=== PATIENT | female | born 1940 | race Caucasian/White ===

== ENCOUNTER → 2018-07-29 11:14 | Outpatient (CLI) | payer MEDICARE, OTHER, SELFPAY ==
[2018-07-29 14:38] LABS: Absolute Lymphocyte Count 2.22 X10^3/ul (0.83-4.51); Absolute Neutrophil Count 3.9 X10^3/uL (2.0-7.7); Basophil# 0.02 X10^3/uL; Basophil% 0.3 % (0-1); Eosinophil# 0.14 X10^3/uL; Hematocrit 41.6 % (37-47); Hemoglobin 13.6 g/dl (12.0-15.0); Lymphocyte # 2.22 X10^3/ul (4.0); Lymphocyte % 32.2 % (19-41); Mean Corp Hgb Conc 32.7 g/gl (32-36); Mean Corpuscular Hgb 31.9 pg (27.0-32.0); Mean Corpuscular Volume 97.4 fL (81-99); Mean Platelet Vol. 10.2 fl (6.2-12.0); Monocyte# 0.61 X10^3/uL; Monocyte% 8.8 % (0-10); Neutrophil % 56.6 % (47-70); Platelet Count 202 K/mm3 (150-450); RBC Distribution Width CV 13.3 % (11.6-14.6); RBC Distribution Width SD 46.9 fl (35.1-43.9); Red Blood Count 4.27 M/mm3 (4.2-5.4); White Blood Count 6.9 K/mm3 (4.4-11.0)
[2018-07-29 14:39] LABS: POSITIVE COUNT NO; POSITIVE DIFFERENTIAL NO; POSITIVE MORPHOLOGY NO
[2018-07-29 14:54] LABS: Albumin, Serum 3.6 g/dL (3.2-5.0)
== END ==
PROVIDERS: Family Provider Family Medicine; PCP Family Medicine; Referring Provider Specialist; Visit Provider Specialist
DX: M16.11 Unilateral primary osteoarthritis, right hip (principal)
CPT/HCPCS: 36415; 82040; 85025

== ENCOUNTER → 2018-08-05 12:42 | Outpatient (CLI) | payer MEDICARE, OTHER, SELFPAY ==
--- NOTE | 2018-08-05 12:00 | BRBX_PTH ---
PATIENT: DESTINI SAM LOC: [facility] U#:[id number] AGE/SX: 85/F ROOM: RE08/05/[address]: Dr. Daysi Fernandez MD : 1940 BED: DIS: SPEC #: [id number] RECD: 08/05/18 14:02 STATUS: MIO REYesica #: [id number] ИРИНА: 08/05/18 12:[address]: Daysi Fernandez DEPT: SURGICAL PATHOLOGY RECD BY: Krystal Hall ENTERED: 08/05/18 14:23 SP TYPE: BREAST BX OTHR DR: Dr. Valerio Nickerson MD Tissues: Right breast, NOS Procedures: Surgery Specimen Level IV HEADER OPERATION: Right breast stereotactic biopsy PRE-OP DIAGNOSIS: Right breast calcifications inferior medial/posterior depth TISSUE SUBMITTED: Right breast core tissue ISCHEMIC TIME: 1 minute FIXATION TIME: 8.5 hours MICROSCOPIC DIAGNOSIS Right breast, calcifications inferior medial/posterior depth, stereotactic core biopsy: Hyalinized fibroadenoma with focal calcification. Negative for atypia or malignancy. See comment. DARIO:jere 08/06/18 COMMENT The specimen predominantly consists of fatty breast tissue. Correlation with clinical, radiologic findings and appropriate follow up are necessary. MICROSCOPIC DESCRIPTION Slides are reviewed. GROSS DESCRIPTION Received is one container labeled with the patient's name and not further designated. The specimen consists of multiple elongated fragments of bergeron-yellow fibroadipose tissue that in aggregate measure 5 x 3 x 0.3 cm. The entire specimen is submitted in two cassettes. / DARIO:jere 08/05/18 TC:1 CPT: 15395
--- NOTE | 2018-08-22 12:46 | PCM.OPRPT ---
Report of Operation Date of Procedure: 08/05/18 Pre-Operative Diagnosis: abnormal calcifications on right breast mammograms Post-Operative Diagnosis: same Surgery/Procedure Performed:: right stereotactic breast biopsy Description of Surgical Findings:: abnormal calcifications obtained - lower central, slightly medial of breast Type of Anesthesia:: Local - 1% xylocaine Specimen's removed: right breast tissue Estimated Blood Loss (mL): < 1 ml Description of Procedure: After informed consent was given, the patient was brought into the breast biopsy suite. Appropriate time out protocol was followed. She was then placed in the prone position on the stereotactic biopsy table. The patient?s right breast was then placed within the opening at the head of the table. A agriculture worker compression mammogram was then obtained in the CC view. The suspicious radiological lesion was then identified. Stereo pictures of the lesion were then taken for XYZ coordinates. The Mammotome biopsy stylus was then positioned where it would be entering into the patient?s breast. The skin at this site was then cleansed with a surgical skin preparation. The skin and subcutaneous tissues at this site were then infiltrated with 1% xylocaine. A small skin incision was made with an 11 blade scalpel. The biopsy stylus was then positioned into the patient?s breast at the proper coordinates of depth. Using the Mammotome vacuum-assist device, several core samples of breast tissue were obtained. A specimen mammogram was the obtained and revealed that the calcifications were within the specimen. A hemostatic marker clip was then placed into the biopsy cavity and a agriculture worker film revealed that it was properly deployed. The patient was then placed in the supine position and pressure was applied to the breast until no active bleeding was noted. Steristrips were applied to reapproximate the skin. A unilateral mammogram in the CC and MLO view were then taken which revealed that the marker clip was in the same area as the previous suspicious lesion. The patient tolerated the procedure well and was discharged from the breast biopsy suite in good condition. - Complications none noted
--- NOTE | 2018-08-22 12:50 | OP.PCM_ITS ---
Report of Operation Date of Procedure: 08/05/18 Pre-Operative Diagnosis: abnormal calcifications on right breast mammograms Post-Operative Diagnosis: same Surgery/Procedure Performed:: right stereotactic breast biopsy Description of Surgical Findings:: abnormal calcifications obtained - lower central, slightly medial of breast Type of Anesthesia:: Local - 1% xylocaine Specimen's removed: right breast tissue Estimated Blood Loss (mL): < 1 ml Description of Procedure: After informed consent was given, the patient was brought into the breast biopsy suite. Appropriate time out protocol was followed. She was then placed in the prone position on the stereotactic biopsy table. The patient?s right breast was then placed within the opening at the head of the table. A drafter structural compression mammogram was then obtained in the CC view. The suspicious radiological lesion was then identified. Stereo pictures of the lesion were then taken for XYZ coordinates. The Mammotome biopsy stylus was then positioned where it would be entering into the patient?s breast. The skin at this site was then cleansed with a surgical skin preparation. The skin and subcutaneous tissues at this site were then infiltrated with 1% xylocaine. A small skin incision was made with an 11 blade scalpel. The biopsy stylus was then positioned into the patient?s breast at the proper coordinates of depth. Using the Mammotome vacuum-assist device, several core samples of breast tissue were obtained. A specimen mammogram was the obtained and revealed that the calcifications were within the specimen. A hemostatic marker clip was then placed into the biopsy cavity and a drafter structural film revealed that it was properly deployed. The patient was then placed in the supine position and pressure was applied to the breast until no active bleeding was noted. Steristrips were applied to reapproximate the skin. A unilateral mammogram in the CC and MLO view were then taken which revealed that the marker clip was in the same area as the previous suspicious lesion. The patient tolerated the procedure well and was discharged from the breast biopsy suite in good condition. - Complications none noted
== END ==
PROVIDERS: Family Provider Family Medicine; PCP Family Medicine; Visit Provider Surgery
DX: D24.1 Benign neoplasm of right breast (principal); N60.21 Fibroadenosis of right breast; E66.01 Morbid (severe) obesity due to excess calories; K21.9 Gastro-esophageal reflux disease without esophagitis; I10 Essential (primary) hypertension; Z79.899 Other long term (current) drug therapy
CPT/HCPCS: 19081; 88305; J7050; A4648

== ENCOUNTER 2018-08-20 14:54 | Outpatient (RCR) | payer SELFPAY | END 2018-09-09 23:59 | LOC: NS 14:54 | PROVIDERS: Family Provider Family Medicine; PCP Family Medicine; Visit Provider Specialist | DX: E66.8 Other obesity (principal); Z71.3 Dietary counseling and surveillance | CPT/HCPCS: 97802; 99201; G0463 ==

== ENCOUNTER 2018-10-08 13:00 | Outpatient (RCR) | payer SELFPAY ==
[2014-05-05 16:18] VITALS: BMI 43.2
== END 2018-10-10 23:59 ==
LOC: NS 13:00
PROVIDERS: Family Provider Family Medicine; PCP Family Medicine; Visit Provider Specialist
DX: E66.8 Other obesity (principal); Z71.3 Dietary counseling and surveillance
CPT/HCPCS: 97803

== ENCOUNTER 2018-10-28 16:03 | Outpatient (RCR) | payer SELFPAY ==
[2014-05-05 16:18] VITALS: BMI 43.2
== END 2018-11-07 23:59 ==
LOC: NS 16:03
PROVIDERS: Family Provider Family Medicine; PCP Family Medicine; Visit Provider Specialist
DX: E66.8 Other obesity (principal); Z71.3 Dietary counseling and surveillance
CPT/HCPCS: 97803

== ENCOUNTER 2018-11-25 08:30 | Outpatient (RCR) | payer SELFPAY ==
[2014-05-05 16:18] VITALS: BMI 43.2
== END 2018-12-08 23:59 ==
LOC: NS 08:30
PROVIDERS: Family Provider Family Medicine; PCP Family Medicine; Visit Provider Specialist
DX: E66.8 Other obesity (principal); Z71.3 Dietary counseling and surveillance

== ENCOUNTER 2018-12-31 08:30 | Outpatient (RCR) | payer SELFPAY ==
[2014-05-05 16:18] VITALS: BMI 43.2
== END 2019-01-07 23:59 ==
LOC: NS 08:30
PROVIDERS: Family Provider Family Medicine; PCP Family Medicine; Visit Provider Specialist
DX: E66.8 Other obesity (principal); Z71.3 Dietary counseling and surveillance
CPT/HCPCS: 97803

== ENCOUNTER 2019-01-01 20:08 | Emergency (ER) | payer MEDICARE, OTHER, SELFPAY ==
[2019-01-01 20:09] VITALS: BP 148/102; PULSE 136; PULSE 137; RESP 18; RESP 20; TEMP 36.6; O2SAT 97; BMI 40.3
--- NOTE | 2019-01-01 20:35 | EKG12_ITS ---
Test Reason : PALPATATIONS Blood Pressure : / mmHG Vent. Rate : 108 BPM Atrial Rate : 267 BPM P-R Int : 000 ms QRS Dur : 098 ms QT Int : 322 ms P-R-T Axes : 079 -62 055 degrees QTc Int : 431 ms Atrial flutter with variable A-V block Left anterior fascicular block Left ventricular hypertrophy with repolarization abnormality Possible Lateral infarct , age undetermined , cannot be excluded Poor R-Wave Progression Abnormal ECG Confirmed by DECLAN MAXWELL, JOSÉ MIGUEL ([id number]), production editor RAY FARRIS ([id number]) on 01/06/2019 10:49:27 AM Referred By: MR Confirmed By:JOSÉ MIGUEL MANRIQUEZ MD
--- NOTE | 2019-01-01 20:35 | RAD_ITS ---
STUDY: X-RAY CHEST REASON FOR EXAM: Female, 78 years old. Palpitations. Chest pain. TECHNIQUE: Single AP portable view of the chest. COMPARISON: None. FINDINGS: The lungs are clear and expanded. There is no demonstrated pleural abnormality. There is mild cardiac enlargement. Normal mediastinum and debora. Normal visualized pulmonary arteries. Normal visualized aortic arch and descending thoracic aorta. There is demineralization of the osseous structures. There is degenerative osteoarthritis of the bilateral shoulders. There is no demonstrated abnormality of the visualized soft tissue structures of the upper abdomen. RAD/Chest 1 View (Portable) IMPRESSION: Degenerative changes, as described above. No demonstrated acute cardiopulmonary process. Electronically Signed: Avinash Snyder MD at 21:03 EDT , Service support ,
[2019-01-01] MEDS: Aspirin 81 MG TAB.CHEW 324 MG PO (20:51)
[2019-01-01] MEDS: Metoprolol Tartrate 5 MG/5 ML Vial IV (20:52)
[2019-01-01 21:06] LABS: Absolute Lymphocyte Count 2.82 X10^3/ul (0.83-4.51); Absolute Neutrophil Count 3.8 X10^3/uL (2.0-7.7); Basophil# 0.04 X10^3/uL; Basophil% 0.5 % (0-1); Eosinophil# 0.11 X10^3/uL; Eosinophils% 1.5 % (0-5); Hematocrit 41.7 % (37-47); Hemoglobin 14.2 g/dl (12.0-15.0); Lymphocyte # 2.82 X10^3/ul (4.0); Lymphocyte % 38.5 % (19-41); Mean Corp Hgb Conc 34.1 g/gl (32-36); Mean Corpuscular Volume 93.9 fL (81-99); Mean Platelet Vol. 9.3 fl (6.2-12.0); Monocyte# 0.53 X10^3/uL; Monocyte% 7.2 % (0-10); Platelet Count 202 K/mm3 (150-450); RBC Distribution Width CV 13.6 % (11.6-14.6); Red Blood Count 4.44 M/mm3 (4.2-5.4); White Blood Count 7.3 K/mm3 (4.4-11.0)
[2019-01-01 21:07] LABS: POSITIVE COUNT NO; POSITIVE DIFFERENTIAL NO; POSITIVE MORPHOLOGY NO
[2019-01-01 21:16] VITALS: BP 147/79; PULSE 65; RESP 15; O2SAT 98
[2019-01-01 21:18] LABS: Anion Gap 5 (5-15); BUN 22 mg/dL (7-18); BUN/Creat Ratio 21.6 RATIO (10-20); Calcium,Total 9.9 mg/dL (8.5-10.1); Chloride 105 mmol/L (98-107); Creatinine, Serum 1.02 mg/dL (0.55-1.02); EST Glomerular Filtration Rate 56 mL/min (>60); Est Glom Filt Rate - Afr Amer 67 mL/min (>60); Estimated Creatinine Clearance 36.53 ml/min; Glucose 130 mg/dL (74-106); Potassium 4.1 mmol/L (3.5-5.1); Sodium Level 140 mmol/L (136-145)
[2019-01-01 21:20] VITALS: BP 161/77; PULSE 70; RESP 16; O2SAT 98
--- NOTE | 2019-01-01 21:22 | EKG12_ITS ---
Test Reason : REPEAT Blood Pressure : / mmHG Vent. Rate : 061 BPM Atrial Rate : 061 BPM P-R Int : 170 ms QRS Dur : 104 ms QT Int : 394 ms P-R-T Axes : 017 -55 011 degrees QTc Int : 396 ms Normal sinus rhythm with sinus arrhythmia Left axis deviation Moderate voltage criteria for LVH, may be normal variant Poor R-Wave Progression Abnormal ECG Confirmed by DECLAN MAXWELL, JOSÉ MIGUEL ([id number]), web editor RAY FARRIS ([id number]) on 01/06/2019 10:49:58 AM Referred By: MR Confirmed By:JOSÉ MIGUEL MANRIQUEZ MD
--- NOTE | 2019-01-01 22:03 | ED.DCSUM_ITS ---
History of Present Illness Chief Complaint: Palpitations Informant: Patient Onset: Today Activity at onset: Sleep Timing: Continuous Quality: Pressure Location: Substernal Current Severity: Mild Maximum Severity: Mild Worsened By: Nothing Relieved By: Nothing Narrative: Patient presenting for evaluation secondary to palpitations and chest pain. Patient reports that since 2:00 this morning she has had an onset of palpitations and chest pain. She reports that this is a continuous type sensation and has not been associated with any shortness of breath or any exacerbating relieving factors. Pain is continuous in the center of her chest and associated with elevated heart rates into the 130s and elevated blood pressure. Patient has no history of cardiac arrhythmias, has a history of hypertension she is on metoprolol and hydrochlorothiazide. She denies any rec ent infectious signs or symptoms. She denies any DVT or PE risk factors. Review of systems otherwise negative. Past Medical History - Allergies and Home Meds Allergies/Adverse Reactions: Allergies Penicillins Allergy (Severe, Verified 01/01/19 20:09) Hives PER PT REPORT-HAD ORAL PCN IN HER PAST FOR UTERINE INFECTION IN THE , DEVELOPED HIVES & IT WAS STOPPED chlordiazepoxide [From Librax (with clidinium)] Allergy (Verified 01/01/19 20:09) Other clidinium bromide [From Librax (with clidinium)] Allergy (Verified 01/01/19 20:09) Other amlodipine besylate [From Norvasc] Adverse Reaction (Verified 01/01/19 20:09) Other Primary Care Physician: Subhash Durbin MD [STAFF PHYSICIAN] - As soon as possible Surgical History: cholecystectomy Smoking Status: Never smoker - Family History Maternal Family History: Reports: No pertinent history Review of Systems All systems negative except as indicated General: Denies: Fever Cardiovascular: Reports: Chest pain, Palpitations, Heart racing Respiratory: Denies: Dyspnea Gastrointestinal: Denies: Abdominal pain, Nausea, Vomiting Genitourinary: Denies: Dysuria Physical Exam Vital Signs/Narrative: Vital Signs Temp Pulse Resp BP Pulse Ox 01/01/19 21:16 65 15 147/79 H 98 01/01/19 20:09 97.9 F 137 H 18 148/102 H 97 General: Well nourished, Well developed, No Acute Distress Head: Normocephalic, Atraumatic Eyes: Perrl, EOMI ENT: Moist mucous membranes, No rhinorrhea Neck: Supple, Nontender, No JVD Cardiovascular: No murmurs, Irregular, Tachycardia, - - 2+ radial pulses bilaterally symmetric Respiratory: No distress, CTA bilaterally, Chest nontender Abdomen: Soft, Nontender, Nondistended, Normal bowel sounds Back: Nontender, Normal Inspection Extremities: Nontender Skin: Normal color, No rash Neurological: Alert, Oriented x3, Cranial nerves II-XII grossly intact, Normal Strength, Normal Sensation Psychological: Normal affect, Normal Mood Diagnostic/Tx/Re-eval - EKG Initial EKG Interpretation: - - Atrial flutter with a variable AV block and a ventricular rate of 108. Left anterior fascicular block, LVH, no evidence of acute ST segment changes or T wave changes. Prior: Changed Follow-up EKG Interpretation: - - Sinus rhythm [address] segments normal T waves. Left axis deviation and LVH. - Medical Decision Making Patient presented secondary to palpitations. Patient was found to be in atrial flutter with a rapid ventricular rate. She was given a single dose of Lopressor and actually cardioverted back into sinus rhythm. Patient's work-up shows a normal CBC, chemistry, and troponin. Chest x-ray was negative. Urinalysis showed no signs of infection. Patient's blood pressure improved progressively while she was in the emergency department. I had a discussion with Dr. Durbin cardiology, and given the fact that the patient had almost 24 hours of chest pain with a negative cardiac enzyme and the fact that she cardioverted we are comfortable with her working this up as an outpatient. Patient will be given Xarelto, and will be instructed to double her dose of metoprolol at home. She will follow-up with cardiology within the next 24 to 48 hours. All questions were answered and patient was discharged. Disposition: Home ED Disposition - Plan for ED Patient: Disposition: Home or Assisted Living Diagnosis: Atrial flutter Instructions: ED Paroxysmal Atrial Flutter Prescriptions: Rivaroxaban [Xarelto] 20 mg PO DAILY #30 tab Referrals: Subhash Durbin MD [STAFF PHYSICIAN] - As soon as possible
[2019-01-01 22:32] VITALS: BP 163/84; PULSE 77; RESP 18; O2SAT 96
[2019-01-01 22:33] LABS: Bacteria 0 SEEN /hpf (None Seen); Mucous, Urine 0 SEEN /hpf (<or=2+); Red Blood Cells-Urine 0 SEEN /hpf (0-5); Squamous Epithelial Cells - UA 0 SEEN /hpf (5-10); White Blood Cells 0 SEEN /hpf (0-5)
[2019-01-01 22:35] LABS: Color, Urine Yellow (Yellow); Glucose, Dipstick Normal (Normal); Ketone-Dipstick Negative (Negative); Leukocyte Esterase-Dipstick Negative /ul (Negative); Nitrite-Dipstick Negative (Negative); Occult Blood-Urine Negative /ul (Negative); Protein-Dipstick Negative (Negative); Urine Bilirubin Dipstick Negative (Negative); Urine Clarity Clear (Clear); Urine Urobilinogen Normal (Normal)
[2019-01-01] MEDS: Rivaroxaban 20 MG Tablet PO (22:51)
== END 2019-01-01 23:01 | disposition home or self-care (01) ==
PROVIDERS: Emergency Provider Emergency Medicine; Family Provider Family Medicine; PCP Family Medicine
DX: I48.92 Unspecified atrial flutter (principal); I10 Essential (primary) hypertension
CPT/HCPCS: 71045; 80048; 81001; 84484; 85025; 93005; 99284; A4216

== ENCOUNTER → 2019-01-13 07:37 | Outpatient (CLI) | payer MEDICARE, OTHER, SELFPAY ==
[2019-01-07 13:56] VITALS: BMI 39.6
[2019-01-13 09:35] LABS: AST(SGOT) 15 U/L (15-37); Alanine Aminotransfer ALT/SGPT 19 U/L (13-56); Albumin, Serum 3.5 g/dL (3.2-5.0); Alkaline Phosphatase 94 U/L (45-117); Bilirubin, Direct 0.17 mg/dL (0.00-0.30); Cholesterol 148 mg/dL (200); Globulin 3.1 g/dL (2.2-4.2); High Density Lipoprotein 53 mg/dL; Protein, Total 6.6 g/dL (6.4-8.2); T4 Total, Thyroxin 7.2 ug/dL (4.8-13.9); Triglycerides 121 mg/dL; Very Low Density Lipoprotein 24 mg/dL (5-40)
== END ==
PROVIDERS: Family Provider Family Medicine; PCP Family Medicine; Referring Provider Internal Medicine Cardiovascular Disease; Visit Provider Internal Medicine Cardiovascular Disease
DX: I48.92 Unspecified atrial flutter (principal); I44.4 Left anterior fascicular block; R07.9 Chest pain, unspecified; R00.2 Palpitations
CPT/HCPCS: 36415; 80061; 80076; 84436; 84443

== ENCOUNTER 2019-01-20 09:14 | Outpatient (RCR) | payer SELFPAY ==
[2019-01-07 13:56] VITALS: BMI 39.6
== END 2019-02-07 23:59 ==
LOC: NS 09:14
PROVIDERS: Family Provider Family Medicine; PCP Family Medicine; Visit Provider Specialist
DX: E66.8 Other obesity (principal); Z71.3 Dietary counseling and surveillance
CPT/HCPCS: 97803

== ENCOUNTER → 2019-01-23 14:52 | Outpatient (CLI) | payer MEDICARE, OTHER, SELFPAY ==
[2019-01-07 13:56] VITALS: BMI 39.6
--- NOTE | 2019-01-23 14:55 | ECHOD_ITS ---
Reason For Study: Afib/Flutter Procedure This was a 2D Doppler, Color Flow transthoracic echocardiogram. Exam performed in department. Left Ventricle Normal size and thickness. The estimated ejection fraction is 65 %. Stage 1 diastolic dysfunction. No regional wall motion abnormalities noted. Right Ventricle Mildly dilated right ventricle. Normal systolic function. Atria The left atrium is moderately enlarged. The right atrium is moderately enlarged. Normal atrial septum. Mitral Valve The mitral valve is structurally normal. No prolapse or stenosis seen. Trivial mitral valve insufficiency. Tricuspid Valve Normal tricuspid valve. Mild (1+) tricuspid valve insufficiency. Right ventricular systolic pressure estimated to be 37 mmHg. Mild pulmonary hypertension. Aortic Valve Trisinus/trileaflet aortic valve. Mild focal aortic valve thickening. Mild (1+) aortic valve insufficiency. Pulmonic Valve Normal pulmonic valve. Trivial pulmonic valve insufficiency. Great Vessels Normal aortic root. Normal arch. Normal inferior vena cava. Inferior vena cava collapse with sniff. Pericardium/Pleural No pericardial effusion. MMode/2D Measurements & Calculations LVIDd: 4.2 cm IVSd: 1.2 cm LA dimension: 3.8 cm LVIDs: 2.9 cm LVPWd: 0.97 cm RVDd: 4.4 cm FS: 30.9 % LAV(MOD-bp): 74.4 ml LA A4 area: 22.6 cm2 RA A4 area: 23.6 cm2 LAV(MOD-bp) Indexed: 37.2 ml/m2 LAV(MOD-sp2): 66.9 ml LAV(MOD-sp4): 65.7 ml Time Measurements MV dec time: 0.18 sec Doppler Measurements & Calculations MV E max marquez: 79.3 cm/sec Lat Peak E' Marquez: 10.5 cm/sec Med Peak E' Marquez: 6.5 cm/sec MV A max marquez: 99.8 cm/sec E/E' lat: 7.5 E/E' med: 12.2 MV E/A: 0.79 MV V2 max: 77.7 cm/sec MV P1/2t max marquez: 73.2 cm/sec Ao V2 max: 176.7 cm/sec MV max P.4 mmHg MV P1/2t: 66.7 msec Ao max P.5 mmHg MV V2 mean: 38.8 cm/sec MV dec slope: 321.4 cm/sec2 Ao V2 mean: 115.6 cm/sec MV mean P.72 mmHg MVA(P1/2t): 3.3 cm2 Ao mean P.2 mmHg MV V2 VTI: 29.8 cm Ao V2 VTI: 50.6 cm AI max marquez: 420.4 cm/sec LV V1 max: 98.1 cm/sec PA V2 max: 85.7 cm/sec AI max P.7 mmHg LV V1 max P.8 mmHg LV V1 mean P.0 mmHg AI dec slope: 205.7 cm/sec2 LV V1 mean: 67.7 cm/sec AI P1/2t: 598.6 msec LV V1 VTI: 27.5 cm TR max marquez: 283.8 cm/sec TR max P.2 mmHg Interpretation Summary The estimated ejection fraction is 65 %. Stage 1 diastolic dysfunction. Mildly dilated right ventricle. The left atrium is moderately enlarged. The right atrium is moderately enlarged. Trivial mitral valve insufficiency. Mild (1+) tricuspid valve insufficiency. Right ventricular systolic pressure estimated to be 37 mmHg. Mild pulmonary hypertension. Mild (1+) aortic valve insufficiency. There is no comparison study available. Ordering Physician: Subhash Durbin Referring Physician: Subhash Durbin Performed By: Regino Alfaro RCS
== END ==
PROVIDERS: Family Provider Family Medicine; PCP Family Medicine; Referring Provider Internal Medicine Cardiovascular Disease; Visit Provider Internal Medicine Cardiovascular Disease
DX: Z98.890 Other specified postprocedural states (principal)
CPT/HCPCS: 93306

== ENCOUNTER → 2019-01-31 09:17 | Outpatient (CLI) | payer MEDICARE, OTHER, SELFPAY ==
[2019-01-07 13:56] VITALS: BMI 39.6
--- NOTE | 2019-01-31 09:19 | STE_ITS ---
Reason For Study: Atrial Fibrillation/Flutter Stress Results Protocol: Dobutatmine Stress Echo Maximum Predicted HR: 142 bpm Target HR: 121 bpm % Maximum Predicted HR: 92 % Heart Stage Duration Rate BP Comment (mm:ss) (bpm) Baseline 78 150/80No Chest Pain DSE 10 MCG 3:23 71 148/78No Chest Pain DSE 20 MCG 3:00 77 152/76No Chest Pain DSE 30 MCG 3:01 75 160/72No Chest Pain No Chest Pain; Atropine 0.25 MG IVP; IV Intfiltrated After Atropine, DSE 40 5:43 131 148/72Test Stopped; IV Restarted; Test Resumed; Infiltrated Site Slightly MCG Red, Compress Applied Prior to Discharge Recovery 90 136/70No Chest Pain; Left AC Infiltrated IV Site Less Red Stress Duration: 15:07 mm:ss Maximum Stress HR: 131 bpm METS: 1 Baseline Echocardiogram Findings The estimated ejection fraction is 65 %. Stress Echo Wall motion Data Resting WM Intermediate WM Stress WM Resting Wall Motion Wall Motion Stress No regional wall motion No regional wall motion abnormalities noted. abnormalities noted. EKG Data The baseline ECG displays normal sinus rhythm. The patient was titrated from 10 mcg to a maximum of 40 mcg of dobutamine during the stress. The maximum heart rate attained was 141 beats per minute. This was 99% of maximum predicted heart rate. During dobutamine infusion, there were no ST or T wave changes noted to suggest ischemia. No clinical angina was noted. Interpretation Summary The estimated ejection fraction is 65 %. Normal, adequate, dobutamine echocardiogram. Negative for ischemia by EKG and echocardiographic criteria. No anginal symptoms noted. Rare PVCs and PACs noted. Appropriate blood pressure response to dobutamine. Final LVEF is 75%. Test terminated due to the attainment of target heart rate. No complications. Ordering Physician: Subhash Durbin Referring Physician: Valerio Nickerson Performed By: Brodwolf, Regino, RCS
== END ==
PROVIDERS: Family Provider Family Medicine; PCP Family Medicine; Referring Provider Internal Medicine Cardiovascular Disease; Visit Provider Internal Medicine Cardiovascular Disease
DX: I48.91 Unspecified atrial fibrillation (principal); I48.92 Unspecified atrial flutter; I44.4 Left anterior fascicular block; I10 Essential (primary) hypertension; R00.2 Palpitations
CPT/HCPCS: 93017; 93350; J7040; A4216

== ENCOUNTER 2019-02-25 09:11 | Outpatient (RCR) | payer SELFPAY ==
[2019-01-07 13:56] VITALS: BMI 39.6
== END 2019-03-09 23:59 ==
LOC: NS 09:11
PROVIDERS: Visit Provider Specialist
DX: E66.8 Other obesity (principal); Z71.3 Dietary counseling and surveillance
CPT/HCPCS: 97803

== ENCOUNTER 2019-04-01 10:31 | Outpatient (RCR) | payer SELFPAY ==
[2019-01-07 13:56] VITALS: BMI 39.6
== END 2019-04-01 23:59 | disposition home or self-care (01) ==
LOC: NS 10:31
PROVIDERS: Visit Provider Specialist
DX: E66.8 Other obesity (principal); Z71.3 Dietary counseling and surveillance

== ENCOUNTER 2019-06-27 08:45 | Emergency (ER) | payer MEDICARE, OTHER, SELFPAY ==
[2019-06-24 11:30] VITALS: BMI 40.9
[2019-06-27 08:46] VITALS: BP 169/74; PULSE 58; RESP 16; TEMP 36.6; O2SAT 99; BMI 40.9
--- NOTE | 2019-06-27 09:00 | ED.VISSUMM ---
- ER Visit Summary Date of Service: 06/27/19 Chief Complaint: Bleeding History of Present Illness: The patient is a 79 F with bleeding from her perineal area. She noticed this last night. It seems to have stopped. She was concerned that she may be bleeding from a varicose vein. She denies any other associated symptoms. She is on Xarelto for history of atrial flutter/fib, but took her last dose last night as she is preparing for orthopedic surgery. Physical Examination: Exam was chaperoned by Fang Correa RN. Patient has an area on her right labia majora inferiorly that is consistent with folliculitis. There appears to be a small pustule that drained. There is some dried blood and a scant amount of pus. The area is slightly tender but otherwise unremarkable. Test Results: None indicated Emergency Department Course and Treatment: Patient has findings consistent with folliculitis. Patient was advised to clean the area gently with soap and water. Soaks as needed. Apply direct pressure to bleeding. I believe she will have difficulty with topical medication, so I put her on a short course of oral clindamycin. Follow-up with her doctor. Treatment Plan: As above Disposition: Discharge Impression: 1. Folliculitis This note was generated with [employer] dictation software. It may contain incorrect words, spelling, and punctuation that were not noted in review of the chart prior to signing ED Disposition - Plan for ED Patient: Referrals: Valerio Nickerson MD [Primary Care Provider] -
[2019-06-27] MEDS: Clindamycin HCl 150 MG Capsule 300 MG PO (09:04)
--- NOTE | 2019-06-27 09:04 | ED.DEP ---
ED Disposition - Plan for ED Patient: Instructions: Folliculitis Prescriptions: Clindamycin [Cleocin] 300 mg PO 4X/DAY #40 cap Prescription Printed Referrals: Valerio Nickerson MD [Primary Care Provider] -
== END 2019-06-27 09:16 | disposition home or self-care (01) ==
LOC: ED 09:09
PROVIDERS: Emergency Provider Emergency Medicine; Family Provider Family Medicine; PCP Family Medicine
DX: L73.9 Follicular disorder, unspecified (principal); I48.92 Unspecified atrial flutter; I10 Essential (primary) hypertension; M10.9 Gout, unspecified; Z79.01 Long term (current) use of anticoagulants; Z79.899 Other long term (current) drug therapy
CPT/HCPCS: 99283

== ENCOUNTER 2019-07-30 07:40 | Inpatient (IN) | payer MEDICARE, OTHER, SELFPAY ==
[2019-01-07 13:56] VITALS: BMI 39.6
[2019-06-18 11:18] VITALS: BP 155/73; PULSE 57; RESP 16; TEMP 36.3; O2SAT 98; BMI 40.9
--- NOTE | 2019-06-19 09:46 | PCM.HP.BLA ---
History and Physical Patient Name: Azul Victoria : 1940 From: CHRISTOPHER HERNANDEZ PA-C DATE OF SURGERY: 07/02/2019 SCHEDULED PROCEDURE: right total hip arthroplasty HISTORY OF PRESENT ILLNESS: Preoperative history and physical exam was performed on June 28, 2019. This is a 79-year-old female who is had ongoing pain in the right hip for over 2 years. Patient states her pain can reach as high as a 10/10 with activities. Her pain has been intermittent, aching, sharp. She has increased pain going up and down stairs. Her pain is in the anterior thigh. She also has increased pain with sitting for extended periods of time. She has difficult time with getting dressed and doing housework. Patient also has difficult time picking things off the floor due to the right hip pain. Patient has lost 18 pounds since her last appointment in July 2018. Patient has tried conservative measures consisting of rest and elevation with minimal relief. She has tried home exercises, acute care clinical nurse specialist and oral medications with minimal relief. She has tried exercise strength Tylenol. She denies previous surgery on the right hip. She does use a cane off and on for the past 1 year. Patient has a medical history pertinent for hypertension, acid reflux, superficial phlebitis in the left leg which did not require any anticoagulation. She was also recently diagnosed with atrial flutter in December 2018. She has had workup with stress test and echo as well as recent EKGs. She is currently Xarelto since the atrial flutter. Patient will be getting clearance from the cam milling machine operator Dr. Durbin. She denies chest pain or shortness of breath but does have occasional heaviness in the chest. Patient denies any recent fevers, chills, recent infections. After failing conservative measures and discussing treatment options with Dr. Ricky Schulte, the patient would like to proceed with a right total hip arthroplasty. REVIEW OF SYSTEMS: ROS: Const: Reports anxiety, but denies anorexia, change in appetite, fever, hard of hearing, vision problems and weight change. CV: Reports chest pain (HEAVINESS ),but denies heart murmur, irregular heartbeat and peripheral vascular disease Resp: Reports pneumonia and SOB, but denies asthma, cough, sleep apnea, tuberculosis and wheezing. GI: Reports heartburn and nausea, but denies constipation, diarrhea, difficulty swallowing, bloody stools and vomiting. : Urinary: reports incontinence. Musculo: Reports ambulatory dysfunction, leg swelling and limp, but denies trouble walking and weakness. Skin: Denies Raynaud's, history of shingles and tattoo. Neuro: Reports numbness/tingling but denies ambulatory dysfunction, dizziness and tremor. Psych: Denies anxiety, depression, insomnia, mental illness and stress. Anshul/Lymph: Reports bleeding/bruising tendency, but denies anemia and past transfusion. Reviewed and updated. 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 RT TKR - (2011) [email or web address] Anesthesia Complications: None Assistive Devices: Glasses - READING, Cane Reviewed and updated. SOCIAL HISTORY: SH: Marital: .Occupation: Retired.Work Status: Retired.Hand Dominance: Right-handed. Personal Habits: Smoking: Patient has never smoked.Cigarette Use: Never.Alcohol: Denies use.Drug Use: Denies Use.Enjoy Exercising: Never Exercises. Reviewed, no changes. VITALS: Ht: 62 Wt: 224lb Wt k.606 BMI: 41.0 BP: 139/82 Pulse: 57 Resp: 20 T: 96.1 T: 35.6C ALLERGIES: Norvasc Clindex - Change Of Mental Status Librax Penicillin MEDICATIONS: Hydrochlorothiazide 25 mg 1 po qdAY, Metoprolol Succinate 25 mg 1 tab by mouth twice daily, Klor-Con M10 10 Meq 1po qday, Allopurinol 300 mg 1 po qdAY, Centrum Silver 1 po qdAY, Vitamin D3 1po qday, Magnesium 250 mg 1 tab by mouth daily, Xarelto 20 mg 1 by mouth every day PRE-OP EXAM: General appearance:NORMAL Other: Eyes: Conjunctivae and lids: NORMAL Pupils: ERR Ears, Nose, Mouth, and Throat: NORMAL Other: Inspection of lips, teeth and gums: NORMAL Other: Neck: Examination of neck: no masses noted. Respiratory: Assessment of respiratory effort: NORMAL Other: Auscultation of lungs: clear to auscultation no wheezes, rhonchi or rales. Cardiovascular: Auscultation of heart: regular rate and rhythm, no murmurs, gallops or rubs. Gastrointestinal: Exam of abdomen: soft, nontender, nondistended bowel sounds present. PHYSICAL EXAMINATION: Patient does walk with an antalgic gait. Right hip is cool to touch without erythema. Right hip range of motion: Flexion 80, internal rotation neutral, external rotation 20. There is 2 mm shorter leg length on the right. Sensation intact to light touch. Neurovascularly intact. IMAGING STUDIES: X-rays of the right hip reveal joint space narrowing with subchondral sclerosis and osteophyte formation consistent with severe osteoarthritis. Due to the arthritis there is associated shortening of the right hip based on the lesser trochanters. IMPRESSION: 1. Severe right hip osteoarthritis 2. Hypertension 3. History of atrial flutter: Currently on Xarelto 4. Acid reflux 5. History of diverticulitis PLAN: Dr. Ricky Schulte did discuss and review with the patient all treatment options including surgical versus nonsurgical options. Patient does wish to proceed with the above-stated procedure. Potential risks, benefits, and complications of the procedure were discussed in detail including but not limited to , infection, nerve and blood vessel damage, persistent pain, numbness, tingling, paresthesias, blood clot, pulmonary embolism, and requirement for possible further surgery. The patient expressed full understanding and has no further questions for the doctor. Patient does agree to proceed with the above-stated procedure and has signed the surgery consent form. This dictation was created using voice recognition software. Phonetic and/or grammatical errors may exist. ___ I have re-examined the patient. There are no clinical changes since date of exam. ___ See progress notes for changes. ___ Dictated on admission Date: Time: Signature:
--- NOTE | 2019-07-21 17:06 | PCM.HP.BLA ---
History and Physical History and Physical [facility] Patient Name: Azul Victoria : 1940 From: CHRISTOPHER HERNANDEZ PA-C DATE OF SURGERY: 07/30/2019 SCHEDULED PROCEDURE: right total hip arthroplasty HISTORY OF PRESENT ILLNESS: Preoperative history and physical exam was performed on July 21, 2019 this is a 79-year-old female who is scheduled to undergo a right total hip arthroplasty but had to be canceled due to folliculitis in the vaginal area. Patient was treated with antibiotics and has been cleared by Dr. Rukhsana Resi. This is a 79-year-old female who has had ongoing hip pain for over 2 years. Her pain rates as high as a 10/10 with activities. Pain is intermittent, aching, sharp. She has increased pain going up and down stairs. Her pain is in the anterior thigh. She has increased pain with extending for periods of time. She has difficult time with getting dressed and doing housework. 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 Patient eyes previous surgery on the right hip. She has been using a cane off and on for the past 1 year. Patient has a medical history pertinent for hypertension, acid reflux, superficial phlebitis in the left leg which did not require any anticoagulation. She has been diagnosed with atrial flutter in December 2018. She is currently using Xarelto. Patient has had surgical clearance from the insole cementer Dr. Durbin. She is also resolved her folliculitis in the vaginal area. After clearance from Dr. Reis. She denies chest pain, shortness of breath, fevers chills. Her failing conservative measures and discussing treatment options of Dr. Ricky Schulte, the patient will proceed with a right total hip arthroplasty. REVIEW OF SYSTEMS: ROS: Const: Reports anxiety, but denies anorexia, change in appetite, fever, hard of hearing, vision problems and weight change. CV: Reports chest pain (HEAVINESS ),but denies heart murmur, irregular heartbeat and peripheral vascular disease Resp: Reports pneumonia and SOB, but denies asthma, cough, sleep apnea, tuberculosis and wheezing. GI: Reports heartburn and nausea, but denies constipation, diarrhea, difficulty swallowing, bloody stools and vomiting. : Urinary: reports incontinence. Musculo: Reports ambulatory dysfunction, leg swelling and limp, but denies trouble walking and weakness. Skin: Denies Raynaud's, history of shingles and tattoo. Neuro: Reports numbness/tingling but denies ambulatory dysfunction, dizziness and tremor. Psych: Denies anxiety, depression, insomnia, mental illness and stress. Anshul/Lymph: Reports bleeding/bruising tendency, but denies anemia and past transfusion. Reviewed, no changes. PAST MEDICAL HISTORY: Advance Care Plan: Other Directive, LIVING WILL Effective Date: 01/03/2017 Other Directive, POA Effective Date: 01/03/2017 PMH: Medical Problems: Arthritis, High Blood Pressure Superficial Phlebitis - IN LEFT LEG Pneumonia - 1949'S & 1982 Gout - ELEVATED URIC ACID LEVELS A-Flutter, Acid Reflux, Diverticulitis, Osteo Arthritis Vulvar Varicose Veins - (06/18/2019) Accidents: None Surgical Hx: Gallbladder - (1982) CARY Tonsillectomy - (1939) Section - X 2 1968 AND 1972 D&C - X2 1962 AND 1965 Cataract SX - BOTH EYES WERE DONE @SEPERATE TIMES @[facility] 01-13 & 03-17 LT Knee Unicompartmental Replacement - (10/19/2009) [email or web address] RT TKR - (2011) [email or web address] Anesthesia Complications: None Assistive Devices: Glasses - READING, Cane Reviewed, no changes. SOCIAL HISTORY: SH: Marital: .Occupation: Retired.Work Status: Retired.Hand Dominance: Right-handed. Personal Habits: Smoking: Patient has never smoked.Cigarette Use: Never.Alcohol: Denies use.Drug Use: Denies Use.Enjoy Exercising: Never Exercises. Reviewed, no changes. VITALS: Ht: 62 Wt: 226lb 6oz Wt k.684 BMI: 41.4 BP: 124/74 Pulse: 64 Resp: 16 T: 97.2 T: 36.2C ALLERGIES: Norvasc Clindex - Change Of Mental Status Librax Penicillin MEDICATIONS: Mupirocin 2 % use qtip and apply inside each nostril twice a day until the day of surgery, Hydrochlorothiazide 25 mg 1 po qdAY, Metoprolol Succinate 25 mg 1 tab by mouth twice daily, Klor-Con M10 10 Meq 1po qday, Allopurinol 300 mg 1 po qdAY, Centrum Silver 1 po qdAY, Vitamin D3 1po qday, Magnesium 250 mg 1 tab by mouth daily, Xarelto 20 mg 1 by mouth every day PRE-OP EXAM: General appearance:NORMAL Other: Eyes: Conjunctivae and lids: NORMAL Pupils: ERR Ears, Nose, Mouth, and Throat: NORMAL Other: Inspection of lips, teeth and gums: NORMAL Other: Neck: Examination of neck: no masses noted. Respiratory: Assessment of respiratory effort: NORMAL Other: Auscultation of lungs: clear to auscultation no wheezes, rhonchi or rales. Cardiovascular: Auscultation of heart: regular rate and rhythm, no murmurs, gallops or rubs. Gastrointestinal: Exam of abdomen: soft, nontender, nondistended bowel sounds present. PHYSICAL EXAMINATION: Patient walks with an antalgic gait. Right hip is cool to touch without erythema. Right hip range of motion: Flexion 80, internal rotation neutral, external rotation 20. There is 2 mm shorter leg length on the right. Sensation intact to light touch. Neurovascularly intact. IMPRESSION: 1. Severe right hip osteoarthritis 2. Hypertension 3. History of atrial flutter: Currently on Xarelto 4. Acid reflux 5. History of diverticulitis 6. Resolved folliculitis vaginal area PLAN: Dr. Ricky Schulte did discuss and review with the patient all treatment options including surgical versus nonsurgical options. Patient does wish to proceed with the above-stated procedure. Potential risks, benefits, and complications of the procedure were discussed in detail including but not limited to , infection, nerve and blood vessel damage, persistent pain, numbness, tingling, paresthesias, blood clot, pulmonary embolism, and requirement for possible further surgery. The patient expressed full understanding and has no further questions for the doctor. Patient does agree to proceed with the above-stated procedure and has signed the surgery consent form. This dictation was created using voice recognition software. Phonetic and/or grammatical errors may exist. ___ I have re-examined the patient. There are no clinical changes since date of exam. ___ See progress notes for changes. ___ Dictated on admission Date: Time: Signature:
[2019-07-30] VITALS (12 sets, daily range): BP systolic 118–164; BP diastolic 55–70; PULSE 52–60; RESP 16–18; TEMP 36.1–36.6; O2SAT 98–100; BMI 40.6
[2019-07-30] MEDS: Magnesium Sulfate 4gm/100mL 4 GM/100 ML IV.SOLN. IV (08:19)
[2019-07-30] MEDS: Gabapentin 600 MG Tablet PO (08:20)
[2019-07-30] MEDS: Acetaminophen 500 MG Tablet 1000 MG PO ×3 (08:20→21:55)
[2019-07-30] MEDS: Lactated Ringers 1,000 ML 999 ML IV (08:20)
[2019-07-30] MEDS: Lactated Ringers 1,000 ML 125 ML IV ×3 (08:20→21:56)
[2019-07-30 08:50] LABS: Bedside Glucose 90 mg/dL (70-110)
--- NOTE | 2019-07-30 09:45 | RAD_ITS ---
STUDY: X-RAY - RIGHT HIP REASON FOR EXAM: Right hip arthroplasty. TECHNIQUE: 4 intraoperative images of the right hip. COMPARISON: Right hip arthroplasty. FINDINGS: There is a right hip arthroplasty without evidence of complication. 11.2 seconds of fluoroscopy time was used. Electronically Signed: Wilfrid Hutchinson MD at 13:50 EST Tel , Service support , RAD/Hip 1 view with Pelvis
[2019-07-30] MEDS: Cefazolin 2 GM in 0.9% Normal Saline 100 ML IV (10:19)
--- NOTE | 2019-07-30 11:54 | OP.PCM_ITS ---
Report of Operation Date of Procedure: 07/30/19 Pre-Operative Diagnosis: Right hip primary Osteoarthritis Post-Operative Diagnosis: Right hip primary osteoarthritis Surgery/Procedure Performed:: Right minimally invasive direct anterior total hip replacement Description of Surgical Findings:: Stable hip with equal leg lengths oriental medicine practitioner: Leyda Watson Type of Anesthesia:: Spinal Anesthesiologist: Jamal Quintero Special Medications: Cleocin, 1 g TXA at incision, 1 g TXA closure, 10 mg Decadron, joint cocktail (5 mg Duramorph, 30 mL of 0.5% Ropivicaine, 1000 units of epinephrine, 30 mg of Toradol) Specimen's removed: Bony cuts Estimated Blood Loss (mL): 200 Fluids Replaced: 1000 L crystalloid Description of Procedure: Components used: 1. Accolade 2 [place] femoral stem size 3 132? 2. [place] trident 2 acetabular shell size 50 mm 3. Radha X3 polyethylene MDM 4. Radha Biolox delta 22.2mm, +3mm femoral head 5. Radha MDM metal liner alpha code D Brief history operative indications: 79 yo F who failed conservative measures for their hip osteoarthritis. X-rays were consistent with osteoarthritis including joint space narrowing, osteophyte formation and subchondral cysts. Total hip replacement was discussed with the patient with risks and benefits including but not limited to blood loss, DVTs, PEs, neurovascular damage, dislocation, general risks of anesthesia including loss of life. Patient demonstrated an understanding medical clearance is obtained the patient was consented for surgery. Procedure: On the date of procedure the patient's R hip was marked in the preoperative area. Patient was then taken back to the operating room where anesthesia assumed control of the C-spine and airway and administered anesthetic. Patient was transferred to the operating table and placed in the supine position. The hips were placed at the break of the bed and a sacral bump was placed. The R lower extremity was then prepped out in a sterile fashion using chlorhexidine while the surgeon scrubbed. The PA was vital in the positioning of the patient. Upon reentering the room the R lower extremity was draped in the standard orthopedic fashion and the incision was marked. A timeout was called and everyone agreed upon the side, the site, the procedure be performed, antibody given, and patient's identity. At this time incision was made through skin, subcutaneous tissue, and fat down to fascia. The fascia was then incised and the TFL was retracted laterally. A retractor was placed on the lateral border of the femoral neck. Attention was directed to the inferior portion of the approach and all crossing vessels were identified and appropriately coagulated. A retractor was then placed on the medial portion of the femoral neck. The anterior capsule was then cleared of all soft tissue and then H shaped capsulotomy was made. The retractors were then placed inside the capsule. The femoral neck was identified and a cleanup cut was made. At this time a power corkscrew was used to remove the femoral head. Attention was then turned toward the acetabulum where the soft tissues were appropriately retracted and the acetabulum was sequentially reamed to 50 mm. A 50 mm cup was then selected and impacted into place. MDM acetabular liner was impacted into place and locking mechanism was verified. The position of the acetabular cup was then verified under live fluoroscopy. Attention was then turned to the femur. Soft tissue releases on the medial and lateral femoral neck were appropriately done, the leg was externally rotated and lateralized. A Ramon retractor was placed medially and proximally to the greater trochanter this allowed appropriate visualization and exposure of the femoral canal. Rongeour was then used to remove excess lateral bone. A canal finder and entry broach were used to open the proximal canal. Once we verified we were down the femoral canal we subsequently broached up to a size 3 femur. The appropriate neck was placed in the previously selected head was trialed with a +3 mm neck. Traction was pulled and the hip was reduced with internal rotation. Once it was appropriately reduced and stability was checked. There was minimal shuck, equal leg lengths and appropriate stability with hyperextension and external rotation as well as with 90? flexion and internal rotation. Fluoroscopy was then also used to verify the position of the components and leg lengths using the contralateral side for comparison. The trial components were then dislocated the proximal femur was again exposed and the components were removed from the wound. The final components were verified and opened. The wound was copiously irrigated out with normal saline. The acetabulum was checked for any residual debris. The final components were placed and impacted. Traction and internal rotation were again used to reduce the hip. After adequate reduction the hip remained stable with appropriate leg lengths. The final components were once again checked with live fluoroscopy and were found to be satisfactory. The wound was then copiously irrigated with normal saline once more, and hemostasis was obtained. Closure was then done using #1 Vicryl runner to close the fascia. A 2-0 vicryl interuppted sutures were used to close the subcutaneous skin. A 3-0 Monocryl and Steri-Strips were used for final skin closure. A Silverlon dressing was placed. Patient was awakened by anesthesia and transferred to the [place]. Patient was then transferred to the PACU for recovery. Postoperative plan: Patient will get 24 hours postop antibiotics. Patient will get in-house physical therapy and will be weight-bear as tolerated. Patient will follow up in office in 2 weeks for a wound check and x-rays. Grafts/Implants Used: Radha - Complications No intraoperative complications - Admit VTE Documentation VTE Present on Admission: No VTE Mechan Device Prophylaxis: SCD's, Thigh High COLEEN Hose VTE Pharm Prophylaxis ordered?: Yes
--- NOTE | 2019-07-30 12:55 | RAD_ITS ---
STUDY: X-RAY - PELVIS AND RIGHT HIP REASON FOR EXAM: Right hip arthroplasty. TECHNIQUE: 2 views of the pelvis and hip. COMPARISON: None. FINDINGS: There are calcified uterine fibroids. There is postoperative gas in the soft tissues. Normal bilateral superior and inferior pubic rami. There are degenerative changes of the pubic symphysis. Normal bilateral ischial tuberosities. There is a right hip arthroplasty without evidence of complication. RAD/Hip Min 2 Views (Portable) IMPRESSION: Uncomplicated right hip arthroplasty. Electronically Signed: Wilfrid Hutchinson MD at 13:47 EST Tel , Service support ,
[2019-07-30] MEDS: Famotidine 20 MG Tablet PO (15:33)
[2019-07-30] MEDS: Ketorolac 15 MG/ML Vial IV (17:55)
[2019-07-30] MEDS: 0.9% Saline Lock 10 ML Syringe IV (17:55)
[2019-07-30] MEDS: Ensure Surgery 237 ML LIQUID PO (17:56)
[2019-07-30] MEDS: Cefazolin 1 GM/50 ML BAG IV (17:58)
--- NOTE | 2019-07-30 20:10 | PN_ITS ---
Subjective: 9 yo F who failed conservative measures for her R hip osteoarthritis. X-rays were consistent with osteoarthritis including joint space narrowing, osteophyte formation and subchondral cysts. TOBI of the R hip with an anterior approach was done this am and we have been consulted for medical mgt in the post-operative period. She is currently sitting up in bed with family at the bedside. She states that her pain is well controlled. She has not yet been OOB. - Physical Exam Vitals/I&O's: Vital Signs Temp Pulse Resp BP Pulse Ox 97.6 F L 52 L 16 153/63 H 100 07/30/19 18:23 07/30/19 18:23 07/30/19 18:23 07/30/19 18:23 07/30/19 18:23 Oxygen Flow Rate (L/min) 6 Oxygen Delivery Method Room Air Weight: 100.607 kg Body Mass Index (BMI) 40.6 Intake and Output for Last 24 Hours 07/28/19 07/29/19 07/30/19 23:59 23:59 23:59 Intake Total 2301.25 / 2301.25 Output Total 0 / 0 Balance 2301.25 / 2301.25 Laboratory Results 07/30/19 08:25: POC Glucose 90 Current Medications Acetaminophen (Tylenol) 1,000 mg PO Q8 [facility] Last Admin: 07/30/19 15:33 Dose: 1,000 mg Documented by: Allopurinol (Zyloprim) 300 mg PO DAILYCM [facility] Last Admin: 07/30/19 15:17 Dose: Not Given Documented by: Cholecalciferol (Vitamin D) 1,000 unit PO DAILYCM [facility] Last Admin: 07/30/19 15:17 Dose: Not Given Documented by: Enteral Nutritional Formula (Ensure Surgery) 237 ml PO TIDCM [facility] Last Admin: 07/30/19 17:56 Dose: 237 ml Documented by: Famotidine (Pepcid) 20 mg PO DAILY [facility] Last Admin: 07/30/19 15:33 Dose: 20 mg Documented by: Hydrochlorothiazide (Hctz) 25 mg PO DAILY [facility] Last Admin: 07/30/19 15:17 Dose: Not Given Documented by: Lactated Ringer's () 1,000 mls @ 125 mls/hr IV .Q8H [facility] Last Infusion: 07/30/19 18:18 Dose: 125 mls/hr Documented by: Cefazolin Sodium () 1 gm in 50 mls @ 150 mls/hr IV Q8H [facility] Stop: 07/31/19 02:19 Last Infusion: 07/30/19 18:18 Dose: Infused Documented by: Insulin Human Lispro (Humalog Davidpen (Bkc)) 1 - 6 unit SC Q4H PRN PRN; Protocol PRN Reason: BG>/= 180, SEE PROTOCOL Ketorolac Tromethamine (Toradol) 15 mg IV Q6H PRN PRN PRN Reason: Pain Score 1-5/10 Stop: 08/01/19 06:59 Last Admin: 07/30/19 17:55 Dose: 15 mg Documented by: Meloxicam (Mobic) 7.5 mg PO BID [facility] Metoprolol Tartrate (Lopressor (Beta Amy)) 25 mg PO BID [facility] Morphine Sulfate () 2 - 4 mg IV Q2H PRN PRN PRN Reason: Pain Score 4-10/10 Morphine Sulfate () 2 - 4 mg IV Q2H PRN PRN PRN Reason: Pain Score 4-10/10 Ondansetron HCl (Zofran) 4 mg IV Q8H PRN PRN PRN Reason: NAUSEA Pot[facility] Ch[facility] ([facility]Dur) [facility] Last Admin: 07/30/19 15:16 Dose: Not Given Documented by: Promethazine HCl (Phenergan) 12.5 mg IM Q6H PRN PRN; Protocol PRN Reason: NAUSEA/VOMITING Rivaroxaban (Xarelto) 20 mg PO DAILY@1700 [facility] Senna/Docusate Sodium (Senokot-S, Amy-Colace) 2 tablet PO BID [facility] Last Admin: 07/30/19 15:17 Dose: Not Given Documented by: Sodium Chloride () 10 - 40 ml IV UD PRN PRN Reason: SALINE FLUSH Last Admin: 07/30/19 17:55 Dose: 10 ml Documented by: Tramadol HCl (Ultram) 50 - 100 mg PO Q6H PRN PRN PRN Reason: Pain Score 4-10/10 Capacity - Capacity Assessment Tool Can the patient make a choice & communicate that choice?: Yes Can the patient understand benefits, risks and alternatives?: Yes Can the patient make a logical, rational choice?: Yes Is the choice the patient makes consistent w/ their values?: Yes Is there an impending, emergent risk to the patient?: No Does the patient have an Advance Directive?: Unable to Determine Is there a Surrogate Available?: Yes Medical Necessity - Tobacco Use Smoking Status: Never smoker Tobacco Use: Non-smoker Assessment/Plan All Active Problems (Last Updated 06/24/19 @ 11:51 by JAZMYN Leal) Left anterior fascicular block (Resolved) Palpitations (Acute) Chest pain (Acute) TOBI R with anterior approach -mgt per ortho -continue pain meds -add miralax with pain regimen -anticoagulation as pt is on Xarelto -abx per ortho -PT/OT -am lab ordered PAF -continue home Xarelto and Metoprolol HTN continue BB -continue HCTZ GERD -continue home meds Gout -continue home allopurinol MO -recommend wgt loss H/O diverticulitis -no current issues DVT prophylaxis -pt fully anticoagulated with NOAC Code Visit Inpatient E&M: 34720 Subs Hosp L2
[2019-07-30] MEDS: Senna/Docusate Sodium 1 Tablet 2 TABLET PO (21:55)
[2019-07-31] VITALS (7 sets, daily range): BP systolic 154–188; BP diastolic 64–75; PULSE 54–65; RESP 16–18; TEMP 36.3–36.7; O2SAT 97–100
[2019-07-31] MEDS: Cefazolin 1 GM/50 ML BAG IV (02:11)
[2019-07-31] MEDS: Acetaminophen 500 MG Tablet 1000 MG PO ×3 (05:28→21:09)
[2019-07-31 06:09] LABS: Hematocrit 38.4 % (37-47); Hemoglobin 12.8 g/dL (12.0-15.0); Mean Corp Hgb Conc 33.3 g/dL (32-36); Platelet Count 147 K/mm3 (150-450); RBC Distribution Width CV 12.9 % (11.6-14.6); RBC Distribution Width SD 45.6 fl (35.1-43.9); White Blood Count 8.5 K/mm3 (4.4-11.0)
[2019-07-31 06:22] LABS: BUN 20 mg/dL (7-18); BUN/Creat Ratio 25.3 RATIO (10-20); Calcium,Total 9.2 mg/dL (8.5-10.1); Chloride 103 mmol/L (98-107); Creatinine, Serum 0.79 mg/dL (0.55-1.02); EST Glomerular Filtration Rate 75 mL/min (>60); Est Glom Filt Rate - Afr Amer 91 mL/min (>60); Estimated Creatinine Clearance 36.67 ml/min; Glucose 99 mg/dL (74-106); Potassium 3.9 mmol/L (3.5-5.1); Sodium Level 137 mmol/L (136-145)
[2019-07-31 06:23] LABS: Anion Gap 5 (5-15)
[2019-07-31] MEDS: Ensure Surgery 237 ML LIQUID PO ×3 (07:33→17:52)
[2019-07-31] MEDS: traMADol 50 MG Tablet PO ×2 (07:33→18:48)
[2019-07-31] MEDS: Allopurinol 300 MG Tablet PO (07:34)
[2019-07-31] MEDS: hydroCHLOROthiazide 25 MG Tablet PO (07:34)
[2019-07-31] MEDS: Metoprolol Tartrate 25 MG Tablet PO ×2 (07:35→21:09)
[2019-07-31] MEDS: Senna/Docusate Sodium 1 Tablet 2 TABLET PO (07:35)
[2019-07-31] MEDS: Famotidine 20 MG Tablet PO (07:35)
--- NOTE | 2019-07-31 09:42 | PN.ORTHO_ITS ---
Subjective: The patient was sitting in bed upon examination. Patient denies any chest pain, shortness of breath, dizziness, lightheadedness, nausea or vomiting, or calf pain. Pain is controlled on medications. No adverse overnight events. Overall patient is doing well today. She does have some soreness in the right thigh. Her pain is been well controlled. Objective: Vital signs stable and afebrile. Patient is able to plantarflex and dorsiflex actively. Sensation is intact to light touch to saphenous, sural, superficial and deep peroneal, and tibial distribution. Dressing is clean dry and intact. Negative Homans bilaterally, negative signs and symptoms of DVT. - Physical Exam Vitals/I&O's: Vital Signs Temp Pulse Resp BP Pulse Ox 97.9 F 62 16 188/72 H 98 07/31/19 07:37 07/31/19 07:37 07/31/19 07:37 07/31/19 07:37 07/31/19 07:37 Oxygen Flow Rate (L/min) 6 Oxygen Delivery Method Room Air Weight: 100.607 kg Body Mass Index (BMI) 40.6 Intake and Output for Last 24 Hours 07/29/19 07/30/19 07/31/19 23:59 23:59 23:59 Intake Total 2755.42 / 3255.42 1795.00 / 1795.00 Output Total 0 / 200 950 / 950 Balance 2755.42 / 3055.42 845.00 / 845.00 General: Alert, Oriented x3, Cooperative, No apparent distress Laboratory Results 07/31/19 05:13: WBC 8.5, RBC 4.00 L, Hgb 12.8, Hct 38.4, MCV 96.0, MCH 32.0, MCHC 33.3, RDW Std Deviation 45.6 H, RDW Coeff of Brandie 12.9, Plt Count 147 L, MPV 10.0 07/31/19 05:13: Sodium 137, Potassium 3.9, Chloride 103, Carbon Dioxide 29.0, Anion Gap 5, BUN 20 H, Creatinine 0.79, Estim Creat Clear Calc 36.67, Est GFR (MDRD) Af Amer 91, Est GFR (MDRD) Non-Af 75, BUN/Creatinine Ratio 25.3 H, Glu cose 99, Calcium 9.2 Current Medications Acetaminophen (Tylenol) 1,000 mg PO Q8 [facility] Last Admin: 07/31/19 05:28 Dose: 1,000 mg Documented by: Allopurinol (Zyloprim) [facility] Last Admin: 07/31/19 07:34 Dose: 300 mg Documented by: Cholecalciferol (Vitamin D) 1,000 unit PO [facility]ILYUN[facility] Last Admin: 07/31/19 07:34 Dose: 1,000 unit Documented by: Enteral Nutritional Formula (Ensure Surgery) 237 ml PO TIDCM [facility] Last Admin: 07/31/19 07:33 Dose: 237 ml Documented by: Famotidine (Pepcid) 20 mg PO DAILY [facility] Last Admin: 07/31/19 07:35 Dose: 20 mg Documented by: Hydrochlorothiazide (Hctz) 25 mg PO DAILY [facility] Last Admin: 07/31/19 07:34 Dose: 25 mg Documented by: Insulin Human Lispro (Humalog Kwikpen (Bkc)) 1 - 6 unit SC Q4H PRN PRN; Pr otocol PRN Reason: BG>/= 180, SEE PROTOCOL Ketorolac Tromethamine (Toradol) 15 mg IV Q6H PRN PRN PRN Reason: Pain Score 1-5/10 Stop: 08/01/19 06:59 Last Admin: 07/30/19 17:55 Dose: 15 mg Documented by: Meloxicam (Mobic) 7.5 mg PO BID [facility] Metoprolol Tartrate (Lopressor (Beta Amy)) 25 mg PO BID [facility] Last Admin: 07/31/19 07:35 Dose: 25 mg Documented by: Morphine Sulfate () 2 - 4 mg IV Q2H PRN PRN PRN Reason: Pain Score 4-10/10 Morphine Sulfate () 2 - 4 mg IV Q2H PRN PRN PRN Reason: Pain Score 4-10/10 Ondansetron HCl (Zofran) 4 mg IV Q8H PRN PRN PRN Reason: NAUSEA Potassium Chloride (K-Dur) 10 meq [facility] Last Admin: 07/31/19 07:33 Dose: 10 meq Documented by: Promethazine HCl (Phenergan) 12.5 mg IM Q6H PRN PRN; Protocol PRN Reason: NAUSEA/VOMITING Rivaroxaban (Xarelto) 20 mg PO DAILY@1700 [facility] Senna/Docusate Sodium (Senokot-S, Amy-Colace) 2 tablet PO BID [facility] Last Admin: 07/31/19 07:35 Dose: 2 tablet Documented by: Sodium Chloride () 10 - 40 ml IV UD PRN PRN Reason: SALINE FLUSH Last Admin: 07/30/19 17:55 Dose: 10 ml Documented by: Tramadol HCl (Ultram) 50 - 100 mg PO Q6H PRN PRN PRN Reason: Pain Score 4-10/10 Last Admin: 07/31/19 07:33 Dose: 50 mg Documented by: Medical Necessity - Tobacco Use Smoking Status: Never smoker Tobacco Use: Non-smoker Assessment/Plan All Active Problems (Last Updated 06/24/19 @ 11:51 by JAZMYN Leal) Left anterior fascicular block (Resolved) Palpitations (Acute) Chest pain (Acute) 1. S/P right direct anterior total hip arthroplasty POD #1 2. Continue Pain Medications: Tylenol and tramadol 3. DVT Prophylaxis: Patient will continue with her Xarelto and this will cover her DVT prophylaxis 4. PT/OT: Weightbearing as tolerated 5. H & H: 12.8/38.4, asymptomatic 6. Encouraged Incentive Spirometry 7. Continue postoperative medical management per medicine 8. Disposition: Plan will be for possible discharge home this afternoon if patient tolerates physical therapy and is medically stable. Patient currently has outpatient physical therapy established but we will see how patient does with therapy in the hospital. If she is doing well plan will be for discharge this afternoon. Prescriptions have been E scribed to [facility]. She will follow-up per postop instructions. I have reviewed the [place] Automated Rx Reporting System (OARRS) report for this patient for refill pattern and other prescriber involvement as part of the appropriate surveillance for the provision of acute and chronic controlled medications. The report was requested and reviewed on the date of this entry and was considered in the prescribing process.
--- NOTE | 2019-07-31 09:45 | PCM.DC.THR ---
Discharge Diet: No Restrictions Discharge Activity: May Not Drive - while taking narcotic pain medications. May shower in (days): 1 - Dressing must be intact to skin. Turn dressing away from water Ice area for (Minutes): 20 - Every 1-2 hours while awake Weight Bearing Status: Weight bearing as tolerated Elevate: Operative Extremity Additional Activity Instructions:: Wear elastic stockings for 2 weeks. DO NOT use alcohol with narcotic pain medication. DO NOT make important decisions while taking narcotic medication. If you have problems with taking your medication (rash, itching, nausea, etc.) call the office at once. Call your doctor if your incision/area has: Increased Pain/ Swelling, Increased Redness, Foul Smelling Discharge Call your doctor if you observe: Fever of 101 or Higher Remove Dressing in (days):: 3 - August 04, 2019 Additional Instructions: Follow orthopedic postop instructions Allergies/Adverse Reactions: Allergies Penicillins Allergy (Severe, Verified 07/30/19 08:09) Hives PER PT REPORT-HAD ORAL PCN IN HER PAST FOR UTERINE INFECTION IN THE , DEVELOPED HIVES & IT WAS STOPPED chlordiazepoxide [From Librax (with clidinium)] Allergy (Verified 07/30/19 08:09) Other clidinium bromide [From Librax (with clidinium)] Allergy (Verified 07/30/19 08:09) Other amlodipine besylate [From Norvasc] Adverse Reaction (Verified 07/30/19 08:09) Other Medications to take at Discharge Allopurinol [Zyloprim] 300 mg PO DAILY 05/05/14 Hydrochlorothiazide [Hctz] 25 mg PO DAILY 05/05/14 Multivitamins,Therapeutic [Multivitamin] 1 tab PO DAILY 05/05/14 Potassium Chloride [K-Dur] 10 meq PO DAILY 05/05/14 cholecalciferol (vitamin D3) 1,000 unit capsule 1,000 unit PO DAILY 01/06/19 metoprolol tartrate 25 mg tablet 25 mg PO BID tab 01/07/19 Magnesium Oxide [Magnesium] 250 mg PO DAILY 06/18/19 Rivaroxaban [Xarelto] 20 mg PO DAILY 06/18/19 Acetaminophen [Tylenol] 1,000 mg PO Q8 #100 tab 07/31/19 Senna/Docusate Sodium [Senokot-S] 2 tab PO BID #10 tab 07/31/19 traMADol [Ultram] 50 - 100 mg PO Q6H PRN PRN 4 Days #32 tab 07/31/19 The following prescriptions were given: Senna/Docusate Sodium [Senokot-S] 2 tab PO BID #10 tab Transmission Status: Received by [facility] Acetaminophen [Tylenol] 1,000 mg PO Q8 #100 tab Transmission Status: Received by [facility] traMADol [Ultram] 50 - 100 mg PO Q6H PRN PRN 4 Days #32 tab PRN Reason: Pain Score 4-10/10 Transmission Status: Received by [facility] Primary Care Physician: Valerio Nickerson MD [Primary Care Provider] - Test Results: Test results from this visit will be discussed in further detail at your follow-up appointment, if applicable. Please Follow Up With: [facility] When: 08/04/19 @ 9:30 am Please Follow Up With: Silvino Perez PA-C When: 08/13/19 @ 10:15 am
--- NOTE | 2019-07-31 10:50 | CASEMGMT ---
RN DONA Face to Face with patient for initial transition planning/care coordination assessment. RN CM introduced self and role at [facility]. Patient sitting in chair, alert and oriented, family at bedside. Patient willing to participate in assessment and is able to answer all questions appropriately. Care providers, pharmacy, and demographics verified. Patient wishes to discharge home and is setup with outpatient therapy with [facility] on Sunday. Patient states she has no further needs or concerns at this time. CM to follow for discharge planning needs that may arise. PCP: Liya Specialists: Jeffrey Schulte; Ramakrishna, Cardiology Preferred Pharmacy: [facility] Insurance: [facility] Prescription Benefit: yes Living Will/HPOA: yes, Angel Victoria LNOK: and daughter Living Arrangements: Patient lives with in 1 story home with 2 steps to enter the home. Transportation: DME/HHC: Patient has walker, cane, raised toilet, and shower chair at home. Patient is setup with [facility] for outpatient therapy for Sunday. Disposition Plan: Patient to discharge home with outpatient therapy, family support, and follow-up plans in place. Daphne OWENS, RN, CM
--- NOTE | 2019-07-31 12:11 | PN_ITS ---
Subjective: Patient seen and examined. She is postop day 1 for replacement of the right anterior hip. Hospitalist service is on board for medical management. She has no complaints. Pain is well controlled. She was out of the bed and sitting in her chair. Review of systems otherwise negative. Vitals/I&O's: Vital Signs Temp Pulse Resp BP Pulse Ox 97.5 F L 54 L 16 154/64 H 99 07/31/19 11:15 07/31/19 11:15 07/31/19 11:15 07/31/19 11:15 07/31/19 11:15 Oxygen Flow Rate (L/min) 6 Oxygen Delivery Method Room Air Weight: 221 lb 12.8 oz Body Mass Index (BMI) 40.6 Intake and Output for Last 24 Hours 07/29/19 07/30/19 07/31/19 23:59 23:59 23:59 Intake Total 2755.42 / 3255.42 2245.00 / 2245.00 Output Total 0 / 200 1550 / 1550 Balance 2755.42 / 3055.42 695.00 / 695.00 General: Alert, Oriented x3, Cooperative, No apparent distress HEENT: Atraumatic, PERRLA, EOMI, Normocephalic Oral: Moist Mucosa Neck: Supple, No JVD, Negative Carotid Bruits Lungs: Clear to auscultation, Normal air movement, No rhonchi, No wheeze, No rales Cardiovascular: Regular rate, Regular Rhythm, Normal S1, Normal S2, No murmurs Abdomen: Bowel Sounds Present, Soft, Non Tender, Non-Distended, No Hepato- splenomegaly Extremities: No clubbing, No cyanosis, No edema, Capillary Refill Less than 3 Se conds Skin: No rashes, No breakdown Musculoskeletal: No Tenderness to Palpation of Joints or Extremities Lymphatic: No Cervical, Supraclavicular, or Inguinal Adenopathy Neurological: Cranial nerves II-XII grossly intact, Neuro grossly intact, Motor Exam 5/5 strength throughout Psych/Mental Status: Normal Affect, Appropriate, Alert and oriented to time, place, person, mood and affect Laboratory Results 07/31/19 05:13: WBC 8.5, RBC 4.00 L, Hgb 12.8, Hct 38.4, MCV 96.0, MCH 32.0, MCHC 33.3, RDW Std Deviation 45.6 H, RDW Coeff of Brandie 12.9, Plt Count 147 L, MPV 10.0 07/31/19 05:13: Sodium 137, Potassium 3.9, Chloride 103, Carbon Dioxide 29.0, Anion Gap 5, BUN 20 H, Creatinine 0.79, Estim Creat Clear Calc 36.67, Est GFR (MDRD) Af Amer 91, Est GFR (MDRD) Non-Af 75, BUN/Creatinine Ratio 25.3 H, Glucose 99, Calcium 9.2 Current Medications Acetaminophen (Tylenol) 1,000 mg PO Q8 [facility] Last Admin: 07/31/19 05:28 Dose: 1,000 mg Documented by: Allopurinol (Zyloprim) [facility] Last Admin: 07/31/19 07:34 Dose: 300 mg Documented by: Cholecalciferol (Vitamin D) 1,000 [facility] Last Admin: 07/31/19 07:34 Dose: 1,000 unit Documented by: Enteral Nutritional Formula (Ensure Surgery) 237 ml PO TIDCM [facility] Last Admin: 07/31/19 12:00 Dose: 237 ml Documented by: Famotidine (Pepcid) 20 mg PO DAILY [facility] Last Admin: 07/31/19 07:35 Dose: 20 mg Documented by: Hydrochlorothiazide (Hctz) 25 mg PO DAILY [facility] Last Admin: 07/31/19 07:34 Dose: 25 mg Documented by: Insulin Human Lispro (Humalog Kwikpen (Bkc)) 1 - 6 unit SC Q4H PRN PRN; Protocol PRN Reason: BG>/= 180, SEE PROTOCOL Ketorolac Tromethamine (Toradol) 15 mg IV Q6H PRN PRN PRN Reason: Pain Score 1-5/10 Stop: 08/01/19 06:59 Last Admin: 07/30/19 17:55 Dose: 15 mg Documented by: Meloxicam (Mobic) 7.5 mg PO BID [facility] Metoprolol Tartrate (Lopressor (Beta Amy)) 25 mg PO BID [facility] Last Admin: 07/31/19 07:35 Dose: 25 mg Documented by: Morphine Sulfate () 2 - 4 mg IV Q2H PRN PRN PRN Reason: Pain Score 4-10/10 Morphine Sulfate () 2 - 4 mg IV Q2H PRN PRN PRN Reason: Pain Score 4-10/10 Ondansetron HCl (Zofran) 4 mg IV Q8H PRN PRN PRN Reason: NAUSEA Potassium Chloride (K-Dur) [facility] Last Admin: 07/31/19 07:33 Dose: 10 meq Documented by: Promethazine HCl (Phenergan) 12.5 mg IM Q6H PRN PRN; Protocol PRN Reason: NAUSEA/VOMITING Rivaroxaban (Xarelto) 20 mg PO DAILY@1700 [facility] Senna/Docusate Sodium (Senokot-S, Amy-Colace) 2 tablet PO BID [facility] Last Admin: 07/31/19 07:35 Dose: 2 tablet Documented by: Sodium Chloride () 10 - 40 ml IV UD PRN PRN Reason: SALINE FLUSH Last Admin: 07/30/19 17:55 Dose: 10 ml Documented by: Tramadol HCl (Ultram) 50 - 100 mg PO Q6H PRN PRN PRN Reason: Pain Score 4-10/10 Last Admin: 07/31/19 07:33 Dose: 50 mg Documented by: STROKE Vital Signs/Narrative: Vital Signs Temp Pulse Resp BP Pulse Ox 07/31/19 11:15 97.5 F L 54 L 16 154/64 H 99 Medical Necessity - Tobacco Use Smoking Status: Never smoker Tobacco Use: Non-smoker Assessment/Plan All Active Problems (Last Updated 06/24/19 @ 11:51 by JAZMYN Leal) Left anterior fascicular block (Resolved) Palpitations (Acute) Chest pain (Acute) 1. Right hip osteoarthritis s/p right total anterior hip replacement * today is POD 1 * patient feels very well and pain is well controlled * pain management as per orthopedics * PT/OT on board * 2.Paroxysmal Afib: rate controlled. ON metoprolol and xarelto 3. Hypertension: on HCTZ and metoprolol 4. GERD: on famotidine 5. Gout: on allopurinol DVT prophylaxis: on xarelto for DVT prophylaxis per orthopedics Code Visit Inpatient E&M: 04663 Subs Hosp L2
--- NOTE | 2019-07-31 13:36 | NURSING ---
pt stated she wound like to stay night.
[2019-07-31] MEDS: Rivaroxaban 20 MG Tablet PO (17:52)
[2019-08-01 02:10] VITALS: BP 164/68; PULSE 58; RESP 16; TEMP 36.5; O2SAT 96
[2019-08-01] MEDS: Acetaminophen 500 MG Tablet 1000 MG PO (06:02)
[2019-08-01 06:18] LABS: Hematocrit 36.2 % (37-47); Hemoglobin 12.2 g/dL (12.0-15.0); Mean Corp Hgb Conc 33.7 g/dL (32-36); Mean Corpuscular Hgb 31.8 pg (27.0-32.0); Mean Corpuscular Volume 94.3 fL (81-99); Mean Platelet Vol. 10.3 fl (6.2-12.0); Platelet Count 142 K/mm3 (150-450); RBC Distribution Width CV 13.2 % (11.6-14.6); RBC Distribution Width SD 45.4 fl (35.1-43.9); Red Blood Count 3.84 M/mm3 (4.2-5.4); White Blood Count 9.1 K/mm3 (4.4-11.0)
--- NOTE | 2019-08-01 06:41 | PN.ORTHO_ITS ---
Subjective: The patient was sitting in bed upon examination. Patient denies any chest pain, shortness of breath, dizziness, lightheadedness, nausea or vomiting, or calf pain. Pain is controlled on medications. No adverse overnight events. Overall patient is doing well and ready for discharge home today. Patient does complain of soreness in the right thigh but pain is been controlled on medications. Objective: Vital signs stable and afebrile. Patient is able to plantarflex and dorsiflex actively. Sensation is intact to light touch to saphenous, sural, superficial and deep peroneal, and tibial distribution. Dressing is clean dry and intact. Negative Homans bilaterally, negative signs and symptoms of DVT. - Physical Exam Vitals/I&O's: Vital Signs Temp Pulse Resp BP Pulse Ox 97.7 F L 58 L 16 164/68 H 96 08/01/19 02:10 08/01/19 02:10 08/01/19 02:10 08/01/19 02:10 08/01/19 02:10 Oxygen Flow Rate (L/min) 6 Oxygen Delivery Method Room Air Weight: 100.607 kg Body Mass Index (BMI) 40.6 Intake and Output for Last 24 Hours 07/30/19 07/31/19 08/01/19 23:59 23:59 23:59 Intake Total 2755.42 / 3255.42 2845.00 / 3195.00 500 / 500 Output Total 0 / 200 2300 / 2400 500 / 500 Balance 2755.42 / 3055.42 545.00 / 795.00 0 / 0 General: Alert, Oriented x3, Cooperative, No apparent distress Laboratory Results 08/01/19 05:23: WBC 9.1, RBC 3.84 L, Hgb 12.2, Hct 36.2 L, MCV 94.3, MCH 31.8, MCHC 33.7, RDW Std Deviation 45.4 H, RDW Coeff of Brandie 13.2, Plt Count 142 L, MPV 10.3 Current Medications Acetaminophen (Tylenol) 1,000 mg PO Q8 [facility] Last Admin: 08/01/19 06:02 Dose: 1,000 mg Documented by: Allopurinol (Zyloprim) 300 mg PO DAILYCM [facility] Last Admin: 07/31/19 07:34 Dose: 300 mg Documented by: Cholecalciferol (Vitamin D) [facility] Last Admin: 07/31/19 07:34 Dose: 1,000 unit Documented by: Enteral Nutritional Formula (Ensure Surgery) 237 ml PO TIDCM [facility] Last Admin: 07/31/19 17:52 Dose: 237 ml Documented by: Famotidine (Pepcid) 20 mg PO DAILY [facility] Last Admin: 07/31/19 07:35 Dose: 20 mg Documented by: Hydrochlorothiazide (Hctz) 25 mg PO DAILY [facility] Last Admin: 07/31/19 07:34 Dose: 25 mg Documented by: Insulin Human Lispro (Humalog Kwikpen (Bkc)) 1 - 6 unit SC Q4H PRN PRN; Protocol PRN Reason: BG>/= 180, SEE PROTOCOL Ketorolac Tromethamine (Toradol) 15 mg IV Q6H PRN PRN PRN Reason: Pain Score 1-5/10 Stop: 08/01/19 06:59 Last Admin: 07/30/19 17:55 Dose: 15 mg Documented by: Meloxicam (Mobic) 7.5 mg PO BID [facility] Metoprolol Tartrate (Lopressor (Beta Amy)) 25 mg PO BID [facility] Last Admin: 07/31/19 21:09 Dose: 25 mg Documented by: Morphine Sulfate () 2 - 4 mg IV Q2H PRN PRN PRN Reason: Pain Score 4-10/10 Morphine Sulfate () 2 - 4 mg IV Q2H PRN PRN PRN Reason: Pain Score 4-10/10 Ondansetron HCl (Zofran) 4 mg IV Q8H PRN PRN PRN Reason: NAUSEA Potassium Chloride (K-Dur) [facility] Last Admin: 07/31/19 07:33 Dose: 10 meq Documented by: Promethazine HCl (Phenergan) 12.5 mg IM Q6H PRN PRN; Protocol PRN Reason: NAUSEA/VOMITING Rivaroxaban (Xarelto) 20 mg PO DAILY@1700 [facility] Last Admin: 07/31/19 17:52 Dose: 20 mg Documented by: Senna/Docusate Sodium (Senokot-S, Amy-Colace) 2 tablet PO BID [facility] Last Admin: 07/31/19 21:09 Dose: Not Given Documented by: Sodium Chloride () 10 - 40 ml IV UD PRN PRN Reason: SALINE FLUSH Last Admin: 07/30/19 17:55 Dose: 10 ml Documented by: Tramadol HCl (Ultram) 50 - 100 mg PO Q6H PRN PRN PRN Reason: Pain Score 4-06/19 Last Admin: 07/31/19 18:48 Dose: 50 mg Documented by: Medical Necessity - Tobacco Use Smoking Status: Never smoker Tobacco Use: Non-smoker Assessment/Plan All Active Problems (Last Updated 06/24/19 @ 11:51 by JAZMYN Leal) Left anterior fascicular block (Resolved) Palpitations (Acute) Chest pain (Acute) 1. S/P right direct anterior total hip arthroplasty POD #2 2. Continue Pain Medications: Tylenol and tramadol 3. DVT Prophylaxis: Patient will continue with her Xarelto and this will cover her DVT prophylaxis 4. PT/OT: Weightbearing as tolerated 5. H & H: 12.2/36.2, asymptomatic 6. Encouraged Incentive Spirometry 7. Continue postoperative medical management per medicine 8. Disposition: Patient is doing well today and is orthopedically stable. Patient will go home this afternoon after physical therapy has been performed. Patient does have outpatient physical therapy established. Prescriptions have been E scribed to [facility]. Patient will follow-up per postop instructions. I have reviewed the [place] Automated Rx Reporting System (OARRS) report for this patient for refill pattern and other prescriber involvement as part of the appropriate surveillance for the provision of acute and chronic controlled m edications. The report was requested and reviewed on the date of this entry and was considered in the prescribing process.
[2019-08-01] MEDS: Ensure Surgery 237 ML LIQUID PO (07:44)
[2019-08-01] MEDS: traMADol 50 MG Tablet PO (07:44)
[2019-08-01] MEDS: Famotidine 20 MG Tablet PO (07:45)
[2019-08-01] MEDS: hydroCHLOROthiazide 25 MG Tablet PO (07:46)
[2019-08-01] MEDS: Meloxicam 7.5 MG Tablet PO (07:46)
[2019-08-01 07:47] VITALS: BP 139/60; PULSE 65
[2019-08-01] MEDS: Allopurinol 300 MG Tablet PO (07:47)
[2019-08-01] MEDS: Metoprolol Tartrate 25 MG Tablet PO (07:47)
[2019-08-01 07:52] VITALS: BP 139/60; PULSE 64; RESP 16; TEMP 36.7; O2SAT 98
[2019-08-01 10:11] VITALS: BP 140/69; PULSE 62; RESP 16; TEMP 36.4; O2SAT 98
--- NOTE | 2019-08-01 10:21 | PN_ITS ---
Subjective: Patient seen and examined. She had no complaints. Review of systems otherwise negative. Labs and vitals reviewed. Vitals/I&O's: Vital Signs Temp Pulse Resp BP Pulse Ox 97.5 F L 62 16 140/69 H 98 08/01/19 10:11 08/01/19 10:11 08/01/19 10:11 08/01/19 10:11 08/01/19 10:11 Oxygen Flow Rate (L/min) 6 Oxygen Delivery Method Room Air Weight: 221 lb 12.8 oz Body Mass Index (BMI) 40.6 Intake and Output for Last 24 Hours 07/30/19 07/31/19 08/01/19 23:59 23:59 23:59 Intake Total 2755.42 / 3255.42 2845.00 / 3195.00 500 / 500 Output Total 0 / 200 2300 / 2400 500 / 500 Balance 2755.42 / 3055.42 545.00 / 795.00 0 / 0 General: Alert, Oriented x3, Cooperative, No apparent distress HEENT: Atraumatic, PERRLA, EOMI, Normocephalic Oral: Moist Mucosa Neck: Supple, No JVD, Negative Carotid Bruits Lungs: Clear to auscultation, Normal air movement, No rhonchi, No wheeze, No rales Cardiovascular: Regular rate, Regular Rhythm, Normal S1, Normal S2, No murmurs Abdomen: Bowel Sounds Present, Soft, Non Tender, Non-Distended, No Hepato- splenomegaly Extremities: No clubbing, No cyanosis, No edema, Capillary Refill Less than 3 Seconds Skin: No rashes, No breakdown Musculoskeletal: No Tenderness to Palpation of Joints or Extremities Lymphatic: No Cervical, Supraclavicular, or Inguinal Adenopathy Neurological: Cranial nerves II-XII grossly intact, Neuro grossly intact, Motor Exam 5/5 strength throughout Psych/Mental Status: Normal Affect, Appropriate, Alert and oriented to time, place, person, mood and affect Laboratory Results 08/01/19 05:23: WBC 9.1, RBC 3.84 L, Hgb 12.2, Hct 36.2 L, MCV 94.3, MCH 31.8, MCHC 33.7, RDW Std Deviation 45.4 H, RDW Coeff of Brandie 13.2, Plt Count 142 L, MPV 10.3 Current Medications Acetaminophen (Tylenol) 1,000 mg PO Q8 [facility] Last Admin: 08/01/19 06:02 Dose: 1,000 mg Documented by: [facility] Admin: 08/01/19 07:47 Dose: 300 mg Documented by: Cholecalciferol (Vitamin D) 1,000 [facility] Last Admin: 08/01/19 07:47 Dose: 1,000 unit Documented by: Enteral Nutritional Formula (Ensure Surgery) 237 ml PO TIDCM [facility] Last Admin: 08/01/19 07:44 Dose: 237 ml Documented by: Famotidine (Pepcid) 20 mg PO DAILY [facility] Last Admin: 08/01/19 07:45 Dose: 20 mg Documented by: Hydrochlorothiazide (Hctz) 25 mg PO DAILY [facility] Last Admin: 08/01/19 07:46 Dose: 25 mg Documented by: Insulin Human Lispro (Humalog Kwikpen (Bkc)) 1 - 6 unit SC Q4H PRN PRN; Protocol PRN Reason: BG>/= 180, SEE PROTOCOL Meloxicam (Mobic) 7.5 mg PO BID [facility] Last Admin: 08/01/19 07:46 Dose: 7.5 mg Documented by: Metoprolol Tartrate (Lopressor (Beta Amy)) 25 mg PO BID [facility] Last Admin: 08/01/19 07:47 Dose: 25 mg Documented by: Morphine Sulfate () 2 - 4 mg IV Q2H PRN PRN PRN Reason: Pain Score 4-10/10 Morphine Sulfate () 2 - 4 mg IV Q2H PRN PRN PRN Reason: Pain Score 4-10/10 Ondansetron HCl (Zofran) 4 mg IV Q8H PRN PRN PRN Reason: NAUSEA Potassium Chloride (K-Dur) [facility]q [facility] Last Admin: 08/01/19 07:47 Dose: 10 meq Documented by: Promethazine HCl (Phenergan) 12.5 mg IM Q6H PRN PRN; Protocol PRN Reason: NAUSEA/VOMITING Rivaroxaban (Xarelto) 20 mg PO DAILY@1700 [facility] Last Admin: 07/31/19 17:52 Dose: 20 mg Documented by: Senna/Docusate Sodium (Senokot-S, Amy-Colace) 2 tablet PO BID [facility] Last Admin: 08/01/19 07:51 Dose: Not Given Documented by: Sodium Chloride () 10 - 40 ml IV UD PRN PRN Reason: SALINE FLUSH Last Admin: 07/30/19 17:55 Dose: 10 ml Documented by: Tramadol HCl (Ultram) 50 - 100 mg PO Q6H PRN PRN PRN Reason: Pain Score 4-10/10 Last Admin: 08/01/19 07:44 Dose: 50 mg Documented by: STROKE Vital Signs/Narrative: Vital Signs Temp Pulse Resp BP Pulse Ox 08/01/19 10:11 97.5 F L 62 16 140/69 H 98 08/01/19 07:52 98.0 F 64 16 139/60 H 98 08/01/19 07:47 65 139/60 H Medical Necessity - Tobacco Use Smoking Status: Never smoker Tobacco Use: Non-smoker Assessment/Plan All Active Problems (Last Updated 06/24/19 @ 11:51 by JAZMYN Leal) Left anterior fascicular block (Resolved) Palpitations (Acute) Chest pain (Acute) 1. Right hip osteoarthritis s/p right total anterior hip replacement * today is POD 2 * pain well controlled. Patient ambulating well with PT/OT * pain management as per orthopedics- tylenol and tramadol * PT/OT on board * incentive spirometry * 2.Paroxysmal Afib: rate controlled. ON metoprolol and xarelto 3. Hypertension: on HCTZ and metoprolol 4. GERD: on famotidine 5. Gout: on allopurinol DVT prophylaxis: on xarelto for DVT prophylaxis per orthopedics Disposition: for discharge home today Code Visit Inpatient E&M: 46395 Subs Hosp L2
== END 2019-08-01 10:21 | disposition home or self-care (01) | DRG 470 ==
LOC: ACINP 07:41 → MS3 07-31 02:03
PROVIDERS: Admitting Provider Specialist; Family Provider Family Medicine; PCP Family Medicine; Referring Provider Specialist; Visit Provider Specialist
PROC: 0SR90JA Replacement of Right Hip Joint with Synthetic Substitute, Uncemented, Open Approach (ICD-10-PCS; CPT 27284; principal; 2019-07-30 09:20)
DX: M16.11 Unilateral primary osteoarthritis, right hip (principal); I10 Essential (primary) hypertension; M10.9 Gout, unspecified; K21.9 Gastro-esophageal reflux disease without esophagitis; I48.0 Paroxysmal atrial fibrillation; Z79.01 Long term (current) use of anticoagulants
CPT/HCPCS: 36415; 73501; 73502; 76000; 80048; 82962; 85027; 87077; 87081; 97110; 97116; 97161; 97166; 97530; 99251; C1776; J7120; A4216; G0463

== ENCOUNTER → 2020-01-19 07:24 | Outpatient (CLI) | payer MEDICARE, OTHER, SELFPAY ==
[2019-12-25 12:51] VITALS: BMI 42.0
--- NOTE | 2020-01-19 07:26 | ECHOD_ITS ---
Reason For Study: PHTN Procedure This was a 2D Doppler, Color Flow transthoracic echocardiogram. Exam performed in department. Left Ventricle Normal size and thickness. The estimated ejection fraction is 65 %. Stage 2 diastolic dysfunction. No regional wall motion abnormalities noted. Right Ventricle Mildly dilated right ventricle. Normal systolic function. Atria The left atrium is moderately enlarged. Normal right atrium. Normal atrial septum. Mitral Valve The mitral valve is structurally normal. No prolapse or stenosis seen. Mild (1+) posteriorly directed mitral valve insufficiency. Tricuspid Valve Normal tricuspid valve. Mild (1+) tricuspid valve insufficiency. Right ventricular systolic pressure estimated to be 31 mmHg. Aortic Valve Trisinus/trileaflet aortic valve. Mild diffuse aortic valve thickening. Mild (1+) aortic valve insufficiency. Pulmonic Valve Normal pulmonic valve. Trivial pulmonic valve insufficiency. Great Vessels Normal aortic root. Normal arch. Normal inferior vena cava. Inferior vena cava collapse with sniff. Pericardium/Pleural No pericardial effusion. MMode/2D Measurements & Calculations LVIDd: 5.1 cm IVSd: 0.90 cm LVOT diam: 2.1 cm LVIDs: 3.0 cm LVPWd: 0.93 cm LVOT area: 3.5 cm2 RVDd: 3.7 cm FS: 40.5 % LAV(MOD-bp): 85.7 ml LA A4 area: 26.1 cm2 LA dimension(2D): 4.4 cm LAV(MOD-bp) Indexed: 42.3 ml/m2 LAV(MOD-sp2): 80.8 ml LAV(MOD-sp4): 86.3 ml RA A4 area: 17.9 cm2 Time Measurements MV aug time: 0.15 sec Doppler Measurements & Calculations MV E max marquez: 107.8 cm/sec Lat Peak E' Marquez: 10.5 cm/sec Med Peak E' Marquez: 7.1 cm/sec MV A max marquez: 81.7 cm/sec E/E' lat: 10.3 E/E' med: 15.3 MV E/A: 1.3 Ao V2 max: 186.2 cm/sec AI max marquez: 430.9 cm/sec LV V1 max: 99.3 cm/sec Ao max P.9 mmHg AI max P.4 mmHg LV V1 max P.9 mmHg Ao V2 mean: 132.3 cm/sec AI dec slope: 233.9 cm/sec2 LV V1 mean P.2 mmHg Ao mean P.7 mmHg AI P1/2t: 539.7 msec LV V1 mean: 72.0 cm/sec Ao V2 VTI: 50.2 cm LV V1 VTI: 26.0 cm GIANLUCA(I,D): 1.8 cm2 GIANLUCA(V,D): 1.9 cm2 SV(LVOT): 90.4 ml PA V2 max: 88.4 cm/sec TR max marquez: 252.5 cm/sec TR max P.5 mmHg Interpretation Summary The estimated ejection fraction is 65 %. Stage 2 diastolic dysfunction. Mildly dilated right ventricle. The left atrium is moderately enlarged. Mild (1+) posteriorly directed mitral valve insufficiency. Mild (1+) tricuspid valve insufficiency. Right ventricular systolic pressure estimated to be 31 mmHg. Mild (1+) aortic valve insufficiency. Compared to echo results dated 01/23/2019, LV function has remained the same, RVSP has improved from 37 to 31 mmHg. Ordering Physician: Subhash Durbin Referring Physician: Valerio Nickerson Performed By: Kiersten Redman RDCS, RVT
[2020-01-19 08:53] LABS: AST(SGOT) 17 U/L (15-37); Alanine Aminotransfer ALT/SGPT 21 U/L (13-56); Albumin, Serum 3.6 g/dL (3.2-5.0); Alkaline Phosphatase 76 U/L (45-117); Bilirubin, Direct 0.18 mg/dL (0.00-0.30); Cholesterol 181 mg/dL (200); Globulin 3.3 g/dL (2.2-4.2); High Density Lipoprotein 61 mg/dL; Protein, Total 6.9 g/dL (6.4-8.2); Triglycerides 128 mg/dL; Very Low Density Lipoprotein 26 mg/dL (5-40)
== END ==
PROVIDERS: PCP Family Medicine; Referring Provider Internal Medicine Cardiovascular Disease; Visit Provider Internal Medicine Cardiovascular Disease
DX: I10 Essential (primary) hypertension (principal); E66.01 Morbid (severe) obesity due to excess calories; I27.20 Pulmonary hypertension, unspecified; Z98.890 Other specified postprocedural states
CPT/HCPCS: 36415; 80061; 80076; 93306

== ENCOUNTER 2020-08-25 11:57 | Emergency (ER) | payer MEDICARE, OTHER, SELFPAY ==
[2020-07-08 08:48] VITALS: BMI 42.0
[2020-08-25 11:59] VITALS: BP 160/76; PULSE 82; RESP 24; TEMP 37.5; O2SAT 94; BMI 43.1
[2020-08-25 12:04] VITALS: BP 160/76; PULSE 83; RESP 26; TEMP 37.5; O2SAT 94
--- NOTE | 2020-08-25 12:04 | RAD_ITS ---
STUDY: X-RAY CHEST REASON FOR EXAM: Female, 80 years old. bilateral rales,positive Covid TECHNIQUE: Single AP portable view of the chest. COMPARISON: 01/01/2019 FINDINGS: Focal opacity in the mid left lung may represent a focal pneumonia or pulmonary nodule. Correlation with CT the chest with contrast is recommended. There is no demonstrated pleural abnormality. Normal size heart. Normal mediastinum and debora. Normal visualized pulmonary arteries. Normal visualized aortic arch and descending thoracic aorta. Normal visualized thoracic spine. Normal visualized ribs, clavicles, and shoulders. There is no demonstrated abnormality of the visualized soft tissue structures of the upper abdomen. RAD/Chest 1 View (Portable) IMPRESSION: Focal left lung nodule or pneumonia. Correlation with CT the chest with contrast is recommended. Electronically Signed: Brandon Mosqueda MD at 12:49 EST Tel , Service support ,
--- NOTE | 2020-08-25 12:05 | EKG12_ITS ---
Test Reason : SOB Blood Pressure : / mmHG Vent. Rate : 079 BPM Atrial Rate : 079 BPM P-R Int : 164 ms QRS Dur : 108 ms QT Int : 378 ms P-R-T Axes : 000 -57 039 degrees QTc Int : 433 ms Sinus rhythm with Premature atrial complexes Left anterior fascicular block Voltage criteria for left ventricular hypertrophy Nonspecific ST abnormality Abnormal ECG Confirmed by IVORY MAXWELL, ZHENG ([id number]), dental insurance biller RAY FARRIS ([id number]) on 09/01/2020 10:27:00 AM Referred By: JAYLEN Confirmed By:ARNOLDO DODSON MD
[2020-08-25 12:14] VITALS: O2SAT 94
[2020-08-25 12:26] LABS: Absolute Lymphocyte Count 0.64 X10^3/uL (0.83-4.51); Absolute Neutrophil Count 2.6 X10^3/uL (2.0-7.7); Basophil# 0.02 X10^3/uL; Basophil% 0.6 % (0-1); Hematocrit 38.4 % (37-47); Hemoglobin 13.3 g/dL (12.0-15.0); Lymphocyte # 0.64 X10^3/ul (4.0); Lymphocyte % 17.7 % (19-41); Mean Corp Hgb Conc 34.6 g/dL (32-36); Mean Corpuscular Volume 92.3 fL (81-99); Mean Platelet Vol. 9.5 fl (6.2-12.0); Monocyte# 0.28 X10^3/uL; Monocyte% 7.8 % (0-10); NRBC Flagged by Analyzer 0 % (0-5); Neutrophil # 2.61 X10^3/uL (2.7-7.7); Neutrophil % 72.2 % (47-70); Platelet Count 154 K/mm3 (150-450); RBC Distribution Width CV 12.8 % (11.6-14.6); RBC Distribution Width SD 43.5 fl (35.1-43.9); Red Blood Count 4.16 M/mm3 (4.2-5.4); White Blood Count 3.6 K/mm3 (4.4-11.0)
[2020-08-25] MEDS: dexAMETHasone 10 MG/ML Vial IV (12:28)
[2020-08-25 12:35] LABS: Anion Gap 9 (5-15); BUN 21 mg/dL (7-18); Calcium,Total 8.8 mg/dL (8.5-10.1); Chloride 98 mmol/L (98-107); Creatinine, Serum 0.84 mg/dL (0.55-1.02); EST Glomerular Filtration Rate 69 mL/min (>60); Est Glom Filt Rate - Afr Amer 84 mL/min (>60); Estimated Creatinine Clearance 40.98 ml/min; Glucose 155 mg/dL (74-106); Potassium 3.1 mmol/L (3.5-5.1); Sodium Level 132 mmol/L (136-145)
[2020-08-25 12:59] LABS: Lactic Acid 1.9 mmol/L (0.4-1.9)
--- NOTE | 2020-08-25 13:11 | ED.DCSUM_ITS ---
History of Present Illness Chief Complaint: Shortness of Breath Informant: Patient Onset: Days Context: Gradual Onset Timing: Continuous Quality: Dyspnea, dyspnea exertion Location: Respiratory Current Severity: Mild Maximum Severity: Moderate Worsened by: Walking Relieved by: Nothing Associated Symptoms: Positive Covid test at urgent care Narrative: Patient is an elderly woman who presents because of increased shortness of breath. She had a positive Covid test last week. Her symptoms started earlier that week. She no longer complains of rhinorrhea, congestion or sore throat. She reports malaise, fatigue, generalized weakness. She has a nonproductive cough. She complains of dyspnea dyspnea exertion. Denies chest pain. Denies leg pain, swelling discoloration. She did report nausea and diarrhea which has resolved. She denies urologic symptoms. Denies rash. Denies discoloration of her fingers or toes. Prior similar symptoms: Yes Recent Illness/Hospitalization: Yes - Past Medical History (1) GERD (gastroesophageal reflux disease) Status: Chronic (2) HTN (hypertension) Status: Chronic (3) Obesity, morbid (more than 100 lbs over ideal weight or BMI > 40) Status: Chronic (4) Paroxysmal atrial flutter Status: Chronic Comment: Converted to sinus in ER on 01/01/2019 with single dose of Lopressor. Past Medical History - Allergies and Home Meds Allergies/Adverse Reactions: Allergies Penicillins Allergy (Severe, Verified 08/25/20 11:58) Hives PER PT REPORT-HAD ORAL PCN IN HER PAST FOR UTERINE INFECTION IN THE , DEVELOPED HIVES & IT WAS STOPPED chlordiazepoxide [From Librax (with clidinium)] Allergy (Verified 08/25/20 11:58) Other clidinium bromide [From Librax (with clidinium)] Allergy (Verified 08/25/20 11:58) Other amlodipine besylate [From Norvasc] Adverse Reaction (Verified 08/25/20 11:58) Other Primary Care Physician: Valerio Nickerson MD [Primary Care Provider] - Prior records reviewed: Yes Surgical History: cholecystectomy Lives: Spouse/ Significant Other Smoking Status: Never smoker Alcohol: None Drugs: None - Family History Maternal Family History: Family History (This Medical Record has been edited. Action required.) Mother Aortic aneurysm Congestive heart failure Renal failure Father Emphysema/COPD Brother CAD (coronary artery disease) COPD (chronic obstructive pulmonary disease) Diabetes Family History: Reports: No pertinent history Review of Systems General: Reports: Malaise, - - Read HPI. Denies: Chills, Fever, Subjective Eyes: Denies: Visual changes - bilaterally, Blurred Vision - bilaterally ENT: Reports: - - Read HPI. Denies: Rhinorrhea, Sore throat Cardiovascular: Reports: Palpitations. Denies: Chest pain Respiratory: Reports: Dyspnea, Cough, Dyspnea on exertion. Denies: Sputum, Orthopnea, Paroxysmal nocturnal dyspnea Gastrointestinal: Reports: - - Read HPI. Denies: Abdominal pain, Nausea, Vomiting, Diarrhea, Melena, Hematochezia Genitourinary: Denies: Dysuria, Hematuria, Frequency Musculoskeletal: Denies: Myalgias, Neck pain, Back pain, Swelling, Extremity Pain Skin: Denies: Rash, Wounds Neurological: Reports: Weakness. Denies: Headache, Numbness Endocrine: Denies: Polyuria, Polydipsia Hematologic: Denies: Easy bruising Allergy: Denies: Uticaria Physical Exam Vital Signs/Narrative: Vital Signs Temp Pulse Resp BP Pulse Ox 08/25/20 12:04 99.5 F H 83 26 H 160/76 H 94 08/25/20 11:59 99.5 F H 82 24 H 160/76 H 94 Inital Vital Signs reviewed: Yes General: Well nourished, Well developed, Obese, Acute Distress Head: Normocephalic, Atraumatic Eyes: Perrl, EOMI. Negative for: Pale conjunctiva ENT: No rhinorrhea, TM's clear Neck: Supple, Nontender, No lymphadenopathy, No JVD Cardiovascular: Regular rhythm, No murmurs, Normal S1, Tachycardia Respiratory: Rales - Bilateral, Diminished - Bilaterally. Negative for: No distress, CTA bilaterally Abdomen: Soft, Nontender, Nondistended, Normal bowel sounds Rectal: Deferred Back: Nontender, Normal Inspection Extremities: Nontender, No edema Skin: Normal color, No rash, No Trauma. Negative for: Cyanosis, Diaphoresis, Jaundice Neurological: Alert, Oriented x3, Cranial nerves II-XII grossly intact, Normal Strength, Normal Sensation Psychological: Normal affect Diagnostic/Tx/Re-eval Chest X-Ray - ED: 1 View, Read by ED Physician, Read by Radiologist, - - Patient has findings consistent with bilateral interstitial pneumonia/Covid. Radiology report was read. Call Dr. Sanders. I was informed that he did not read the x-ray. He did look at x-ray and agrees x-ray is consistent with Covid. Impressions Chest X-Ray 08/25/20 12:04 IMPRESSION: Focal left lung nodule or pneumonia. Correlation with CT the chest with contrast is recommended. Electronically Signed: Brandon Mosqueda MD at 12:49 EST Tel , Service support , 08/25/20 12:04 Chest 1 View (Portable) [RAD] Stat Laboratory Results 08/25/20 08/25/20 08/25/20 12:12 12:12 12:12 WBC 3.6 L RBC 4.16 L Hgb 13.3 Hct 38.4 MCV 92.3 MCH 32.0 MCHC 34.6 RDW Std Deviation 43.5 RDW Coeff of Brandie 12.8 Plt Count 154 MPV 9.5 Immature Gran % (Auto) 1.700 H Neut % (Auto) 72.2 H Lymph % (Auto) 17.7 L [place] % (Auto) 7.8 Eos % (Auto) 0.0 Baso % (Auto) 0.6 Absolute Neuts (auto) 2.6 Absolute Lymphs (auto) 0.64 L Nucleated RBC % 0 Sodium 132 L Potassium 3.1 L Chloride 98 Carbon Dioxide 25.0 Anion Gap 9 BUN 21 H Creatinine 0.84 Estim Creat Clear Calc 40.98 Est GFR (MDRD) Af Amer 84 Est GFR (MDRD) Non-Af 69 BUN/Creatinine Ratio 25.0 H Glucose 155 H Lactic Acid 1.9 Calcium 8.8 Patient is neutropenic due to COVID-19. Glucose is elevated 155. She does have evidence of prerenal azotemia. Patient is a candidate for outpatient oxygen therapy. Social work was contacted to arrange oxygen. She did receive dose of Decadron. She was prescribed Decadron. - Medical Decision Making She presents with increased shortness of breath. Patient has a positive Covid test. Clinically patient has bilateral pneumonia suspect due to COVID-19. Work-up was undertaken. Patient is a candidate for outpatient therapy. Diagnosis includes pneumothorax, pneumonia, pulmonary embolus, congestive heart failure etc. ED Disposition - Plan for ED Patient: Disposition: Home or Assisted Living Diagnosis: Pneumonia due to COVID-19 virus, Hyperglycemia, Acute prerenal azotemia Instructions: Coronavirus Disease 2019 (COVID-19): Caring for Yourself or Others, ED Pneumonia (Adult) Prescriptions: Dexamethasone [Decadron] 6 mg PO DAILY 5 Days #5 tab Transmission Status: Pending to [id number] Referrals: Valerio Nickerson MD [Primary Care Provider] - As Needed
--- NOTE | 2020-08-25 13:40 | CM.ED ---
SOCIAL WORK Informant: Dr. Grigsby Reason for Consult: Discharge Planning- Home O2 Updated by Dr. Grigsby, patient requires home O2. Patient positive for COVID-19. Call to patient to discuss home O2 needs. Patient alert and oriented x3. Patient reports already has pulse ox at home, does not smoke and lives with . Discussed DME providers. Patient in agreement to have O2 needs set up with [facility]. Dr. Grigsby completed [employer] quickscript. Facesheet, Quickscript, and COVID-19 test results faxed and called to [employer]. Nursing updated. Portable O2 tank and instruction sheet given to nurse. RT to be notified to review use of home O2 with patient. Plan: Home with Home O2 through [employer] Esvin Burgess MSW, ENERGY ADVISOR
[2020-08-25 14:23] VITALS: BP 149/67; PULSE 72; RESP 20; TEMP 37.3; O2SAT 96
[2020-08-25 14:25] VITALS: BP 149/67; PULSE 72; RESP 20; TEMP 37.3; O2SAT 96
--- NOTE | 2020-08-26 15:19 | CASEMGMT ---
RN CM ED DISCHARGE NOTE ED VISIT DATE: 08/25/20 Diagnosis: COVID 19 DC Disposition: Home with Oxygen through [facility] Intro role of CM to patient via home phone. Patient states she is doing well. She is wearing oxygen @ 2L NC and states her oxygen is staying above 90% unless ambulating. Her oxygen with ambulation is 82%. Recommended she adjust oxygen to 4l prior to ambulation and then monitor at rest and resume 2L when above 90%. If this does not help, recommend she contact Dr. Rosado office for further advise. -Pt requested information on PCP's not affiliated with [facility]. Offered to mail a list to her and she is agreeable. - No difficulties with hydration, food intake. Family is available to assist if needed. -Pt is agreeable to have RN CM call tomorrow for update. Pt was also updated on her 's condition and she states she has spoken with him today. ( is patient on MS2). Carmelina CALDERONN RN ACM
--- NOTE | 2020-08-27 15:41 | CASEMGMT ---
RN CM ER DC Note Called to patient who is requesting no more phone calls. Let pt know [facility] CM would not make any further calls. Carmelina CALDERONN RN ACM
== END 2020-08-25 14:49 | disposition home or self-care (01) ==
PROVIDERS: Emergency Provider Emergency Medicine; PCP Family Medicine
DX: U07.1 COVID-19 (principal); J12.89 Other viral pneumonia; R73.9 Hyperglycemia, unspecified; E66.01 Morbid (severe) obesity due to excess calories; I10 Essential (primary) hypertension
CPT/HCPCS: 71045; 80048; 83605; 85025; 93005; 96374; 99285; A4216

== ENCOUNTER 2020-09-19 09:38 | Observation (INO) | payer MEDICARE, OTHER, SELFPAY ==
[2020-09-19] VITALS (11 sets, daily range): BP systolic 112–166; BP diastolic 48–92; PULSE 73–93; RESP 16–20; TEMP 36.8–37.4; O2SAT 93–98; BMI 40.7
[2020-09-19 09:51] LABS: Absolute Lymphocyte Count 1.75 X10^3/uL (0.83-4.51); Absolute Neutrophil Count 10.8 X10^3/uL (2.0-7.7); Basophil# 0.05 X10^3/uL; Basophil% 0.4 % (0-1); Eosinophil# 0.03 X10^3/uL; Eosinophils% 0.2 % (0-5); Hemoglobin 13.5 g/dL (12.0-15.0); Lymphocyte # 1.75 X10^3/ul (4.0); Lymphocyte % 12.7 % (19-41); Mean Corp Hgb Conc 34.6 g/dL (32-36); Mean Corpuscular Hgb 32.5 pg (27.0-32.0); Mean Corpuscular Volume 93.8 fL (81-99); Mean Platelet Vol. 9.3 fl (6.2-12.0); Monocyte# 1.08 X10^3/uL; Monocyte% 7.8 % (0-10); NRBC Flagged by Analyzer 0 % (0-5); Neutrophil # 10.78 X10^3/uL (2.7-7.7); Neutrophil % 78.1 % (47-70); Platelet Count 169 K/mm3 (150-450); RBC Distribution Width CV 14.5 % (11.6-14.6); RBC Distribution Width SD 49.8 fl (35.1-43.9); Red Blood Count 4.16 M/mm3 (4.2-5.4); White Blood Count 13.8 K/mm3 (4.4-11.0)
[2020-09-19 10:03] LABS: Anion Gap 8 (5-15); BUN 13 mg/dL (7-18); BUN/Creat Ratio 14.9 RATIO (10-20); Calcium,Total 9.3 mg/dL (8.5-10.1); Chloride 97 mmol/L (98-107); Creatinine, Serum 0.87 mg/dL (0.55-1.02); EST Glomerular Filtration Rate 67 mL/min (>60); Est Glom Filt Rate - Afr Amer 81 mL/min (>60); Estimated Creatinine Clearance 41.47 ml/min; Glucose 155 mg/dL (74-106); Potassium 3.6 mmol/L (3.5-5.1); Sodium Level 131 mmol/L (136-145)
--- NOTE | 2020-09-19 10:18 | RAD_ITS ---
STUDY: X-RAY CHEST REASON FOR EXAM: Female, 80 years old. RLQ PAIN. COVID 08/25/20. NO CHEST COMPLAINTS TECHNIQUE: Single AP portable view of the chest. COMPARISON: 08/25/2020. FINDINGS: Markedly improved and almost cleared bilateral patchy infiltrates. Hypoventilatory changes in right lung base. There is no demonstrated pleural abnormality. There is borderline cardiomegaly. Normal mediastinum and debora. Normal visualized pulmonary arteries. There is atherosclerotic tortuosity of the aortic arch and descending thoracic aorta. Stable osseous structures. There is no demonstrated abnormality of the visualized soft tissue structures of the upper abdomen. RAD/Chest 1 View (Portable) IMPRESSION: Hypoventilatory changes. No focal filtrate is seen. Electronically Signed: Víctor Webber MD at 12:07 EST Tel , Service support ,
--- NOTE | 2020-09-19 10:19 | CT_ITS ---
We are attempting to reach an attending provider to discuss findings. An addendum with communication details will be sent when the communication is complete. STUDY: CT ABDOMEN AND PELVIS WITHOUT CONTRAST REASON FOR EXAM: Female, 80 years old. Right lower abdomen pain x 2 days, elevated WBC, fever. Prior x 2, cholecystectomy, total right hip replacement, hypertension. RADIATION DOSAGE (If Supplied By Facility): CTDIvol = ( 17.40 ) mGy, DLP = ( 934.88 ) mGycm TECHNIQUE: Transaxial images were obtained from the dome of the diaphragm to the symphysis pubis without oral contrast, and without intravenous contrast. Sagittal and coronal images were reconstructed. Individualized dose optimization techniques were used for this CT. COMPARISON: 05/05/2014 FINDINGS: The visualized lung bases are unremarkable. The visualized portions of the heart are within normal limits. Normal liver. There are surgical clips in the gallbladder fossa consistent with a prior cholecystectomy. Normal spleen. Normal pancreas. Normal bilateral adrenal glands. Normal right kidney. Normal left kidney. Normal visualized stomach. Normal small intestine. There are multiple colonic diverticula consistent with diverticulosis. Appendicolith within the base of the appendix with a dilated fluid-filled appendix with stranding of surrounding fat consistent with acute appendicitis. No loculated fluid collection to suggest abscess. No pneumoperitoneum to suggest bowel perforation. Normal abdominal aorta. Normal inferior vena cava. Normal retroperitoneum. Normal urinary bladder. 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 Normal abdominal wall. Status post right hip arthroplasty which produces streak artifact obscures the pelvis. CT/Abdomen/Pelvis without Cont IMPRESSION: Acute appendicitis with an appendicolith in the base of the appendix. No abscess or perforation. Electronically Signed: Brandon Mosqueda MD at 12:31 EST Tel , Service support ,
--- NOTE | 2020-09-19 10:19 | EKG12_ITS ---
Test Reason : Blood Pressure : / mmHG Vent. Rate : 082 BPM Atrial Rate : 082 BPM P-R Int : 174 ms QRS Dur : 106 ms QT Int : 366 ms P-R-T Axes : 009 -53 023 degrees QTc Int : 427 ms Normal sinus rhythm Left anterior fascicular block Voltage criteria for left ventricular hypertrophy Abnormal ECG Confirmed by ANNA MAXWELL, JOSE ([id number]), news editor RAY FARRIS ([id number]) on 09/20/2020 10:34:06 AM Referred By: NORMAN Confirmed By:JOSE CASTILLO MD
--- NOTE | 2020-09-19 10:21 | ED.VIS.GEN ---
History of Present Illness Chief Complaint: Abd Pain Informant: Patient Onset: Days Maximum Severity: Mild Narrative: Right lower quadrant pain and fever or dysuria. The patient reports that basically on she began having a sense of dysuria right lower abdominal pain fever to 101 she was seen in urgent care yesterday she was told white count was 12,000 no clear signs of UTI she was warned about appendicitis her symptoms intensified today and she came in for evaluation. She has history of hysterectomy cholecystectomy, she is had Covid early August she completely resolved from that condition. She was not ill before the onset of the symptoms on , she has no history of kidney stone or UTI or Jose Elias the pain is now localized more to the right lower abdomen temperatures to 101 no vomiting bowel habits normal Past Medical History - Allergies and Home Meds Allergies/Adverse Reactions: Allergies Penicillins Allergy (Severe, Verified 09/19/20 09:42) Hives PER PT REPORT-HAD ORAL PCN IN HER PAST FOR UTERINE INFECTION IN THE , DEVELOPED HIVES & IT WAS STOPPED chlordiazepoxide [From Librax (with clidinium)] Allergy (Verified 09/19/20 09:42) Other clidinium bromide [From Librax (with clidinium)] Allergy (Verified 09/19/20 09:42) Other amlodipine besylate [From Norvasc] Adverse Reaction (Verified 09/19/20 09:42) Other Primary Care Physician: Valerio Nickerson MD [Primary Care Provider] - Past Medical History: - - Includes as above Surgical History: cholecystectomy Smoking Status: Never smoker - Family History Maternal Family History: Family History (This Medical Record has been edited. Action required.) Mother Aortic aneurysm Congestive heart failure Renal failure Father Emphysema/COPD Brother CAD (coronary artery disease) COPD (chronic obstructive pulmonary disease) Diabetes Family History: Reports: No pertinent history Review of Systems General: Reports: Fever. Denies: Chills, Sweats Eyes: Denies: Visual changes - bilaterally, Diplopia ENT: Denies: Rhinorrhea, Sore throat Cardiovascular: Denies: Chest pain, Palpitations Respiratory: Denies: Dyspnea, Cough, Dyspnea on exertion Gastrointestinal: Reports: Abdominal pain. Denies: Nausea, Vomiting, Diarrhea, Melena, Hematochezia Genitourinary: Reports: Dysuria. Denies: Hematuria, Frequency Musculoskeletal: Denies: Back pain, Extremity Pain Skin: Denies: Rash, Wounds Neurological: Denies: Headache, Weakness, Numbness Physical Exam Vital Signs/Narrative: Vital Signs Temp Pulse Resp BP Pulse Ox 09/19/20 09:39 98.2 F 85 18 152/78 H 96 General: Well nourished, Well developed, No Acute Distress Head: Normocephalic, Atraumatic Eyes: Perrl, EOMI ENT: Moist mucous membranes, No rhinorrhea Neck: Supple, Nontender Cardiovascular: Regular rate, Regular rhythm, No murmurs Respiratory: No distress, CTA bilaterally, Chest nontender Abdomen: Soft, Nondistended, Normal bowel sounds, Tender, Guarding Back: Nontender, Normal Inspection Extremities: Nontender, No edema Skin: Normal color, No rash Neurological: Alert, Oriented x3, Cranial nerves II-XII grossly intact, Normal Strength, Normal Sensation Psychological: Normal affect, Normal Mood Diagnostic/Tx/Re-eval - Medical Decision Making The patient's vital signs are unremarkable at this time she does have pain to the right lower quadrant with some guarding, the backs unremarkable skin is unremarkable the rest of exams unremarkable given her age and her complaints ED screening evaluation IV fluids UA CT scan Patient's ED screening evaluation shows a white count 13,000, 1 view chest x-ray to my review shows no acute apparently normal cardiopulmonary structures CT per radiology shows signs of appendicitis, she has been started on IV antibiotics we have contacted surgery to see her made the patient aware she agrees and understands to stay at [facility] for management of this condition Disposition admit stable pending surgery evaluation Final impression acute appendicitis surgery evaluation underway ED Disposition - Plan for ED Patient: Diagnosis: Acute appendicitis Referrals: Valerio Nickerson MD [Primary Care Provider] -
[2020-09-19 10:27] LABS: Color, Urine Yellow (Yellow); Glucose, Dipstick Normal (Normal); Ketone-Dipstick 5 mg/dl (Negative); Leukocyte Esterase-Dipstick 25 /ul (Negative); Nitrite-Dipstick Negative (Negative); Occult Blood-Urine 25 /ul (Negative); Protein-Dipstick 30 mg/dl (Negative); Urine Bilirubin Dipstick 1 mg/dL (Negative); Urine Clarity Sl. Cloudy (Clear); Urine Urobilinogen 4 mg/dl (Normal)
[2020-09-19 10:32] LABS: International Normalized Ratio 2.2; Prothrombin Time (Protime)PT. 24.1 SECONDS (11.7-14.9)
[2020-09-19 10:34] LABS: Bacteria 1+ /hpf (None Seen); Mucous, Urine RARE /hpf (<or=2+); Red Blood Cells-Urine 0-5 SEEN /hpf (0-5); Squamous Epithelial Cells - UA 0-5 SEEN /hpf (5-10); White Blood Cells 0-5 SEEN /hpf (0-5)
[2020-09-19] MEDS: morphine 8 MG/ML Syringe IV (11:22)
[2020-09-19] MEDS: Ondansetron 4 MG/2 ML Vial IV (11:22)
[2020-09-19] MEDS: Ceftriaxone 1 GM/50 ML BAG IV (11:24)
[2020-09-19] MEDS: METRONIDAZOLE 100 MG IV (13:25)
--- NOTE | 2020-09-19 13:33 | HP.PCM_ITS ---
History of Present Illness Date of Admission: 09/19/20 The patient is a 80 year old F presents to ER due to abdominal pain/right lower quadrant abdominal pain. Patient states that mid abdominal pain started Sunday night continued into Sunday. By Sunday to go to the right lower quadrant in the morning patient did go to urgent care however they are unsure what the cause of the abdominal pain was or her white blood cell count that time of 12 per patient. Patient was told if this does not improve to go to the ER. Patient presented to the ER today. CT abdomen pelvis did show acute appendicitis. Patient's white blood count is 13. Patient was given Rocephin and Flagyl IV for acute appendicitis. Patient states her last colonoscopy was 3 years ago. Patient is on Xarelto due to a flutter her last dose was last night. Patient does state that she had Covid at the beginning of August. Past Medical History Past Medical History (Chronic Problems): Chronic Problems (This Medical Record has been edited. Action required.) History of left heart catheterization (Chronic 10/11/04) (done for abnormal stress)Per Dr. Oscar Nava @ [facility]: Minimal, nonobstructive plaque in CX. Nonobstructive disease elsewhere. Medical therapy recommended. Paroxysmal atrial flutter (Chronic) Converted to sinus in ER on 01/01/2019 with single dose of Lopressor. GERD (gastroesophageal reflux disease) (Chronic) Obesity, morbid (more than 100 lbs over ideal weight or BMI > 40) (Chronic) Gout (Chronic) HTN (hypertension) (Chronic) Medical History: Medical History (This Medical Record has been edited. Action required.) Paroxysmal atrial flutter (Chronic) I48.92 Converted to sinus in ER on 01/01/2019 with single dose of Lopressor. Left anterior fascicular block (Resolved) I44.4 GERD (gastroesophageal reflux disease) (Chronic) K21.9 Obesity, morbid (more than 100 lbs over ideal weight or BMI > 40) (Chronic) E66.01 Gout (Chronic) M10.9 HTN (hypertension) (Chronic) I10 Diverticulitis K57.92 Uterine fibroid D25.9 Allergies Penicillins Allergy (Severe, Verified 09/19/20 09:42) Hives PER PT REPORT-HAD ORAL PCN IN HER PAST FOR UTERINE INFECTION IN THE , DEVELOPED HIVES & IT WAS STOPPED chlordiazepoxide [From Librax (with clidinium)] Allergy (Verified 09/19/20 09:42) Other clidinium bromide [From Librax (with clidinium)] Allergy (Verified 09/19/20 09:42) Other amlodipine besylate [From Norvasc] Adverse Reaction (Verified 09/19/20 09:42) Other Home Medications: Ambulatory Orders Medication Instructions Recorded Allopurinol [Zyloprim] 300 mg PO DAILY 05/05/14 Hydrochlorothiazide [Hctz] 25 mg PO DAILY 05/05/14 Multivitamins,Therapeutic 1 tab PO DAILY 05/05/14 [Multivitamin] Potassium Chloride [K-Dur] 10 meq PO DAILY 05/05/14 cholecalciferol (vitamin D3) 25 1,000 unit PO DAILY 01/06/19 mcg (1,000 unit) capsule metoprolol tartrate 25 mg tablet 25 mg PO BID tab 01/07/19 Magnesium Oxide [Magnesium] 250 mg PO DAILY 06/18/19 Acetaminophen [Tylenol] 1,000 mg PO Q8 #100 tab 07/31/19 rivaroxaban 20 mg tablet 20 mg PO DAILY #30 tab 09/09/19 Surgical History: Surgical History (This Medical Record has been edited. Action required.) History of left heart catheterization (Chronic) Onset Date: 10/11/04 Z98.890 (done for abnormal stress)Per Dr. Oscar Nava @ [facility]: Minimal, nonobstructive p laque in CX. Nonobstructive disease elsewhere. Medical therapy recommended. History of D&C Z98.890 History of bilateral cataract extraction Z98.41, Z98.42 History of section Z98.891 History of cholecystectomy Onset Date: 1982 Z90.49 History of colonoscopy Z98.890 History of left knee replacement Onset Date: 10/2009 Z96.652 Unicom[address] knee per Dr. 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 Action required.) Mother Aortic aneurysm Congestive heart failure Renal failure Father Emphysema/COPD Brother CAD (coronary artery disease) COPD (chronic obstructive pulmonary disease) Diabetes History Items: No pertinent history Review of Systems Constitutional: Reports: Anorexia Eyes: Denies: Blurred vision HEENT: Denies: Difficulty Swallowing Cardiovascular: Denies: Chest Pain Respiratory: Denies: Cough VTE Information - Inpt Only VTE Present on Admission: Yes VTE Mechan Device Prophylaxis: SCD's - Physical Exam Vitals/I&O's: Vital Signs Temp Pulse Resp BP Pulse Ox 99.0 F 82 20 H 153/62 H 97 09/19/20 13:09 09/19/20 13:09 09/19/20 13:09 09/19/20 13:09/19/20 13:09 Oxygen Delivery Method Room Air Weight: 226 lb 3.108 oz Body Mass Index (BMI) 40.7 General: Alert, Oriented x3, Cooperative, No apparent distress HEENT: Atraumatic Lungs: Normal air movement Cardiovascular: Regular rate Abdomen: Soft, Non-Distended, Tender - Right lower quadrant, positive Rovsing sign, voluntary guarding, equivocal rebound Extremities: Edema Neurological: Cranial nerves II-XII grossly intact Psych/Mental Status: Normal Affect Microbiology Past 72 Hours 09/19/20 13:00 Mucosa - Nose SARS-CoV-2 Antigen (Rapid) - Final Laboratory Results 09/19/20 09:43: WBC 13.8 H, RBC 4.16 L, Hgb 13.5, Hct 39.0, MCV 93.8, MCH 32.5 H , MCHC 34.6, RDW Std Deviation 49.8 H, RDW Coeff of Brandie 14.5, Plt Count 169, MPV 9.3, Immature Gran % (Auto) 0.800, Neut % (Auto) 78.1 H, Lymph % (Auto) 12.7 L, [place] % (Auto) 7.8, Eos % (Auto) 0.2, Baso % (Auto) 0.4, Absolute Neuts (auto) 10.8 H, Absolute Lymphs (auto) 1.75, Nucleated RBC % 0 09/19/20 09:43: Sodium 131 L, Potassium 3.6, Chloride 97 L, Carbon Dioxide 26.0, Anion Gap 8, BUN 13, Creatinine 0.87, Estim Creat Clear Calc 41.47, Est GFR (MDRD) Af Amer 81, Est GFR (MDRD) Non-Af 67, BUN/Creatinine Ratio 14.9, Glucose 155 H, Calcium 9.3 09/19/20 09:45: PT 24.1 H, INR 2.2 09/19/20 10:17: Urine Color Yellow, Urine Clarity Sl. Cloudy, Urine pH 7.0, Ur Specific [place] 1.010, Urine Protein 30 H, Urine Glucose (UA) Normal, Urine Ketones 5 H, Urine Occult Blood 25 H, Urine Nitrite Negative, Urine Bilirubin 1 H, Urine Urobilinogen 4 H, Ur Leukocyte Esterase 25 H, Urine RBC 0-5 SEEN, Urine WBC 0-5 SEEN, Ur Squamous Epith Cells 0-5 SEEN, Urine Bacteria 1+, Urine Mucus RARE Current Medications Metronidazole (Flagyl) 750 mg in 150 mls @ 100 mls/hr IV X1 ONE Stop: 09/19/20 14:29 Last Admin: 09/19/20 13:25 Dose: 100 mls/hr Documented by: Assessment/Plan All Active Problems (This Medical Record has been edited. Action required.) Left anterior fascicular block (Resolved) Palpitations (Acute) Chest pain (Acute) 80-year-old female with acute appendicitis 1. Discussed procedure laparoscopic appendectomy, possible open, possible bowel resection along with the risk but not limited to bleeding?which is higher as patient did take her Xarelto last night, infection/abscess, injury to another organ (small bowel, colon, etc.), adhesion, hernia at incision sites, and anesthesia. Patient did have Covid at the beginning of August. Current antigen test is negative. Patient no further questions this time. Nora Celeste M.D. Pager: [phone] [facility] [address] [place] [address], [address] [place] [address] Office: [phone]
[2020-09-19] MEDS: Bupiv/Epi 0.5% Mpf 30 ML Vial (14:34)
--- NOTE | 2020-09-19 15:37 | PCM.OPRPT ---
Report of Operation Date of Procedure: 09/19/20 Pre-Operative Diagnosis: Acute appendicitis Post-Operative Diagnosis: Acute perforated/Gangrenous appendicitis Surgery/Procedure Performed:: Laparoscopic appendectomy Type of Anesthesia:: General/Supplemental Anesthesiologist: Shanique Collazo Special Medications: Rocephin 2 g IV x1, Flagyl 500 mg IV x1 for acute appendicitis Specimen's removed: Appendix Estimated Blood Loss (mL): 10 cc Fluids Replaced: 800 cc Description of Procedure: Indications: 80-year-old female presented to the ER with new right lower quadrant pain starting yesterday with mid abdominal pain starting Sunday. On workup she was found to have acute appendicitis on CT and a leukocytosis of 13. Patient was started on antibiotics in the ER for acute appendicitis-Rocephin and Flagyl IV Description of the procedure: The patient was placed on operating table in supine position. General anesthesia was induced. A timeout was completed verifying correct patient, procedure, position and special equipment prior to beginning procedure. Abdomen was prepped and draped in usual sterile fashion. Incision was made in the natural skin line above the umbilicus with a 15 blade scalpel. The fascia was elevated and incised. Entry into the peritoneum was confirmed visually and no bowel was noted in the vicinity of the incision. The Suárez trocar was placed under direct vision. Abdomen insufflated with a pressure of 12-15 mmHg. Patient tolerated insertion well. The scope was inserted and the abdomen inspected. No injuries from initial trocar placement were noted. With bowel ascites to the right lower quadrant abdominal wall and adhesions of the omentum to the abdominal wall from previous surgeries were noted. An direct visualization 2 -5 mm trocars were placed one above the symphysis pubis and below the hairline and one in the left lower quadrant. Lateral to the rectus muscle. Care is taken to avoid injury to the bladder and inferior epigastric vessels. The table was placed in Trendelenburg position with the right side elevated. Enseal was used to take down omental adhesions to the abdominal wall. The atraumatic grasper was used to gently wipe down bowel/fat from abdominal wall in the right upper quadrant. The appendix was grasped with atraumatic grasper and elevated. It was noted to be inflamed and gangrenous. A window was developed in the mesoappendix at the point between the base of the appendix and the cecum. An endoscopic 45 mm linear cutting stapler blue load was then used to divide and staple the base of the appendix. Enseal was used to divide the mesoappendix. The appendix was withdrawn into the Suárez trocar after being placed endoscopically retrieval bag. Appendix was sent to pathology. The appendiceal stump was then irrigated and hemostasis was assured. Fluid was suctioned no other pathology was identified. Secondary trochars were removed under direct visualization. No bleeding was noted trocar sites. The laparoscope withdrawn and the umbilical trocar removed. The abdomen was allowed to collapse. Local anesthesia of 20 mL of 0.5% Marcaine was used at the incision sites. The umbilical trocar site was closed with the [id number] 0 Vicryl suture. The skin was closed up to clear sutures of 4-0 Monocryl and Steri-Strips. The patient was extubated. The patient tolerated the procedure well and was taken to the postanesthesia care unit in satisfactory condition. - Complications none
[2020-09-19] MEDS: Lactated Ringers 1,000 ML 100 ML IV (15:58)
[2020-09-19] MEDS: Metoprolol Tartrate 25 MG Tablet PO (20:10)
[2020-09-19] MEDS: metroNIDAZOLE 500 MG/100 ML BAG 100 MG IV (21:42)
--- NOTE | 2020-09-20 | APP_PTH ---
PATIENT: DESTINI SAM LOC: MS3 U#:[id number] AGE/SX: 80/F ROOM: [facility] RE09/19/[address]: Dr. Nora Celeste MD : 1940 BED: 1 DIS: 09/20/2020 SPEC #: [id number] RECD: 09/20/20 08:35 STATUS: MIO REYesica #: [id number] ИРИНА: 09/20/20 00:[address]: Nora Celeste DEPT: SURGICAL PATHOLOGY RECD BY: Isaac Lynn ENTERED: 09/20/20 08:44 SP TYPE: APPENDIX OTHR DR: Dr. Valerio Nickerson MD Tissues: Appendix, NOS Procedures: Surgery Specimen Level III HEADER OPERATION: Laparoscopic appendectomy PRE-OP DIAGNOSIS: Acute appendicitis TISSUE SUBMITTED: Appendix MICROSCOPIC DIAGNOSIS Appendix, appendectomy: Acute appendicitis and periappendicitis. DARIO:jere 09/21/2020 MICROSCOPIC DESCRIPTION Slides are reviewed. GROSS DESCRIPTION Received in fixative is one container labeled with the patient's name and designated appendix. The specimen consists of an appendix measuring 9 cm in length and up to 0.7 cm in diameter. The attached periappendiceal adipose tissue measures up to 2 cm in width. The serosal surface is congested and covered with motta, purulent exudate. No obvious perforation is identified. The lumen contains fecal material and also contains a fecalith measuring 0.7 cm in greatest dimension. Preparation Operator sections are submitted in one cassette. / DARIO:jere 09/20/20 TC:2 CPT: 15002
[2020-09-20 00:30] VITALS: BP 147/69; PULSE 82; RESP 18; TEMP 37.1; O2SAT 95
[2020-09-20] MEDS: Lactated Ringers 1,000 ML 100 ML IV (03:23)
[2020-09-20 04:06] VITALS: BP 128/55; PULSE 77; RESP 18; TEMP 37.2; O2SAT 95
[2020-09-20] MEDS: metroNIDAZOLE 500 MG/100 ML BAG 100 MG IV (05:11)
[2020-09-20] MEDS: Acetaminophen 325 MG Tablet 650 MG PO (05:14)
[2020-09-20 06:12] LABS: Absolute Neutrophil Count 8.6 X10^3/uL (2.0-7.7); Basophil# 0.03 X10^3/uL; Basophil% 0.3 % (0-1); Eosinophil# 0.12 X10^3/uL; Hematocrit 35.9 % (37-47); Hemoglobin 12.1 g/dL (12.0-15.0); Lymphocyte % 14.7 % (19-41); Mean Corp Hgb Conc 33.7 g/dL (32-36); Mean Corpuscular Hgb 32.3 pg (27.0-32.0); Mean Corpuscular Volume 95.7 fL (81-99); Mean Platelet Vol. 9.1 fl (6.2-12.0); Monocyte# 1.05 X10^3/uL; Monocyte% 9.1 % (0-10); NRBC Flagged by Analyzer 0 % (0-5); Neutrophil # 8.55 X10^3/uL (2.7-7.7); Neutrophil % 74.2 % (47-70); Platelet Count 150 K/mm3 (150-450); RBC Distribution Width CV 14.5 % (11.6-14.6); RBC Distribution Width SD 50.9 fl (35.1-43.9); Red Blood Count 3.75 M/mm3 (4.2-5.4); White Blood Count 11.5 K/mm3 (4.4-11.0)
[2020-09-20 08:05] VITALS: PULSE 74
[2020-09-20] MEDS: Metoprolol Tartrate 25 MG Tablet PO (08:05)
[2020-09-20] MEDS: hydroCHLOROthiazide 25 MG Tablet PO (08:05)
[2020-09-20] MEDS: Magnesium Chloride 64 MG Delay Rel.Tablet 128 MG PO (08:05)
[2020-09-20] MEDS: Allopurinol 300 MG Tablet PO (08:06)
[2020-09-20 08:12] VITALS: BP 132/52; PULSE 74; RESP 18; TEMP 36.7; O2SAT 96
--- NOTE | 2020-09-20 08:47 | PN.SURG_ITS ---
Subjective: Patient tolerating breakfast, pain controlled with Tylenol. Patient still has very mild right lower quadrant pain but is much improved, mainly incisional pain - Physical Exam Vitals/I&O's: Vital Signs Temp Pulse Resp BP Pulse Ox 98.1 F 74 18 132/52 H 96 09/20/20 08:12 09/20/20 08:12 09/20/20 08:12 09/20/20 08:12 09/20/20 08:12 Oxygen Delivery Method Room Air Weight: 226 lb 3.108 oz Body Mass Index (BMI) 40.7 Intake and Output for Last 24 Hours 09/18/20 09/19/20 09/20/20 23:59 23:59 23:59 Intake Total 1373.33 / 1373.33 706.67 / 706.67 Balance 1373.33 / 1373.33 706.67 / 706.67 General: Alert, Oriented x3, Cooperative, No apparent distress HEENT: Atraumatic Lungs: Normal air movement Cardiovascular: Regular rate Abdomen: Soft, Non-Distended, Tender - Near incisions clean dry and intact with Steri's and OpSite's And mild in the right lower quadrant, no peritoneal signs Microbiology Past 72 Hours 09/19/20 13:00 Mucosa - Nose SARS-CoV-2 Antigen (Rapid) - Final Laboratory Results 09/19/20 09:43: WBC 13.8 H, RBC 4.16 L, Hgb 13.5, Hct 39.0, MCV 93.8, MCH 32.5 H , MCHC 34.6, RDW Std Deviation 49.8 H, RDW Coeff of Brandie 14.5, Plt Count 169, MPV 9.3, Immature Gran % (Auto) 0.800, Neut % (Auto) 78.1 H, Lymph % (Auto) 12.7 L, [place] % (Auto) 7.8, Eos % (Auto) 0.2, Baso % (Auto) 0.4, Absolute Neuts (auto) 10.8 H, Absolute Lymphs (auto) 1.75, Nucleated RBC % 0 09/19/20 09:43: Sodium 131 L, Potassium 3.6, Chloride 97 L, Carbon Dioxide 26.0, Anion Gap 8, BUN 13, Creatinine 0.87, Estim Creat Clear Calc 41.47, Est GFR (MDRD) Af Amer 81, Est GFR (MDRD) Non-Af 67, BUN/Creatinine Ratio 14.9, Glucose 155 H, Calcium 9.3 09/19/20 09:45: PT 24.1 H, INR 2.2 09/19/20 10:17: Urine Color Yellow, Urine Clarity Sl. Cloudy, Urine pH 7.0, Ur Specific [place] 1.010, Urine Protein 30 H, Urine Glucose (UA) Normal, Urine Ketones 5 H, Urine Occult Blood 25 H, Urine Nitrite Negative, Urine Bilirubin 1 H, Urine Urobilinogen 4 H, Ur Leukocyte Esterase 25 H, Urine RBC 0-5 SEEN, Urine WBC 0-5 SEEN, Ur Squamous Epith Cells 0-5 SEEN, Urine Bacteria 1+, Urine Mucus RARE 09/20/20 06:00: WBC 11.5 H, RBC 3.75 L, Hgb 12.1, Hct 35.9 L, MCV 95.7, MCH 32.3 H, MCHC 33.7, RDW Std Deviation 50.9 H, RDW Coeff of Brandie 14.5, Plt Count 150, MPV 9.1, Immature Gran % (Auto) 0.700, Neut % (Auto) 74.2 H, Lymph % (Auto) 14.7 L, [place] % (Auto) 9.1, Eos % (Auto) 1.0, Baso % (Auto) 0.3, Absolute Neuts (auto) 8.6 H, Absolute Lymphs (auto) 1.70, Nucleated RBC % 0 Current Medications Acetaminophen (Acetaminophen 325 Mg Tablet) 650 mg PO Q6H PRN PRN PRN Reason: Pain Score 1-10 Last Admin: 09/20/20 05:14 Dose: 650 mg Documented by: Allopurinol (Allopurinol 300 Mg Tablet) 300 mg PO DAILY [facility] Last Admin: 09/20/20 08:06 Dose: 300 mg Documented by: Hydrochlorothiazide (Hydrochlorothiazide 25 Mg Tablet) 25 mg PO DAILY [facility] Last Admin: 09/20/20 08:05 Dose: 25 mg Documented by: Lactated Ringer's () 1,000 mls @ 100 mls/hr IV .Q10H [facility] Last Infusion: 09/20/20 06:11 Dose: 100 mls/hr Documented by: Ceftriaxone Sodium (Rocephin) 1 gm in 50 mls @ 100 mls/hr IV Q24 [facility] Stop: 09/20/20 16:13 Metronidazole (Flagyl) 500 mg in 100 mls @ 100 mls/hr IV Q8 [facility] Stop: 09/20/20 22:01 Last Infusion: 09/20/20 06:11 Dose: Infused Documented by: Sodium Chloride () 250 mls @ 15 mls/hr IV .[id number] PRN PRN Reason: Saline Flush Sodium Chloride () 250 mls @ 15 mls/hr IV .[id number] PRN PRN Reason: Additional IVPB Infusion Magnesium Chloride (Magnesium Chloride 64 Mg Delay Rel.Tablet) 128 mg PO DAILY [facility] Last Admin: 09/20/20 08:05 Dose: 128 mg Documented by: Metoprolol Tartrate (Metoprolol Tartrate 25 Mg Tablet) 25 mg PO BID [facility] Last Admin: 09/20/20 08:05 Dose: 25 mg Documented by: Morphine Sulfate (Morphine 2 Mg/Ml Syringe) 2 - 4 mg IV Q2H PRN PRN PRN Reason: Pain Score 1-10 Ondansetron HCl (Ondansetron 4 Mg/2 Ml Vial) 4 mg IV Q8H PRN PRN PRN Reason: NAUSEA Oxycodone HCl (Oxycodone 5 Mg Tablet) 5 - 10 mg PO Q4H PRN PRN PRN Reason: Pain Score 6-10 Potassium Chloride (Potassium Chloride 10 Meq Tablet) 10 meq PO DAILYCM [facility] Last Admin: 09/20/20 08:05 Dose: 10 meq Documented by: Sodium Chloride (0.9% Saline Lock 10 Ml Syringe) 10 - 40 ml IV UD PRN PRN Reason: SALINE FLUSH Medical Necessity - Tobacco Use Smoking Status: Never smoker Assessment/Plan All Active Problems (This Medical Record has been edited. Action required.) Left anterior fascicular block (Resolved) Palpitations (Acute) Chest pain (Acute) 80-year-old female with acute Perforated/gangrenous appendicitis, Postop day 1 laparoscopic appendectomy 1. Patient is doing well tolerating diet. We will continue Cipro and Flagyl on DC due to perforated/gangrenous appendicitis. Okay to DC home if tolerating p.o. ambulating and vitals stable. Okay to restart Xarelto avinash Celeste M.D. Pager: [phone] [facility] [address] [place] [address], [address] [place] [address] Office: [phone]
--- NOTE | 2020-09-20 08:48 | DCINST_ITS ---
Discharge Diet: Light diet - advance as tolerated Discharge Activity: May not drive while taking narcotic pain medications. May shower in (days): 1 - 1 day from surgery okay to keep op sites on for shower and then remove op sites but Steri-Strips will stay on for 7 to 10 days has not follow-up in 10 days okay to remove Lifting Restrictions: No lifting greater than 20 pounds x 2 weeks Call your doctor if your incision/area has: Continuous Slow Oozing, Sudden Increased Bleeding, Increased Pain/ Swelling, Increased Redness, Foul Smelling Discharge, Swelling at the incision site Call your doctor if you observe: Fever of 101 or Higher Remove Dressing in (days):: 1 - Okay to remove op sites today keep Steri-Strips on for 7 to 10 days of in and out follow-up in 10 days okay to remove Additional Instructions: Okay to take ibuprofen 400-600 mg PO q6hr PRN along with the hydrocodone/acetaminophen. Avoid Tylenol since there is already Tylenol in the hydrocodone/acetaminophen. Or closely monitor Tylenol intake recommended no more than 4000 mg in 24 hours Take all pain meds with food. Hydrocodone/acetaminophen can cause constipation recommend taking daily stool softener (i.e. Colace/docusate) while taking the pain meds. Recommend starting some MiraLAX In 1 to 2 days if no bowel movement. If still no bowel movement The following day recommend taking magnesium citrate half the bottle and waiting 4-6 hours if still no results take the other half the bottle. Okay to Restart Xarelto tonight 09/20/2020 Medications to take at Discharge Allopurinol [Zyloprim] 300 mg PO DAILY 05/05/14 Hydrochlorothiazide [Hctz] 25 mg PO DAILY 05/05/14 Multivitamins,Therapeutic [Multivitamin] 1 tab PO DAILY 05/05/14 Potassium Chloride [K-Dur] 10 meq PO DAILY 05/05/14 cholecalciferol (vitamin D3) 25 mcg (1,000 unit) capsule 1,000 unit PO DAILY 01/06/19 metoprolol tartrate 25 mg tablet 25 mg PO BID tab 01/07/19 Magnesium Oxide [Magnesium] 250 mg PO DAILY 06/18/19 Acetaminophen [Tylenol] 1,000 mg PO Q8 #100 tab 07/31/19 rivaroxaban 20 mg tablet 20 mg PO DAILY #30 tab 09/09/19 Ciprofloxacin [Cipro] 500 mg PO BID #4 tab 09/20/20 Hydrocodone Bitart/Apap 5-325 [[place] 5MG-325MG] 1 tablet PO Q6H PRN PRN 4 Days #10 tablet 09/20/20 metroNIDAZOLE [Flagyl] 500 mg PO Q8H #15 tab 09/20/20 Allergies/Adverse Reactions: Allergies Penicillins Allergy (Severe, Verified 09/19/20 09:42) Hives PER PT REPORT-HAD ORAL PCN IN HER PAST FOR UTERINE INFECTION IN THE , DEVELOPED HIVES & IT WAS STOPPED chlordiazepoxide [From Librax (with clidinium)] Allergy (Verified 09/19/20 09:42) Other clidinium bromide [From Librax (with clidinium)] Allergy (Verified 09/19/20 09:42) Other amlodipine besylate [From Norvasc] Adverse Reaction (Verified 09/19/20 09:42) Other The following prescriptions were given: Ciprofloxacin [Cipro] 500 mg PO BID #4 tab Transmission Status: Pending to [id number] metroNIDAZOLE [Flagyl] 500 mg PO Q8H #15 tab Transmission Status: Pending to [facility] Hydrocodone Bitart/Apap 5-325 [[place]iss 5MG-325MG] 1 tablet PO Q6H PRN PRN 4 Days #10 tablet PRN Reason: Pain Transmission Status: Sent to [facility] Primary Care Physician: Valerio Nickerson MD [Primary Care Provider] - Test Results: Test results from this visit will be discussed in further detail at your follow- up appointment, if applicable. Please Follow Up With: Nora Celeste MD - After 5 PM and on the weekends call [phone] with any concerns When: Call the office [phone] for an appointment 2 weeks Proposed Discharge Date: 09/20/20
[2020-09-20] MEDS: Ceftriaxone 1 GM/50 ML BAG IV (09:34)
--- NOTE | 2020-09-20 11:13 | PHA.DC.MC ---
Pharmacy Service has performed discharge medication reconciliation and counseling for this patient. 1. CIPROFLOXACIN 500MG PO BID X 2 DAYS 2. METRONIDAZOLE 500MG PO Q8H X 5 DAYS 3. NORCO 5/325MG 1T PO Q6H PRN PAIN The patient's discharge medication list was reviewed for discrepancies and discrepancies were resolved. Home Medications Allopurinol [Zyloprim] 300 mg PO DAILY 05/05/14 Hydrochlorothiazide [Hctz] 25 mg PO DAILY 05/05/14 Multivitamins,Therapeutic [Multivitamin] 1 tab PO DAILY 05/05/14 Potassium Chloride [K-Dur] 10 meq PO DAILY 05/05/14 cholecalciferol (vitamin D3) 25 mcg (1,000 unit) capsule 1,000 unit PO DAILY 01/06/19 metoprolol tartrate 25 mg tablet 25 mg PO BID tab 01/07/19 Magnesium Oxide [Magnesium] 250 mg PO DAILY 06/18/19 Acetaminophen [Tylenol] 1,000 mg PO Q8 #100 tab 07/31/19 rivaroxaban 20 mg tablet 20 mg PO DAILY #30 tab 09/09/19 Ciprofloxacin [Cipro] 500 mg PO BID #4 tab 09/20/20 Hydrocodone Bitart/Apap 5-325 [[place] 5MG-325MG] 1 tab PO Q6H PRN PRN 4 Days #10 tab 09/20/20 metroNIDAZOLE [Flagyl] 500 mg PO Q8H #15 tab 09/20/20 The patient was counseled on the following discharge medications and changes in medications for homegoing were reviewed. The Reason for Use, instructions for use, and potential side effects were reviewed for all new medications. The patient's questions regarding all of their medications were answered. The patient was able to verbally demonstrate an understanding of their discharge medications. Patient counseled by pharmacy informatics manager
== END 2020-09-20 13:30 | disposition home or self-care (01) ==
LOC: ED 10:39 → MS3 14:15 → ED 15:23 → MS3 16:26
PROVIDERS: Admitting Provider Surgery; Emergency Provider Emergency Medicine; PCP Family Medicine; Visit Provider Surgery
PROC: 0DTJ4ZZ Resection of Appendix, Percutaneous Endoscopic Approach (ICD-10-PCS; CPT 44970; principal; 2020-09-19 14:00)
DX: K35.891 Other acute appendicitis without perforation, with gangrene (principal); I44.4 Left anterior fascicular block; I48.92 Unspecified atrial flutter; K21.9 Gastro-esophageal reflux disease without esophagitis; Z68.41 Body mass index [BMI] 40.0-44.9, adult; I10 Essential (primary) hypertension; E66.01 Morbid (severe) obesity due to excess calories; Z79.899 Other long term (current) drug therapy; Z79.01 Long term (current) use of anticoagulants; M10.9 Gout, unspecified
CPT/HCPCS: 00840; 44970; 71045; 74176; 80048; 81001; 85025; 85610; 87086; 87426; 88304; 93005; 96361; 96365; 96366; 96367; 96375; 99218; 99285; J7030; J7120; A4216; C1760; G0378; J2405

== ENCOUNTER 2021-11-10 22:43 | Emergency (ER) | payer MEDICARE, OTHER, SELFPAY ==
[2021-11-10 22:45] VITALS: BP 210/180; PULSE 86; RESP 15; TEMP 36; O2SAT 94; BMI 61.3
--- NOTE | 2021-11-10 23:08 | CT_ITS ---
EXAM: CT ABDOMEN AND PELVIS WITHOUT INTRAVENOUS CONTRAST CLINICAL INDICATION: Kidney Stone TECHNIQUE: Helically acquired images were obtained of the abdomen and pelvis without intravenous contrast. CTDIvol = ( 19.12 ) mGy, DLP = ( 922.12 ) mGycm This CT exam was performed using one or more of the following dose reduction techniques: automated exposure control, adjustment of the mA and/or kV according to patient size, and/or use of iterative reconstruction technique. This report was created using [employer] report generation technology. COMPARISON: None. FINDINGS: LOWER THORAX: Unremarkable. Lung bases are clear. No cardiomegaly. No significant pericardial effusion. ABDOMEN: LIVER: Unremarkable. Homogeneous. GALLBLADDER AND BILE DUCTS: Prior cholecystectomy. No intra- or extrahepatic biliary ductal dilation. PANCREAS: Unremarkable. No focal cystic mass. SPLEEN: Punctate calcified granuloma of the spleen. ADRENALS: Unremarkable. No nodules. KIDNEYS AND URETERS: No urolithiasis or obstructive uropathy. Normal renal size and position. STOMACH AND BOWEL: Stool throughout the colon without colitis or diverticulitis can be seen with constipation. Distal colonic diverticulosis but no evidence for acute diverticulitis. No stomach or bowel distention. PELVIS: APPENDIX: No evidence of acute appendicitis. BLADDER: Unremarkable. REPRODUCTIVE: Calcified fibroids of the uterus. No adnexal masses. ABDOMEN and PELVIS: INTRAPERITONEAL SPACE: Unremarkable. No ascites or other fluid collection. No free air. BONES/JOINTS: No suspicious lytic or sclerotic lesions of bone. Physicians/right hip arthroplasty. SOFT TISSUES: Unremarkable. No discrete abdominal or pelvic wall hernia. VASCULATURE: Unremarkable. Abdominal aorta is non-dilated. LYMPH NODES: Unremarkable. No enlarged lymph nodes. CT/Abdomen/Pelvis without Cont IMPRESSION: 1. No urolithiasis or obstructive uropathy. 2. No other acute or inflammatory abdominopelvic disease. Electronically Signed: Pierre Santoro MD at 0:10 EST ,
--- NOTE | 2021-11-10 23:09 | ED.VIS.FEGU ---
HPI HPI - Female History of Present Illness Chief Complaint: Complaint Narrative Narrative: 81-year-old female past medical history of atrial fibrillation/flutter on Xarelto presents with gross hematuria that began tonight. She states that she had an episode of this 6 weeks ago that resolved on its own. She has bladder pressure. She denies any dysuria or pain with urination. She states she may have felt slightly lightheaded but denies any chest pain or shortness of breath. No flank pain. PFSH PFSH Medical History COVID-19 Diverticulitis GERD (gastroesophageal reflux disease) Gout HLD (hyperlipidemia) HTN (hypertension) Left anterior fascicular block Obesity, morbid (more than 100 lbs over ideal weight or BMI > 40) Paroxysmal atrial flutter Uterine fibroid Home Medications allopurinol 300 mg PO DAILY 05/05/14 [History Last Taken 01/01/19] hydrochlorothiazide 25 mg PO DAILY 05/05/14 [History Last Taken 01/01/19] multivitamin with folic acid 1 tab PO DAILY 05/05/14 [History Last Taken 01/01/19] potassium chloride 10 meq PO DAILY 05/05/14 [History Last Taken 01/01/19] cholecalciferol (vitamin D3) 25 mcg (1,000 unit) capsule 1,000 unit PO DAILY 01/06/19 [History Last Taken Unknown] metoprolol tartrate 25 mg tablet 25 mg PO BID tab 01/07/19 [History Last Taken 07/30/19] magnesium oxide 250 mg PO DAILY 06/18/19 [History Last Taken Unknown] biotin 1,000 mcg chewable tablet 1,000 mcg PO DAILY 01/26/21 [History Last Taken Unknown] acetaminophen 500 mg tablet 500 mg PO BID tab 08/01/21 [History Last Taken Unknown] rivaroxaban 20 mg tablet 20 mg PO DAILY #30 tab 11/02/21 [Rx Last Taken Unknown] sulfamethoxazole-trimethoprim [Bactrim DS] 1 tab PO BID #6 tab 11/11/21 [Rx Last Taken Unknown] Allergy/AdvReac Type Severity Reaction Status Date / Time Penicillins Allergy Severe Hives Verified 08/01/21 11:06 chlordiazepoxide Allergy Other Verified 08/01/21 11:06 [From Librax (with clidinium)] clidinium bromide Allergy Other Verified 08/01/21 11:06 [From Librax (with clidinium)] amlodipine besylate AdvReac Other Verified 08/01/21 11:06 [From Norvasc] Family History Mother Aortic aneurysm Congestive heart failure Renal failure Father Emphysema/COPD Brother CAD (coronary artery disease) COPD (chronic obstructive pulmonary disease) Diabetes Surgical History History of bilateral cataract extraction History of section History of cholecystectomy (1982) History of colonoscopy History of D&C History of left heart catheterization (10/11/04) History of left knee replacement (10/2009) History of tonsillectomy History of total right hip replacement History of total right knee replacement (2011) History of tubal ligation Hx of appendectomy Social History Smoking Status: Never smoker alcohol intake: never substance use type: does not use caffeine: No ROS ROS ED ROS Narrative Constitutional: No fever, no chills. HEENT: No sore throat. No neck pain. No loss of vision. No rhinorrhea. Cardiovascular: No chest pain. No palpitations. No pedal edema. Respiratory: No cough, no shortness of breath. Abdominal: No abdominal pain. Slight suprapubic pressure. No nausea. No vomiting. Genitourinary: No dysuria. Positive gross hematuria. Musculoskeletal: No myalgias. No arthralgias. Neurologic: No headaches. No dizziness. Slight lightheadedness. Skin: No rash. No change in color. Psychiatric: No depression. No anxiety. EXAM Physical Exam Narrative Exam Narrative: Afebrile. Vital signs noted. No noted bleeding diathesis on examination. HEENT: Normocephalic. Atraumatic. PERRL, EOMI. Neck soft and supple. No point tenderness or step off. Cardiovascular: Regular rate and rhythm. No murmurs, rubs, or gallops appreciated. Respiratory: No tachypnea. Lungs clear to auscultation bilaterally. Gastrointestinal: Abdomen soft, nontender, with normoactive bowel sounds. No rebound or guarding. Neurological: Awake. Alert. Nonfocal, nonlateralizing. Skin: No rash. Normal color. No pallor. Musculoskeletal: No pedal edema. Full range of motion extremities. Const Vital Signs: 11/10/21 22:45 Temperature 96.8 F L Temperature Source Temporal Pulse Rate 86 Respiratory Rate 15 Blood Pressure 210/180 H Blood Pressure Mean 190 Pulse Ox 94 Oxygen Delivery Method Room Air MDM MDM MDM Narrative Medical decision making narrative: Comprehensive work-up was pursued. She may have a urinary tract infection or broken blood vessel. I will obtain basic laboratory work to look for anemia, and check her kidney function. Her urine will be sent for analysis and culture. Given her painless hematuria that is gross, I will obtain a CT of the abdomen and pelvis without contrast. CBC shows normal white count of 8.2, hemoglobin normal at 13.7. She has slightly elevated creatinine of 1.1 with a BUN of 28. She was bolused IV fluids. Her urinalysis shows 5 ketones. Occult blood 250. Microanalysis shows RBCs greater than 100. While there are WBCs 10-25, she is negative for nitrites. Given her hematuria, I will start her on Bactrim for 3 days. She was given her first dose here in the emergency department prescription electronically transferred for the remainder. CT of the abdomen and pelvis shows no acute process for her painless hematuria. At this point in time, she is not in urinary retention. I feel she be discharged safely home with follow-up. She was told that she could hold her Xarelto for a day or 2 as she takes it for atrial flutter and not for mechanical heart valve. She was referred to Dr. Hammonds for follow-up. Return instructions were reviewed. Disposition is discharged home in stable condition. Lab Data Attestation: I reviewed the patient's lab results. Labs: Laboratory Results - last 24 hr 11/10/21 11/10/21 11/10/21 23:00 23:17 23:17 WBC 8.2 RBC 4.18 L Hgb 13.7 Hct 40.8 MCV 97.6 MCH 32.8 H MCHC 33.6 RDW Std Deviation 48.1 H RDW Coeff of Brandie 13.3 Plt Count 170 MPV 9.8 Immature Gran % (Auto) 1.300 H Neut % (Auto) 58.3 Lymph % (Auto) 29.2 [place] % (Auto) 7.5 Eos % (Auto) 2.9 Baso % (Auto) 0.8 Absolute Neuts (auto) 4.8 Absolute Lymphs (auto) 2.41 Nucleated RBC % 0 Sodium 138 Potassium 3.8 Chloride 104 Carbon Dioxide 30.0 Anion Gap 4 L BUN 28 H Creatinine 1.11 H Estim Creat Clear Calc 68.31 Est GFR (MDRD) Af Amer 61 Est GFR (MDRD) Non-Af 50 L BUN/Creatinine Ratio 25.2 H Glucose 186 H Calcium 10.0 Urine Color Red Urine Clarity Turbid Urine pH 6.5 Ur Specific [place] 1.020 Urine Protein 500 H Urine Glucose (UA) Normal Urine Ketones 5 H Urine Occult Blood 250 H Urine Nitrite Negative Urine Bilirubin Negative Urine Urobilinogen Normal Ur Leukocyte Esterase Negative Urine RBC > 100 SEEN Urine WBC 10-25 SEEN Ur Squamous Epith Cells 0-5 SEEN Urine Bacteria 0 SEEN Urine Mucus 0 SEEN Radiography Diagnostic Testing: Clinical Impression(s) from Imaging Studies Abdomen/Pelvis CT 11/10/21 23:08 IMPRESSION: 1. No urolithiasis or obstructive uropathy. 2. No other acute or inflammatory abdominopelvic disease. Electronically Signed: Pierre Santoro MD at 0:10 EST , Discharge Plan Triage Chief Complaint: Complaint ED Provider: Heber Pierre Dx/Rx/DC Orders Clinical Impression: Gross hematuria, UTI (urinary tract infection) Instructions: Hematuria: Possible Causes, ED Hematuria, ED CYSTITIS Female Adult Prescriptions: New sulfamethoxazole-trimethoprim [Bactrim DS] 800-160 mg tablet 1 tab PO BID Qty: 6 RF: 0 No Action cholecalciferol (vitamin D3) 1,000 unit capsule 1,000 unit capsule 1,000 unit PO DAILY RF: 0 biotin 1,000 mcg tablet,chewable 1,000 mcg PO DAILY RF: 0 acetaminophen 500 mg tablet 500 mg PO BID RF: 0 allopurinol 300 MG tablet 300 mg PO DAILY RF: 0 hydrochlorothiazide 25 MG tablet 25 mg PO DAILY RF: 0 potassium chloride 10 MEQ tablet 10 meq PO DAILY RF: 0 multivitamin with folic acid 1 TABLET tablet 1 tab PO DAILY RF: 0 metoprolol tartrate 25 mg tablet 25 mg PO BID RF: 0 magnesium oxide 250 MG tablet 250 mg PO DAILY RF: 0 rivaroxaban 20 mg tablet 20 mg PO DAILY Qty: 30 RF: 12 Primary Care Provider: Valerio Nickerson Referrals: Ely Hammonds MD [STAFF PHYSICIAN] - 3-5 Days Valerio Nickerson MD [Primary Care Provider] - Disposition Disposition: Home, Self Care
[2021-11-10 23:17] LABS: Bacteria 0 SEEN /hpf (None Seen); Mucous, Urine 0 SEEN /hpf (<or=2+)
[2021-11-10 23:18] LABS: Color, Urine Red (Yellow); Glucose, Dipstick Normal (Normal); Ketone-Dipstick 5 mg/dl (Negative); Leukocyte Esterase-Dipstick Negative /ul (Negative); Nitrite-Dipstick Negative (Negative); Occult Blood-Urine 250 /ul (Negative); Protein-Dipstick 500 mg/dl (Negative); Urine Bilirubin Dipstick Negative (Negative); Urine Clarity Turbid (Clear); Urine Urobilinogen Normal (Normal); Urine pH 6.5 (5.0 - 8.0)
[2021-11-10] MEDS: 0.9% Normal Saline 1,000 ML 999 ML IV (23:22)
[2021-11-10 23:27] LABS: Red Blood Cells-Urine > 100 SEEN /hpf (0-5); White Blood Cells 10-25 SEEN /hpf (0-5)
[2021-11-10 23:28] LABS: Squamous Epithelial Cells - UA 0-5 SEEN /hpf (5-10)
[2021-11-10 23:31] LABS: Absolute Lymphocyte Count 2.41 X10^3/uL (0.83-4.51); Absolute Neutrophil Count 4.8 X10^3/uL (2.0-7.7); Basophil# 0.07 X10^3/uL; Basophil% 0.8 % (0-1); Eosinophil# 0.24 X10^3/uL; Eosinophils% 2.9 % (0-5); Hematocrit 40.8 % (37-47); Hemoglobin 13.7 g/dL (12.0-15.0); Lymphocyte # 2.41 X10^3/ul (0.83-4.51); Lymphocyte % 29.2 % (19-41); Mean Corp Hgb Conc 33.6 g/dL (32-36); Mean Corpuscular Hgb 32.8 pg (27.0-32.0); Mean Corpuscular Volume 97.6 fL (81-99); Mean Platelet Vol. 9.8 fl (6.2-12.0); Monocyte# 0.62 X10^3/uL; Monocyte% 7.5 % (0-10); NRBC Flagged by Analyzer 0 % (0-5); Neutrophil # 4.79 X10^3/uL (2.7-7.7); Neutrophil % 58.3 % (47-70); Platelet Count 170 K/mm3 (150-450); RBC Distribution Width CV 13.3 % (11.6-14.6); RBC Distribution Width SD 48.1 fl (35.1-43.9); Red Blood Count 4.18 M/mm3 (4.2-5.4); White Blood Count 8.2 K/mm3 (4.4-11.0)
[2021-11-10 23:36] LABS: Anion Gap 4 (5-15); BUN 28 mg/dL (7-18); BUN/Creat Ratio 25.2 RATIO (10-20); Chloride 104 mmol/L (98-107); Creatinine, Serum 1.11 mg/dL (0.55-1.02); EST Glomerular Filtration Rate 50 mL/min (>60); Est Glom Filt Rate - Afr Amer 61 mL/min (>60); Estimated Creatinine Clearance 68.31 ml/min; Glucose 186 mg/dL (74-106); Potassium 3.8 mmol/L (3.5-5.1); Sodium Level 138 mmol/L (136-145)
[2021-11-11] MEDS: Smz/Tmp Ds Tablet 1 TABLET PO (00:39)
[2021-11-11 00:40] VITALS: BP 149/72; PULSE 74; RESP 16; O2SAT 98
== END 2021-11-11 00:44 | disposition home or self-care (01) ==
PROVIDERS: Emergency Provider Emergency Medicine; PCP Family Medicine; Visit Provider Emergency Medicine
DX: R31.0 Gross hematuria (principal); I48.92 Unspecified atrial flutter; N39.0 Urinary tract infection, site not specified; I10 Essential (primary) hypertension; E78.5 Hyperlipidemia, unspecified; Z86.16 Personal history of COVID-19; Z79.899 Other long term (current) drug therapy
CPT/HCPCS: 74176; 80048; 81001; 85025; 87086; 87088; 99283; J7030; A4216

== ENCOUNTER 2021-11-15 17:52 | Outpatient (CLI) | payer MEDICARE, OTHER, SELFPAY ==
--- NOTE | 2021-11-15 | CYSPIN_PTH ---
PATIENT: DESTINI SAM [facility]#:[id number] AGE/SX: 81/F ROOM: RE11/15/[address]: Dr. Ely Hammonds MD : 1940 BED: DIS: 11/15/2021 SPEC #: [id number] RECD: 11/16/21 09:23 STATUS: MIO REQ #: [id number] ИРИНА: 11/15/21 00:[address]: Ely Hammonds DEPT: CYTOLOGY RECD BY: Isaac Lynn ENTERED: 11/16/21 09:23 SP TYPE: CYSPIN FL OTHR DR: Dr. Valerio Nickerson MD Tissues: Urine Procedures: Pap Stain (control) Special Stain Group II Cytospin Fluid HEADER OPERATION: Not noted PRE-OP DIAGNOSIS: Gross hematuria TISSUE SUBMITTED: Urine for cytology DIAGNOSIS CYTOLOGY Urine for cytology (cytospin): Negative for malignant cells. See comment. DARIO:jere 11/16/2021 COMMENT Numerous red blood cells are noted. Clinical correlation and appropriate follow up are necessary. CYTOLOGY STUDY Slides are reviewed. CYTOLOGY GROSS Received is 30 ml of yellow cloudy fluid labeled with the patient's name and and designated per the requisition as urine. Submitted for cytology preparation. / jere 11/15/2021 TC:5 CPT: 51844
[2021-11-15 17:55] LABS: Cytology, Body Fluid / CSF SEE PATHOLOGY REPORT
== END 2021-11-15 23:59 | disposition home or self-care (01) ==
PROVIDERS: PCP Family Medicine; Visit Provider Urology
DX: R31.0 Gross hematuria (principal)
CPT/HCPCS: 88108; 88313

== ENCOUNTER 2021-11-24 13:52 | Outpatient (CLI) | payer MEDICARE, OTHER, SELFPAY ==
--- NOTE | 2021-11-24 13:53 | CT_ITS ---
INDICATION: GROSS HEMATURIA. History of cholecystectomy and appendectomy a few weeks prior. EXAMINATION: CT ABDOMEN AND PELVIS WITH AND WITHOUT CONTRAST - CT Abdomen And Pelvis WO/W Contrast Injection TECHNIQUE: Helically acquired images were obtained of the abdomen and pelvis both before and after IV contrast. A radiation dose optimization technique was used for this scan. CTDIvol: 26.24. Total DLP: 4121.51 IV Contrast dosage and agent: 100 mL of ISOVUE-300 Oral contrast: None. COMPARISON: CT abdomen/pelvis from 11/10/2021. FINDINGS: Metallic streak artifact from patient''s right hip arthroplasty surgical hardware somewhat obscures assessment of the adjacent structures. NONCONTRAST EXAMINATION: No renal calculi. No obstructing calculi along the course of the ureters although assessment in the pelvis near the bladder is limited by metallic streak artifact. No intramural hematoma in the aorta. POSTCONTRAST EXAMINATION: Lower thorax: Segmental and subsegmental atelectasis in the visualized lung bases. Liver: Normal morphology. No acute findings. Gallbladder: Cholecystectomy. No significant bile duct dilation. Spleen: Calcified granulomas. Otherwise unremarkable. Pancreas: Parenchymal atrophy. No focal parenchymal lesions. No duct dilation. Adrenal glands: Unremarkable. Kidneys: There is slight prominence of the right upper pole calyces (6:89) with some corresponding filling defects on the delayed excretory phase sequences (5:24). Otherwise, the bilateral kidneys appear unremarkable with no cystic or solid masses. No nephrolithiasis. No hydronephrosis. No acute findings. Bladder: Somewhat underdistended and difficult to assess. Small amount of intraluminal air. No obvious wall thickening or surrounding inflammatory changes. Normal appearance on delayed excretory phases. GI tract: Sigmoid diverticulosis without CT findings of diverticulitis. Status post appendectomy. No significant wall thickening or bowel dilation. Peritoneum/mesentery/retroperitoneum: No free air or free fluid. No organized fluid collections. No lymphadenopathy. Pelvis: Fibroid uterus. No free air or free fluid. Vasculature: Arterial atherosclerotic disease. No acute findings. Bones/soft tissues: Multilevel degenerative changes of the visualized spine. Stable grade 1 anterolisthesis of L4 and L5 and grade 1 retrolisthesis of L5 on S1. No destructive osseous lesions. Soft tissues are unremarkable. CT/CT Abd/Pelvis W/WO Contrast IMPRESSION: 1. Slight prominence of the right upper pole calyces (6:89) with some corresponding filling defects on the delayed excretory phase sequences (5:24). These findings are nonspecific and differential considerations include blood clot or developing mass/lesion. Further assessment with nonemergent CT urogram with dedicated coronal and sagittal reformatted images on delayed phase views is recommended. 2. Small amount of intraluminal air in the bladder which otherwise appears unremarkable. Clinical correlation for recent instrumentation or britton catheter placement recommended. 3. No other acute findings. Electronically Signed: Marcellus Khan, at 16:50 EDT ,
== END 2021-11-24 23:59 | disposition home or self-care (01) ==
LOC: CT 13:52
PROVIDERS: PCP Family Medicine; Referring Provider Urology; Visit Provider Urology
DX: R31.0 Gross hematuria (principal)
CPT/HCPCS: 74178; Q9967

== ENCOUNTER 2021-12-13 12:17 | Outpatient (CLI) | payer MEDICARE, OTHER, SELFPAY ==
--- NOTE | 2021-12-13 13:00 | MRI_ITS ---
MR Pelvis Female WO/W Contrast 12/13/2021 12:46 PM COMPARISON: CT 11/24/2021 CLINICAL HISTORY: URETHRAL DIVERTICULA TECHNIQUE: Multiplanar T1 and T2 weighted, diffusion and dynamic post-gadolinium images were obtained through the pelvis. FINDINGS: Gastrointestinal: Multiple colonic diverticula. Bladder: There is a 1.4 cm diverticulum involving the mid to distal urethra. No evidence of enhancing soft tissue to suggest adenocarcinoma. Reproductive organs: There are multiple uterine fibroids. 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 No evidence of enhancing soft tissue. Multi fibroid uterus. Diverticulosis. Electronically Signed: Zane Carson MD at 17:58 EDT ,
== END 2021-12-13 23:59 | disposition home or self-care (01) ==
LOC: MRI 12:18
PROVIDERS: PCP Family Medicine; Referring Provider Urology; Visit Provider Urology
DX: N36.1 Urethral diverticulum (principal)
CPT/HCPCS: 72197; A9575

== ENCOUNTER 2022-01-16 20:35 | Emergency (ER) | payer MEDICARE, OTHER, SELFPAY ==
[2022-01-16 20:36] VITALS: BP 137/81; PULSE 92; RESP 16; TEMP 36.1; O2SAT 98; BMI 43.1
[2022-01-16 20:38] VITALS: BP 137/81; PULSE 92; RESP 16; TEMP 36.1; O2SAT 98
--- NOTE | 2022-01-16 21:53 | CT_ITS ---
STUDY: CT ABDOMEN AND PELVIS WITH CONTRAST REASON FOR EXAM: Female, 82 years old. hematuria -- Tumor lasered right kidney 01/11 RADIATION DOSAGE (If Supplied By Facility): CTDIvol = ( 19.08 ) mGy, DLP = ( 1581.19 ) mGycm TECHNIQUE: Transaxial images were obtained from the dome of the diaphragm to the symphysis pubis without oral contrast. IV 100mL Isovue-300 was administered. Sagittal and coronal images were reconstructed. Individualized dose optimization techniques were used for this CT. COMPARISON: 11/24/2021 FINDINGS: Small right pleural effusion with atelectasis of the right lower lobe. The visualized portions of the heart are within normal limits. Normal liver. There are surgical clips in the gallbladder fossa consistent with a prior cholecystectomy. Normal spleen. Normal pancreas. Normal bilateral adrenal glands. Mild right hydronephrosis with a right ureteral stent extending from the right renal pelvis to the distal right ureter. Below the distal right ureter margin, the ureter is dilated and relatively hyperdense, possible blood filled versus ureteral mass. Right perinephric intermediate to high density fluid is new. Left kidney is unremarkable. The upper right renal mass described on prior CT urogram is not clearly seen (no urographic images on the current exam). Normal visualized stomach. Normal small intestine. There are multiple colonic diverticula consistent with diverticulosis. There is non-visualization of the appendix. There is diffuse atherosclerotic calcification of the abdominal aorta, without a demonstrated aneurysm. Normal inferior vena cava. Normal retroperitoneum. Normal urinary bladder. Uterine fibroids are unchanged. Normal abdominal wall. Right hip replacement. CT/Abdomen/Pelvis W IV Cont ONLY IMPRESSION: 1. Right hydronephrosis with periureteral edema/hematoma in spite of right ureteral stent. The right ureteral stent terminates in the distal right ureter above the right UVJ with ureteral dilation and increased density of the distalmost right ureter, possibly blood filled, although mass cannot be excluded. 2. Small right pleural effusion with atelectasis in the right lower lobe. Electronically Signed: Juan Sanabria MD ([place]) at 23:34 EDT ,
[2022-01-16] MEDS: 0.9% Normal Saline 1,000 ML 150 ML IV (22:15)
[2022-01-16] MEDS: Ondansetron 4 MG/2 ML Vial IV (22:16)
[2022-01-16] MEDS: Morphine 2 MG/ML Syringe IV (22:16)
[2022-01-16 22:30] LABS: Absolute Neutrophil Count 11.7 X10^3/uL (2.0-7.7); Basophil# 0.05 X10^3/uL; Basophil% 0.3 % (0-1); Eosinophil# 0.18 X10^3/uL; Eosinophils% 1.1 % (0-5); Hematocrit 36.8 % (37-47); Hemoglobin 12.6 g/dL (12.0-15.0); Mean Corp Hgb Conc 34.2 g/dL (32-36); Mean Corpuscular Hgb 31.7 pg (27.0-32.0); Mean Corpuscular Volume 92.7 fL (81-99); Mean Platelet Vol. 9.5 fl (6.2-12.0); Monocyte# 1.78 X10^3/uL; NRBC Flagged by Analyzer 0 % (0-5); Neutrophil # 11.68 X10^3/uL (2.7-7.7); Neutrophil % 72.2 % (47-70); POSITIVE DIFFERENTIAL YES; Platelet Count 207 K/mm3 (150-450); RBC Distribution Width CV 12.6 % (11.6-14.6); RBC Distribution Width SD 42.9 fl (35.1-43.9); Red Blood Count 3.97 M/mm3 (4.2-5.4); White Blood Count 16.2 K/mm3 (4.4-11.0)
[2022-01-16 22:33] LABS: Mucous, Urine 0 SEEN /hpf (<or=2+)
[2022-01-16 22:48] LABS: Anion Gap 9 (5-15); BUN 28 mg/dL (7-18); BUN/Creat Ratio 19.3 RATIO (10-20); Chloride 86 mmol/L (98-107); Creatinine, Serum 1.45 mg/dL (0.55-1.02); EST Glomerular Filtration Rate 37 mL/min (>60); Est Glom Filt Rate - Afr Amer 45 mL/min (>60); Estimated Creatinine Clearance 24.07 ml/min; Glucose 127 mg/dL (74-106); Potassium 3.3 mmol/L (3.5-5.1); Sodium Level 125 mmol/L (136-145)
[2022-01-16 22:52] LABS: Differential Indicated SCAN CRITERIA MET
[2022-01-16 22:54] LABS: Color, Urine Amber (Yellow); Glucose, Dipstick Normal (Normal); Ketone-Dipstick Negative (Negative); Leukocyte Esterase-Dipstick 100 /ul (Negative); Nitrite-Dipstick Negative (Negative); Occult Blood-Urine 250 /ul (Negative); Protein-Dipstick 100 mg/dl (Negative); Urine Bilirubin Dipstick Negative (Negative); Urine Clarity Cloudy (Clear); Urine Urobilinogen Normal (Normal); Urine pH 6.5 (5.0 - 8.0)
[2022-01-16 23:10] LABS: Differential Comment SCANNED
[2022-01-16 23:35] LABS: Bacteria 1+ /hpf (None Seen); Red Blood Cells-Urine 25-50 SEEN /hpf (0-5); Squamous Epithelial Cells - UA 0-5 SEEN /hpf (5-10); White Blood Cells 10-25 SEEN /hpf (0-5)
[2022-01-17] MEDS: Ceftriaxone 1 GM/50 ML BAG IV (00:10)
--- NOTE | 2022-01-17 01:24 | EDS_ITS ---
HPI History of Present Illness Chief Complaint: Complaint Detail of Chief Complaint: Hematuria Informant: patient Onset/Context/Timing Onset: Today Current Severity: Mild Maximum Severity: Mild Narrative Narrative: Patient presents secondary to hematuria. Patient had surgery at the [facility] with Dr. Mercado last Sunday, January 11. 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 She states the surgeon had to stop because the field was getting bloody. She does have a history of paroxysmal A. fib and restarted her Xarelto on the evening of the sixth. She is been having some intermittent right flank pain with nausea since the time of her surgery. Today she has had 3 or 4 episodes of hematuria. She has had some chills but no fever. [facility] Medical History COVID-19 Diverticulitis GERD (gastroesophageal reflux disease) Gout HLD (hyperlipidemia) HTN (hypertension) Left anterior fascicular block Obesity, morbid (more than 100 lbs over ideal weight or BMI > 40) Paroxysmal atrial flutter Uterine fibroid Home Medications allopurinol 300 mg PO DAILY 05/05/14 [History Last Taken 01/01/19] hydrochlorothiazide 25 mg PO DAILY 05/05/14 [History Last Taken 01/01/19] multivitamin with folic acid 1 tab PO DAILY 05/05/14 [History Last Taken 01/01/19] potassium chloride 10 meq PO DAILY 05/05/14 [History Last Taken 01/01/19] cholecalciferol (vitamin D3) 25 mcg (1,000 unit) capsule 1,000 unit PO DAILY 01/06/19 [History Last Taken Unknown] metoprolol tartrate 25 mg tablet 25 mg PO BID tab 01/07/19 [History Last Taken 07/30/19] magnesium oxide 250 mg PO DAILY 06/18/19 [History Last Taken Unknown] acetaminophen 500 mg tablet 500 mg PO BID tab 08/01/21 [History Last Taken Unknown] rivaroxaban 20 mg tablet 20 mg PO DAILY #30 tab 11/02/21 [Rx Last Taken Unknown] Allergy/AdvReac Type Severity Reaction Status Date / Time Penicillins Allergy Severe Hives Verified 01/16/22 20:38 chlordiazepoxide Allergy Other Verified 01/16/22 20:38 [From Librax (with clidinium)] clidinium bromide Allergy Other Verified 01/16/22 20:38 [From Librax (with clidinium)] amlodipine besylate AdvReac Other Verified 01/16/22 20:38 [From Norvasc] Family History Mother Aortic aneurysm Congestive heart failure Renal failure Father Emphysema/COPD Brother CAD (coronary artery disease) COPD (chronic obstructive pulmonary disease) Diabetes Surgical History History of bilateral cataract extraction History of section History of cholecystectomy (1982) History of colonoscopy History of D&C History of left heart catheterization (10/11/04) History of left knee replacement (10/2009) History of tonsillectomy History of total right hip replacement History of total right knee replacement (2011) History of tubal ligation Hx of appendectomy Social History Smoking Status: Never smoker alcohol intake: never substance use type: does not use caffeine: No ROS ROS ED Constitutional Constitutional ED: Reports chills; Denies fever(s) Eyes Eyes: Denies change in vision ENT ENT ED: Denies sore throat Cardiovascular Cardiovascular: Denies chest pain Respiratory/Chest Respiratory/Chest: Denies cough or dyspnea Gastrointestinal Gastrointestinal: Reports abdominal pain and nausea; Denies diarrhea or vomiting Genitourinary Genitourinary ED: Reports hematuria; Denies dysuria Musculoskeletal Musculoskeletal: Reports back pain Integumentary Denies rash Neurologic Neurologic: Denies headache(s) or weakness Allergic/Immunologic Allergic/Immunologic ED: Denies urticaria EXAM Physical Exam Const Vital Signs: 01/16/22 20:36 01/16/22 20:38 Temperature 97 F L 97 F L Temperature Source Temporal Temporal Pulse Rate 92 92 Respiratory Rate 16 16 Blood Pressure 137/81 H 137/81 H Blood Pressure Mean 99 99 Pulse Ox 98 98 Oxygen Delivery Method Room Air Room Air Positive well nourished and well developed General Appearance ED: well developed HEENT Reports normocephalic and head/scalp atraumatic Eyes PERRL and EOMs intact bilaterally Neck supple Chest Wall inspection of chest normal and palpation of chest normal Resp normal respiratory effort and clear to auscultation bilaterally Cardio regular rate and regular rhythm GI normal to inspection, nondistended, normoactive bowel sounds and non-tender Palpation: soft Back/Spine General Back: CVA tenderness right Extremity normal to inspection Neuro oriented x3 and no sensory deficits noted Sensorium / Orientation: alert Motor Exam: strength 5/5 throughout Psych mental status grossly normal Skin no rashes or lesions noted MDM MDM MDM Narrative Medical decision making narrative: Patient was given a small dose of morphine along with Zofran to help with pain and nausea. IV fluids ordered. Lab work and urinalysis obtained along with a CT scan of the abdomen and pelvis with IV contrast. Lab Data Attestation: I reviewed the patient's lab results. Labs: Laboratory Results - last 24 hr 01/16/22 01/16/22 01/16/22 22:10 22:10 22:25 WBC 16.2 H RBC 3.97 L Hgb 12.6 Hct 36.8 L MCV 92.7 MCH 31.7 MCHC 34.2 RDW Std Deviation 42.9 RDW Coeff of Brandie 12.6 Plt Count 207 MPV 9.5 Immature Gran % (Auto) 2.400 H Neut % (Auto) 72.2 H Lymph % (Auto) 13.0 L [place] % (Auto) 11.0 H Eos % (Auto) 1.1 Baso % (Auto) 0.3 Absolute Neuts (auto) 11.7 H Absolute Lymphs (auto) 2.10 Nucleated RBC % 0 Differential Comment SCANNED Diff Path Review May foll Sodium 125 L Potassium 3.3 L Chloride 86 L Carbon Dioxide 30.0 Anion Gap 9 BUN 28 H Creatinine 1.45 H Estim Creat Clear Calc 24.07 Est GFR (MDRD) Af Amer 45 L Est GFR (MDRD) Non-Af 37 L BUN/Creatinine Ratio 19.3 Glucose 127 H Calcium 10.0 Urine Color Anai Urine Clarity Cloudy Urine pH 6.5 Ur Specific [place] 1.010 Urine Protein 100 H Urine Glucose (UA) Normal Urine Ketones Negative Urine Occult Blood 250 H Urine Nitrite Negative Urine Bilirubin Negative Urine Urobilinogen Normal Ur Leukocyte Esterase 100 H Urine RBC 25-50 SEEN Urine WBC 10-25 SEEN Ur Squamous Epith Cells 0-5 SEEN Urine Bacteria 1+ Urine Mucus 0 SEEN Radiography Diagnostic Testing: Clinical Impression(s) from Imaging Studies Abdomen/Pelvis CT 01/16/22 21:53 IMPRESSION: 1. Right hydronephrosis with periureteral edema/hematoma in spite of right ureteral stent. The right ureteral stent terminates in the distal right ureter above the right UVJ with ureteral dilation and increased density of the distalmost right ureter, possibly blood filled, although mass cannot be excluded. 2. Small right pleural effusion with atelectasis in the right lower lobe. Electronically Signed: Juan Sanabria MD (Bro[place]) at 23:34 EDT , Treatment and Re-Evaluation Narrative: White count is elevated at 16.2 with 72% neutrophils. Hemoglobin 12.6, stable from prior values. Chemistry studies reveal a sodium of 125, potassium 3.3. Creatinine is 1.45, up from 1.1 previous. Sodium has dropped to 125 where prior value was 138. Urinalysis shows 25-50 red cells, 10-25 white cells with 1+ bacteria. Urine culture is sent and patient is given a dose of Rocephin here. CT scan reveals right hydronephrosis and periureteral edema/hematoma and spite of a right ureteral stent. The stent terminates in the distal right ureter above the UVJ with ureteral dilatation and increased density of the distalmost right ureter possibly blood-filled. In light of these findings with patient having recent surgery to [facility] I have spoken with her urologist, Dr. Mercado. He agrees the patient probably should [facility]. We will call the transfer line to arrange transfer. In the meantime patient will be continued on normal saline for her hyponatremia. Discharge Plan Triage Chief Complaint: Complaint ED Provider: Ghazal Garcia Dx/Rx/DC Orders Clinical Impression: Hematuria, Postoperative hematoma, Hyponatremia Prescriptions: No Action cholecalciferol (vitamin D3) 1,000 unit capsule 1,000 unit capsule 1,000 unit PO DAILY RF: 0 acetaminophen 500 mg tablet 500 mg PO BID RF: 0 allopurinol 300 MG tablet 300 mg PO DAILY RF: 0 hydrochlorothiazide 25 MG tablet 25 mg PO DAILY RF: 0 potassium chloride 10 MEQ tablet 10 meq PO DAILY RF: 0 multivitamin with folic acid 1 TABLET tablet 1 tab PO DAILY RF: 0 metoprolol tartrate 25 mg tablet 25 mg PO BID RF: 0 magnesium oxide 250 MG tablet 250 mg PO DAILY RF: 0 rivaroxaban 20 mg tablet 20 mg PO DAILY Qty: 30 RF: 12 Primary Care Provider: Valerio Nickerson Referrals: Valerio Nickerson MD [Primary Care Provider] - Disposition Disposition: Acute Care Hospital Discharge Location: [facility]
--- NOTE | 2022-01-17 01:27 | NURSING ---
[facility] PAGED SECOND PAGE [phone]. NOTIFIED.
[2022-01-17 02:17] VITALS: BP 133/57; PULSE 88; RESP 18; TEMP 36.6; O2SAT 97
[2022-01-17 03:00] VITALS: BP 134/66; PULSE 88; RESP 16; TEMP 36.2; O2SAT 97
[2022-01-17 05:20] VITALS: BP 128/70; PULSE 90; RESP 16; TEMP 36.6; O2SAT 98
[2022-01-17] MEDS: Metoprolol Tartrate 25 MG Tablet PO (09:55)
[2022-01-17 09:57] VITALS: BP 174/88; PULSE 91; RESP 18; TEMP 36.4; O2SAT 97; O2SAT 98
[2022-01-17 10:09] VITALS: BP 174/88; PULSE 88; RESP 18; TEMP 36.4; O2SAT 98
[2022-01-17 11:31] LABS: Pathologist Review Reviewed
--- NOTE | 2022-01-17 11:33 | NURSING ---
SPOKE WITH KANA AT [facility]. SHE IS GOING TO CHECK ON A BED FOR THE PT AND REACH OUT TO ED IF NEEDED. SHE WILL CALL WITH A STATUS UPDATE
[2022-01-17 12:21] VITALS: BP 163/79; PULSE 79; RESP 18; O2SAT 97
--- NOTE | 2022-01-17 12:26 | ED.RN ---
ATTEMPTED TO CALL REPORT, SPOKE WITH ED, SHE STATED THAT THE NURSE WAS WITH ANOTHER PT AND WOULD CALL ME BACK.
--- NOTE | 2022-01-17 13:55 | ED.RN ---
ems at bedside.
== END 2022-01-17 14:03 | disposition other institution (70) ==
PROVIDERS: Emergency Provider Emergency Medicine; PCP Family Medicine; Visit Provider Emergency Medicine
DX: R31.9 Hematuria, unspecified (principal); I48.92 Unspecified atrial flutter; L76.32 Postprocedural hematoma of skin and subcutaneous tissue following other procedure; E87.1 Hypo-osmolality and hyponatremia; I10 Essential (primary) hypertension; Z86.16 Personal history of COVID-19; Z79.899 Other long term (current) drug therapy
CPT/HCPCS: 74177; 80048; 81001; 85025; 87086; 87088; 87811; 96365; 96375; 99285; J7030; Q9967; A4216; J2405

== ENCOUNTER → 2023-03-20 | Outpatient (CLI) | payer MEDICARE, OTHER, SELFPAY ==
--- NOTE | 2023-03-20 08:51 | ECHOD_ITS ---
Reason For Study: EJFF Procedure This was a 2D Doppler, Color Flow transthoracic echocardiogram. The study was technically difficult. Due to body habitus. Exam performed in department. Left Ventricle Normal LV size. Left ventricular systolic function is normal. The estimated ejection fraction is 60 %. No regional wall motion abnormalities noted. Right Ventricle Normal RV size. Normal systolic function. Atria The left atrium is mildly enlarged. The right atrium is mildly enlarged. Tricuspid Valve Normal tricuspid valve. Mild (1+) tricuspid valve insufficiency. Pulmonary artery systolic pressure is 28 mmHg. Aortic Valve Trisinus/trileaflet aortic valve. Moderate focal aortic valve calcification. Peak aortic valve gradient 19 mmHg. Mean aortic valve gradient 11 mmHg. Mild (1+) aortic valve insufficiency. Pulmonic Valve The pulmonic valve is not well visualized. Great Vessels Normal aortic root. The pulmonary artery is normal size. Normal inferior vena cava. Pericardium/Pleural No pericardial effusion. MMode/2D Measurements & Calculations LVIDd: 5.0 cm IVSd: 0.84 cm LVOT diam: 2.0 cm LVIDs: 2.8 cm LVPWd: 0.98 cm LVOT area: 3.1 cm2 RVDd: 3.4 cm FS: 42.9 % Ao root diam: 3.6 cm LAV(MOD-bp): 79.8 ml LVAd ap4: 34.2 cm2 LAV(MOD-bp) Indexed: 38.6 ml/m2 LVLd ap4: 8.5 cm LAV(MOD-sp2): 82.5 ml EDV(MOD-sp4): 114.3 ml LAV(MOD-sp4): 72.7 ml EDV(sp4-el): 116.9 ml LVAs ap4: 17.8 cm2 LVLs ap4: 7.0 cm ESV(MOD-sp4): 39.6 ml ESV(sp4-el): 38.7 ml EF(MOD-sp4): 65.4 % EF(sp4-el): 66.9 % SV(MOD-sp4): 74.8 ml SV(MOD-sp2): 48.4 ml LVAd ap2: 28.0 cm2 LVLd ap2: 8.6 cm EDV(MOD-sp2): 73.7 ml EDV(sp2-el): 77.2 ml LVAs ap2: 14.4 cm2 LVLs ap2: 7.0 cm ESV(MOD-sp2): 25.4 ml ESV(sp2-el): 25.1 ml EF(MOD-sp2): 65.6 % SV(sp4-el): 78.3 ml LA A4 area: 23.9 cm2 LA dimension(2D): 4.3 cm TAPSE: 2.4 cm RA A4 area: 21.5 cm2 Time Measurements MV dec time: 0.12 sec Doppler Measurements & Calculations MV E max marquez: 98.9 cm/sec Lat Peak E' Marquez: 8.3 cm/sec Med Peak E' Marquez: 7.6 cm/sec MV A max marquez: 89.3 cm/sec E/E' lat: 11.9 E/E' med: 13.1 MV E/A: 1.1 MV dec slope: 792.7 cm/sec2 Ao V2 max: 220.3 cm/sec AI max marquez: 463.0 cm/sec Ao max P.4 mmHg AI max P.8 mmHg Ao V2 mean: 151.6 cm/sec AI dec slope: 286.5 cm/sec2 Ao mean P.6 mmHg AI P1/2t: 473.3 msec Ao V2 VTI: 64.1 cm AV (velocity ratio): 0.40 GIANLUCA(I,D): 1.3 cm2 GIANLUCA(V,D): 1.4 cm2 LV V1 max: 96.9 cm/sec SV(LVOT): 80.9 ml PA V2 max: 86.9 cm/sec LV V1 max P.8 mmHg PA V2 mean: 61.2 cm/sec LV V1 mean P.3 mmHg LV V1 mean: 73.0 cm/sec LV V1 VTI: 25.8 cm TR max marquez: 250.1 cm/sec TR max P.0 mmHg ECHO/Echo Complete Interpretation Summary Normal LV size. Left ventricular systolic function is normal. The estimated ejection fraction is 60 %. Moderate focal aortic valve calcification. Mean aortic valve gradient 11 mmHg. Mild (1+) aortic valve insufficiency. Ordering Physician: Jacquelin Gracia Referring Physician: Valerio Nickerson Performed By: Kiersten Redman, CYDNEY, RVT
== END | disposition home or self-care (01) ==
PROVIDERS: PCP Family Medicine; Referring Provider Physician Assistant Medical; Visit Provider Physician Assistant Medical
DX: R07.9 Chest pain, unspecified (principal); R01.1 Cardiac murmur, unspecified
CPT/HCPCS: 93306

== ENCOUNTER 2024-07-15 14:48 | Emergency (ER) | payer MEDICARE, OTHER, SELFPAY ==
[2024-07-15] VITALS (10 sets, daily range): BP systolic 132–189; BP diastolic 63–78; PULSE 54–70; RESP 16–19; TEMP 36.2–36.6; O2SAT 95–99; BMI 44.3
--- NOTE | 2024-07-15 15:05 | RAD_ITS ---
EXAM: XR CHEST, 1 VIEW CLINICAL INDICATION: chest pain TECHNIQUE: Frontal view of the chest. COMPARISON: 09/19/2020 FINDINGS: LUNGS AND PLEURAL SPACES: Unremarkable. No consolidation or edema. No pneumothorax. No effusion. HEART: Unremarkable. Cardiac silhouette not enlarged. MEDIASTINUM: Central airways and mediastinal contour are unremarkable. BONES/JOINTS: Unremarkable. No acute fracture. SOFT TISSUES: Unremarkable. RAD/Chest 1 View (Portable) IMPRESSION: No radiographic evidence of acute cardiopulmonary disease. Electronically Signed: Umair Nolen MD at 16:20 EST ,
--- NOTE | 2024-07-15 15:33 | EDS_ITS ---
HPI History of Present Illness Chief Complaint: Chest Pain [facility] Medical History Essential hypertension HLD (hyperlipidemia) COVID-19 Paroxysmal atrial flutter Left anterior fascicular block Uterine fibroid GERD (gastroesophageal reflux disease) Diverticulitis Obesity, morbid (more than 100 lbs over ideal weight or BMI > 40) Gout Home Medications ?Medication ?Instructions ?Recorded ?Last Taken ?Type hydrochlorothiazide 25 mg tablet 25 mg PO DAILY bp 05/05/14 01/01/19 History multivitamin with folic acid 400 1 tab PO DAILY supplement 05/05/14 01/01/19 History mcg tablet potassium chloride 10 mEq 10 meq PO DAILY supplement 05/05/14 01/01/19 History tablet,extended release(part/cryst) cholecalciferol (vitamin D3) 25 1,000 unit PO DAILY supplement 01/06/19 Unknown History mcg (1,000 unit) capsule metoprolol tartrate 25 mg tablet 25 mg PO BID bp 01/07/19 07/30/19 History magnesium oxide 250 mg PO DAILY supplement 06/18/19 Unknown History acetaminophen 500 mg tablet 500 mg PO BID PRN 01/23/22 Unknown History biotin 1,000 mcg chewable tablet 1,000 mcg PO DAILY 01/23/22 Unknown History allopurinol 100 mg tablet 100 mg PO DAILY 08/16/22 Unknown History rivaroxaban 20 mg tablet 20 mg PO DAILY blood thinner #30 12/31/23 Unknown Rx tabs Allergy/AdvReac Type Severity Reaction Status Date / Time Penicillins Allergy Severe Hives Verified 07/15/24 14:50 chlordiazepoxide (From Allergy Other Verified 07/15/24 14:50 Librax (with clidinium)) clidinium bromide (From Allergy Other Verified 07/15/24 14:50 Librax (with clidinium)) amlodipine besylate (From AdvReac Other Verified 07/15/24 14:50 Norvasc) Family History Mother Aortic aneurysm Congestive heart failure Renal failure Father Emphysema/COPD Brother CAD (coronary artery disease) COPD (chronic obstructive pulmonary disease) Diabetes Surgical History History of right nephrectomy (~03/06/22) Hx of appendectomy History of total right hip replacement History of tonsillectomy History of left heart catheterization (10/11/04) History of total right knee replacement (2011) History of cholecystectomy (1982) History of left knee replacement (10/2009) History of tubal ligation History of D&C History of colonoscopy History of section History of bilateral cataract extraction Social History Smoking Status: Never smoker alcohol intake: never substance use type: does not use caffeine: No EXAM Physical Exam Const Vital Signs: 07/15/24 14:50 07/15/24 15:35 07/15/24 15:48 Temperature 97.1 F L Temperature Source Temporal Pulse Rate 64 63 Respiratory Rate 18 18 Respiratory Effort Normal Non-Labored Blood Pressure 189/67 H 159/71 H Blood Pressure Mean 107 100 Pulse Ox 97 Oxygen Delivery Method Room Air 07/15/24 15:51 07/15/24 15:55 07/15/24 15:57 Temperature Temperature Source Pulse Rate 70 59 L Respiratory Rate Respiratory Effort Blood Pressure 159/71 H 143/69 H Blood Pressure Mean 93 Pulse Ox 95 Oxygen Delivery Method Room Air 07/15/24 16:00 07/15/24 17:00 07/15/24 18:00 Temperature Temperature Source Pulse Rate 56 L 54 L 56 L Respiratory Rate 16 Respiratory Effort Blood Pressure 132/63 H 159/67 H 179/78 H Blood Pressure Mean 86 97 111 Pulse Ox 95 98 99 Oxygen Delivery Method 07/15/24 19:00 Temperature Temperature Source Pulse Rate 57 L Respiratory Rate 19 H Respiratory Effort Blood Pressure 166/71 H Blood Pressure Mean 102 Pulse Ox Oxygen Delivery Method MDM MDM MDM Narrative Medical decision making narrative: HISTORY OF PRESENT ILLNESS: 84-year-old female presents with chest pain. She states she developed chest pressure approximately 1 PM. Notes she took her blood pressure was elevated. No she is take Xarelto has been compliant. Denies any bleeding diathesis melena hematochezia hemoptysis. The pain is not ripping or tearing. Denies any lower extremity edema. Denies any calf tenderness. Recent surgery. Denies history of blood clots. Denies any cough fever chills. The patient denies recent surgery in the last 4 weeks or immobilization in the last 3 days, denies previous diagnosis of DVT or PE, hemoptysis, unilateral leg swelling or malignancy with treatment the last 6 months or palliative. No estrogen use noted. Patient denies sudden onset of pain, no tearing sensation, no migratory symptoms, no new numbness, weakness or loss of sensation. Patient denies family history or personal history of Connective tissue disorders (Marfan's Syndrome, Nedra Danlos etc) REVIEW OF SYSTEMS: Pertinent positives: Chest pain Pertinent negatives: Syncope, weakness, leg swelling PHYSICAL EXAM: Nursing triage notes reviewed, Vital signs reviewed Constitutional: please see mdm HENT: MMM Eyes: Pupils equal round and reactive to light, Extraocular muscles intact Neck: No stridor, no JVD, full neck ROM Lungs: Clear to auscultation, No wheezing or rales. No increased work of breathing, no conversational dyspnea, no accessory muscle use, no nasal flaring. No respiratory distress noted Heart: Regular rate and rhythm, No murmurs, No rubs and No gallops, 2+ distal pulses (radial, femoral, posterior tibial) in all extremities Abdomen: Soft, there is no tenderness, rigidity, rebound or guarding, no obvious peritoneal signs, no palpable pulsatile abdominal masses, no auscultated abdominal bruit : No CVAT Extremities: No edema Neuro: No focal neurological deficits, cranial nerves II through XII intact, 5/5 strength in all extremities. Intact sensation to light touch in all extremities, 2+ reflexes bilateral patella tendons. Normal gait. No ataxia. Skin: No rash or lesions noted MEDICAL DECISION MAKING: Chief Complaint: Chest pain External records reviewed: Reviewed prior EKGs Factors affecting care: Hypertension, hyperlipidemia, atrial flutter, GERD, obesity, gout Social determinants of health: Elderly History obtained from others: None Consults: discussed with Dr. Wagner (senior quality assurance engineer)?recommended discharge and close outpatient follow-up. [facility] Narrative: Patient was initially hypertensive with a blood pressure 189/67, otherwise afebrile and nontoxic-appearing. Cardiopulmonary exam without focal abnormality I considered the following differential diagnosis: ACS, anemia, electrolyte disturbance, arrhythmia, pneumonia, pneumothorax, PE, aortic dissection While considered pulmonary embolism and aortic dissection the patient's history and physical exam not consistent with these diagnoses specifically the patient is a low risk Wells score and is on Xarelto. Low risk for PE. I considered pulmonary embolism given right bundle branch however the patient is on Xarelto has been compliant. Have a lower suspicion for PE in addition to this her history and physical exam not consistent with VTE. She had a low risk Wells score risk of PE is very low and as such we will not obtain an specific testing lessers a vital sign change I noticed hypoxia ALL IMAGES (IF OBTAINED) HAVE BEEN PERSONALLY REVIEWED AND INTERPRETED BY MYSELF. EKG with normal sinus rhythm rate of 61, left axis deviation, right bundle branch block, this is new from prior EKG reviewed from September 2020, no obvious STEMI High-sensitivity troponin is negative, no evidence of myocardial ischemiax2 BNP marginally elevated, no signs of volume overload otherwise, this is not indicative of CHF BMP with no electrolyte abnormalities, no acute kidney injury, no signs of metabolic acidosis or endorgan hypoperfusion CBC without leukocytosis, severe anemia, no thrombocytopenia. I have personally reviewed the patient's chest x-ray. Chest x-ray is unremarkable for pulmonary edema, pneumothorax, pneumonia or focal cardiopulmonary abnormality. On re-evaluation patient's blood pressure improved to 166/71. Chest pain-free. Repeat cardiopulmonary exam unremarkable. Given the patient's 2 negative troponins and not having chest pain she is appropriate for discharge home. Cannoneer agreed with this. Patient was discharged with strict return precautions. The patient and/or family, caregivers express understanding. The patient and/or family, caregivers agrees with the plan. Shared decision making: I will have a discussion with the patient and or visitors regarding risk/benefits of further testing or admission. They will be made aware of of the risk/benefits inherent in this decision they will be given the opportunity to voice understanding. Total critical care time today provided was at least 0 minutes. This excludes separately billable procedures. Critical care time (if documented) is secondary to the patient having high probability of clinically significant/life threatening deterioration in the patient's condition which required my urgent intervention. Impression: 1. Chest pain 2. History of hypertension 3. History of Atrial Fibrillation Dispo: Discharge home This note was generated with [employer] dictation software. It may contain incorrect words, spelling, and punctuation that were not noted in review of the chart prior to signing. Lab Data Labs: Laboratory Results - last 24 hr 07/15/24 07/15/24 15:25 17:27 WBC 7.7 RBC 4.14 L Hgb 13.3 Hct 39.6 MCV 95.7 MCH 32.1 H MCHC 33.6 RDW Std Deviation 45.2 H RDW Coeff of Brandie 13.0 Plt Count 179 MPV 10.2 Immature Gran % (Auto) 0.400 Neut % (Auto) 62.7 Lymph % (Auto) 25.4 [place] % (Auto) 8.2 Eos % (Auto) 2.6 Baso % (Auto) 0.7 Absolute Neuts (auto) 4.8 Absolute Lymphs (auto) 1.95 Nucleated RBC % 0 Sodium 138 Potassium 4.3 Chloride 103 Carbon Dioxide 28.0 Anion Gap 7 BUN 37 H Creatinine 1.45 H Estim Creat Clear Calc 34.34 Est GFR (MDRD) Af Amer 44 L Est GFR (MDRD) Non-Af 37 L BUN/Creatinine Ratio 25.5 H Glucose 127 H Calcium 10.3 H Troponin I High Sens 10 10 B-Natriuretic Peptide 144.0 H Radiography Diagnostic Testing: Clinical Impression(s) from Imaging Studies Chest X-Ray 07/15/24 15:05 IMPRESSION: No radiographic evidence of acute cardiopulmonary disease. Electronically Signed: Umair Nolen MD at 16:20 EST , Discharge Plan Triage Chief Complaint: Chest Pain ED Provider: Primitivo Cain Dx/Rx/DC Orders Clinical Impression: Chest pain Instructions: Chest Pain [facility] Prescriptions: No Action cholecalciferol (vitamin D3) 1,000 unit capsule 1,000 unit PO DAILY acetaminophen 500 mg tablet 500 mg PO BID PRN biotin 1,000 mcg tablet,chewable 1,000 mcg PO DAILY allopurinol 100 mg tablet 100 mg PO DAILY hydrochlorothiazide 25 MG tablet 25 mg PO DAILY Patient Comments: blood pressure potassium chloride 10 MEQ tablet 10 meq PO DAILY Patient Comments: potassium supplement multivitamin with folic acid 1 TABLET tablet 1 tab PO DAILY Patient Comments: supplement metoprolol tartrate 25 mg tablet 25 mg PO BID Patient Comments: blood pressure magnesium oxide 250 MG tablet 250 mg PO DAILY rivaroxaban 20 mg tablet 20 mg PO DAILY Qty: 30 12RF Primary Care Provider: Valerio Nickerson Referrals: Valerio Nickerson MD [Primary Care Provider] - Print Language: Panamanian
--- NOTE | 2024-07-15 15:45 | EKG12_ITS ---
Test Reason : CP Blood Pressure : */* mmHG Vent. Rate : 61 BPM Atrial Rate : 61 BPM P-R Int : 182 ms QRS Dur : 150 ms QT Int : 420 ms P-R-T Axes : 50 -75 17 degrees QTcB Int : 422 ms Normal sinus rhythm Right bundle branch block Left anterior fascicular block Bifascicular block Minimal voltage criteria for LVH, may be normal variant ( R in aVL ) Abnormal ECG Confirmed by Anastacio Wagner ([id number]), assistant film editor RAY FARRIS ([id number]) on 07/16/2024 1:07:44 PM Referred By: [email or web address]/SHRUTHI Confirmed By: Anastacio Wagner
[2024-07-15] MEDS: Aspirin 81 MG TAB.CHEW 324 MG PO (15:49)
[2024-07-15] MEDS: Nitroglycerin SL (ED/IMG/CATH) 0.4 MG TABLET SL (15:55)
[2024-07-15 16:04] LABS: Absolute Lymphocyte Count 1.95 X10^3/uL (0.83-4.51); Absolute Neutrophil Count 4.8 X10^3/uL (2.0-7.7); Basophil# 0.05 X10^3/uL; Basophil% 0.7 % (0-1); Eosinophils% 2.6 % (0-5); Hematocrit 39.6 % (37-47); Hemoglobin 13.3 g/dL (12.0-15.0); Lymphocyte # 1.95 X10^3/ul (0.83-4.51); Lymphocyte % 25.4 % (19-41); Mean Corp Hgb Conc 33.6 g/dL (32-36); Mean Corpuscular Hgb 32.1 pg (27.0-32.0); Mean Corpuscular Volume 95.7 fL (81-99); Mean Platelet Vol. 10.2 fl (6.2-12.0); Monocyte# 0.63 X10^3/uL; Monocyte% 8.2 % (0-10); NRBC Flagged by Analyzer 0 % (0-5); Neutrophil # 4.81 X10^3/uL (2.7-7.7); Neutrophil % 62.7 % (47-70); Platelet Count 179 K/mm3 (150-450); RBC Distribution Width SD 45.2 fl (35.1-43.9); Red Blood Count 4.14 M/mm3 (4.2-5.4); White Blood Count 7.7 K/mm3 (4.4-11.0)
[2024-07-15] MEDS: Famotidine 200 MG/20 ML MDV 20 MG in 0.9% Normal Saline (Pres. free 8 ML 300 MG IV (16:24)
[2024-07-15 16:36] LABS: Anion Gap 7 (5-15); BUN 37 mg/dL (7-18); BUN/Creat Ratio 25.5 RATIO (10-20); Calcium,Total 10.3 mg/dL (8.5-10.1); Chloride 103 mmol/L (98-107); Creatinine, Serum 1.45 mg/dL (0.55-1.02); EST Glomerular Filtration Rate 37 mL/min (>60); Est Glom Filt Rate - Afr Amer 44 mL/min (>60); Estimated Creatinine Clearance 34.34 ml/min; Glucose 127 mg/dL (74-106); Potassium 4.3 mmol/L (3.5-5.1); Sodium Level 138 mmol/L (136-145); Troponin-I HS (w/2H Reflex) 10 pg/mL (3.0-54.0)
[2024-07-15 17:56] LABS: Reflex Troponin-HS? (from REC) Y
[2024-07-15 18:38] LABS: Troponin-I HS 10 pg/mL (3.0-54.0)
--- OUTSIDE RECORDS SUMMARY | 2024-07-15 20:14 | XMS RPT_ITS | CCD ---
Author Organization [facility] Care Team Providers Care Health Coach Name Role Phone Jeni Nickerson MD Primary Care Provider Gustavo Engle Unavailable TIBURCIO ANG Attending Unavailable SELF Referring Unavailable JENI NICKESRON Primary Care Unavailable TIBURCIO ANG Referring Unavailable JENI NICKERSON Primary Care Unavailable MAGDA MERCADO Attending Unavailable JENI NICKERSON Primary Care Unavailable JENIFER CARLSON Referring Unavailable JENI NICKERSON Primary Care Unavailable JENI NICKERSON Primary Care Unavailable TIBURCIO ANG Referring Unavailable TIBURCIO ANG Attending Unavailable JENI NICKERSON Primary Care Unavailable TIBURCIO ANG Referring Unavailable JENI NICKERSON Primary Care Unavailable TIBURCIO ANG Referring Unavailable JENI NICKERSON Primary Care Unavailable ANGLE GONZALEZ Attending Unavailable JENI NICKERSON Primary Care Unavailable MAGDA MERCADO Referring Unavailable JENI NICKERSON Primary Care Unavailable MAGDA MERCADO Referring Unavailable JENI NICKERSON Primary Care Unavailable MAGDA MERCADO Referring Unavailable MAGDA MERCADO Referring Unavailable MAGDA MERCADO Attending Unavailable JENI NICKERSON Primary Care Unavailable JENI NICKERSON Primary Care Unavailable MAGDA MERCADO Referring Unavailable Jeni Nickerson MD Primary Care Provider Max Engle MDril S Unavailable Allergies Allergy Classification Reported Allergen(s) Allergy Type Date of Onset Reaction(s) Facility (20 sources) amLODIPine; Translations: [AMLODIPINE BESYLATE] Drug Allergy 03-22-20 05 [facility] Work Phone: (20 sources) chlordiazePOXIDE / clidinium; Translations: [CHLORDIAZEPOXIDE-C LIDINIUM] Drug Allergy 05-29-20 11 Mental Status Change [facility] (11 sources) Penicillins; Translations: [PENICILLINS] Drug Intolerance 01-12-20 Hives [facility] (20 sources) Penicillins Drug Intolerance 01-12-20 [facility] Medications Current Medications Medication Drug Class(es) Dates Sig (Normalized) Sig (Original) allopurinol 100 mg oral tablet (20 sources) Xanthine Oxidase Inhibitor Start: 08-08-2022 End: 09-24-2023 take 1 tablet by mouth once daily allopurinol (ZYLOPRIM) 100 mg tablet Indications: Gout, unspecified cause, unspecified chronicity, unspecified site Take 1 tablet by mouth once daily. 90 tablet 3 09/24/2023 Active Start: 11-22-2020 End: 08-08-2022 take 1 tablet by mouth once daily allopurinol (ZYLOPRIM) 300 mg tablet Take 1 tablet by mouth once daily. 90 tablet 3 12/12/2021 08/08/2022 Discontinued Comment on above: Take 1 tablet by lv once daily. biotin 2.5 mg oral capsule (20 sources) Biotin 2,500 mcg cap Take by mouth. Active Comment on above: Take by mouth. cholecalciferol 0.025 mg oral tablet (20 sources) Vitamin D take 1 tablet by mouth once daily cholecalciferol (VITAMIN D3) 1,000 unit tab tablet Take 1,000 Units by mouth once daily. Active Comment on above: Take 1,000 Units by mouth once daily. docusate sodium 100 mg oral capsule (10 sources) Start: 03-07-20 End: 03-21-20 take 1 capsule by mouth twice daily docusate sodium (COLACE) 100 mg capsule Take 1 capsule by mouth twice daily for 14 days. 28 capsule 0 03/07/2022 03/21/2022 Active Start: 01-11-2022 End: 02-17-2022 take 1 capsule by mouth twice daily docusate sodium (COLACE) 100 mg capsule Take 1 capsule by mouth twice daily. 60 capsule 0 01/18/2022 02/17/2022 Active Comment on above: Take 1 capsule by mo [facility] twice daily. Take 1 capsule by mo [facility] twice daily for 14 days. gemcitabine 2,000 mg in NaCl 0.9% 100 mL (GEMZAR) (1 source) Start: End: gemcitabine 2,000 mg in NaCl 0.9% 100 mL (GEMZAR) hydroCHLOROthiazide 25 mg oral tablet (20 sources) Thiazide Diuretic Start: take 1 tablet by mouth once daily hydroCHLOROthiazide 25 mg tablet Indications: Essential hypertension, benign Take 1 tablet by mouth once daily. 90 tablet 3 11/07/2023 Active Start: 10-27-2021 End: 11-02-2022 take 1 tablet by mouth once daily hydroCHLOROthiazide (HYDRODIURIL, ESIDRIX) 25 mg tablet Indications: Essential hypertension, benign Take 1 tablet by mouth once daily. 90 tablet 3 11/02/2022 Active Comment on above: Take 1 tablet by lv th once daily. Magnesium (20 sources) MAGNESIUM ORAL T satinder by mouth. Active MAGNESIUM ORAL T satinder by mouth. 0 Suspended MAGNESIUM ORAL T satinder by mouth. 0 Active Comment on above: Take by mouth. metoprolol tartrate 25 mg oral tablet (20 sources) beta-Adrenergic Amy Start: 05-20-2021 End: 05-08-2024 take 1 tablet by mouth twice daily metoprolol tartrate, short acting, (LOPRESSOR) 25 mg tablet Take 1 tablet by mouth two times a day. 180 tablet 3 05/08/2024 Active Comment on above: Take 1 tablet by lv th twice daily. ONE DAILY MULTI-VITAMIN TAB (20 sources) Start: 08-23-2005 ONE DAILY MULTI-VITAMIN TAB Take one(1) tablet daily. 0 08/23/2005 Suspended Start: 08-23-2005 ONE DAILY MULT I-VITAMIN TAB Take one(1) tablet daily. 0 08/23/2005 Active Comment on above: Take one(1) tablet d aily. oxyCODONE hydrochloride 5 mg oral tablet (2 sources) Opioid Agonist Start: 03-07-20 End: 03-12-20 take 1 tablet by mouth every eight hours as needed oxyCODONE IR (ROXICODONE) 5 mg immediate release tablet Indications: Urothelial carcinoma (HCC) Take 1 tablet by mouth every 8 hours as needed for up to 5 days. 10 tablet 0 03/07/2022 03/12/2022 Active Comment on above: Take 1 tablet by lv th every 8 hours as needed for up to 5 days. polyethylene glycol 3350 01934 mg powder for oral solution (2 sources) Osmotic Laxative Start: 01-19-20 End: 02-02-20 take 1 dose by mouth once daily polyethylene glycol 3350 (MIRALAX) 17 gram packet Take 1 Packet by mouth once daily for 14 days. Stop if you develop diarrhea. 14 Packet 0 01/18/2022 02/01/2022 Active Comment on above: Take 1 Packet by lv th once daily for 14 days. Stop if you develop diarrhea. microencapsulated potassium chloride 10 meq extended release oral tablet (20 sources) Start: 11-07-19 take 1 tablet by mouth once daily potassium chloride ER (KLOR-CON M10) 10 mEq tablet Take 1 tablet by mouth once daily. 90 tablet 3 11/07/2023 Active Start: 10-27-2021 End: 11-13-2022 take 1 tablet by mouth once daily potassium chloride ER (KLOR-CON M10) 10 mEq tablet Take 1 tablet by mouth once daily. 90 tablet 3 11/13/2022 Active Comment on above: Take 1 tablet by lv th once daily. rivaroxaban 20 mg oral tablet (20 sources) Factor Xa Inhibitor Start: 03-07-2022 take 1 tablet by mouth once daily at dinner rivaroxaban (XARELTO) 20 mg tablet Take 1 tablet by mouth daily with dinner. Restart on 03/13/2022 (7 days after surgery) 03/07/2022 Active Start: 01-27-2022 take 1 tablet by lv th once daily at dinner rivaroxaban (XARELTO) 20 mg tablet Take 1 tablet by mouth daily with dinner. 0 01/27/2022 Suspended Start: 01-18-2022 take 1 tablet by lv th once daily at dinner rivaroxaban (XARELTO) 20 mg tablet Take 1 tablet by mouth daily with dinner. Do not restart until instructed to do so by your physician (01/27/22) 0 01/18/2022 Active take 1 tablet by lv th once daily at dinner rivaroxaban (XARELTO) 20 mg tablet Take 20 mg by mouth daily with dinner. 0 Active Comment on above: Take 20 mg by mouth daily with dinner. Take 1 tablet by lv th daily with dinner. Do not restart until instructed to do so by your physician (01/27/22) Take 1 tablet by lv th daily with dinner. Take 1 tablet by lv th daily with dinner. Restart on 03/13/2022 (7 days after surgery) Completed/Discontinued Medications Medication Drug Class(es) Dates Sig (Normalized) Sig (Original) acetaminophen 500 mg oral tablet (13 sources) Start: 03-07-2022 End: 03-14-2022 take 1 tablet by mouth every six hours as needed acetaminophen (TYLENOL EXTRA STRENGTH) 500 mg tablet Take 1 tablet by mouth every 6 hours as needed for pain for up to 7 days. 28 tablet 0 03/07/2022 03/14/2022 acetaminophen (T YLENOL ORAL) Take by mouth. 0 Suspended acetaminophen (T YLENOL ORAL) Take by mouth. 0 Active Comment on above: Take by mouth. Take 1 tablet by lv th every 6 hours as needed for pain for up to 7 days. ciprofloxacin 500 mg oral tablet (4 sources) Quinolone Antimicrobial Start: 11-28-2022 End: 11-28-2022 ciprofloxacin HCl 500 mg tab(s) (CIPRO) Start: 07-18-2022 End: 07-18-2022 ciprofloxacin HCl 500 mg tab (s) (CIPRO) Start: 03-07-2022 End: 03-10-2022 take 1 tablet by mouth twice daily, then take 1 tablet by mouth once daily, then take 2 tablets by mouth once daily, then take 3 tablets by mouth once daily ciprofloxacin HCl (CIPRO) 500 mg tablet Take 1 tablet by mouth twice daily for 3 days. Take 1) The day before your piper removal 2) The day your piper is removed 3) The day after your piper is removed 6 tablet 0 03/07/2022 03/10/2022 Active Comment on above: Take 1 tablet by lv th twice daily for 3 days. Take 1) The day before your piper removal 2) The day your piper is removed 3) The day after your piper is removed iv contrast (will be provided with radiology test) (4 sources) Start: 12-11-2023 End: 12-12-2023 iv contrast (will be provided with radiology test) Indications: Urothelial carcinoma of kidney, right (HCC) , Malignant neoplasm of urinary bladder, unspecified site (HCC) CT Urogram WO/W Inject, intravenously, once for 1 dose.No IV access, insert saline lock prior to the beginning of sedation, infusion, injection of imaging exam. Discontinue saline lock post exam. If Pt. has a central line or IVAD, may access for administration according to line specific nursing protocol. Once exam is complete flush line and de-access according to line specific nursing protocol in the CT contrast administration guidelines link. 1 Each 0 12/11/2023 12/12/2023 Start: 04-03-2023 End: 04-04-2023 iv contrast (will be provide d with radiology test) Indications: Urothelial carcinoma of kidney, right (HCC) , History of bladder cancer , Malignant neoplasm of urinary bladder, unspecified site (HCC) MRI ABD/PEL UROGRAM Inject, intravenously, once for 1 dose. No IV access, insert saline lock prior to the beginning of sedation, infusion, injection of imaging exam. Discontinue saline lock post exam. If Pt has a central line or IVAD, may access for administration according to line specific nursing protocol. Once exam is complete flush line and de-access according to line specific nursing protocol in the MR contrast administration guidelines link 1 Each 0 04/03/2023 04/04/2023 Start: 03-14-2022 End: 03-15-2022 iv contrast (will be provide d with radiology test) CT ABD/PEL -Inject, intravenously, once for 1 dose.No IV access, insert saline lock prior to the beginning of sedation, infusion, injection of imaging exam. Discontinue saline lock post exam. If Pt. has a central line or IVAD, may access for administration according to line specific nursing protocol. Once exam is complete flush line and de-access according to line specific nursing protocol in the CT contrast administration guidelines link. 1 Each 0 03/14/2022 03/15/2022 Active Start: 03-14-2022 End: 03-15-2022 iv contrast (will be provide d with radiology test) CT Chest W -Inject, intravenously, once for 1 dose.No IV access, insert saline lock prior to the beginning of sedation, infusion, injection of imaging exam. Discontinue saline lock post exam. If Pt. has a central line or IVAD, may access for administration according to line specific nursing protocol. Once exam is complete flush line and de-access according to line specific nursing protocol in the CT contrast administration guidelines link. 1 Each 0 03/14/2022 03/15/2022 Active Comment on above: CT ABD/PEL -Inject, intravenously, once for 1 dose.No IV access, insert saline lock prior to the beginning of sedation, infusion, injection of imaging exam. Discontinue saline lock post exam. If Pt. has a central line or IVAD, may access for administration according to line specific nursing protocol. Once exam is complete flush line and de-access according to line specific nursing protocol in the CT contrast administration guidelines link. CT Chest W -Inject, intravenously, once for 1 dose.No IV access, insert saline lock prior to the beginning of sedation, infusion, injection of imaging exam. Discontinue saline lock post exam. If Pt. has a central line or IVAD, may access for administration according to line specific nursing protocol. Once exam is complete flush line and de-access according to line specific nursing protocol in the CT contrast administration guidelines link. MRI ABD/PEL UROGRAM Inject, intravenously, once for 1 dose. No IV access, insert saline lock prior to the beginning of sedation, infusion, injection of imaging exam. Discontinue saline lock post exam. If Pt has a central line or IVAD, may access for administration according to line specific nursing protocol. Once exam is complete flush line and de-access according to line specific nursing protocol in the MR contrast administration guidelines link levoFLOXacin 750 mg oral tablet (2 sources) Quinolone Antimicrobial Start: 12-10-2023 End: 12-11-2023 levoFLOXacin 750 mg tab(s) (LEVAQUIN) lidocaine hydrochloride 0.02 mg/mg topical gel (6 sources) Antiarrhythmic, Amide Local Anesthetic Start: 12-10-2023 End: 12-11-2023 lidocaine urojet 2 % 11 mL topical gel (GLYDO) Start: 08-07-2023 End: 08-07-2023 lidocaine urojet 2 % 11 mL t opical gel (GLYDO) Start: 07-18-2022 End: 07-18-2022 lidocaine urojet 2 % 11 mL t opical gel (XYLOCAINE, GLYDO) Start: 03-14-2022 End: 03-15-2022 lidocaine urojet 2 % 11 mL t opical gel (XYLOCAINE, GLYDO) oxybutynin chloride 5 mg oral tablet (20 sources) Cholinergic Muscarinic Antagonist Start: 03-07-2022 End: 08-13-2023 take 1 tablet by mouth every eight hours as needed oxybutynin (DITROPAN) 5 mg tablet Take 1 tablet by mouth three times daily as needed (bladder discomfort, spasms). 90 tablet 2 03/07/2022 08/13/2023 Discontinued (Course of therapy completed) Start: 01-11-2022 End: 02-10-2022 take 1 tablet by mouth every eight hours as needed oxybutynin (DITROPAN) 5 mg tablet Take 1 tablet by mouth three times daily as needed (bladder discomfort, spasms). 90 tablet 5 01/11/2022 Suspended Comment on above: Take 1 tablet by lv th three times daily as needed (bladder discomfort, spasms). perflutren lipid microspheres 1.3 mL in NaCl (PF) 0.9% 10 mL injection (DEFINITY) (20 sources) Start: 02-02-2022 End: 05-04-2023 perflutren lipid microspheres 1.3 mL in NaCl (PF) 0.9% 10 mL injection (DEFINITY) Start: 01-19-2022 End: 04-20-2023 perflutren lipid microsphere s 1.3 mL in NaCl (PF) 0.9% 10 mL injection (DEFINITY) 1000 ml sodium chloride 9 mg/ml injection (20 sources) Start: 12-11-2023 End: 12-11-2023 0.9 % sodium chloride (NACL 0.9%) infusion Indications: Urothelial carcinoma of kidney, right (HCC) , Malignant neoplasm of urinary bladder, unspecified site (HCC) Administer at rate defined per CT contrast administration specifications. To be provided with radiology test. 150 mL 0 12/11/2023 12/11/2023 Start: 01-19-2022 End: 05-04-2023 sodium chloride 0.9 % (flush ) 10 mL (BD POSIFLUSH) sulfamethoxazole 800 mg / trimethoprim 160 mg oral tablet (1 source) Dihydrofolate Reductase Inhibitor Antibacterial, Sulfonamide Antimicrobial Start: 04-02-2023 End: 04-03-2023 sulfamethoxazole-trimethopri m 800-160 mg 1 tablet (BACTRIM DS) tamsulosin hydrochloride 0.4 mg oral capsule (6 sources) alpha-Adrenergic Amy Start: 01-11-2022 End: 04-11-2022 take 1 capsule by mouth once daily at bedtime tamsulosin (FLOMAX) 0.4 mg Take 1 capsule by mouth daily at bedtime. 30 minutes after the same meal each day. 90 capsule 0 01/11/2022 03/03/2022 Discontinued (Course of therapy completed) Comment on above: Take 1 capsule by mo uth daily at bedtime. 30 minutes after the same meal each day. Problems Active Problems Problem Classification Problem Date Documented Date Episodic/Chronic Cancer of bladder (8 sources) Malignant tumor of urinary bladder; Translations: [Malignant neoplasm of bladder, unspecified] Onset: 12-11-2023 Chronic Cancer of kidney and renal pelvis (10 sources) Transitional cell carcinoma of right kidney; Translations: [Malignant neoplasm of right kidney, except renal pelvis] Onset: 12-11-2023 Chronic Cancer of other urinary organs (20 sources) Malignant neoplastic disease; Translations: [Malignant neoplasm of urinary organ, unspecified] Onset: 03-06-2022 03-06-2022 Chronic Cardiac dysrhythmias (20 sources) Atrial flutter; Translations: [Unspecified atrial flutter] Onset: 05-06-2019 05-06-2019 Chronic Chronic kidney disease (20 sources) Chronic kidney disease stage 3B ; Translations: [Stage 3b chronic kidney disease (HCC)] Onset: 08-08-2022 Chronic Chronic kidney disease (1 source) Chronic kidney disease; Translations: [Stage 3b chronic kidney disease (HCC)] Onset: 08-08-2022 Disorders of lipid metabolism (20 sources) Hypercholesterolemia; Translations: [Pure hypercholesterolemia, unspecified] Onset: 08-08-2022 Chronic Diverticulosis and diverticulitis (20 sources) Diverticulosis of colon; Translations: [Diverticulosis of large intestine without perforation or abscess without bleeding] Onset: 03-22-2005 08-20-2010 Chronic Esophageal disorders (20 sources) Gastroesophageal reflux disease; Translations: [Gastro-esophageal reflux disease without esophagitis] Onset: 03-22-2005 08-27-2009 Chronic Essential hypertension (20 sources) Benign essential hypertension; Translations: [Essential (primary) hypertension] Onset: 06-19-2006 08-27-2009 Chronic Gout and other crystal arthropathies (20 sources) Gout; Translations: [Gout, unspecified] Onset: 03-22-2005 07-28-2015 Chronic Osteoarthritis (20 sources) Degenerative joint disease involving multiple joints; Translations: [Polyosteoarthritis, unspecified] Onset: 03-22-2005 08-27-2009 Chronic Other aftercare (1 source) Post-discharge follow-up; Translations: [Encounter for follow-up examination after completed treatment for conditions other than malignant neoplasm] Episodic Other lower respiratory disease (2 sources) Nodule of lung; Translations: [Solitary pulmonary nodule] Episodic Other lower respiratory disease (2 sources) Multiple nodules of lung; Translations: [Other nonspecific abnormal finding of lung field] Episodic Other nutritional; endocrine; and metabolic disorders (20 sources) Body mass index 40+ - severely obese; Translations: [Morbid (severe) obesity due to excess calories] Onset: 03-03-2022 03-03-2022 Chronic Other skin disorders (1 source) Skin lesion; Translations: [Disorder of the skin and subcutaneous tissue, unspecified] Episodic Prolapse of female genital organs (20 sources) Vaginal wall prolapse; Translations: [Cystocele, unspecified] Onset: 08-07-2007 08-20-2010 Chronic Residual codes; unclassified (1 source) H/O: major abdominal surgery; Translations: [Other specified postprocedural states] Episodic Thyroid disorders (2 sources) Thyroid nodule; Translations: [Nontoxic single thyroid nodule] Chronic Past or Other Problems Problem Classification Problem Date Documented Da te Episodic/Chronic Benign neoplasm of uterus (20 sources) Uterine leiomyoma; Translations: [Leiomyoma of uterus, unspecified] Onset: 03-22-2005 08-20-2010 Episodic Cancer of bladder (6 sources) H/O: malignant neoplasm; Translations: [Personal history of malignant neoplasm of bladder] Onset: 08-07-2023 Episodic Complications of surgical procedures or medical care (20 sources) Difficult intubation; Translations: [Failed or difficult intubation, initial encounter] Onset: 03-06-2022 03-06-2022 Episodic Diabetes mellitus without complication (20 sources) Impaired fasting glycemia; Translations: [Impaired fasting glucose] Onset: 08-27-2009 08-27-2009 Episodic Genitourinary symptoms and ill-defined conditions (20 sources) Migel hematuria; Translations: [Gross hematuria] Onset: 01-06-2022 01-06-2022 Episodic Other and unspecified benign neoplasm (20 sources) History of polyp of colon; Translations: [Personal history of colonic polyps] Onset: 06-19-2006 08-27-2009 Episodic Other diseases of veins and lymphatics (20 sources) Vulval varices; Translations: [Vulval varices] Onset: 11-18-2012 11-18-2012 Episodic Other lower respiratory disease (1 source) Other nonspecific abnormal finding of lung field; Translations: [Lung nodules] Onset: 08-08-2023 Episodic Other screening for suspected conditions (not mental disorders or infectious disease) (20 sources) Patient encounter status; Translations: [Encounter for screening for other disorder] Onset: 01-06-2022 Episodic Varicose veins of lower extremity (20 sources) Venous varices; Translations: [Asymptomatic varicose veins of unspecified lower extremity] Onset: 06-26-2007 08-20-2010 Episodic Results Test Name Value Interpretation Reference Range Facility CREATININE, BLOOD (POC)on Creatinine [Mass/Vol] 1.40 mg/dL 0.7 - 1.4 mg/dL [facility] GFR/1.73 sq M.predicted among non-blacks MDRD (S/P/Bld) [Vol rate/Area] 37 mL/min/{1.73_m2} mL/min/1.73 m2 [facility] Location:Radiology [facility], [address] [place] [address], [address] [place] [address] POINT OF CARE [facility] CT Kidney WO and W contrast Mary Kay 06-18-2024 IMPRESSION: Right nephroureterectomy without local recurrence or metastatic disease. No upper tract lesion or urothelial mass. Door Liner [facility] Transcribe Date/Time: Jun 18 2024 1:17P Dictated by : JORI DUNNE MD This examination was interpreted and the report reviewed and electronically signed by: MIKEL TUTTLE MD on Jun 18 2024 4:15PM [facility] DIVISION OF RADIOLOGY * * *Final Report* * * DATE OF EXAM: Jun 18 2024 12:55PM [facility] [place] [id number] - CT UROGRAM WO/W IVCON / PROCEDURE REASON: multiple diagnoses * * * * Physician Interpretation * * * * EXAMINATION: CT ABDOMEN AND PELVIS WITHOUT AND WITH IV CONTRAST, INCLUDING EXCRETORY PHASE IMAGING (CT UROGRAM) 3D RECONSTRUCTIONS CLINICAL HISTORY: 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 Cystoscopy 01/12/2024 demonstrated no evidence of disease. Urine cytology 12/11/2023, negative for high-grade urothelial carcinoma. TECHNIQUE: CT urogram protocol including unenhanced, renal parenchymal phase and excretory phase renal imaging was obtained following IV contrast. Normal saline was also administered IV. No oral contrast was given. 3D image post-processing was not requested. MQ: CTU_2 Contrast: IV: 125 ml of Omnipaque 350 IV Saline: 150 ml of 0.9% NACL Solution Oral Contrast: None CT Radiation dose: Integrated dose-length product (DLP) for this visit = 4418 mGy*cm. CT Dose Reduction Employed: Automated exposure control (AEC) COMPARISON: MRI urogram 08/07/2023, CT abdomen pelvis 07/18/2022. RESULT: Kidneys and urinary tract: Right: Right nephroureterectomy. No evidence of recurrence in the nephrectomy bed. Left: There are no renal calculi or masses. The opacified calices, renal pelvis and ureter are normal without dilation, filling defect, or stricture. Evaluation of the distal left ureter is decreased secondary to streak artifact from right total hip arthroplasty. Bladder: No filling defect, calculus, focal or diffuse wall thickening within the limitations of this study secondary to streak artifact from right total hip arthroplasty. Abdomen and Pelvis: Liver: No mass. Biliary: No bile duct dilation. Cholecystectomy. Spleen: No mass. No splenomegaly. Pancreas: No mass or duct dilation. Adrenals: No mass. GI tract: No dilation or wall thickening. Colonic diverticulosis. Appendectomy. Lymph nodes: No abdominal or pelvic lymphadenopathy. Mesentery/Peritoneum: No ascites or mass. Retroperitoneum: No mass. Vasculature: - Abdominal aorta and iliac arteries: Atherosclerotic calcifications without aneurysm. - Celiac and SMA: Patent without stenosis. - Portal venous system (SMV, splenic vein, portal vein and branches): Patent. - Hepatic veins: Patent. Pelvis: No mass, ascites or fluid collection. Fibroid uterus. Bones and Soft Tissues: Stable multilevel osseous degenerative changes. Grade 1 anterolisthesis of L4 on L5 secondary to facet arthropathy. Right total hip arthroplasty. No suspicious osseous lesions. Lower thorax: Bibasilar atelectasis, right greater than left. Subpleural reticular opacities likely representing small airway disease/bronchiectasis. Localizer images: No additional findings. 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 Cystoscopy 01/12/2024 demonstrated no evidence of disease. Urine cytology 12/11/2023, negative for high-grade urothelial carcinoma. TECHNIQUE: CT urogram protocol including unenhanced, renal parenchymal phase and excretory phase renal imaging was obtained following IV contrast. Normal saline was also administered IV. No oral contrast was given. 3D image post-processing was not requested. MQ: CTU_2 Contrast: IV: 125 ml of Omnipaque 350 IV Saline: 150 ml of 0.9% NACL Solution Oral Contrast: None CT Radiation dose: Integrated dose-length product (DLP) for this visit = 4418 mGy*cm. CT Dose Reduction Employed: Automated exposure control (AEC) COMPARISON: MRI urogram 08/07/2023, CT abdomen pelvis 07/18/2022. RESULT: Kidneys and urinary tract: Right: Right nephroureterectomy. No evidence of recurrence in the nephrectomy bed. Left: There are no renal calculi or masses. The opacified calices, renal pelvis and ureter are normal without dilation, filling defect, or stricture. Evaluation of the distal left ureter is decreased secondary to streak artifact from right total hip arthroplasty. Bladder: No filling defect, calculus, focal or diffuse wall thickening within the limitations of this study secondary to streak artifact from right total hip arthroplasty. Abdomen and Pelvis: Liver: No mass. Biliary: No bile duct dilation. Cholecystectomy. Spleen: No mass. No splenomegaly. Pancreas: No mass or duct dilation. Adrenals: No mass. GI tract: No dilation or wall thickening. Colonic diverticulosis. Appendectomy. Lymph nodes: No abdominal or pelvic lymphadenopathy. Mesentery/Peritoneum: No ascites or mass. Retroperitoneum: No mass. Vasculature: - Abdominal aorta and iliac arteries: Atherosclerotic calcifications without aneurysm. - Celiac and SMA: Patent without stenosis. - Portal venous system (SMV, splenic vein, portal vein and branches): Patent. - Hepatic veins: Patent. Pelvis: No mass, ascites or fluid collection. Fibroid uterus. Bones and Soft Tissues: Stable multilevel osseous degenerative changes. Grade 1 anterolisthesis of L4 on L5 secondary to facet arthropathy. Right total hip arthroplasty. No suspicious osseous lesions. Lower thorax: Bibasilar atelectasis, right greater than left. Subpleural reticular opacities likely representing small airway disease/bronchiectasis. Localizer images: No additional findings. IMPRESSION IMPRESSION: Right nephroureterectomy without local recurrence or metastatic disease. No upper tract lesion or urothelial mass. Door Liner Helper: [facility] Transcribe Date/Time: Jun 18 2024 1:17P Dictated by : JORI DUNNE MD This examination was interpreted and the report reviewed and electronically signed by: MIKEL TUTTLE MD on Jun 18 2024 4:15PM EST [facility] Radiology Study observation (narrative) [facility] CT Kidney WO and W contrast IVOrdered By: [facility] Provider on 06-18-[address] [facility] [address] UROGRAM WO/W IVCONon CT UROGRAM WO/W IVCON * * *Final Report* * * DATE OF EXAM: Jun 18 2024 12:55PM [facility] [place] - CT UROGRAM WO/W IVCON / PROCEDURE REASON: multiple diagnoses * * * * Physician Interpretation * * * * EXAMINATION: CT ABDOMEN AND PELVIS WITHOUT AND WITH IV CONTRAST, INCLUDING EXCRETORY PHASE IMAGING (CT UROGRAM) 3D RECONSTRUCTIONS CLINICAL HISTORY: 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 Cystoscopy 01/12/2024 demonstrated no evidence of disease. Urine cytology 12/11/2023, negative for high-grade urothelial carcinoma. TECHNIQUE: CT urogram protocol including unenhanced, renal parenchymal phase and excretory phase renal imaging was obtained following IV contrast. Normal saline was also administered IV. No oral contrast was given. 3D image post-processing was not requested. MQ: CTU_2 Contrast: IV: 125 ml of Omnipaque 350 IV Saline: 150 ml of 0.9% NACL Solution Oral Contrast: None CT Radiation dose: Integrated dose-length product (DLP) for this visit = 4418 mGy*cm. CT Dose Reduction Employed: Automated exposure control (AEC) COMPARISON: MRI urogram 08/07/2023, CT abdomen pelvis 07/18/2022. RESULT: Kidneys and urinary tract: Right: Right nephroureterectomy. No evidence of recurrence in the nephrectomy bed. Left: There are no renal calculi or masses. The opacified calices, renal pelvis and ureter are normal without dilation, filling defect, or stricture. Evaluation of the distal left ureter is decreased secondary to streak artifact from right total hip arthroplasty. Bladder: No filling defect, calculus, focal or diffuse wall thickening within the limitations of this study secondary to streak artifact from right total hip arthroplasty. Abdomen and Pelvis: Liver: No mass. Biliary: No bile duct dilation. Cholecystectomy. Spleen: No mass. No splenomegaly. Pancreas: No mass or duct dilation. Adrenals: No mass. GI tract: No dilation or wall thickening. Colonic diverticulosis. Appendectomy. Lymph nodes: No abdominal or pelvic lymphadenopathy. Mesentery/Peritoneum: No ascites or mass. Retroperitoneum: No mass. Vasculature: - Abdominal aorta and iliac arteries: Atherosclerotic calcifications without aneurysm. - Celiac and SMA: Patent without stenosis. - Portal venous system (SMV, splenic vein, portal vein and branches): Patent. - Hepatic veins: Patent. Pelvis: No mass, ascites or fluid collection. Fibroid uterus. Bones and Soft Tissues: Stable multilevel osseous degenerative changes. Grade 1 anterolisthesis of L4 on L5 secondary to facet arthropathy. Right total hip arthroplasty. No suspicious osseous lesions. Lower thorax: Bibasilar atelectasis, right greater than left. Subpleural reticular opacities likely representing small airway disease/bronchiectasis. Localizer images: No additional findings. IMPRESSION: Right nephroureterectomy without local recurrence or metastatic disease. No upper tract lesion or urothelial mass. Door Liner Helper: [facility] Transcribe Date/Time: Jun 18 2024 1:17P Dictated by : JORI DUNNE MD This examination was interpreted and the report reviewed and electronically signed by: MIKEL TUTTLE MD on Jun 18 2024 4:15PM EST [id number] [facility] CYTOLOGY NON-GYNon CASE REPORT [facility] Comment on above: Order Comment: Speci men Type: URINE SPECIMENOrdering Facility: [facility] Address: [address] [address] Result Comment: [facility] Cytology Report Case: [id number] Authorizing Provider: Magda Mercado MD Collected: 06/18/2024 02:45 PM Ordering Location: Urology Received: 06/18/2024 06:19 PM Pathologist: Margarita Zarate MD Specimen: Urine, Midstream Performed By: #### C YTONON ####[facility] LABCLIA [id number] [place] [address] [place] CLINICAL HISTORY urothelial cancer Normal [facility] Comment on above: Order Comment: Speci men Type: URINE SPECIMENOrdering Facility: [facility] Address: [address] [place] [address] Performed By: #### C YTONON ####[facility] LABCLIA [id number] [address] [place] FINAL DIAGNOSIS [facility] Comment on above: Order Comment: Speci men Type: URINE SPECIMENOrdering Facility: [facility] Address: [address] [address] Result Comment: A - Urine, Midstream: Negative for high-grade urothelial carcinoma. Performed By: #### C YTONON ####[facility] LABCLIA [id number] [address] [place] FINAL PERFORMING LAB [facility] Comment on above: Order Comment: Speci men Type: URINE SPECIMENOrdering Facility: [facility] Address: [address] [place] [address] Result Comment: Tech nical component, retail performance specialist screening performed at [facility], [address] [place] [address] CLIA# [id number] Diagnostic interpretation performed at [facility], [address] [place] [address] CLIA# [id number] Supervisor Television Chassis Repair: Sherman Clay M.D. Performed By: #### C YTFLORA ####[facility] LABCLIA [id number] [place] [address] [place] GROSS DESCRIPTION Normal [facility] Comment on above: Order Comment: Speci men Type: URINE SPECIMENOrdering Facility: [facility] Address: [address] [address] Result Comment: A. U rine, Midstream 90 cc clear yellow fluid . ThinPrep prepared. Performed By: #### C YTFLORA ####[facility] LABCLIA [id number] [place] [address] [place] CNOVon 04-21-2024 CNOV Office Visit (FAMPWS ) -------- AZUL VICTORIA ([id number]) 1940 F Date Time Provider Department 04/21/24 9:00 AM [facility] During your visit today, we recorded the following information about you: Pulse Respiration Blood pressure Weight 59/minute 18/minute 141/77 110.8 kg Tiburcio Ang APRN.SATELLITE COMMUNICATIONS ENGINEER 04/21/2024 9:09 AM Signed Chief Complaint Patient presents with: Follow Up: 6 month HPI Azul Victoria is a 84 year old female who presents here today for Chronic Medical Conditions. Patient is here for chronic disease follow-up. Taking medications as prescribed.Denies any side effects from medications. Reviewing labs with patient. recently in hospital, will be going to group home. She is without chest pain, shortness of breath, syncope, fevers, chills, unintentional weight loss. Following with [facility] for history of atrial flutter. She is xarelto. Following with urology for history of urothelial carcinoma, bladder cancer. Past medical history, appointments, medications, allergies reviewed. EXAM: BP 141/77 Pulse (!) 59 Resp 18 Wt 110.8 kg (244 lb 4.3 oz) SpO2 97% BMI 44.68 kg/m? General Appearance: Well appearing, alert, in no acute distress, well-hydrated, well nourished.. Lungs: Lungs clear to auscultation. No wheezing, rhonchi, rales.. Heart: RRR without murmur, gallop, or rubs. No ectopy. Latest Ref Rng 04/18/2024 WBC 3.70 - 11.00 k/uL 6.76 RBC 3.90 - 5.20 m/uL 4.20 Hemoglobin 11.5 - 15.5 g/dL 13.4 Hematocrit 36.0 - 46.0 % 40.8 MCV 80.0 - 100.0 fL 97.1 MCH 26.0 - 34.0 pg 31.9 MCHC 30.5 - 36.0 g/dL 32.8 RDW-CV 11.5 - 15.0 % 12.9 Platelet Count 150 - 400 k/uL 182 MPV 9.0 - 12.7 fL 10.2 Neut% % 60.5 Abs Neut (ANC) 1.45 - 7.50 k/uL 4.09 Lymph% % 27.8 Abs Lymph 1.00 - 4.00 k/uL 1.88 Knox% % 7.4 Abs Knox <0.87 k/uL 0.50 Eosin% % 3.3 Abs Eosin <0.46 k/uL 0.22 Baso% % 0.7 Abs Baso <0.11 k/uL 0.05 Immature Gran % % 0.3 IMMATURE GRANS (ABS) <0.10 k/uL <0.03 NRBC /100 WBC 0.0 Absolute nRBC <0.01 k/uL <0.01 DTYPE Auto Protein, Total 6.3 - 8.0 g/dL 6.4 Albumin 3.9 - 4.9 g/dL 3.9 Calcium 8.5 - 10.2 mg/dL 10.2 Bilirubin, Total 0.2 - 1.3 mg/dL 0.5 Alkaline Phosphatase 34 - 123 U/L 89 AST 13 - 35 U/L 19 ALT 7 - 38 U/L 14 Glucose 74 - 99 mg/dL 116 (H) BUN 7 - 21 mg/dL 33 (H) Creatinine 0.58 - 0.96 mg/dL 1.40 (H) Sodium 136 - 144 mmol/L 138 Potassium 3.7 - 5.1 mmol/L 4.2 Chloride 98 - 107 mmol/L 102 CO2 22 - 30 mmol/L 24 Anion Gap 8 - 15 mmol/L 12 eGFR >=60 mL/min/1.73m? 37 (L) Cholesterol, Total <200 mg/dL 150 Triglyceride <150 mg/dL 108 HDL Cholesterol >39 mg/dL 51 Non HDL Cholesterol <130 mg/dL 99 Fasting Time hrs 12 VLDL Cholesterol <30 mg/dL 22 TC:HDL Ratio <5.10 2.94 LDL Cholesterol <100 mg/dL 77 LDL:HDL Ratio <2.54 1.51 Hemoglobin A1C 4.3 - 5.6 % 5.9 (H) Estimated Average Glucose mg/dL 123 Uric Acid 2.5 - 6.6 mg/dL 6.7 (H) ASSESSMENT/PLAN: 1. Essential hypertension, benign - ICD9: 401.1, ICD10: I10 (primary diagnosis) - Controlled - Continue current medications - Recommend home blood pressure monitoring, to bring results to next visit - Encouraged sodium restriction, DASH or Mediterranean diet - Recommend regular aerobic exercise - COMPREHENSIVE METABOLIC PANEL 2. Atrial flutter, unspecified type (HCC) - ICD9: 427.32, ICD10: I48.92 -Continue following with close her group - COMPREHENSIVE METABOLIC PANEL 3. Gout, unspecified cause, unspecified chronicity, unspecified site - ICD9: 274.9, ICD10: M10.9 -No gout flares, continue allopurinol as prescribed - URIC ACID 4. Impaired fasting glucose - ICD9: 790.21, ICD10: R73.01 -Stable, continue lifestyle control - HEMOGLOBIN A1C - COMPREHENSIVE METABOLIC PANEL 5. Stage 3b chronic kidney disease (HCC) - ICD9: 585.3, ICD10: N18.32 - eGFR: 37 Stable - COMPREHENSIVE METABOLIC PANEL 6. Elevated cholesterol - ICD9: 272.0, ICD10: E78.00 -Stable, controlled, continue lifestyle control - LIPID PANEL BASIC 7. Screening for depression - ICD9: V79.0, ICD10: Z13.31 - DEPRESSION SCREENING 8. Encounter for screening examination for other mental health and behavioral disorders - ICD9: V79.8, ICD10: Z13.39 - ANXIETY SCREENING Tiburcio Ang APRN.SATELLITE COMMUNICATIONS ENGINEER RTO in 6 months, sooner if needed. This note was partly generated using [employer] voice recognition dictation and may contain some misspelled or inaccurate words missed on review. Referring Provider: SELF [200] Allergies As of Date: 04/21/2024 Noted Allergy Reaction PENICILLINS 01/11/2021 4 - Hives LIBRAX (WITH CLIDINIUM) (CHLORDIA*05/29/2011 1 - Mental Status Change NORVASC (AMLODIPINE BESYLATE) 03/22/2005 Date Reviewed: 04/21/2024 Reviewed by: Tiburcio Ang APRN.SATELLITE COMMUNICATIONS ENGINEER - Fully Assessed Reason for Visit: Follow Up [171] Cmt: 6 month Primary Visit Diagnosis:Essential hypertension, bhanu (more content not included)... [facility] CBC W Auto Differential pane l (Bld)on 04-18-2024 Basophils (Bld) [#/Vol] 0.05 10*3/uL Normal <0.11 [facility] Comment on above: Order Comment: Speci men Type: BLOOD SPECIMENOrdering Facility: [facility] Address: [address] [place] [address] Performed By: #### 5 7021-8 ####[facility] LABCLIA [id number] [place] [address] [place] Basophils/100 WBC (Bld) 0.7 % [facility] Comment on above: Order Comment: Speci men Type: BLOOD SPECIMENOrdering Facility: [facility] Address: [address] [place] [address] Performed By: #### 5 7021-8 ####[facility] LABCLIA [id number] [place] [address] [place] Differential cell count method Nom (Bld) Auto [facility] Comment on above: Order Comment: Speci men Type: BLOOD SPECIMENOrdering Facility: [facility] Address: [address] [place] [address] Performed By: #### 5 7021-8 ####[facility] LABCLIA [id number] [place] [address] [place] Eosinophils (Bld) [#/Vol] 0.22 10*3/uL Normal <0.46 [facility] Comment on above: Order Comment: Speci men Type: BLOOD SPECIMENOrdering Facility: [facility] Address: [address] [address] Performed By: #### 5 7021-8 ####[facility] LABCLIA [id number] [place] [address] [place] Eosinophils/100 WBC (Bld) 3.3 % [facility] Comment on above: Order Comment: Speci men Type: BLOOD SPECIMENOrdering Facility: [facility] Address: [address] [address] Performed By: #### 5 7021-8 ####[facility] LABCLIA [id number] [place] [address] [place] Erythrocyte distribution width (RBC) [Ratio] 12.9 % Normal 11.5-15.0 [facility] Comment on above: Order Comment: Speci men Type: BLOOD SPECIMENOrdering Facility: [facility] Address: [address] [address] Performed By: #### 5 7021-8 ####[facility] LABCLIA [id number] [place] [address] [place] Hematocrit (Bld) [Volume fraction] 40.8 % Normal 36.0-46.0 [facility] Comment on above: Order Comment: Speci men Type: BLOOD SPECIMENOrdering Facility: [facility] Address: [address] [address] Performed By: #### 5 7021-8 ####[facility] LABCLIA [id number] [id number] [address] [place] Hemoglobin (Bld) [Mass/Vol] 13.4 g/dL Normal 11.5-15.5 [facility] Comment on above: Order Comment: Speci men Type: BLOOD SPECIMENOrdering Facility: [facility] Address: [address] [place] [address] Performed By: #### 5 7021-8 ####[facility] LABCLIA [id number] [place] [address] [place] Immature granulocytes (Bld) [#/Vol] 10*3/uL Normal <0.10 [facility] Comment on above: Order Comment: Speci men Type: BLOOD SPECIMENOrdering Facility: [facility] Address: [address] [address] Performed By: #### 5 7021-8 ####[facility] LABCLIA [id number] [place] [address] [place] Immature granulocytes/100 WBC (Bld) 0.3 % [facility] Comment on above: Order Comment: Speci men Type: BLOOD SPECIMENOrdering Facility: [facility] Address: [address] [address] Performed By: #### 5 7021-8 ####[facility] LABCLIA [id number] [place] [address] [place] Lymphocytes (Bld) [#/Vol] 1.88 10*3/uL Normal 1.00-4.00 [facility] Comment on above: Order Comment: Speci men Type: BLOOD SPECIMENOrdering Facility: [facility] Address: [address] [place] [address] Performed By: #### 5 7021-8 ####[facility] LABCLIA [id number] [place] [address] [place] Lymphocytes/100 WBC (Bld) 27.8 % [facility] Comment on above: Order Comment: Speci men Type: BLOOD SPECIMENOrdering Facility: [facility] Address: [address] [place] [address] Performed By: #### 5 7021-8 ####[facility] LABIA [id number] [place] [address] [place] MCH (RBC) [Entitic mass] 31.9 pg Normal 26.0-34.0 [facility] Comment on above: Order Comment: Speci men Type: BLOOD SPECIMENOrdering Facility: [facility] Address: [address] [place] [address] Performed By: #### 5 7021-8 ####[facility] LABIA [id number] [place] [address] [place] MCHC (RBC) [Mass/Vol] 32.8 g/dL Normal 30.5-36.0 [facility] Comment on above: Order Comment: Speci men Type: BLOOD SPECIMENOrdering Facility: [facility] Address: [address] [place] [address] Performed By: #### 5 7021-8 ####[facility] LABIA [id number] [place] [address] [place] MCV (RBC) [Entitic vol] 97.1 fL Normal 80.0-100.0 [facility] Comment on above: Order Comment: Speci men Type: BLOOD SPECIMENOrdering Facility: [facility] Address: [address] [place] [address] Performed By: #### 5 7021-8 ####[facility] LABIA [id number] [place] [address] [place] Monocytes (Bld) [#/Vol] 0.50 10*3/uL Normal <0.87 [facility] Comment on above: Order Comment: Speci men Type: BLOOD SPECIMENOrdering Facility: [facility] Address: [address] [place] [address] Performed By: #### 5 7021-8 ####[facility] LABCLIA [id number] [place] [address] [place] Monocytes/100 WBC (Bld) 7.4 % [facility] Comment on above: Order Comment: Speci men Type: BLOOD SPECIMENOrdering Facility: [facility] Address: [address] [place] [address] Performed By: #### 5 7021-8 ####[facility] LABCLIA [id number] [place] [address] [place] Neutrophils (Bld) [#/Vol] 4.09 10*3/uL Normal 1.45-7.50 [facility] Comment on above: Order Comment: Speci men Type: BLOOD SPECIMENOrdering Facility: [facility] Address: [address] [place] [address] Performed By: #### 5 7021-8 ####[facility] LABCLIA [id number] [place] [address] [place] Neutrophils/100 WBC (Bld) 60.5 % Normal [facility] Comment on above: Order Comment: Speci men Type: BLOOD SPECIMENOrdering Facility: [facility] Address: [address] [place] [address] Performed By: #### 5 7021-8 ####[facility] LABCLIA [id number] [place] [address] [place] Nucleated RBC (Bld) [#/Vol] 10*3/uL Normal <0.01 [facility] Comment on above: Order Comment: Speci men Type: BLOOD SPECIMENOrdering Facility: [facility] Address: [address] [place] [address] Performed By: #### 5 7021-8 ####[facility] LABCLIA [id number] [place] [address] [place] Nucleated RBC/100 WBC (Bld) [Ratio] 0.0 /100 WBC [facility] Comment on above: Order Comment: Speci men Type: BLOOD SPECIMENOrdering Facility: [facility] Address: [address] [place] [address] Performed By: #### 5 7021-8 ####[facility] LABIA [id number] [place] [address] [place] Platelet mean volume (Bld) [Entitic vol] 10.2 fL Normal 9.0-12.7 [facility] Comment on above: Order Comment: Speci men Type: BLOOD SPECIMENOrdering Facility: [facility] Address: [address] [place] [address] Performed By: #### 5 7021-8 ####[facility] LABIA [id number] [place] [address] [place] Platelets (Bld) [#/Vol] 182 10*3/uL Normal 150-400 [facility] Comment on above: Order Comment: Speci men Type: BLOOD SPECIMENOrdering Facility: [facility] Address: [address] [place] [address] Performed By: #### 5 7021-8 ####[facility] LABIA [id number] [place] [address] [place] RBC (Bld) [#/Vol] 4.20 10*6/uL Normal 3.90-5.20 [facility] Comment on above: Order Comment: Speci men Type: BLOOD SPECIMENOrdering Facility: [facility] Address: [address] [place] [address] Performed By: #### 5 7021-8 ####[facility] LABIA [id number] [place] [address] [place] WBC (Bld) [#/Vol] 6.76 10*3/uL Normal 3.70-11.00 [facility] Comment on above: Order Comment: Speci men Type: BLOOD SPECIMENOrdering Facility: [facility] Address: [address] [place] [address] Performed By: #### 5 7021-8 ####[facility] LABCLIA [id number] [address] [address] [place] Comprehensive metabolic 2000 panelon 04-18-2024 Albumin [Mass/Vol] 3.9 g/dL Normal 3.9-4.9 [facility] Comment on above: Order Comment: Speci men Type: BLOOD SPECIMENOrdering Facility: [facility] Address: [address] [address] Performed By: #### 2 4323-8, 3084-1, 11641-2 ####[facility] LABCLIA [id number] [place] [address] [place] ALP [Catalytic activity/Vol] 89 U/L Normal 34-123 [facility] Comment on above: Order Comment: Speci men Type: BLOOD SPECIMENOrdering Facility: [facility] Address: [address] [address] Performed By: #### 2 4323-8, 3084-1, 70655-3 ####[facility] LABCLIA [id number] [place] [address] [place] ALT [Catalytic activity/Vol] 14 U/L Normal 7-38 [facility] [facility] Comment on above: Order Comment: Speci men Type: BLOOD SPECIMENOrdering Facility: [facility] Address: [address] [address] Performed By: #### 2 4323-8, 3084-1, 39092-1 ####[facility] LABCLIA [id number] [place] [id number] [place] Anion gap [Moles/Vol] 12 mmol/L Normal 8-15 [facility] Comment on above: Order Comment: Speci men Type: BLOOD SPECIMENOrdering Facility: [facility] Address: [address] [address] Performed By: #### 2 4323-8, 3084-1, 54620-9 ####[facility] LABCLIA [id number] [place] [id number] [place] AST [Catalytic activity/Vol] 19 U/L Normal 13-35 [facility] Comment on above: Order Comment: Speci men Type: BLOOD SPECIMENOrdering Facility: [facility] Address: [address] [address] Performed By: #### 2 4323-8, 3084-1, 51493-3 ####[facility] LABCLIA [id number] [place] [address] [place] Bilirubin [Mass/Vol] 0.5 mg/dL Normal 0.2-1.3 [facility] Comment on above: Order Comment: Speci men Type: BLOOD SPECIMENOrdering Facility: [facility] Address: [address] [address] Performed By: #### 2 4323-8, 3083-, 40276-4 ####[facility] LABIA [id number] [place] [address] [place] Calcium [Mass/Vol] 10.2 mg/dL Normal 8.5-10.2 [facility] Comment on above: Order Comment: Speci men Type: BLOOD SPECIMENOrdering Facility: [facility] Address: [address] [address] Performed By: #### 2 4323-8, 3083-, 26333-5 ####[facility] LABCLIA [id number] [place] [address] [place] Chloride [Moles/Vol] 102 mmol/L Normal 98-107 [facility] Comment on above: Order Comment: Speci men Type: BLOOD SPECIMENOrdering Facility: [facility] Address: [address] [address] Performed By: #### 2 4323-8, 3084-1, 51098-4 ####[facility] LABCLIA [id number] [place] [id number] [place] CO2 [Moles/Vol] 24 mmol/L Normal 22-30 [facility] Comment on above: Order Comment: Speci men Type: BLOOD SPECIMENOrdering Facility: [facility] Address: [address] [address] Performed By: #### 2 4323-8, 3084-1, 75188-4 ####[facility] LABCLIA [id number] [place] [address] [place] Creatinine [Mass/Vol] 1.40 mg/dL High 0.58-0.96 [facility] Comment on above: Order Comment: Speci men Type: BLOOD SPECIMENOrdering Facility: [facility] Address: [address] [address] Performed By: #### 2 4323-8, 3084-1, ####[facility] LABIA [id number] [place] [address] [place] Creatinine and Glomerular filtration rate.predicted panel (S/P/Bld) 37 mL/min/1.73m??? Low >=60 [facility] Comment on above: Order Comment: Lior san Type: BLOOD SPECIMENOrdering Facility: [facility] Address: [address] [place] [address] Result Comment: Kandice mated Glomerular Filtration Rate (eGFR) is calculated using the 2020 CKD-EPI creatinine equation. This equation utilizes serum creatinine, sex, and age as parameters. The creatinine assay has traceable calibration to isotope dilution-mass spectrometry. Refer to KDIGO guidelines for clinical interpretation. In patients with unstable renal function, e.g. those with acute kidney injury, the eGFR may not accurately reflect actual GFR. Performed By: #### 2 4323-8, 3084-1, 08641-1 ####[facility] LABCLIA [id number] [place] [address] [place] Glucose [Mass/Vol] 116 mg/dL High 74-99 [facility] Comment on above: Order Comment: Speci men Type: BLOOD SPECIMENOrdering Facility: [facility] Address: [address] [place], [place] [address] Result Comment: The [place] Diabetes Association (ADA) provides guidance for cutoff values for fasting glucose and random glucose. The ADA defines fasting as no caloric intake for at least 8 hours. Fasting plasma glucose results between 100 to 125 mg/dL indicate increased risk for diabetes (prediabetes). Fasting plasma glucose results greater than or equal to 126 mg/dL meet the criteria for diagnosis of diabetes. In the absence of unequivocal hyperglycemia, results should be confirmed by repeat testing. In a patient with classic symptoms of hyperglycemia or hyperglycemic crisis, random plasma glucose results greater than or equal to 200 mg/dL meet the criteria for diagnosis of diabetes. Reference: Standards of Medical Care in Diabetes 2016, [place] Diabetes Association. Diabetes Care. 2016.39(Suppl 1). Performed By: #### 2 4323-8, 3084-1, 56082-7 ####[facility] LABCLIA [id number] [place] [address] [place] Potassium [Moles/Vol] 4.2 mmol/L Normal 3.7-5.1 [facility] Comment on above: Order Comment: Speci men Type: BLOOD SPECIMENOrdering Facility: [facility] Address: [address] [place], [place] [address] Performed By: #### 2 4323-8, 3084-, 18072-4 ####[facility] LABCLIA [id number] [place] [address] [place] Protein [Mass/Vol] 6.4 g/dL Normal 6.3-8.0 [facility] Comment on above: Order Comment: Speci men Type: BLOOD SPECIMENOrdering Facility: [facility] Address: [address] [place] [id number] Performed By: #### 2 4323-8, 3084-, 31896-8 ####[facility] LABCLIA [id number] [place] [id number] [place] Sodium [Moles/Vol] 138 mmol/L Normal 136-144 [facility] Comment on above: Order Comment: Lior san Type: BLOOD SPECIMENOrdering Facility: [facility] Address: [address] [place] [address] Performed By: #### 2 4323-8, 3084-1, 66958-2 ####[facility] LABCLIA [id number] [place] [id number] [place] Urea nitrogen [Mass/Vol] 33 mg/dL High 7-21 [facility] Comment on above: Order Comment: Lior men Type: BLOOD SPECIMENOrdering Facility: [facility] Address: [address] [address] Performed By: #### 2 4323-8, 3084-1, 93432-7 ####[facility] LABIA [id number] [place] [address] [place] HbA1c (Bld)on 04-18-2024 Average glucose Estimated from glycated hemoglobin (Bld) [Mass/Vol] 123 mg/dL Normal [facility] Comment on above: Order Comment: Lior san Type: BLOOD SPECIMENOrdering Facility: [facility] Address: [address] [place] [address] Result Comment: eAG: (Estimated average glucose) is a calculated value from HgbA1c and is sales representative sales manager of the average blood glucose level in the last 2-3 month period. Performed By: #### 5 5454-3 ####[facility] LABIA [id number] [place] [address] [place] HbA1c (Bld) [Mass fraction] 5.9 % High 4.3-5.6 [facility] Comment on above: Order Comment: Lior jaswinder Type: BLOOD SPECIMENOrdering Facility: [facility] Address: [address] [place] [address] Result Comment: [place] Diabetes Association guidelines indicate that patients with HgbA1c in the range 5.7-6.4% are at increased risk for development of diabetes, and intervention by lifestyle modification may be beneficial. HgbA1c greater or equal to 6.5% is considered diagnostic of diabetes. Performed By: #### 5 5454-3 ####[facility] LABCLIA [id number] [place] [address] [place] Lipid 1996 panelon 4 Cholesterol [Mass/Vol] 150 mg/dL Normal <200 [facility] Comment on above: Order Comment: Speci men Type: BLOOD SPECIMENOrdering Facility: [facility] Address: [address] [place] [address] Result Comment: <200 mg/dL, Desirable 200-239 mg/dL, Borderline high >239 mg/dL, High Performed By: #### 2 4323-8, 308-1, 20205-3 ####[facility] LABCLIA [id number] [address] [place] Cholesterol in HDL [Mass/Vol] 51 mg/dL Normal >39 [facility] Comment on above: Order Comment: Speci men Type: BLOOD SPECIMENOrdering Facility: [facility] Address: [address] [place] [address] Result Comment: 40-5 9 mg/dL, Acceptable >59 mg/dL, High: Negative risk factor for coronary heart disease <40 mg/dL, Low: Positive risk factor for coronary heart disease Performed By: #### 2 4323-8, 3083-, 82087-3 ####[facility] LABCLIA [id number] [address] [place] Cholesterol in LDL [Mass/Vol] 77 mg/dL Normal <100 [facility] Comment on above: Order Comment: Speci men Type: BLOOD SPECIMENOrdering Facility: [facility] Address: [address] [place] [address] Result Comment: <100 mg/dL, Optimal 100-129 mg/dL, Near optimal/above optimal 130-159 mg/dL, Borderline high 160-189 mg/dL, High >189 mg/dL, Very high Secondary prevention optimal LDL Cholesterol levels are recommended to be < 70 mg/dL Performed By: #### 2 4323-8, 3084-1, 40706-9 ####[facility] LABCLIA [id number] [place] [address] [place] Cholesterol in LDL/Cholesterol in HDL [Mass ratio] 1.51 {ratio} Normal <2.54 [facility] Comment on above: Order Comment: Speci men Type: BLOOD SPECIMENOrdering Facility: [facility] Address: [address] [place] [address] Result Comment: Refe rence: 1. National Cholesterol Education Program ATP III Guideline At-A-Glance Quick Desk Reference: National Heart, Lung, and Blood [place]. National Institutes of Health. 2001: NIH Publication No. 01-3305. 2. An International Atherosclerosis Society position paper: global recommendations for the management of dyslipidemia: executive summary, Atherosclerosis. 2014: 232(2):410-413. Performed By: #### 2 4323-8, 3083-, 12433-3 ####[facility] LABCLIA [id number] [place] [address] [place] Cholesterol in VLDL [Mass/Vol] 22 mg/dL Normal <30 [facility] Comment on above: Order Comment: Speci men Type: BLOOD SPECIMENOrdering Facility: [facility] Address: [address] [address] Performed By: #### 2 4323-8, 3084-1, 81902-6 ####[facility] LABCLIA [id number] [place] [address] [place] Cholesterol non HDL [Mass/Vol] 99 mg/dL Normal <130 [facility] Comment on above: Order Comment: Speci men Type: BLOOD SPECIMENOrdering Facility: [facility] Address: [address] [place] [address] Result Comment: <130 mg/dL, Optimal 130-159 mg/dL, Near optimal/above optimal 160-189 mg/dL, Borderline high 190-219 mg/dL, High >219 mg/dL, Very high Secondary prevention optimal non HDL Cholesterol levels are recommended to be <100 mg/dL Performed By: #### 2 4323-8, 3084-1, 42332-6 ####[facility] LABCLIA [id number] [address] [address] [place] Cholesterol.total/ Cholesterol in HDL [Mass ratio] 2.94 {ratio} Normal <5.10 [facility] Comment on above: Order Comment: Speci men Type: BLOOD SPECIMENOrdering Facility: [facility] Address: [address] [address] Performed By: #### 2 4323-8, 3084-1, 03407-8 ####[facility] LABIA [id number] [place] [address] [place] FASTING TIME 12 hrs Normal [facility] Comment on above: Order Comment: Speci men Type: BLOOD SPECIMENOrdering Facility: [facility] Address: [address] [address] Performed By: #### 2 4323-8, 3084-1, 74560-1 ####[facility] LABIA [id number] [place] [address] [place] Triglyceride [Mass/Vol] 108 mg/dL Normal <150 [facility] Comment on above: Order Comment: Speci men Type: BLOOD SPECIMENOrdering Facility: [facility] Address: [address] [place] [address] Result Comment: <150 mg/dL, Normal 150-199 mg/dL, Borderline high 200-499 mg/dL, High >499 mg/dL, Very high Performed By: #### 2 4323-8, 3084-1, 12265-0 ####[facility] LABIA [id number] [place] [id number] [place] Urate SerPl-mCncon 4 Urate [Mass/Vol] 6.7 mg/dL High 2.5-6.6 [facility] Comment on above: Order Comment: Speci men Type: BLOOD SPECIMENOrdering Facility: [facility] Address: [address] [place] [address] Performed By: #### 2 4323-8, 3084-1, 59029-4 ####[facility] LABCLIA [id number] [place] [address] [place] CYTOLOGY NON-GYNOrdered By: Davida Mcpherson on 12-12-2023 Case Report Medical Cytology Rep ort Case: [id number] Authorizing Provider: Magda Mercado MD Collected: 12/11/2023 10:58 AM Ordering Location: Urology Received: 12/11/2023 03:24 PM Pathologist: Davida Mcpherson MD Specimen: URINE VOIDED [facility] Work Phone: Clinical History y8swtVDqBRMgg1ugBXZs bGFu PvVbUhJiZvDsDum4NCNvkkS4 Bpy2OSJcEMxsqQ2qKJOyNYgb B6stcmTinYNjRDBdCKk8kY1a lUcnnX3lWpHhIpEmTZVsE72z TxeiUONzxoZrJV4jUBIzsKDw IH0= [facility] Work Phone: FINAL DIAGNOSIS d2fwmCMkXISkrIAaEbHn MDAw SURbg0bgUZUpbDFpFkPaLvXp GkIwGldgtAImEBZaNzBon8yj l646aLDrb7fzJNZkLeC7nCMh MMIydEVrE773SNGhMLjcb3ol s1SxRBIhcERkg1S8WGZFjntt pFz6nSjqT09ak9B4DrclB0ft CJLtJTBnX2EdFJ5gJXHdSfg2 FQV2YJP7PTInNQNaL2WrXF8q XGJsdWUwIDtccmVkMFxncmVl vdTlJqw2NGX5BLV2lQgyj1Y9 bGVzaGVldHtcZjBcZnMyMiBO e8YqHKx3pKsxZ4YpRHArIvA1 bHQgUGFyYWdyYXBoIEZvbnQ7 wI61UJzjraU8qJLkz0Vfz80h v413uL7coCMuMLJ6RPByYVNt eYBsVXEsTGC0CLOpoTJiX7a2 FwIujBRdQ1F9RtDtiDJdD2H2 LvGakQIrZ0H2UqDtvRWmDPLk iWjmLGtdi022LBF1QmJgEK3u B5Vlt2S3rR3qzHLfITWwjTKk TwIsZADqgl7weYBvJFirh4Yz PWC2hbO9kPEonGBjNVIxQR91 Tfscu4UvHxglHWM0QUEaevAf p5Wdi9scQlDxrzElZ2zhG0Fw YEYlIFNgUQIyJaOefbJll5Pr x8XzdVQfrIg3m8muTMArLTIx hGayc5tmQYU9HVXnV0P7fPOh o9kjSRxePPMpiJU8kurhPGnj YZUjvxV1llqbHEenTZZlsOR9 mhaqWIgdXMSyIrL1eemfLMcd FVBlUPY9TkAxDSPwg7Rscws4 IgJic4HubRGmGVxuF26kq078 COMltqCgV2weeFZtiljrzEOt npoeIBonnpF0WPCsUXPhLWxg XGYxXGZzMjJcbGFuZzEwMzNc aGljaFxmMVxkYmNoXGYxXGxv H9svGwRfO4UgMINqTqCzNdDD MZ0mNHCAVpVyFg1NGYRRJXGg cGFyICAgICAgICAgICBOZWdh iNk8VSQwj5AeqBdfqV8gclHj JBY8wx05nBSoiRVfJBMvluCd rt4fVU0zuAOaDYAqJJSjDQGd ICBccGFyICAgICAgXHBsYWlu XGYxXGZzMjJcbGFuZzEwMzNc aGljaFxmMVxkYmNoXGYxXGxv M5fcDoHzQrXlIupcQLYugpvw YXJkXHBsYWluXGYwXGZzMjRc bOjayR6xAqEuEvXiPoovLZ6x XNJhS2npeNVwRKOoAZClJ7hh AlWitD3ohVknGSoqcsYcZOAw dGFiICAgICAgIFxwYXJccWxc aUbokS3eOiYuAqPsPSenvGGr blxmMVxmczIyXGxhbmcxMDMz ZDpyP4nbGiQoVMIdtCkhZUeu a8OwTWGsOBTdAzXgZoysOSKo cGFyZFxwbGFpblxmMFxmczI0 XHBsYWluXGYxXGZzMjJcbGFu ZzEwMzNcaGljaFxmMVxkYmNo KHZrPOyzK0rzKnQsC1RkWIMy MjJcYiBccGFyXHBsYWluXGYx XGZzMjJcbGFuZzEwMzNcaGlj tSziHNdxScOtQYUuNKbrA0vi ZjFcZnMyMlxwYXJ9 [facility] Work Phone: Gross Description r2iycZQnEHHkgOAARVX6 MDJc QU5qxXfacLl8nXagIZIiflC4 kQGrBWrdw5qeLOX2f3daowOM ZbrnUHVpWL6iHQiqQNYmLW4q ZmUwXGRlZmYxXHBhcGVydzEy TqPmYOBtlTTjpKG3KZGgWD3b wqnvZVbyQLweIIUdrfP9DQSj mBCsG2QzKTZoNP9zqwiyUIG3 HXZPOaffCg6qyHIxxQyoFePb KuDeBDGoKWWfKGSsi7ggvkUP oivmtMy0hK1STGGfF1UhVD2W k9fqOYPojVDiQHN6FWvik5qs HUztAOL2SUQgPLFmUYJeVV8Q DuNnFYE2HEE9RpP2NxZ0OWc0 DUPWETMpHKL4ATL9ImUpTCk4 OTkgXFxuaCBcXHQgMSBcXGZs AHjzcbM1c0zoNHOrhRLqYJO2 KVnld4nlINveDRL2ELXoYxMp CTLrMH5IWcKbMZA4IOC6IpP2 YzX6HCm2GNIOFbIqQjSyYTj9 NAk3RtHaLLu2IZl2NTsFFpBi DrU6ZdYoJxWmVSE5DCS3NKVk XHQgMiBcXHNzIDMgXFxmbCBc JO5dwLnmSJBrSG8KGSGhSChz EQJeApRwAQ9rTICIUmOxQk5E PLHIEGt6iaGzEIXgfaAFMyku YDOmAX2OESKnOFmqYFu7ykBt AQBbEgMsBUFpA74bi2TZd8Xb FS6UTSg0wzBukwCDYpCmCXRl KZprnp23MFW2p1pjlUAfJRlr WuvuuJLgvkD4BGkLFMCIXQgE UfWwFU5bBMnAV5QPZPxISxfz FSW0XPJ1ZUmeaFxdAaihomNs xEDzJcQUwK2nvCMzvqarVqba bNR5DXzxOpqkcR0ahBTCCBNW AwdYWmeyqhQnJA4CVZJDHS8O iVT1FIkiVGddxPH2k6tgvVGk u7w9TZgiSRV6pGgnxAYxmqqh dHJjaFxmczIyICBccHJvdGVj pVjrBzwmqEE5FQugVlvioR0s qFBUDNYXDpfWXsbfsjNkHR1N SFPFHnOITL45LDNnIcY1qKI4 Zv60IAGtVHIfgSAsGQrkN027 aGCfaV82g5nlgXVkOWgdMhme rSEebsK2GCiLXVKDOXaACsSw UR4lIXlZG6SKTfT9NTOzTvG2 gFN3Ul81FNKpALOmrMFfITqz N204JNHsMLrqOZw0zbGlYRVu NvRsFAwcwn42WZF8p3ncmGKd BQdsMovivWEokiJ8TNlBYLUQ XGdHIlPsTE1nTFcII6SXMJlT JdvkYGR5IGn0A2wxhNsnGksk odTgrTDrFlUWuE5hlLExNXzv WxhdvCY4VClyVnepfX4aySHH CSMXTqkPDxneziKhNG9MPGBF UQ3FzHR9RQhaXOtxkDI0n4pi tPYkl0l0SZuzIHD7dDxdkUDj blxsdHJjaFxmczIyICBccHJv yHZkvHjlHhwwpDO9BToxJppk qW8yfSTIJEMVFlmDLxhvejIo ST0GIHTSPaMAHR11WSLqNzTp nYT0GB27HHJjVIOwnTGhHOer F707b7g9gSBsBUQ3pEWuGVA3 OVUxEDsoj5xjRYWpBQxoa1Lk YUcTETHPRM5ADA7yvFP0NDzW GQLLPWadHYG0EnP5AMn0kWgb DywerqIqtMDuKdJUlW6mbTck cO9anZCxY6lvKdKaAwXhOKEz zFPnxMJleXznZtgteUN3XRcd KzymeH8mqOJMXKYRUjiZBqac pxEpJH0XQEQTDwTPUT32SVK6 QIs6rMZ8YU86YSVhABYasKWm VTcvG840VZfchmSrNOM4PWMf GFtpc0ihLVIyNJfkb8ChDSeL MISIOF4FBA2kcXM8TGvMANQK JAdhMWVeTee5GYa6eAyhStem jxXmxXEcUaBEhD5zuFjgwL7o jTImB2uoGsFrGeSskQLzyXYc ZWQuXHBhciANClxzYTMwXGVw wDKMt9WcUJYMEsn8RWKQJOOZ FYmRVQ1WEGCIYWPRAQ3WVEgV BvZmCSL3CWM1XB1hIhN0USod TNygKLQuNiV4UOisVHzqKICv VCHmXjJkhNX0LE1oLGOnAgn6 JF6qVOIJTMMXPYcXNP5FKBOK GCHNKF2ISpCsE5pFGDCTTeBu KEXVTCBADVFeYhOJZZ9lQ1tJ QSMCThIcCINJFFDNAAUqUE2Y KYDSJHPWMZ6WZPVLW32DBTTN FNDAQ8UPL9fKWVVwr1RIPVBJ WAl8IBYjTmE1PC5dWNfMR4oM UgvdHNP7NNSrzOOrj81FTCMO VCWYAxN5ACamFIp1QKr1OTAC IQoUHSBMPwL5HWwtHVg0IDk4 QVBDWSBUQVNLUzoxNDUxNzdc oYFBKEUZUIqSQVQDSb1ZRAWF EMLZLP6IZoCoD8SIMS9IOm8U XGKDRVJOXR5GPZvSQcIhI7KG QA4VRh2PDDGJNYOHPF2SViHl HPCYS6OXPyKYL0feHSSKRXZI BTPiNoXMIA7sWSCCHN8SBNXT MSHHY73AVKAOTQMLR6ZUOV4D RLVgHBOrqUUPOSE2WJ8kGPeu REJvU4JkR2FqzmM5z1tohRcd c5FcsOGoLE9kvTEgHZ2SVBWs cmQgDQpcdjAgDQp9 [facility] Work Phone: Performing Lab x8zodJGsUHNic7zuLPQb bGFu ZzEwMzNcZnRuYmpcdWMxIHtc cnRmMVxhbnNpXGRlZmxhbmcx CTQkRGW9ldRbQBQmKFV6YTC2 FiBvd0Q4PONfKfYrBVWqCJ5s dRwaHKBfMG6mNGKpG6wuyF1w ybn7IhCoKCXwFgT7VBHyibS3 Mmv5VFBaNYtok6dvc2RaAOAj VWn7dMurKdWdUNXck7qbpdYe XsOfUBTgAQReDTJwoYLwG454 y7ilr3zimsCvsLT0SKXsFYW9 PGqicxZxpwY7NUafdBJwXaK0 IDtccmVkMFxncmVlbjBcYmx1 RCJrU010WCN7hUojd4syCGA6 EQZwBHFdJaIsGp0mgTMaX480 YVFjBTIVCGRjxIb4RRZxefQp jyNiyUAKi204S552o7jyMQZd ixHttFmCivvww1ckO637SEHz cGVydzEyMjQwXHBhcGVyaDE1 NOLeYI0dacqbWBjxCWyqEREf fgL8TCEvpGFvG3QeOMVdJV1s sqjuSTA7NIwxNKBgAOR9KaFv RXLtp3Cuyyt9OwFpdf6wvk38 KFB3b3IblMjrPWW3IYY4GmKo Ew6gpJNuTDOcAS0vOlQbzNUe UYJfee21yVsqMSkvqiYqbU7p HbJoOXIayNOwGZVxFK2xwDCt OVKlnJ4iovawSZKeCsGmsitm NWSfmHplkbZtIj8hwTgeBOW0 NTzbC0pkyJ4lAiE5EFgeS9rh nB0cXAj1LGmtxKL1OWGivR5k NV2lvdlog2cdGSgyJUmqYZPj bpD0ymK3JFZwaVJrG1BoyQ6n PCRwLS1ytpsmv2krVJT2BYbu JLNlBHH4LdYcKQVya0Anmgj6 YeIng8QygDIrEWinW65mm651 PXGyvaAqU5ottIOaghtnzGIs lqzkVCsxkgP3ECGrLCVgSSlp XGYxXGZzMjJcbGFuZzEwMzNc aGljaFxmMVxkYmNoXGYxXGxv P4huNyAfPxEqGvDFKAKebhwg OXfcY88rgW5gGJ52AOYmrECx tDFliF7rcO4yjMB7NMIulxQs fngpQmJnCPMsb1JjGUYySIGt J6xsgrYmCW0qQDXlwY7bHchf OTUwMCBFdWNsaWQgQXZlLCBD hVN5FYmphxOgW5aaDAScEBIk TDDJOFfVCpShHrZeMfH7ITo2 KYVcbf48k5zbmHTyDWXnfGCq SlXgHRLrPCAgm4zuTDFtwFAo ZzEwMzNcZnRuYmpcdWMxXGRl IhEfg4vla190wBShn7itIPLk YbN0qJVwKERjaYGcP282XTRz OBjdu1jfp1EuHMIfbKGdr7M8 KZHArfaqhHv9mYrdP66ay3Q2 DgmmS5vkHSBpAYXpJ2GwPH1v NLYlRdd2KCZ6MZR8MYGhNLUh E4MpZW8dAQWmyOTvOCb8r0ou iQuuMVBaEHW4r7niSEgjxnBi GJ4sfw8bxKc9c4kskpZyDIXe KFErxOEWRDZvG5WbdQwbFc8e jJa9wKowQosrDRW0Uts8ME7u vd82xgq4qQxqKOWemcfkUnA0 DOtwCYLzkhsuXRo1QQkzVXLz xDO2AUWqsGQuZ8UkEHulTS8z jtc4BTP8PSixCTCgGnV3EKPs aTSnMODkiCtoTBpjv440FRA5 PxMjPM5nV1Osh5X5wJ1vgDZa FYVfiWOyQjXrHRItay8ayQFt QMtql4MrKIB6heL1pHOloYVl FIQdDH04Luiim8DoRpzyi3Qy U16pcYW0SYahu6fqJO3cWcK2 glWqYScww4vwpB8gAmF7VVvu WF7gAK3cDUQblI8anydeFJOg YySmkuchYWVcqDuxmxVaHo7u uQkoUKM9IOcdR3nwuT4tXeC9 TTckO3vfiV8jPAt5TEmvxPM1 WCDmwV4dBO5nkyzqo5zjCYdr ESilROXtdsI7tlKzZFQijOQv F7GhlD3pYTIqAF0bygpbj6ng FDD2MZjeVWWeCKT5OgExGKGt y3Llbqb8ZsPlw1WveDAmSQfp G39iv448KVEmofOtR1uygFJw banerXObkzluESiinuO1IYHy XHBsYWluXGYxXGZzMjJcbGFu ZzEwMzNcaGljaFxmMVxkYmNo QVLoYKdjQ2wnFqVaJlRoXrCA bHYtpm2brKfbKIcjpMLdwCGt wHQ5iP9pDRVnrzTlve1lXKPf hSZNbTQ0BEegubOmD4tmimke ROL4TCPaCHQ2U3bgOQZKbwPs LSTvITMxoCWoVXBHHLY4KYJ1 IWSeHRJQFQNzUDC6NZV8EPIb OTRccGFyXHBhclxwYXJkXHBs SOhoWSOtZFPfEjPfyIykaQ2t VcPqPuAsQmfmLB7qGFWfH6lb rOUzWVOeAGTcX4zzYsUhyQ6c aFxmMVxjZjJcZnMyMlxsdHJj zSNBYAAesbQ4g9A0YJhvfZPj blxmMVxmczIyXGxhbmcxMDMz ZWzzH6ksHrJlYMCeePxvKLgy s7HeZAJnHCWjCyKvMRlgOYV7 y1P7VLikdNJcxdGXUaGJET0x wFOkpkvsNN4KVftiIJW2hD== [facility] Work Phone: [facility] Work Phone: CNOVon 12-11-2023 CNOV Office Visit (UROSMN ) -------- AZUL VICTORIA ([id number]) 1940 F Date Time Provider Department 12/11/23 10:45 AM MAGDA MERCADO URORUIZ During your visit today, we recorded the following information about you: Magda Mercado MD 01/12/2024 10:36 AM Signed PHYSICIANS NOTE: CYSTOSCOPY PROCEDURE: December 11, 2023 Sign In History and Physical Exam reviewed and is unchanged. Primary Diagnosis: Urothelial carcinoma of kidney, right (hcc) (primary encounter diagnosis) Informed Consent Discussed: Yes. Risks, benefits, alternatives and personnel discussed with patient who consents to proceed. Sign in Communication: Completed Time Out: Team Confirms the Correct Patient, Correct Procedure; Cystoscopy, Correct Site and Site Marking (not applicable), Correct Position. Affirmation of Time Out: YES Sign Out: Sign Out Discussion: Completed Details of Procedure: After sterile prep and drape, the flexible cystoscope was placed through the urethra which was examined in its entirety. Urethral stricture: None The entire mucosa was examined. The scope was flexed in the dome of the bladder and used to look at the bladder in retroverted fashion. Findings: Normal bladder and no lesions The scope was removed. Plan: CT urogram and Cystoscopy in 6 months Urine cytology today Scribe Attestation: By signing my name below, I Kristine Dawson, attest that this documentation has been prepared under the direction and in the presence of Dr. Magda Mercado MD. Electronically signed: Miley Thompson, December 11, 2023 10:54 AM IMagda MD, personally performed the services described in this documentation. All medical record entries made by the scribe were at my direction and in my presence. I have reviewed the chart and discharge instructions (if applicable) and agree that the record reflects my personal performance and is accurate and complete. MD Cristhian Echeverria Deanne, RN 12/11/2023 10:56 AM Signed Actual procedure/procedure scheduled: Yes Performing provider/scheduled provider: Yes Patient was roomed in: Q9- 07 Amphibious Operations Officer offered:Patient declines Patient arrived in the room at: 1020 Patient ready for procedure: 1035 The procedure started at ( Time Only): 1051 The procedure ended at: 1054 Was the procedure delayed: No The patient left the procedure room at: 1100 Renu Morrow RN PRE PROCEDURE ASSESSMENT- Cysto Procedure Indication: Cystoscopy Latex Allergy: No Allergies reviewed and updated. Yes Heart valve replacement: No Joint replacement: Yes Back Office UA otained: yes PROCEDURE PREP-Cysto Patient ID with two(2)identifiers verified by: Renu Morrow RN Pre-Procedure Antibiotics: Levaquin 750 mg orally, given during visit @ 1055 , by Renu Morrow RN Patient Prep: Betadine Scrub to perineum and placement of Sterile Drape. COMPLETED Anesthetic Given:10 cc 2% Lidocaine jelly Renu Morrow RN UNIVERSAL PROTOCOL / SAFETY CHECKLIST Procedure to be performed: Cystoscopy Sign in Communication: Completed Time Out: Team Confirms the Correct Patient, Correct Procedure, Correct Site and Site Marking, Correct Position (if applicable). Sign Out Discussion: Completed Renu Morrow RN POST PROCEDURE NURSE ASSESSMENT Present along with physician during procedure exam. Renu Morrow RN Instruction sheet given and reviewed and patient verbalizes understanding: yes Post Procedure Antibiotic: As Prescribed Current pain intensity is 0 on a 0-10 pain scale. Renu Morrow RN AMBULATORY PATIENT EDUCATION THE FOLLOWING WAS EVALUATED Motivation To Learn: Interested Family/Significant Other Support: None - Unavailable/disintereste d Cognitive Ability: Alert/Oriented Method of Instruction: Individual instruction Written instruction - handouts Verbal instruction The Following Influencing Factors Were Barriers To This Education Session: None The Following Physical Limitations Were Barriers To This Education Session: None Instruction Provided To: [facility] Worker Present: not applicable Discipline: Nursing Learning Topic: SURVIVAL SKILLS: Complication Prevention Symptom Management Patient Evaluation: Verbalizes understanding: Yes Supplemental Material Given: Written Material Instructed By Renu Morrow RN In Department Urology . Renu Morrow RN 12/11/2023 10:56 AM Addendum UNIVERSAL PROTOCOL / SAFETY CHECKLIST Procedure to be Performed: cystoscopy Sign In: A Moment of CARE was completed. Personnel directly involved with the procedure wore the appropriate PPE (Personal Protective Equipment). Patient/Surrogate Stated/Verified: PATIENT VERIFIED(optional for EMERGENT procedures): Patient name, Date of , Relevant allergies, and The intended procedure Time Out Communication: Intended patient and procedure match the source documents. Consent documented and matches the in (more content not included)... [facility] CYTOLOGY NON-GYNon CASE REPORT [facility] Comment on above: Order Comment: Speci men Type: FLUID SPECIMENOrdering Facility: [facility] Address: [address] [address] Result Comment: [facility] Cytology Report Case: [id number] Authorizing Provider: Magda Mercado MD Collected: 12/11/2023 10:58 AM Ordering Location: Urology Received: 12/11/2023 03:24 PM Pathologist: Davida Mcpherson MD Specimen: URINE VOIDED Performed By: #### C YTONON ####[facility] LABCLIA [id number] [facility] [id number] [address] [place] CLINICAL HISTORY h/o bladder cancer [facility] Comment on above: Order Comment: Speci men Type: FLUID SPECIMENOrdering Facility: [facility] Address: [address] [place] [address] Performed By: #### C YTONON ####[facility] LABCLIA [id number] [place] [address] [place] FINAL DIAGNOSIS [facility] Comment on above: Order Comment: Speci men Type: FLUID SPECIMENOrdering Facility: [facility] Address: [address] [address] Result Comment: A - URINE VOIDED Negative for high-grade urothelial carcinoma. Performed By: #### C YTONON ####[facility] LABCLIA [id number] [address] [place] FINAL PERFORMING LAB [facility] Comment on above: Order Comment: Speci men Type: FLUID SPECIMENOrdering Facility: [facility] Address: [address] [place] [address] Result Comment: Tech nical component, retail performance specialist screening performed at [facility], [address] [place] [address] CLIA# [id number] Diagnostic interpretation performed at [facility], [address] [place] [address] CLIA# [id number] Supervisor Television Chassis Repair: Sherman Clay M.D. Performed By: #### C YTONON ####[facility] LABIA [id number] [address] [place] GROSS DESCRIPTION A. URINE VOIDED [facility] Comment on above: Order Comment: Speci men Type: FLUID SPECIMENOrdering Facility: [facility] Address: [address] [address] Result Comment: 40 c c clear yellow fluid with particles. ThinPrep prepared. Performed By: #### C YTONON ####[facility] LABCLIA [id number] [place] [address] [place] UA DIP, URINE (POC)on 2023 BILIRUBIN UA (POCT) Negative Negative [facility] CLARITY UA (POCT) Clear [facility] COLOR UA (POCT) Yellow [facility] GLUCOSE UA (POCT) Negative Negative mg/dL [facility] Hemoglobin Ql (U) Negative Negative [facility] KETONE UA (POCT) Negative Negative mg/dL [facility] LEUKOC[facility]TES UA (POCT) Negative Negative [facility] NITRITE UA (POCT) Negative Negative [facility] PH UA (POCT) 6.0 4.5 - 8.0 [facility] Protein Ql (U) Negative Negative mg/dL [facility] SPECIFIC GRAVITY UA (POCT) 1.020 1.005 - 1.030 [facility] UROBILINOGEN UA (POCT) 0.2 Normal E.U./dL [facility] Location:[facility], [address] [place] [address], [address] [place] [address] POINT OF CARE [facility] CNCOon 10-22-2023 CNCO HNO ID: [id number] Author: COORDINATOR, MAMMOGRAPHY, ? Service: ? Author Type: Physician Type: Letter Filed: 10/22/2023 11:59 Note Text: October 23, 2023 PID: [id number] Azul Victoria [address] [place] [address] [phone] Dear Ms. Victoria, We are pleased to inform you that the results of your recent breast imaging exam on 10/22/2023 are normal. Early detection of cancer is very important. We also understand recommendations regarding breast cancer screening are controversial. Please discuss with your primary care provider which strategy is best for you and whether a mammogram is right for you. Your imaging studies and report will be kept on file at [facility] as part of your permanent medical record and are available for your continuing care. Thank you for allowing us to help in meeting your health care needs. Sincerely, Dr. Oneil Interpreting Radiologist (Normal over 40) [facility] Chandra 10-22-2023 [facility]N [facility] -------- AZUL [id number]) 1940 F Date Time Provider Department 10/22/23 JENIFER CARLSON During your visit today, we recorded the following information about you: Jenifer Carlson APRN.SATELLITE COMMUNICATIONS ENGINEER 10/22/2023 2:35 PM Signed Can you please call the patient and let her know that her mammogram was normal. Repeat imaging will be due in 1 year. Please let me know if she has any questions. Thank you. Jenifer Carlson APRN.Maryse Vasquez LPN 10/22/2023 3:02 PM Signed Patient notified of results, verbalizes understanding of instructions. Maryse Ayala LPN Allergies As of Date: 10/22/2023 Noted Allergy Reaction PENICILLINS 01/11/2021 4 - Hives LIBRAX (WITH CLIDINIUM) (CHLORDIA*05/29/2011 1 - Mental Status Change NORVASC (AMLODIPINE BESYLATE) 03/22/2005 Date Reviewed: 09/29/2023 Reviewed by: Vianney Zamudio MA - Fully Assessed Reason for Visit: Results [95] Cmt: Mammogram Prescriptions as of 10/24/2023 - allopurinol (ZYLOPRIM) 100 mg tablet Take 1 tablet by mouth once daily. - metoprolol tartrate, short acting, (LOPRESSOR) 25 mg tablet Take 1 tablet by mouth twice daily. - potassium chloride ER (KLOR-CON M10) 10 mEq tablet Take 1 tablet by mouth once daily. - hydroCHLOROthiazide (HYDRODIURIL, ESIDRIX) 25 mg tablet Take 1 tablet by mouth once daily. - rivaroxaban (XARELTO) 20 mg tablet Take 1 tablet by mouth daily with dinner. Restart on 03/13/2022 (7 days after surgery) - Biotin 2,500 mcg cap Take by mouth. - MAGNESIUM ORAL Take by mouth. - cholecalciferol (VITAMIN D3) 1,000 unit tab tablet Take 1,000 Units by mouth once daily. - ONE DAILY MULTI-VITAMIN TAB Take one(1) tablet daily. Problem List As Of Date 10/22/2023 Noted Resolved Gout [M10.9] 03/22/2005 Generalized Osteoarthrosis, Unspecified Site [M*03/22/2005 Esophageal Reflux [K21.9] 03/22/2005 Leiomyoma of uterus, unspecified [D25.9] 03/22/2005 Diverticulosis of colon (without mention of hem*03/22/2005 Essential Hypertension, Benign [I10] 06/19/2006 Personal History of Colonic Polyps [Z86.010] 06/19/2006 Uncomplicated varicose veins [I83.90] 06/26/2007 Unspecified prolapse of vaginal sampson [N81.10] 08/07/2007 Gynecological examination 08/27/2009 Class: Chronic Impaired Fasting Glucose [R73.01] 08/27/2009 Vulvar varicose veins [I86.3] 11/18/2012 Atrial flutter (HCC) [I48.92] Gross hematuria [R31.0] 01/06/2022 Bladder cancer screening [Z12.6] 01/06/2022 Morbid obesity with BMI of 40.0-44.9, adult (HC*03/03/2022 Hard to intubate [T88.4XXA] 03/06/2022 Urothelial carcinoma (HCC) [C68.9] 03/06/2022 Stage 3b chronic kidney disease (HCC) [N18.32] 08/08/2022 Elevated cholesterol [E78.00] 08/08/2022 Encounter Status:Closed by JENIFER CARLSON on 10/24/23 [facility] SCREENINGon 10-22-2023 [facility] SCREENING * * *Final Report* * * DATE OF EXAM: Oct 22 2023 10:20AM [facility] - [facility] SCREENING / PROCEDURE REASON: Encounter for screening mammogram for malignant neoplasm of breast * * * * Physician Interpretation * * * * RESULT: #[id number] - [facility] SCREENING BILATERAL DIGITAL SCREENING MAMMOGRAM WITH CAD: 10/22/2023 HISTORY: Encounter For Screening Mammogram For Malignant Neoplasm Of Breast / Screening Mammogram-Patient reports NO symptoms. /priors available for comparison. RESULT: TECHNIQUE: The study was acquired using full field digital technology and interpreted from soft copy. Current study was also evaluated with a Computer Aided Detection (CAD). Comparison is made to exams dated: 04/27/2022 mammogram - , 11/10/2019 mammogram - [facility], 12/10/2020 mammogram - , 06/27/2018 mammogram, and 06/05/2017 mammogram - [facility]. The breasts are almost entirely fatty. There are biopsy clips in the right breast. No significant masses, calcifications, or other findings are seen in either breast. There has been no significant interval change. IMPRESSION: NEGATIVE There is no mammographic evidence of malignancy. A 1 year screening mammogram is recommended. Ayaz donaldson/harsh:10/22/2023 11:59:09 Indirect Sales Representative(s): Romy Arana letter sent: Normal over 40 Mammogram BI-RADS: 1 Negative Multiple national specialty organizations have released breast cancer screening guidelines for women at average risk for developing breast cancer - guidelines that are based on both evidence and opinion, yet differ on when to start and how often to screen for breast cancer. With representation from Breast Imaging, Internal Medicine, Women's Health, Family Medicine, and Medical/Surgical Oncology, the [facility] has carefully reviewed the data and reached the following consensus: 1) All women should engage in shared decision-making with their providers to decide when to start and how often to screen; 2) All women should have the opportunity to start screening mammography at age 40; 3) For women ages 45-55, we recommend annual screening mammograms; 4) For women ages 55 and over, we support both the transition from an annual to a biennial interval if this aligns more with patient's values and preferences, or continuation with annual screening; 5) All women should discuss with their providers when to stop screening mammograms. Door Liner Helper: Harsh Transcribe Date/Time: Oct 22 2023 9:54A Dictated by: AYAZ ONEIL MD This examination was interpreted and the report reviewed and electronically signed by: AYAZ ONEIL MD on Oct 22 2023 11:59AM EST [id number] [facility] CNOVon 09-29-2023 CNOV Office Visit (UCWSTR ) -------- AZUL VICTORIA ([id number]) 1940 F Date Time Provider Department 09/29/23 9:45 AM AMANDA ESPINOSA [facility] During your visit today, we recorded the following information about you: Temperature Pulse Respiration Blood pressure 97.1 degrees 71/minute 20/minute 134/78 Weight 111.3 kg Amanda Espinosa, STAFF DEVELOPMENT EDUCATOR.SATELLITE COMMUNICATIONS ENGINEER 09/29/2023 10:22 AM Signed This note was created using NoteWriter. Subjective Azul Victoria is a 83 year old female. 83 year old female with PMH of hypertension, atrial flutter on xarelto, and HLD presents today with acute onset URI symptoms that started 10 days ago. Pertinent positives include rhinorrhea with green nasal drainage, sinus pressure, headache, fatigue, and productive cough with green sputum. Pertinent negatives include dyspnea at rest, chest pain, chest tightness, fever, body aches, and chills. The history is provided by the patient. Sinus Problem This is a new problem. The current episode started 1 to 4 weeks ago. The problem occurs constantly. The problem has been gradually improving. Associated symptoms include congestion, coughing, fatigue and headaches. Pertinent negatives include no abdominal pain, anorexia, change in bowel habit, chest pain, chills, fever, myalgias, nausea, sore throat or vomiting. Nothing aggravates the symptoms. She has tried nothing for the symptoms. PAST MEDICAL HISTORY Diagnosis Date Abscess of intestine DIVERTICULITIS Atrial flutter (HCC) Elevated uric acid in blood Esophageal reflux GERD Essential hypertension, benign Snoring Tumors of body of uterus, antepartum condition or complication UTERINE FIBROIDS PAST SURGICAL HISTORY Procedure Laterality Date APPENDECTOMY 09/19/2020 -Dr. Nora Celeste ARTHRP ACETBLR/PROX FEM PROSTC AGRFT/ALGRFT 07/2019 [employer] [facility] ARTHRP KNE CONDYLEANDPLATU MEDIALANDLAT COMPARTMENTS 2012 Knee replacement, total, right BMD BONE DENSITY DEXA 07/2006 CATARACT EXTRACTION HX Bilateral 2007 SECTION HX CHOLECYSTECTOMY 1983 COLONOSCOPY 11/2001 COLON POLYP REMOVED COLONOSCOPY FLX DX W/COLLJ SPEC WHEN PFRMD 07/29/2007 Colonoscopy COLONOSCOPY FLX DX W/COLLJ SPEC WHEN PFRMD 12/18/2018 Colonoscopy DILATION AND CURETTAGE DXAND/THER NONOBSTETRIC Dilation AND curettage LIG/TRNSXJ FLP TUBE ABDL/VAG APPR UNI/BI Tubal ligation PAST SURGICAL HISTORY OF 10/2009 Left Unicomparmental Knee -- [facility] (Dr. Fajardo) TONSILLECTOMY PRIMARY/SECONDARY Tonsillectomy ALLERGIES Penicillins, Librax (With Clidinium) [Chlordiazepoxide-Clidin ium], and Norvasc [Amlodipine Besylate] MEDICATIONS allopurinol (ZYLOPRIM) 100 mg tablet Take 1 tablet by mouth once daily. metoprolol tartrate, short acting, (LOPRESSOR) 25 mg tablet Take 1 tablet by mouth twice daily. potassium chloride ER (KLOR-CON M10) 10 mEq tablet Take 1 tablet by mouth once daily. hydroCHLOROthiazide (HYDRODIURIL, ESIDRIX) 25 mg tablet Take 1 tablet by mouth once daily. rivaroxaban (XARELTO) 20 mg tablet Take 1 tablet by mouth daily with dinner. Restart on 03/13/2022 (7 days after surgery) Biotin 2,500 mcg cap Take by mouth. MAGNESIUM ORAL Take by mouth. cholecalciferol (VITAMIN D3) 1,000 unit tab tablet Take 1,000 Units by mouth once daily. ONE DAILY MULTI-VITAMIN TAB Take one(1) tablet daily. doxycycline (VIBRA-TABS) 100 mg tablet Take 1 tablet by mouth two times a day for 7 days. FAMILY HISTORY Problem Relation Age of Onset Heart Mother chf, Aortic Anerysm other (KIDNEY FAILURE) Mother Emphysema Father Coronary Artery Disease Brother Diabetes Brother COPD Brother Cancer Paternal Grandfather brain Heart Brother Diabetes Paternal Grandmother Colon Cancer Other none other (Brain Tumor) Maternal Uncle Social History Tobacco Use Smoking status: Never Smokeless tobacco: Never Vaping Use Vaping Use: Never used Substance Use Topics Alcohol use: No Drug use: No Review of Systems Constitutional: Positive for fatigue. Negative for appetite change, chills and fever. HENT: Positive for congestion, rhinorrhea and sinus pressure. Negative for ear discharge, ear pain, sinus pain and sore throat. Eyes: Negative for discharge. Respiratory: Positive for cough. Negative for chest tightness and shortness of breath. Cardiovascular: Negative for chest pain. Gastrointestinal: Negative for abdominal pain, anorexia, change in bowel habit, diarrhea, nausea and vomiting. Musculoskeletal: Negative for myalgias. Neurological: Positive for headaches. Objective BP 134/78 Pulse 71 Temp 36.2 ?C (97.1 ?F) Resp 20 Wt 111.3 kg (245 lb 6.4 oz) SpO2 95% BMI 44.88 kg/m? Physical Exam Constitutional: General: She is awake. She is not in acute distress. Appearance: Normal appearance. She is normal weight. She is not ill-appearing, toxic-ap (more content not included)... [facility] CNPNon 09-26-2023 [facility] ([facility] -------- AZUL VICTORIA ([id number]) 1940 F Date Time Provider Department 09/26/23 JENI NICKERSON [facility] During your visit today, we recorded the following information about you: Ghazal Turk 09/26/2023 8:51 AM Signed Pt would like to get Mammogram scheduled. Needs order placed. Last Mammogram, April 2022. Jenifer Carlson APRN.CNP 09/26/2023 12:30 PM Signed Mammogram order has been placed. Jenifer Carlson APRN.CNP Allergies As of Date: 09/26/2023 Noted Allergy Reaction PENICILLINS 01/11/2021 4 - Hives LIBRAX (WITH CLIDINIUM) (CHLORDIA*05/29/2011 1 - Mental Status Change NORVASC (AMLODIPINE BESYLATE) 03/22/2005 Date Reviewed: 08/13/2023 Reviewed by: Jen Pepe MA - Fully Assessed Reason for Visit: Orders [681] Primary Visit Diagnosis:Encounter for screening mammogram for malignant neoplasm of breast [Z12.31] Order(s):[facility] SCREENING [[id number]] Order #: [id number] FUTURE Prescriptions as of 09/26/2023 - allopurinol (ZYLOPRIM) 100 mg tablet Take 1 tablet by mouth once daily. - metoprolol tartrate, short acting, (LOPRESSOR) 25 mg tablet Take 1 tablet by mouth twice daily. - potassium chloride ER (KLOR-CON M10) 10 mEq tablet Take 1 tablet by mouth once daily. - hydroCHLOROthiazide (HYDRODIURIL, ESIDRIX) 25 mg tablet Take 1 tablet by mouth once daily. - rivaroxaban (XARELTO) 20 mg tablet Take 1 tablet by mouth daily with dinner. Restart on 03/13/2022 (7 days after surgery) - Biotin 2,500 mcg cap Take by mouth. - MAGNESIUM ORAL Take by mouth. - cholecalciferol (VITAMIN D3) 1,000 unit tab tablet Take 1,000 Units by mouth once daily. - ONE DAILY MULTI-VITAMIN TAB Take one(1) tablet daily. Problem List As Of Date 09/26/2023 Noted Resolved Gout [M10.9] 03/22/2005 Generalized Osteoarthrosis, Unspecified Site [M*03/22/2005 Esophageal Reflux [K21.9] 03/22/2005 Leiomyoma of uterus, unspecified [D25.9] 03/22/2005 Diverticulosis of colon (without mention of hem*03/22/2005 Essential Hypertension, Benign [I10] 06/19/2006 Personal History of Colonic Polyps [Z86.010] 06/19/2006 Uncomplicated varicose veins [I83.90] 06/26/2007 Unspecified prolapse of vaginal sampson [N81.10] 08/07/2007 Gynecological examination 08/27/2009 Class: Chronic Impaired Fasting Glucose [R73.01] 08/27/2009 Vulvar varicose veins [I86.3] 11/18/2012 Atrial flutter (HCC) [I48.92] Gross hematuria [R31.0] 01/06/2022 Bladder cancer screening [Z12.6] 01/06/2022 Morbid obesity with BMI of 40.0-44.9, adult (HC*03/03/2022 Hard to intubate [T88.4XXA] 03/06/2022 Urothelial carcinoma (HCC) [C68.9] 03/06/2022 Stage 3b chronic kidney disease (HCC) [N18.32] 08/08/2022 Elevated cholesterol [E78.00] 08/08/2022 Encounter Status:Closed by JENIFER CARLSON on 09/26/23 [facility] CNOVon 08-13-2023 CNOV Office Visit (FAMPWS ) -------- KELLYGABRIELGISELEAZUL Potts ([id number]) 1940 F Date Time Provider Department 08/13/23 7:40 AM [facility] During your visit today, we recorded the following information about you: Pulse Respiration Blood pressure Weight 57/minute 16/minute 136/80 109.1 kg Tiburcio Ang APRN.SATELLITE COMMUNICATIONS ENGINEER 08/13/2023 8:02 AM Signed Chief Complaint Patient presents with: F/U 6 Month HPI Azulmoises Victoria is a 83 year old female who presents here today for Chronic Medical Conditions. Here for routine follow-up. Reviewed labs with patient. History of elevated glucose. Hemoglobin A1c 5.9%. History of gout. Uric acid 5.9. No gout flareups. HYPERLIPIDEMIA: Patient is taking medications: Yes. Patient is watching diet: Yes. Patient denies myalgias: Yes. Patient denies gi upset: Yes History of CKD stage III. GFR stable at 40. Previously [address] of the chest completed related to pulmonary nodules. CT of the chest shows stable small lung nodules consistent with benign findings. Reviewed this finding with the patient. No follow-up needed. Following with urology. Had an MRI of the pelvis and abdomen completed. No local or metastatic disease noted with history of right nephroureterectomy. Past medical history, appointments, medications, allergies reviewed. EXAM: BP 136/80 Pulse (!) 57 Resp 16 Wt 109.1 kg (240 lb 9.6 oz) SpO2 98% BMI 44.01 kg/m? General Appearance: Well appearing, alert, in no acute distress, well-hydrated, well nourished.. Lungs: Lungs clear to auscultation. No wheezing, rhonchi, rales.. Heart: RRR without murmur, gallop, or rubs. No ectopy. Component Latest Ref Rng AND Units 08/10/2023 Protein, Total 6.3 - 8.0 g/dL 6.7 Albumin 3.9 - 4.9 g/dL 4.1 Calcium 8.5 - 10.2 mg/dL 10.6 (H) Bilirubin, Total 0.2 - 1.3 mg/dL 0.6 Alkaline Phosphatase 34 - 123 U/L 89 AST 13 - 35 U/L 18 ALT 7 - 38 U/L 14 Glucose 74 - 99 mg/dL 112 (H) BUN 7 - 21 mg/dL 33 (H) Creatinine 0.58 - 0.96 mg/dL 1.32 (H) Sodium 136 - 144 mmol/L 139 Potassium 3.7 - 5.1 mmol/L 4.6 Chloride 97 - 105 mmol/L 104 CO2 22 - 30 mmol/L 28 Anion Gap 9 - 18 mmol/L 7 (L) eGFR >=60 mL/min/1.73mA? 40 (L) Cholesterol, Total <200 mg/dL 173 Triglyceride <150 mg/dL 115 HDL Cholesterol >39 mg/dL 57 Non HDL Cholesterol <130 mg/dL 116 Fasting Time hrs 12 VLDL Cholesterol <30 mg/dL 23 TC:HDL Ratio <5.10 3.04 LDL Cholesterol <100 mg/dL 93 LDL:HDL Ratio <2.54 1.63 Hemoglobin A1C 4.3 - 5.6 % 5.9 (H) Estimated Average Glucose mg/dL 123 Uric Acid 2.5 - 6.6 mg/dL 5.9 Impression IMPRESSION: Stable small lung nodules consistent with benign findings. Door Liner Helper: PSCB Transcribe Date/Time: Aug 10 2023 8:25A Dictated by : JENI LERMA MD This examination was interpreted and the report reviewed and electronically signed by: JENI LERMA MD on Aug 10 2023 8:40AM EST Results-Findings * * *Final Report* * * DATE OF EXAM: Aug 08 2023 9:14AM [facility] 0541 - CT CHEST WO IVCON / PROCEDURE REASON: Lung nodules * * * * Physician Interpretation * * * * EXAMINATION: CHEST CT WITHOUT CONTRAST CLINICAL HISTORY: Lung nodules Technique: Spiral CT acquisition of the chest from the thoracic inlet to the upper abdomen without contrast. MQ: [id number]_6 CT Radiation dose: Integrated Dose-length product (DLP) for this visit = 406 mGy*cm CT Dose Reduction Employed: Automated exposure control(AEC) and iterative recon Comparison: 07/18/2022 chest RESULT: Limitations: None. Lines, tubes, and devices: None. Lung parenchyma and airways: Stable lateral LEFT upper lobe 3 mm nodule (6:62). Stable lateral RIGHT apical 5 mm diameter groundglass nodule (6:33). Stable posterior RIGHT upper lobe 5 mm nodule (6:49). Scattered peripheral areas of mild density likely due to shallow inspiration. No consolidation. No suspicious pulmonary nodule. The central airways are patent. Pleural space: No pleural effusion. No pleural thickening. Lower neck, lymph nodes, and mediastinum: The imaged thyroid gland is normal. No lymphadenopathy in the supraclavicular, axillary, mediastinal, or hilar regions. Calcified RIGHT hilar lymph node. Heart, pericardium, and thoracic vessels: The thoracic aorta and main pulmonary artery are normal in caliber. The cardiac chambers are normal in size. No coronary artery atherosclerotic calcifications are noted, although the study is not optimized for coronary assessment. No pericardial effusion or thickening. Bones and soft tissues: No destructive bone lesion. Chest wall is unremarkable. Upper abdomen: No abnormality in the imaged upper abdomen. Shore Man (topogram) images: No additional findings. ASSESSMENT/PLAN: 1. Essential hypertension, benign - ICD9: 401.1, ICD10: I10 (primary diagnosis) - Controlled - Continue current medications - Recommend home blood p (more content not included)... [facility] Comprehensive metabolic 2000 panelon 08-10-2023 Albumin [Mass/Vol] 4.1 g/dL Normal 3.9-4.9 [facility] Comment on above: Order Comment: Speci men Type: BLOOD SPECIMENOrdering Facility: [facility] Address: [address] [place] [address] Performed By: #### 2 4331-1, 26887-1, 3084-1 ####[facility] LABCLIA [id number] [facility] [id number] [place], [place] [address] [place] ALP [Catalytic activity/Vol] 89 U/L Normal 34-123 [facility] Comment on above: Order Comment: Speci men Type: BLOOD SPECIMENOrdering Facility: [facility] Address: [address] [place] [address] Performed By: #### 2 4331-1, , 3083-09 ####[facility] LABCLIA [id number] [place] [address] [place] ALT [Catalytic activity/Vol] 14 U/L Normal 7-38 [facility] Comment on above: Order Comment: Speci men Type: BLOOD SPECIMENOrdering Facility: [facility] Address: [address] [place] [address] Performed By: #### 2 4331-1, , 3083-09 ####[facility] LABCLIA [id number] [place] [address] [place] Anion gap [Moles/Vol] 7 mmol/L Low 9-18 [facility] Comment on above: Order Comment: Speci men Type: BLOOD SPECIMENOrdering Facility: [facility] Address: [address] [place] [address] Performed By: #### 2 4331-1, , 3083-09 ####[facility] LABCLIA [id number] [place] [address] [place] AST [Catalytic activity/Vol] 18 U/L Normal 13-35 [facility] Comment on above: Order Comment: Speci men Type: BLOOD SPECIMENOrdering Facility: [facility] Address: [address] [place] [address] Performed By: #### 2 4331-1, , 3083-09 ####[facility] LABCLIA [id number] [place] [address] [place] Bilirubin [Mass/Vol] 0.6 mg/dL Normal 0.2-1.3 [facility] Comment on above: Order Comment: Speci men Type: BLOOD SPECIMENOrdering Facility: [facility] Address: [address] [id number] Performed By: #### 2 4331-1, 30913-6, 3083-09 ####[facility] LABCLIA [id number] [address] [address] [place] Calcium [Mass/Vol] 10.6 mg/dL High 8.5-10.2 [facility] Comment on above: Order Comment: Speci men Type: BLOOD SPECIMENOrdering Facility: [facility] Address: [address] [place] [address] Performed By: #### 2 4331-1, , 3083-09 ####[facility] LABCLIA [id number] [place] [address] [place] Chloride [Moles/Vol] 104 mmol/L Normal 97-105 [facility] Comment on above: Order Comment: Speci men Type: BLOOD SPECIMENOrdering Facility: [facility] Address: [address] [place] [address] Performed By: #### 2 4331-1, , 3083-09 ####[facility] LABCLIA [id number] [place] [address] [place] CO2 [Moles/Vol] 28 mmol/L Normal 22-30 [facility] Comment on above: Order Comment: Speci men Type: BLOOD SPECIMENOrdering Facility: [facility] Address: [address] [id number] Performed By: #### 2 4331-1, 87893-0, 3083-09 ####[facility] LABCLIA [id number] [place] [id number] [place] Creatinine [Mass/Vol] 1.32 mg/dL High 0.58-0.96 [facility] Comment on above: Order Comment: Speci men Type: BLOOD SPECIMENOrdering Facility: [facility] Address: [address] [id number] Performed By: #### 2 4331-1, 30200-7, 3083-09 ####[facility] LABIA [id number] [place] [address] [place] Creatinine and Glomerular filtration rate.predicted panel (S/P/Bld) 40 mL/min/1.73m??? Low >=60 [facility] Comment on above: Order Comment: Lior san Type: BLOOD SPECIMENOrdering Facility: [facility] Address: [address] [place] [address] Result Comment: Kandice mated Glomerular Filtration Rate (eGFR) is calculated using the 2020 CKD-EPI creatinine equation. This equation utilizes serum creatinine, sex, and age as parameters. The creatinine assay has traceable calibration to isotope dilution-mass spectrometry. Refer to KDIGO guidelines for clinical interpretation. In patients with unstable renal function, e.g. those with acute kidney injury, the eGFR may not accurately reflect actual GFR. Performed By: #### 2 4331-1, 59951-5, 3083-09 ####[facility] LABIA [id number] [place] [address] [place] Glucose [Mass/Vol] 112 mg/dL High 74-99 [facility] Comment on above: Order Comment: Lior san Type: BLOOD SPECIMENOrdering Facility: [facility] Address: [address] [place] [address] Result Comment: The [place] Diabetes Association (ADA) provides guidance for cutoff values for fasting glucose and random glucose. The ADA defines fasting as no caloric intake for at least 8 hours. Fasting plasma glucose results between 100 to 125 mg/dL indicate increased risk for diabetes (prediabetes). Fasting plasma glucose results greater than or equal to 126 mg/dL meet the criteria for diagnosis of diabetes. In the absence of unequivocal hyperglycemia, results should be confirmed by repeat testing. In a patient with classic symptoms of hyperglycemia or hyperglycemic crisis, random plasma glucose results greater than or equal to 200 mg/dL meet the criteria for diagnosis of diabetes. Reference: Standards of Medical Care in Diabetes 2016, [place] Diabetes Association. Diabetes Care. 2016.39(Suppl 1). Performed By: #### 2 4331-1, 63865-2, 3083-09 ####[facility] LABCLIA [id number] [place] [address] [place] Potassium [Moles/Vol] 4.6 mmol/L Normal 3.7-5.1 [facility] Comment on above: Order Comment: Speci men Type: BLOOD SPECIMENOrdering Facility: [facility] Address: [address] [place] [address] Performed By: #### 2 4331-1, 72372-1, 3083-09 ####[facility] LABCLIA [id number] [place] [address] [place] Protein [Mass/Vol] 6.7 g/dL Normal 6.3-8.0 [facility] Comment on above: Order Comment: Speci men Type: BLOOD SPECIMENOrdering Facility: [facility] Address: [address] [place] [address] Performed By: #### 2 4331-1, , 3083-09 ####[facility] LABCLIA [id number] [place] [address] [place] Sodium [Moles/Vol] 139 mmol/L Normal 136-144 [facility] Comment on above: Order Comment: Speci men Type: BLOOD SPECIMENOrdering Facility: [facility] Address: [address] [place] [address] Performed By: #### 2 4331-1, , 3083-09 ####[facility] LABCLIA [id number] [address] [address] [place] Urea nitrogen [Mass/Vol] 33 mg/dL High 7-21 [facility] Comment on above: Order Comment: Speci men Type: BLOOD SPECIMENOrdering Facility: [facility] Address: [address] [place] [address] Performed By: #### 2 4331-1, 31759-9, 3083- ####[facility] LABCLIA [id number] [address] [place] HbA1c (Bld)on 08-10-2023 Average glucose Estimated from glycated hemoglobin (Bld) [Mass/Vol] 123 mg/dL Normal [facility] Comment on above: Order Comment: Lior san Type: BLOOD SPECIMENOrdering Facility: [facility] Address: [address] [place] [address] Result Comment: eAG: (Estimated average glucose) is a calculated value from HgbA1c and is sales representative sales manager of the average blood glucose level in the last 2-3 month period. Performed By: #### 5 5454-3 ####[facility] LABIA [id number] [place] [address] [place] HbA1c (Bld) [Mass fraction] 5.9 % High 4.3-5.6 [facility] Comment on above: Order Comment: Lior san Type: BLOOD SPECIMENOrdering Facility: [facility] Address: [address] [place] [address] Result Comment: Amer [place] Diabetes Association guidelines indicate that patients with HgbA1c in the range 5.7-6.4% are at increased risk for development of diabetes, and intervention by lifestyle modification may be beneficial. HgbA1c greater or equal to 6.5% is considered diagnostic of diabetes. Performed By: #### 5 5454-3 ####[facility] LABIA [id number] [place] [address] [place] Lipid 1996 panelon Cholesterol [Mass/Vol] 173 mg/dL Normal <200 [facility] Comment on above: Order Comment: Lior san Type: BLOOD SPECIMENOrdering Facility: [facility] Address: [address] [place] [address] Result Comment: <200 mg/dL, Desirable 200-239 mg/dL, Borderline high >239 mg/dL, High Performed By: #### 2 4331-1, 25370-5, 3084-1 ####[facility] LABCLIA [id number] [facility] Cholesterol in HDL [Mass/Vol] 57 mg/dL Normal >39 [facility] Comment on above: Order Comment: Zachchuy san Type: BLOOD SPECIMENOrdering Facility: [facility] Address: [address] [place] [address] Result Comment: 40-5 9 mg/dL, Acceptable >59 mg/dL, High: Negative risk factor for coronary heart disease <40 mg/dL, Low: Positive risk factor for coronary heart disease Performed By: #### 2 4331-1, 12058-3, 3083- ####[facility] LABCLIA [id number] [address] Cholesterol in LDL [Mass/Vol] 93 mg/dL Normal <100 [facility] Comment on above: Order Comment: Lior jaswinder Type: BLOOD SPECIMENOrdering Facility: [facility] Address: [address] [place] [address] Result Comment: <100 mg/dL, Optimal 100-129 mg/dL, Near optimal/above optimal 130-159 mg/dL, Borderline high 160-189 mg/dL, High >189 mg/dL, Very high Secondary prevention optimal LDL Cholesterol levels are recommended to be < 70 mg/dL Performed By: #### 2 4331-1, 97532-5, 3083- ####[facility] LABCLIA [id number] [address] OF [facility] Cholesterol in LDL/Cholesterol in HDL [Mass ratio] 1.63 {ratio} Normal <2.54 [facility] Comment on above: Order Comment: Zachchuy san Type: BLOOD SPECIMENOrdering Facility: [facility] Address: [address] [place] [address] Result Comment: Dina moeller: 1. National Cholesterol Education Program ATP III Guideline At-A-Glance Quick Desk Reference: National Heart, Lung, and Blood [place]. National Institutes of Health. 2001: NIH Publication No. 01-3305. 2. An International Atherosclerosis Society position paper: global recommendations for the management of dyslipidemia: executive summary, Atherosclerosis. 2014: 232(2):410-413. Performed By: #### 2 4331-1, 94920-9, 3083- ####[facility] LABCLIA [id number] [address] [address] [place] Cholesterol in VLDL [Mass/Vol] 23 mg/dL Normal <30 [facility] Comment on above: Order Comment: Speci men Type: BLOOD SPECIMENOrdering Facility: [facility] Address: [address] [place] [address] Performed By: #### 2 4331-1, , 3083-09 ####[facility] LABCLIA [id number] [place] [address] [place] Cholesterol non HDL [Mass/Vol] 116 mg/dL Normal <130 [facility] Comment on above: Order Comment: Speci men Type: BLOOD SPECIMENOrdering Facility: [facility] Address: [address] [place] [address] Result Comment: <130 mg/dL, Optimal 130-159 mg/dL, Near optimal/above optimal 160-189 mg/dL, Borderline high 190-219 mg/dL, High >219 mg/dL, Very high Secondary prevention optimal non HDL Cholesterol levels are recommended to be <100 mg/dL Performed By: #### 2 4331-1, 45422-2, 3083-09 ####[facility] LABCLIA [id number] [address] [address] [place] Cholesterol.total/ Cholesterol in HDL [Mass ratio] 3.04 {ratio} Normal <5.10 [facility] Comment on above: Order Comment: Speci men Type: BLOOD SPECIMENOrdering Facility: [facility] Address: [address] [id number] Performed By: #### 2 4331-1, 65937-0, 3083-09 ####[facility] LABCLIA [id number] [address] [address] [place] FASTING TIME 12 hrs Normal [facility] Comment on above: Order Comment: Speci men Type: BLOOD SPECIMENOrdering Facility: [facility] Address: [place] [address] Performed By: #### 2 4331-1, 14220-7, 3083- ####[facility] LABCLIA [id number] [place] [address] [place] Triglyceride [Mass/Vol] 115 mg/dL Normal <150 [facility] Comment on above: Order Comment: Speci men Type: BLOOD SPECIMENOrdering Facility: [facility] Address: [address] [place] [address] Result Comment: <150 mg/dL, Normal 150-199 mg/dL, Borderline high 200-499 mg/dL, High >499 mg/dL, Very high Performed By: #### 2 4331-1, 21269-1, 3083-09 ####[facility] LABCLIA [id number] [place] [address] [place] Urate SerPl-ncon 3 Urate [Mass/Vol] 5.9 mg/dL Normal 2.5-6.6 [facility] Comment on above: Order Comment: Speci men Type: BLOOD SPECIMENOrdering Facility: [facility] Address: [address] [place] [address] Performed By: #### 2 4331-1, 56937-4, 3083-09 ####[facility] LABCLIA [id number] [place] [address] [place] CHEST WO IVCONon 08-08-[address] CHEST WO IVCON * * *Final Report* * * DATE OF EXAM: Aug 08 2023 9:14AM [facility] 0541 - CT CHEST WO IVCON / PROCEDURE REASON: Lung nodules * * * * Physician Interpretation * * * * EXAMINATION: CHEST CT WITHOUT CONTRAST CLINICAL HISTORY: Lung nodules Technique: Spiral CT acquisition of the chest from the thoracic inlet to the upper abdomen without contrast. MQ: [id number]_6 CT Radiation dose: Integrated Dose-length product (DLP) for this visit = 406 mGy*cm CT Dose Reduction Employed: Automated exposure control(AEC) and iterative recon Comparison: 07/18/2022 chest RESULT: Limitations: None. Lines, tubes, and devices: None. Lung parenchyma and airways: Stable lateral LEFT upper lobe 3 mm nodule (6:62). Stable lateral RIGHT apical 5 mm diameter groundglass nodule (6:33). Stable posterior RIGHT upper lobe 5 mm nodule (6:49). Scattered peripheral areas of mild density likely due to shallow inspiration. No consolidation. No suspicious pulmonary nodule. The central airways are patent. Pleural space: No pleural effusion. No pleural thickening. Lower neck, lymph nodes, and mediastinum: The imaged thyroid gland is normal. No lymphadenopathy in the supraclavicular, axillary, mediastinal, or hilar regions. Calcified RIGHT hilar lymph node. Heart, pericardium, and thoracic vessels: The thoracic aorta and main pulmonary artery are normal in caliber. The cardiac chambers are normal in size. No coronary artery atherosclerotic calcifications are noted, although the study is not optimized for coronary assessment. No pericardial effusion or thickening. Bones and soft tissues: No destructive bone lesion. Chest wall is unremarkable. Upper abdomen: No abnormality in the imaged upper abdomen. Shore Man (topogram) images: No additional findings. IMPRESSION: Stable small lung nodules consistent with benign findings. Door Liner Helper: PSCB Transcribe Date/Time: Aug 10 2023 8:25A Dictated by : JENI LERMA MD This examination was interpreted and the report reviewed and electronically signed by: JENI LERMA MD on Aug 10 2023 8:40AM EST [id number] Normal [facility] CNOVon 08-07-2023 CNOV Office Visit (UROSMN ) -------- AZUL VICTORIA ([id number]) 1940 F Date Time Provider Department 08/07/23 3:15 PM ANGLE GONZALEZ During your visit today, we recorded the following information about you: Fawn Delatorre RN 08/07/2023 3:16 PM Signed UNIVERSAL PROTOCOL / SAFETY CHECKLIST Procedure to be Performed: cystoscopy Sign In: A Moment of CARE was completed. Personnel directly involved with the procedure wore the appropriate PPE (Personal Protective Equipment). No special equipment needed. Patient/Surrogate Stated/Verified: PATIENT VERIFIED(optional for EMERGENT procedures): Patient name, Date of , Relevant allergies, and The intended procedure Time Out Communication: Intended patient and procedure match the source documents. Consent documented and matches the intended procedure. Relevant labs, photos, and/or imaging studies have been reviewed. Correct side/site marked and visible. Medications required for procedure verified. Fire risk assessed and interventions discussed. No implant(s) inserted. Sign Out: SIGN OUT (optional for EMERGENT procedures): All specimen containers correctly labeled. All instruments, equipment, possible retained foreign bodies accounted for. Post-procedure follow-up management communicated and Plan of Care Visit completed when applicable. TADEO Ford Dannetta M, RN 08/07/2023 3:15 PM Signed Actual procedure/procedure scheduled: Yes Performing provider/scheduled provider: Yes Patient was roomed in: Q9- 10 Amphibious Operations Officer offered:Patient declines Patient arrived in the room at: 1440 Patient ready for procedure: 1446 The procedure started at ( Time Only): 1505 The procedure ended at: 1507 Was the procedure delayed: No The patient left the procedure room at: 1515 Fawn Delatorre RN PRE PROCEDURE ASSESSMENT- Cysto Procedure Indication: Cystoscopy Latex Allergy: No Allergies reviewed and updated. Yes Pre-Procedure Vital Signs: BP: 198/90 Pulse: 71 Heart valve replacement: No Joint replacement: Yes Back Office UA otained: no PROCEDURE PREP-Cysto Patient ID with two(2)identifiers verified by: Fawn Delatorre RN Pre-Procedure Antibiotics: None taken at home nor prior to procedure Patient Prep: Betadine Scrub to perineum and placement of Sterile Drape. COMPLETED Anesthetic Given:10 cc 2% Lidocaine jelly Fawn Delatorre RN UNIVERSAL PROTOCOL / SAFETY CHECKLIST Procedure to be performed: Cystoscopy Sign in Communication: Completed Time Out: Team Confirms the Correct Patient, Correct Procedure, Correct Site and Site Marking, Correct Position (if applicable). Sign Out Discussion: Completed Fawn Delatorre RN POST PROCEDURE NURSE ASSESSMENT Present along with physician during procedure exam. Fawn Delatorre RN Instruction sheet given and reviewed and patient verbalizes understanding: yes Current pain intensity is 0 on a 0-10 pain scale. Fawn Delatorre RN AMBULATORY PATIENT EDUCATION THE FOLLOWING WAS EVALUATED Motivation To Learn: Eager Interested Family/Significant Other Support: None - Unavailable/disintereste d Cognitive Ability: Alert/Oriented Method of Instruction: Written instruction - handouts The Following Influencing Factors Were Barriers To This Education Session: None The Following Physical Limitations Were Barriers To This Education Session: None Instruction Provided To: Patient Community Center Worker Present: not applicable Discipline: Nursing Learning Topic: SURVIVAL SKILLS: Symptom Management Patient Evaluation: Verbalizes understanding: Yes Supplemental Material Given: Written Material Instructed By Fawn Delatorre RN In Department Urology . Angle Gonzalez MD 08/07/2023 3:16 PM Signed PHYSICIANS NOTE: CYSTOSCOPY PROCEDURE: August 07, 2023 Sign In History and Physical Exam reviewed and is unchanged. Primary Diagnosis: Urothelial carcinoma of kidney, right (hcc) (primary encounter diagnosis) History of bladder cancer Informed Consent Discussed: Yes. Risks, benefits, alternatives and personnel discussed with patient who consents to proceed. Sign in Communication: Completed Time Out: Team Confirms the Correct Patient, Correct Procedure; Cystoscopy, Correct Site and Site Marking (not applicable), Correct Position. Affirmation of Time Out: YES Sign Out: Sign Out Discussion: Completed History Patient of Dr. Mercado S/p right nephroureterectomy 02/2022 - HG non-invasive UC of renal pelvis Last cystoscopy 04/03/2023 MR Urogram pending Details of Procedure: After sterile prep and drape, the flexible cystoscope was placed through the urethra which was examined in its entirety. Urethral stricture: None Anterior prolapse noted causing some angulation of urethra The entire mucosa was examined. The scope was flexed in the dome of the bladder and (more content not included)... Normal [facility] MRI ABDOMEN URO WO/W IVCONon 08-07-2023 MRI ABDOMEN URO WO/W IVCON * * *Final Report* * * DATE OF EXAM: Aug 07 2023 2:38PM QBM 0686 - MRI ABDOMEN URO WO/W IVCON / PROCEDURE REASON: multiple diagnoses * * * * Physician Interpretation * * * * MRI ABDOMEN AND PELVIS WITHOUT AND WITH IV CONTRAST HISTORY: Right lower tract urothelial carcinoma with right nephroureterectomy on 03/06/2022 TECHNIQUE: Magnet: 3.0T scanner. Multiplanar MRI with multiple sequences before and after contrast using urogram protocol. Contrast: IV: 20 ml of Dotarem COMPARISON: CT 07/18/2022 RESULT: Kidneys and urinary tract: Right: Right nephroureterectomy. No evidence of recurrence in the nephrectomy bed. Left: No solid or cystic mass. The opacified calices, renal pelvis and ureter are normal without dilation, filling defect, or stricture. Bladder: No filling defect, focal or diffuse wall thickening.No enhancing mass. Abdomen and Pelvis: Liver: Normal morphology. Mild steatosis. No mass. Biliary: No bile duct dilation. Cholecystectomy. Spleen: No mass. No splenomegaly. Pancreas: No mass or duct dilation. A few subcentimeter cystic pancreatic lesions, for example 0.5 cm in the pancreatic body (3:22). Adrenals: No mass. GI tract: No dilation or wall thickening. Lymph nodes: No abdominal or pelvic lymphadenopathy. Mesentery / Peritoneum / Retroperitoneum: No ascites or mass. Vasculature: The celiac axis and SMA are patent. The portal vein and branches, splenic vein, SMV, and hepatic veins are patent. There are atherosclerotic changes without aneurysmal dilation. Pelvis: No ascites. Leiomyomatous uterus. Bones/Soft Tissues: Degenerative changes. Lower chest: Unremarkable. IMPRESSION: Right nephroureterectomy without local recurrence or metastatic disease. Door Liner Helper: MARTIN Transcribe Date/Time: Aug 07 2023 2:48P Dictated by : GILDARDO ESTEVEZ DO This examination was interpreted and the report reviewed and electronically signed by: KIM FISHER MD on Aug 07 2023 4:21PM EST [id number] [facility] MRI PELVIS URO WO/W IVCONon 08-07-2023 MRI PELVIS URO WO/W IVCON * * *Final Report* * * DATE OF EXAM: Aug 07 2023 2:38PM Q 0739 - MRI PELVIS URO WO/W IVCON / PROCEDURE REASON: multiple diagnoses * * * * Physician Interpretation * * * * MRI ABDOMEN AND PELVIS WITHOUT AND WITH IV CONTRAST HISTORY: Right lower tract urothelial carcinoma with right nephroureterectomy on 03/06/2022 TECHNIQUE: Magnet: 3.0T scanner. Multiplanar MRI with multiple sequences before and after contrast using urogram protocol. Contrast: IV: 20 ml of Dotarem COMPARISON: CT 07/18/2022 RESULT: Kidneys and urinary tract: Right: Right nephroureterectomy. No evidence of recurrence in the nephrectomy bed. Left: No solid or cystic mass. The opacified calices, renal pelvis and ureter are normal without dilation, filling defect, or stricture. Bladder: No filling defect, focal or diffuse wall thickening.No enhancing mass. Abdomen and Pelvis: Liver: Normal morphology. Mild steatosis. No mass. Biliary: No bile duct dilation. Cholecystectomy. Spleen: No mass. No splenomegaly. Pancreas: No mass or duct dilation. A few subcentimeter cystic pancreatic lesions, for example 0.5 cm in the pancreatic body (3:22). Adrenals: No mass. GI tract: No dilation or wall thickening. Lymph nodes: No abdominal or pelvic lymphadenopathy. Mesentery / Peritoneum / Retroperitoneum: No ascites or mass. Vasculature: The celiac axis and SMA are patent. The portal vein and branches, splenic vein, SMV, and hepatic veins are patent. There are atherosclerotic changes without aneurysmal dilation. Pelvis: No ascites. Leiomyomatous uterus. Bones/Soft Tissues: Degenerative changes. Lower chest: Unremarkable. IMPRESSION: Right nephroureterectomy without local recurrence or metastatic disease. Door Liner Helper: MARTIN Transcribe Date/Time: Aug 07 2023 2:48P Dictated by : GILDARDO ESTEVEZ, This examination was interpreted and the report reviewed and electronically signed by: KIM FISHER MD on Aug 07 2023 4:21PM EST [id number] [facility] No Panel Informationon 08-07 [facility] C[facility] Tele[facility] (PEDSWS) -------- AZUL VICTORIA ([id number]) 1940 F Date Time Provider Department 07/09/23 JENI NICKERSON During your visit today, we recorded the following information about you: Allergies As of Date: 07/09/2023 Noted Allergy Reaction PENICILLINS 01/11/2021 4 - Hives LIBRAX (WITH CLIDINIUM) (CHLORDIA*05/29/2011 1 - Mental Status Change NORVASC (AMLODIPINE BESYLATE) 03/22/2005 Date Reviewed: 04/03/2023 Reviewed by: Patti Devlin, RN - Fully Assessed Prescriptions as of 12/13/2023 - hydroCHLOROthiazide 25 mg tablet Take 1 tablet by mouth once daily. - potassium chloride ER (KLOR-CON M10) 10 mEq tablet Take 1 tablet by mouth once daily. - allopurinol (ZYLOPRIM) 100 mg tablet Take 1 tablet by mouth once daily. - metoprolol tartrate, short acting, (LOPRESSOR) 25 mg tablet Take 1 tablet by mouth twice daily. - rivaroxaban (XARELTO) 20 mg tablet Take 1 tablet by mouth daily with dinner. Restart on 03/13/2022 (7 days after surgery) - Biotin 2,500 mcg cap Take by mouth. - MAGNESIUM ORAL Take by mouth. - cholecalciferol (VITAMIN D3) 1,000 unit tab tablet Take 1,000 Units by mouth once daily. - ONE DAILY MULTI-VITAMIN TAB Take one(1) tablet daily. Problem List As Of Date 07/09/2023 Noted Resolved Gout [M10.9] 03/22/2005 Generalized Osteoarthrosis, Unspecified Site [M*03/22/2005 Esophageal Reflux [K21.9] 03/22/2005 Leiomyoma of uterus, unspecified [D25.9] 03/22/2005 Diverticulosis of colon (without mention of hem*03/22/2005 Essential Hypertension, Benign [I10] 06/19/2006 Personal History of Colonic Polyps [Z86.010] 06/19/2006 Uncomplicated varicose veins [I83.90] 06/26/2007 Unspecified prolapse of vaginal sampson [N81.10] 08/07/2007 Gynecological examination 08/27/2009 Class: Chronic Impaired Fasting Glucose [R73.01] 08/27/2009 Vulvar varicose veins [I86.3] 11/18/2012 Atrial flutter (HCC) [I48.92] Gross hematuria [R31.0] 01/06/2022 Bladder cancer screening [Z12.6] 01/06/2022 Morbid obesity with BMI of 40.0-44.9, adult (HC*03/03/2022 Hard to intubate [T88.4XXA] 03/06/2022 Urothelial carcinoma (HCC) [C68.9] 03/06/2022 Stage 3b chronic kidney disease (HCC) [N18.32] 08/08/2022 Elevated cholesterol [E78.00] 08/08/2022 Encounter Status:Closed by AMANDA GAONA on 12/13/23 Normal [facility] CYTOLOGY NON-GYNon 3 Case Report Medical Cytology Rep ort Case: [id number] Authorizing Provider: Magda Mercado MD Collected: 04/03/2023 10:59 AM Ordering Location: Urology Received: 04/03/2023 06:15 PM Pathologist: Davida Mcpherson MD Specimen: URINE VOIDED [facility] Clinical History bladder cancer [facility] FINAL DIAGNOSIS A - URINE VOIDED Negative for high-grade urothelial carcinoma. [facility] Gross Description A. URINE VOIDED 55 cc hazy yellow fluid with scant particles. ThinPrep prepared. [facility] Performing Lab Technical component, retail performance specialist screening performed at [facility], [address] [place] [address] CLIA# [id number] Diagnostic interpretation performed at [facility], [address] [place] [address] CLIA# [id number] Supervisor Television Chassis Repair: Sherman Clay M.D. [facility] UA DIP, URINE (POC)on 2022 BILIRUBIN UA (POCT) Negative Negative [facility] CLARITY UA (POCT) Clear [facility] COLOR UA (POCT) Yellow [facility] GLUCOSE UA (POCT) Negative Negative mg/dL [facility] HEMOGLOBIN/BLOOD UA (POCT) Trace-intact Abnormal Negative [facility] KETONE UA (POCT) Negative Negative mg/dL [facility] LEUKOCYTES UA (POCT) Negative Negative [facility] NITRITE UA (POCT) Negative Negative [facility] PH UA (POCT) 7.0 4.5 - 8.0 [facility] Protein Ql (U) Negative Negative mg/dL [facility] SPECIFIC GRAVITY UA (POCT) 1.020 1.005 - 1.030 [facility] UROBILINOGEN UA (POCT) 0.2 E.U./dL Normal E.U./dL [facility] CYTOLOGY NON-GYNon 3 Case Report Medical Cytology Rep ort Case: [id number] Authorizing Provider: Magda Mercado MD Collected: 11/28/2022 09:20 AM Ordering Location: Urology Received: 11/28/2022 02:21 PM Pathologist: Analy Caabllero MD Specimen: URINE, CATHETERIZED FLUID [facility] Clinical History History of bladder cancer [facility] FINAL DIAGNOSIS A - URINE, CATHETERI ZED FLUID Negative for high-grade urothelial carcinoma. [facility] Gross Description A. URINE, CATHETERIZ ED FLUID 60 cc clear yellow fluid . ThinPrep prepared. [facility] Performing Lab Technical component, retail performance specialist screening performed at [facility], [address] [place] [place] [id number] CLIA# [id number] Diagnostic interpretation performed at [facility], [facility] [place] [address] CLIA# [id number] Supervisor Television Chassis Repair: Sherman Clay M.D. [facility] UA DIP, URINE (POC)on 2022 BILIRUBIN UA (POCT) Negative Negative [facility] CLARITY UA (POCT) Clear [facility] COLOR UA (POCT) Yellow [facility] GLUCOSE UA (POCT) Negative Negative mg/dL [facility] HEMOGLOBIN/BLOOD UA (POCT) Negative Negative [facility] KETONE UA (POCT) Negative Negative mg/dL [facility] LEUKOC[facility]TES UA (POCT) Negative Negative [facility] NITRITE UA (POCT) Negative Negative [facility] PH UA (POCT) 7.0 4.5 - 8.0 [facility] Protein Ql (U) Negative Negative mg/dL [facility] SPECIFIC GRAVITY UA (POCT) >=1.030 1.005 - 1.030 [facility] UROBILINOGEN UA (POCT) 0.2 E.U./dL Normal E.U./dL [facility] US THYROID/PARATHYROIDon [facility] CREATININE, BLOOD (POC)on Creatinine [Mass/Vol] 1.40 mg/dL 0.7 - 1.4 mg/dL [facility] eGFR (POCT) 38 mL/min/1.73 m2 [facility] CT ABD/PEL W IVCONon [address] [facility] [address] CHEST W IVCONon 2 Radiology Result ACTIONABLE Abnormal [facility] No Panel Informationon 04-27 [facility] URINALYSIS, REFLEX MICROSCOP ICon 03-03-2022 Bilirubin Ql (U) Negative Negative [facility] Clarity (Unsp spec) Cloudy Abnormal Clear [facility] Color (U) Colorless Yellow [facility] Epithelial cells LM.HPF (Urine sed) [#/Area] Few [facility] Glucose Test strip (U) [Mass/Vol] Negative Negative [facility] Hemoglobin Ql (U) 3+ Abnormal Negative [facility] Hyaline casts (Urine sed) [#/Area] 1-3 /LPF Abnormal 0 /LPF [facility] Ketones Ql (U) Negative Negative [facility] Leukocyte esterase Test strip Ql (U) Negative Negative [facility] Nitrite Ql (U) Negative Negative [facility] pH (U) 6.5 [pH] 5.0 - 8.0 [facility] Protein (U) [Mass/Vol] Trace Abnormal Negative [facility] RBC LM.HPF (Urine sed) [#/Area] /[HPF] Abnormal 0-3 /HPF [facility] Specific gravity (U) [Rel density] 1.010 1.005 - 1.030 [facility] Urobilinogen Ql (U) Negative Negative [facility] WBC LM.HPF (Urine sed) [#/Area] 6-10 /HPF Abnormal 0-5 /HPF [facility] ECHOon 02-02-2022 [facility] LVEF TRANSTHORACIC ECHOon LV Ejection Fraction 60 % [facility] CYTOLOGY NON-GYNon 2 Case Report Medical Cytology Rep ort Case: [id number] Authorizing Provider: Magda Mercado MD Collected: 01/06/2022 09:40 PM Ordering Location: Urology Received: 01/06/2022 09:40 PM Pathologist: Jacqueline Briceno MD Specimen: URINE VOIDED [facility] Clinical History Bladder cancer screening [facility] FINAL DIAGNOSIS A - URINE VOIDED Negative for high-grade urothelial carcinoma. [facility] Gross Description A. URINE VOIDED. 70 cc clear light yellow fluid. ThinPrep prepared. [facility] Performing Lab Technical component, retail performance specialist screening performed at [facility], [address] [facility] [address] CLIA# [id number] Diagnostic interpretation performed at [facility], [address], [facility] [address] CLIA# [id number] Supervisor [employer] Repair: Sherman Clay M.D. [facility] ECG COMPLETEon 01-10-2022 Atrial Rate 75 BPM [facility] Calculated P [place] 48 degrees [facility] Calculated R [place] -73 degrees [facility] Calculated T [place] 48 degrees [facility] P-R Interval 178 ms [facility] QRS Duration 142 ms [facility] QT Interval 410 ms [facility] QTC Calculation (Bazett) 457 ms [facility] Ventricular Rate 75 BPM [facility] CBC panel Auto (Bld)on 01-09 Erythrocyte distribution width (RBC) [Ratio] 13.5 % 11.5 - 15.0 % [facility] Hematocrit (Bld) [Volume fraction] 41.2 % 36.0 - 46.0 % [facility] Hemoglobin (Bld) [Mass/Vol] 13.9 g/dL 11.5 - 15.5 g/dL [facility] MCH (RBC) [Entitic mass] 32.6 pg 26.0 - 34.0 pg [facility] MCHC (RBC) [Mass/Vol] 33.7 g/dL 30.5 - 36.0 g/dL [facility] MCV (RBC) [Entitic vol] 96.5 fL 80.0 - 100.0 fL [facility] Nucleated RBC (Bld) [#/Vol] 10*3/uL <0.01 k/uL [facility] Platelet mean volume (Bld) [Entitic vol] 10.1 fL 9.0 - 12.7 fL [facility] Platelets (Bld) [#/Vol] 172 10*3/uL 150 - 400 k/uL [facility] RBC (Bld) [#/Vol] 4.27 10*6/uL 3.90 - 5.2 0 m/uL [facility] WBC (Bld) [#/Vol] 5.94 10*3/uL 3.70 - 11. 00 k/uL [facility] CONFIRM BLOOD TYPEon 022 ABO A [facility] Rh Nom (Bld) Positive [facility] Comprehensive metabolic 2000 panelon 01-09-2022 Albumin [Mass/Vol] 4.3 g/dL 3.9 - 4.9 g/dL [facility] ALP [Catalytic activity/Vol] 77 U/L 34 - 123 U/L [facility] ALT [Catalytic activity/Vol] 12 U/L 7 - 38 U/L [facility] Anion gap [Moles/Vol] 9 mmol/L 9 - 18 mmol/L [facility] AST [Catalytic activity/Vol] 14 U/L 13 - 35 U/L [facility] Bilirubin [Mass/Vol] 0.5 mg/dL 0.2 - 1.3 mg/dL [facility] Calcium [Mass/Vol] 10.2 mg/dL 8.5 - 10. 2 mg/dL [facility] Chloride [Moles/Vol] 102 mmol/L 97 - 105 mmol/L [facility] CO2 [Moles/Vol] 26 mmol/L 22 - 30 mmol/L [facility] Creatinine [Mass/Vol] 0.81 mg/dL 0.58 - 0.96 mg/dL [facility] Estimated Glomerular Filtration Rate 73 mL/min/1.73m >=60 mL/min/1.73m [facility] Glucose [Mass/Vol] 109 mg/dL High 74 - 99 mg/dL [facility] Potassium [Moles/Vol] 4.3 mmol/L 3.7 - 5.1 mmol/L [facility] Protein [Mass/Vol] 6.9 g/dL 6.3 - 8.0 g/dL [facility] Sodium [Moles/Vol] 137 mmol/L 136 - 144 mmol/L [facility] Urea nitrogen [Mass/Vol] 25 mg/dL High 7 - 21 mg/dL [facility] TYPE AND SCREEN,30 DAYon ABO A [facility] HIstorical Ab Scr Status Negative [facility] Rh Nom (Bld) Positive [facility] URINALYSIS, REFLEX MICROSCOP ICon 01-06-2022 Bilirubin Ql (U) Negative Negative [facility] Clarity (Unsp spec) Clear Clear [facility] Color (U) Light Yellow Yellow [facility] Glucose Test strip (U) [Mass/Vol] Negative Negative [facility] Hemoglobin Ql (U) Negative Negative [facility] Ketones Ql (U) Negative Negative [facility] Leukocyte esterase Test strip Ql (U) Negative Negative [facility] Nitrite Ql (U) Negative Negative [facility] pH (U) 6.5 [pH] 5.0 - 8.0 [facility] Protein (U) [Mass/Vol] Negative Negative [facility] Specific gravity (U) [Rel density] 1.010 1.005 - 1.030 [facility] Urobilinogen Ql (U) Negative Negative [facility] Vital Signs Date Time Vital Sign Value Performing Clinician Facility 04-21-2024 08:57-0400 Diastolic blood pressure 77 mm[Hg] Tiburcio Ang APRN.SATELLITE COMMUNICATIONS ENGINEER Work Phone: [facility] Comment on above: BP lizette average 04-21-2024 08:57-0400 Heart rate 59 /min Tiburcio Ang APRN.SATELLITE COMMUNICATIONS ENGINEER Work Phone: [facility] 04-21-2024 08:57-0400 Systolic blood pressure 141 mm[Hg] Tiburcio Ang APRN.SATELLITE COMMUNICATIONS ENGINEER Work Phone: [facility] Comment on above: BP lizette average 04-21-2024 08:41-0400 Body mass index (BMI) [Ratio] 44.68 kg/m2 Tiburcio Ang APRN.SATELLITE COMMUNICATIONS ENGINEER Work Phone: [facility] 04-21-2024 08:41-0400 Body weight 110.8 kg Tiburcio Ang APRN.SATELLITE COMMUNICATIONS ENGINEER Work Phone: [facility] 04-21-2024 08:41-0400 Respiratory rate 18 /min Tiburcio Ang APRN.SATELLITE COMMUNICATIONS ENGINEER Work Phone: [facility] 04-21-2024 08:41-0400 SaO2% (BldA) [Mass fraction] 97 % Tiburcio Ang APRN.SATELLITE COMMUNICATIONS ENGINEER Work Phone: [facility] 08-13-2023 07:56-0500 Diastolic blood pressure 80 mm[Hg] Tiburcio Ward STAFF DEVELOPMENT EDUCATOR.SATELLITE COMMUNICATIONS ENGINEER Work Phone: [facility] 08-13-2023 07:56-0500 Systolic blood pressure 136 mm[Hg] Tiburcio Ward STAFF DEVELOPMENT EDUCATOR.SATELLITE COMMUNICATIONS ENGINEER Work Phone: [facility] 08-13-2023 07:41-0500 Body weight 109.14 kg Tiburcio Ward STAFF DEVELOPMENT EDUCATOR.SATELLITE COMMUNICATIONS ENGINEER Work Phone: [facility] 08-13-2023 07:41-0500 Heart rate 57 /min Tiburcio Ward STAFF DEVELOPMENT EDUCATOR.SATELLITE COMMUNICATIONS ENGINEER Work Phone: [facility] 08-13-2023 07:41-0500 Respiratory rate 16 /min Tiburcio Ward STAFF DEVELOPMENT EDUCATOR.SATELLITE COMMUNICATIONS ENGINEER Work Phone: [facility] 08-13-2023 07:41-0500 SaO2% (BldA) [Mass fraction] 98 % Tiburcio Ward STAFF DEVELOPMENT EDUCATOR.SATELLITE COMMUNICATIONS ENGINEER Work Phone: [facility] 02-06-2023 13:12-0400 Diastolic blood pressure 74 mm[Hg] Tiburcio Ward STAFF DEVELOPMENT EDUCATOR.SATELLITE COMMUNICATIONS ENGINEER Work Phone: [facility] 02-06-2023 13:12-0400 Systolic blood pressure 118 mm[Hg] Tiburcio Ward STAFF DEVELOPMENT EDUCATOR.SATELLITE COMMUNICATIONS ENGINEER Work Phone: [facility] 02-06-2023 12:56-0400 Body temperature 97.59 [degF] Tiburcio Ward STAFF DEVELOPMENT EDUCATOR.SATELLITE COMMUNICATIONS ENGINEER Work Phone: [facility] 02-06-2023 12:56-0400 Body weight 109.59 kg Tiburcio Ward STAFF DEVELOPMENT EDUCATOR.SATELLITE COMMUNICATIONS ENGINEER Work Phone: [facility] 02-06-2023 12:56-0400 Heart rate 65 /min Tiburcio Ward STAFF DEVELOPMENT EDUCATOR.SATELLITE COMMUNICATIONS ENGINEER Work Phone: [facility] 02-06-2023 12:56-0400 Respiratory rate 16 /min Tiburcio Ward STAFF DEVELOPMENT EDUCATOR.SATELLITE COMMUNICATIONS ENGINEER Work Phone: [facility] 02-06-2023 12:56-0400 SaO2% (BldA) [Mass fraction] 98 % Tiburcio Ward STAFF DEVELOPMENT EDUCATOR.SATELLITE COMMUNICATIONS ENGINEER Work Phone: [facility] 08-08-2022 13:06-0500 Body temperature 97.3 [degF] Tiburcio Ward STAFF DEVELOPMENT EDUCATOR.SATELLITE COMMUNICATIONS ENGINEER Work Phone: [facility] 08-08-2022 13:06-0500 Body weight 107.41 kg Tiburcio Ward STAFF DEVELOPMENT EDUCATOR.SATELLITE COMMUNICATIONS ENGINEER Work Phone: [facility] 08-08-2022 13:06-0500 Diastolic blood pressure 70 mm[Hg] Tiburcio Ward STAFF DEVELOPMENT EDUCATOR.SATELLITE COMMUNICATIONS ENGINEER Work Phone: [facility] 08-08-2022 13:06-0500 Heart rate 68 /min Tiburcio Ward STAFF DEVELOPMENT EDUCATOR.SATELLITE COMMUNICATIONS ENGINEER Work Phone: [facility] 08-08-2022 13:06-0500 Respiratory rate 16 /min Tiburcio Ward STAFF DEVELOPMENT EDUCATOR.SATELLITE COMMUNICATIONS ENGINEER Work Phone: [facility] 08-08-2022 13:06-0500 SaO2% (BldA) [Mass fraction] 98 % Tiburcio Ward STAFF DEVELOPMENT EDUCATOR.SATELLITE COMMUNICATIONS ENGINEER Work Phone: [facility] 08-08-2022 13:06-0500 Systolic blood pressure 106 mm[Hg] Tiburcio Ward STAFF DEVELOPMENT EDUCATOR.SATELLITE COMMUNICATIONS ENGINEER Work Phone: [facility] 03-21-2022 10:22-0400 Body temperature 98.1 [degF] Tiburcio Ward STAFF DEVELOPMENT EDUCATOR.SATELLITE COMMUNICATIONS ENGINEER Work Phone: [facility] 03-21-2022 10:22-0400 Body weight 105.69 kg Tiburcio Ward STAFF DEVELOPMENT EDUCATOR.SATELLITE COMMUNICATIONS ENGINEER Work Phone: [facility] 03-21-2022 10:22-0400 Diastolic blood pressure 82 mm[Hg] Tiburcio Ward STAFF DEVELOPMENT EDUCATOR.SATELLITE COMMUNICATIONS ENGINEER Work Phone: [facility] 03-21-2022 10:22-0400 Heart rate 78 /min Tiburcio Wadr STAFF DEVELOPMENT EDUCATOR.SATELLITE COMMUNICATIONS ENGINEER Work Phone: [facility] 03-21-2022 10:22-0400 Respiratory rate 16 /min Tiburcio Ward STAFF DEVELOPMENT EDUCATOR.SATELLITE COMMUNICATIONS ENGINEER Work Phone: [facility] 03-21-2022 10:22-0400 Systolic blood pressure 128 mm[Hg] Tiburcio Ward STAFF DEVELOPMENT EDUCATOR.SATELLITE COMMUNICATIONS ENGINEER Work Phone: [facility] 03-14-2022 14:14-0400 Diastolic blood pressure 72 mm[Hg] Magda Mercado MD Work Phone: [facility] 03-14-2022 14:14-0400 Systolic blood pressure 146 mm[Hg] Magda Mercado MD Work Phone: [facility] 03-14-2022 13:26-0400 Heart rate 61 /min Magda Mercado MD Work Phone: [facility] 03-03-2022 15:37-0400 Body height 157.5 cm Gabrielle Arrigon STAFF DEVELOPMENT EDUCATOR.SATELLITE COMMUNICATIONS ENGINEER Work Phone: [facility] 03-03-2022 15:37-0400 Body weight 105.69 kg Gabrielle Arrigon STAFF DEVELOPMENT EDUCATOR.SATELLITE COMMUNICATIONS ENGINEER Work Phone: [facility] 03-03-2022 15:37-0400 Diastolic blood pressure 68 mm[Hg] Gabrielle Arrigon STAFF DEVELOPMENT EDUCATOR.SATELLITE COMMUNICATIONS ENGINEER Work Phone: [facility] 03-03-2022 15:37-0400 Heart rate 63 /min Gabrielle Arrigon STAFF DEVELOPMENT EDUCATOR.SATELLITE COMMUNICATIONS ENGINEER Work Phone: [facility] 03-03-2022 15:37-0400 Systolic blood pressure 170 mm[Hg] Gabrielle Arrigon STAFF DEVELOPMENT EDUCATOR.SATELLITE COMMUNICATIONS ENGINEER Work Phone: [facility] 01-06-2022 13:44-0400 Body height 157.5 cm Magda Mercado MD Work Phone: [facility] 01-06-2022 13:44-0400 Body weight 110.77 kg Magda Mercado MD Work Phone: [facility] 01-06-2022 13:44-0400 Diastolic blood pressure 78 mm[Hg] Magda Mercado MD Work Phone: [facility] 01-06-2022 13:44-0400 Heart rate 62 /min Magda Mercado MD Work Phone: [facility] 01-06-2022 13:44-0400 Systolic blood pressure 190 mm[Hg] Magda Mercado MD Work Phone: [facility] Encounters Encounter Date Encounter Type Care Provider Facility Start: 06-18-2024 End: 06-18-2024 ambulatory MAGDA MERCADO Facility:[facility] Start: 06-18-2024 End: 06-18-2024 ambulatory JENI NICKERSON Facility:[facility] Start: 06-18-2024 End: 06-18-2024 Subsequent hospital visit by physician Ct 2 Main Qb (I-Stat) Radiology Comment on above: Urothelial carcinoma of kidney, 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] Start: 05-08-2024 End: 05-08-2024 Refill Jeni Nickerson MD Work Phone: [facility] [employer] Comment on above: Refill Request Start: 04-21-2024 End: 04-21-2024 ambulatory TIBURCIO ANG Facility:[facility] Start: 04-21-2024 End: 04-21-2024 Office outpatient visit 25 minutes Tiburcio Ang STAFF DEVELOPMENT EDUCATOR.SATELLITE COMMUNICATIONS ENGINEER Work Phone: [facility] [place] Comment on above: Essential hypertensi on, benign (Primary Dx); Atrial flutter, unspecified type (HCC); Gout, unspecified cause, unspecified chronicity, unspecified site; Impaired fasting glucose; Stage 3b chronic kidney disease (HCC); Elevated cholesterol; Screening for depression; Encounter for screening examination for other mental health and behavioral disorders Start: 04-18-2024 End: 04-18-2024 ambulatory TIBURCIO ANG Facility:[facility] Start: 12-11-2023 End: 12-11-2023 Patient encounter procedure Magda Mercado MD Work Phone: Urology Comment on above: Urothelial carcinoma of kidney, right (HCC) (Primary Dx); Malignant neoplasm of urinary bladder, unspecified site (HCC); Morbid obesity with BMI of 40.0-44.9, adult (HCC); Stage 3b chronic kidney disease (HCC) Start: 12-11-2023 End: 12-11-2023 ambulatory MAGDA MERCADO Facility:[facility] Start: 10-22-2023 Documentation procedure Mammog edward Coordinator [facility] Start: 10-22-2023 Letter encounter Mammography Coordinator [facility] Department Start: 10-22-2023 Telephone encounter Jenifer muñoz APRN.SATELLITE COMMUNICATIONS ENGINEER Work Phone: [facility] [employer] Comment on above: Results (Mammogram ) Start: 10-22-2023 End: 10-22-2023 ambulatory JENIFER CARLSON Facility:[facility] Start: 10-22-2023 End: 10-22-2023 Subsequent hospital visit by physician Screen Mammo [facility] Mammogram Comment on above: Encounter for screen ing mammogram for malignant neoplasm of breast [Z12.31] Start: 09-29-2023 End: 09-29-2023 ambulatory JENI NICKERSON Facility:[facility] Start: 09-24-2023 Refill Jeni page MD Work Phone: [facility] [place] Comment on above: Refill Request Start: 08-13-2023 End: 08-13-2023 ambulatory TIBURCIO ANG Facility:[facility] Start: 08-13-2023 End: 08-13-2023 Office outpatient visit 25 minutes Tiburcio Ang APRN.SATELLITE COMMUNICATIONS ENGINEER Work Phone: [facility] [place] Comment on above: Essential hypertensi on, benign (Primary Dx); Atrial flutter, unspecified type (HCC); Gout, unspecified cause, unspecified chronicity, unspecified site; Impaired fasting glucose; Elevated cholesterol; Stage 3b chronic kidney disease (HCC); Lung nodule seen on imaging study Start: 08-10-2023 End: 08-10-2023 ambulatory TIBURCIO ANG Facility:[facility] Start: 08-08-2023 End: 08-08-2023 ambulatory TIBURCIO ANG Facility:[facility] Start: 08-08-2023 End: 08-08-2023 Subsequent hospital visit by physician [facility] (I-Stat) Work Phone: [facility] Comment on above: Lung nodules [R91.8] Start: 08-07-2023 End: 08-07-2023 ambulatory ANGLE GONZALEZ Facility:[facility] Start: 08-07-2023 End: 08-07-2023 ambulatory JENI NICKERSON Facility:[facility] Start: 08-07-2023 End: 08-07-2023 Subsequent hospital visit by physician Mri 7 Radio Main Q (I-Stat/1.5t/3t) Work Phone: MRI Q Comment on above: Urothelial carcinoma of kidney, 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] Start: 07-09-2023 Telephone encounter Jeni wen MD Work Phone: [facility] [place] Start: 05-15-2023 Refill Jeni page MD Work Phone: [facility] [employer] Comment on above: Refill Request Start: 04-03-2023 End: 04-09-2023 Patient encounter procedure Magda Mercado MD Work Phone: Urology Comment on above: Urothelial carcinoma of kidney, right (HCC) (Primary Dx); History of bladder cancer; Malignant neoplasm of urinary bladder, unspecified site (HCC); Body mass index (BMI) 40.0-44.9, adult (HCC) Start: 02-06-2023 End: 02-06-2023 Office outpatient visit 25 minutes Tiburcio Ang APRN.CNP Work Phone: [facility] Comment on above: Essential hypertensi on, benign (Primary Dx); Atrial flutter, unspecified type (HCC); Gout, unspecified cause, unspecified chronicity, unspecified site; Impaired fasting glucose; Stage 3b chronic kidney disease (HCC); Elevated cholesterol; Varicose veins of left lower extremity with pain; Skin lesion Start: 11-28-2022 End: 11-28-2022 Patient encounter procedure Magda Mercado MD Work Phone: Urology Comment on above: Urothelial carcinoma of kidney, right (HCC) (Primary Dx); History of bladder cancer Start: 11-13-2022 Refill Jeni page MD Work Phone: [facility] Comment on above: Refill Request Start: 11-02-2022 Refill Jeni page MD Work Phone: [facility] Comment on above: Refill Request Start: 08-15-2022 Telephone encounter Tiburcio ace APRN.SATELLITE COMMUNICATIONS ENGINEER Work Phone: [facility] [employer] Comment on above: Results Start: 08-11-2022 End: 08-11-2022 Subsequent hospital visit by physician [facility] Work Phone: Radiology Comment on above: Thyroid nodule [E04. 1] Start: 08-08-2022 End: 08-08-2022 Office outpatient visit 25 minutes Tiburcio Ang APRN.CNP Work Phone: [facility] Comment on above: Atrial flutter, unsp ecified type (HCC) (Primary Dx); Essential hypertension, benign; Gout, unspecified cause, unspecified chronicity, unspecified site; Impaired fasting glucose; Elevated cholesterol; Stage 3b chronic kidney disease (HCC); Thyroid nodule; Lung nodule seen on imaging study; Lung nodules Start: 07-26-2022 End: 07-26-2022 ambulatory Niharika Iris RAMÍREZ Work Phone: Urology Comment on above: History of bladder c ancer (Primary Dx) Start: 07-26-2022 End: 07-26-2022 Telemedicine consultation with patient Niharika Simmons CHIP.SATELLITE COMMUNICATIONS ENGINEER Work Phone: [facility] Start: 07-18-2022 End: 07-18-2022 Subsequent hospital visit by physician Dc 2 Main Qb (I-Stat) Radiology Comment on above: Malignant neoplasm o f urinary bladder, unspecified site (HCC) [C67.9] Start: 05-22-2022 Refill Jeni page MD Work Phone: [facility] Comment on above: Refill Request Start: 04-27-2022 Documentation procedure Mammog edward Coordinator [facility] Start: 04-27-2022 Letter encounter Mammography Coordinator [facility] Department Start: 04-27-2022 End: 04-27-2022 Subsequent hospital visit by physician Screen Mammo [facility] Comment on above: Encounter for screen ing mammogram for malignant neoplasm of breast [Z12.31] Start: 04-14-2022 Telephone encounter Jeni wen MD Work Phone: [facility] [employer] Comment on above: Orders; Appointment Start: 04-07-2022 Telephone encounter Jeni wen MD Work Phone: [facility] Comment on above: Patient Request Start: 03-21-2022 End: 03-21-2022 Patient encounter procedure Tiburcio Ang STAFF DEVELOPMENT EDUCATOR.SATELLITE COMMUNICATIONS ENGINEER Work Phone: [facility] Comment on above: Urothelial carcinoma (HCC) (Primary Dx); Atrial flutter, unspecified type (HCC); Essential hypertension, benign; Hospital discharge follow-up Start: 03-14-2022 ambulatory Magda Mercado MD Work Phone: Urology Start: 03-14-2022 End: 03-14-2022 Patient encounter procedure Magda Mercado MD Work Phone: Urology Comment on above: Urothelial carcinoma of kidney, right (HCC) (Primary Dx); 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); Malignant neoplasm of urinary bladder, unspecified site (HCC) Start: 03-10-2022 ambulatory Ale cochran RN Work Phone: [facility] Start: 03-10-2022 Telephone encounter Jeni wen MD Work Phone: [facility] Comment on above: Follow for [facility] Transition Of Care ( TCM Initial Hospital Discharge [facility] on 03-09-22) Start: 03-03-2022 End: 03-03-2022 Patient encounter procedure Gabrielle Cerda STAFF DEVELOPMENT EDUCATOR.SATELLITE COMMUNICATIONS ENGINEER Work Phone: Urology Comment on above: Suspected UTI (Prima ry Dx) Start: 03-03-2022 ambulatory Gabrielle astorga STAFF DEVELOPMENT EDUCATOR.SATELLITE COMMUNICATIONS ENGINEER Work Phone: Urology Start: 02-02-2022 ambulatory Sabine Pink RN Card iology Comment on above: Procedure (Dobutamin e Stress Echo ) Start: 02-02-2022 End: 02-02-2022 Patient encounter procedure Sabine Pink RN [facility] Comment on above: Gross hematuria; Abnormal electrocardiogram (ECG) (EKG) ; Atrial flutter, unspecified type (HCC) Start: 02-01-2022 Telephone encounter Sabine Pink RN Cardiology Comment on above: Patient Education (D SE) Start: 01-19-2022 ambulatory Juliet Isaac RN [facility] & Start: 01-16-2022 ambulatory Karrie Alonso RN NURSE O N CALL Comment on above: Blood In Urine Start: 01-06-2022 ambulatory Magda Mercado MD Work Phone: Urology Start: 01-06-2022 End: 01-06-2022 Patient encounter procedure Magda Mercado MD Work Phone: Urology Comment on above: Gross hematuria ([place] Dx); Bladder cancer screening Start: 12-12-2021 Refill Jeni page MD Work Phone: [facility] Comment on above: Refill Request Start: 08-20-2010 Female genitalia finding Jeni Nickerson MD Work Phone: [facility] Work Phone: Procedures Date Procedure Procedure Detail Performing Clinician Start: 06-18-2024 Ct abdomen & pelvis w/o contrst 1/> body re Magda Mercado MD Work Phone: Start: 06-18-2024 Creatinine [Mass/vol ume] in Serum or Plasma [facility] Provider Start: 04-21-2024 Adult depression scr eening assessment Tiburcio Ang STAFF DEVELOPMENT EDUCATOREmmettSATELLITE COMMUNICATIONS ENGINEER Work Phone: Start: 12-11-2023 Cytp slctv cell enha ncement interpj xcpt c/v Magda Mercado MD Work Phone: Start: 12-11-2023 Urnls dip stick/tabl et rgnt auto w/o microscopy Magda Mercado MD Work Phone: Start: 10-22-2023 Screening mammograph y bi 2-view breast inc cad Jenifer Carlson STAFF DEVELOPMENT EDUCATOR.SATELLITE COMMUNICATIONS ENGINEER Work Phone: Start: 08-07-2023 Mri abdomen w/o & w/contrast material Magda Mercado MD Work Phone: Start: 04-03-2023 Cytp slctv cell enha ncement interpj xcpt c/v Madga Mercado MD Work Phone: Start: 04-03-2023 Urnls dip stick/tabl et rgnt auto w/o microscopy Magda Mercado MD Work Phone: Start: 11-28-2022 Cytp slctv cell enha ncement interpj xcpt c/v Magda Mercado MD Work Phone: Start: 11-28-2022 Urnls dip stick/tabl et rgnt auto w/o microscopy Magda Mercado MD Work Phone: Start: 08-11-2022 Us soft tissue head & neck real time imge docm Tiburcio Ang STAFF DEVELOPMENT EDUCATOR.SATELLITE COMMUNICATIONS ENGINEER Work Phone: Start: 07-18-2022 Ct abdomen & pelvis w/contrast material Magda Mercado MD Work Phone: Start: 07-18-2022 Ct thorax w/contrast material Magda Mercado MD Work Phone: Start: 07-18-2022 Creatinine [Mass/vol ume] in Serum or Plasma [facility] Provider Start: 04-27-2022 Screening mammograph y bi 2-view breast inc cad Tiburcio Ward STAFF DEVELOPMENT EDUCATOR.SATELLITE COMMUNICATIONS ENGINEER Work Phone: Start: 03-03-2022 Urnls dip stick/tabl et reagent auto microscopy Bulk Order Provider Start: 02-02-2022 Echo tthrc r-t 2d w/wom-mode compl spec&colr d [facility] Provider Start: 02-02-2022 LVEF TRANSTHORACIC ECHO [facility] Provider Start: 01-09-2022 Antibody screen Magda Mercado MD Work Phone: Start: 01-06-2022 Cytp slctv cell enha ncement interpj xcpt c/v Magda Mercado MD Work Phone: Start: 01-06-2022 Urnls dip stick/tabl et rgnt auto w/o microscopy Bulk Order Provider Start: 06-16-2019 Adult depression scr eening assessment Jeni Nickerson MD Work Phone: Plan of Treatment Date Care Activity Detail Author Start: 04-18-2027 Diabetes Screening Diabetes Screening [facility] Start: 08-10-2026 Diabetes Screening Diabetes Screening [facility] Start: 01-20-2026 DIABETES SCREEN DIABETES SCREEN [facility] Start: 01-20-2026 Diabetes Screening Diabetes Screening [facility] Start: 08-05-2025 DIABETES SCREEN DIABETES SCREEN [facility] Start: 07-18-2025 DIABETES SCREEN DIABETES SCREEN [facility] Start: 04-21-2025 Anxiety Screening Anxiety Screening [facility] Start: 04-21-2025 Depression Screening Depression Screening [facility] Start: 03-08-2025 DIABETES SCREEN DIABETES SCREEN [facility] Start: 03-03-2025 DIABETES SCREEN DIABETES SCREEN [facility] Start: 01-24-2025 DIABETES SCREEN DIABETES SCREEN [facility] Start: 01-18-2025 DIABETES SCREEN DIABETES SCREEN [facility] Start: 01-09-2025 DIABETES SCREEN DIABETES SCREEN [facility] Start: 10-28-2024 End: 10-28-2024 Patient encounter procedure 10/28/2024 1:00 PM EST Office Visit [facility] [address], [place] [id number] Tiburcio Ang, STAFF DEVELOPMENT EDUCATOR.SATELLITE COMMUNICATIONS ENGINEER [address] [place], [place] [id number] 6 month follow up [facility] Comment on above: 6 month follow up Start: 10-22-2024 End: 01-21-2025 Comprehensive metabolic 2000 panel - Serum or Plasma COMPREHENSIVE METABOLIC PANEL Lab Routine Essential hypertension, benign Atrial flutter, unspecified type (HCC) Impaired fasting glucose Stage 3b chronic kidney disease (HCC) Expected: 10/22/2024 (Approximate), Expires: 01/21/2025 [facility] Comment on above: Expected: 10/22/2024 (Approximate), Expi res: 01/21/2025 Start: 10-22-2024 End: 01-21-2025 Hemoglobin A1c in Blood HEMOGLOBIN A1C Lab Routine Impaired fasting glucose Expected: 10/22/2024 (Approximate), Expires: 01/21/2025 [facility] Comment on above: Expected: 10/22/2024 (Approximate), Expi res: 01/21/2025 Start: 10-22-2024 End: 01-21-2025 Lipid 1996 panel - Serum or Plasma LIPID PANEL BASIC Lab Routine Elevated cholesterol Expected: 10/22/2024 (Approximate), Expires: 01/21/2025 [facility] Comment on above: Expected: 10/22/2024 (Approximate), Expi res: 01/21/2025 Start: 10-22-2024 End: 01-21-2025 Urate [Mass/volume] in Serum or Plasma URIC ACID Lab Routine Gout, unspecified cause, unspecified chronicity, unspecified site Expected: 10/22/2024 (Approximate), Expires: 01/21/2025 [facility] Work Phone: Comment on above: Expected: 10/22/2024 (Approximate), Expi res: 01/21/2025 Start: 08-13-2024 Covid-19 Vaccine () Covid-19 Vaccine () [facility] Comment on above: Postponed from 05/11/2023 (Declined at t his time) Start: 07-02-2024 DIABETES SCREEN DIABETES SCREEN [facility] Start: 06-18-2024 End: 06-18-2024 Patient encounter procedure 06/18/2024 1:30 PM EDT Office Visit Urology [address] [id number] Magda Mercado MD [address] [place] [address] 6 month Cysto per CC chart Urology Comment on above: 6 month Cysto per CC chart Start: 06-18-2024 End: 06-18-2024 Patient encounter procedure 06/18/2024 11:30 AM EDT Appointment Radiology [address] [address] [address] UROGRAM WO/W IVCON per [facility] chart Radiology Comment on above: CT UROGRAM WO/W IVCON per [facility] chart Start: 06-17-2024 End: 06-17-2024 Patient encounter procedure Radiology Comment on above: CT UROGRAM WO/W IVCON per CC chart 6 month Cysto per CC chart Start: 06-11-2024 End: 01-09-2025 CT Kidney WO and W contrast IV CT UROGRAM WO/W IVCON Radiology Routine Urothelial carcinoma of kidney, right (HCC) Malignant neoplasm of urinary bladder, unspecified site (HCC) Expected: 06/11/2024 (Approximate), Expires: 01/09/2025 [facility] Work Phone: Comment on above: Expected: 06/11/2024 (Approximate), Expi res: 01/09/2025 Start: 05-11-2024 Covid-19 Vaccine ( season) Covid-19 Vaccine () [facility] Start: 05-11-2024 Influenza vaccination [facility] Start: 04-21-2024 End: 04-21-2024 Patient encounter procedure 04/21/2024 9:40 AM EDT Office Visit [facility] [address] [place] [address] Tiburcio Ang APRN.SATELLITE COMMUNICATIONS ENGINEER [address] [place] [address] 6 month f/u [facility] Comment on above: 6 month f/u Start: 03-09-2024 Influenza vaccination Influenza Vaccine (#1) [facility] Comment on above: Postponed from 05/11/2023 (Declined at t his time) Start: 02-12-2024 End: 05-13-2024 CBC W Auto Differential panel - Blood CBC + DIFF Lab Routine Atrial flutter, unspecified type (HCC) Stage 3b chronic kidney disease (HCC) Expected: 02/12/2024 (Approximate), Expires: 05/13/2024 [facility] Work Phone: Comment on above: Expected: 02/12/2024 (Approximate), Expi res: 05/13/2024 Start: 02-12-2024 End: 05-13-2024 Comprehensive metabolic 2000 panel - Serum or Plasma COMP METABOLIC PANEL Lab Routine Essential hypertension, benign Stage 3b chronic kidney disease (HCC) Expected: 02/12/2024 (Approximate), Expires: 05/13/2024 [facility] Work Phone: Comment on above: Expected: 02/12/2024 (Approximate), Expi res: 05/13/2024 Start: 02-12-2024 End: 05-13-2024 Hemoglobin A1c in Blood HGB A1C Lab Routine Impaired fasting glucose Expected: 02/12/2024 (Approximate), Expires: 05/13/2024 [facility] Work Phone: Comment on above: Expected: 02/12/2024 (Approximate), Expi res: 05/13/2024 Start: 02-12-2024 End: 05-13-2024 Lipid 1996 panel - Serum or Plasma LIPID PANEL BASIC Lab Routine Elevated cholesterol Expected: 02/12/2024 (Approximate), Expires: 05/13/2024 [facility] Work Phone: Comment on above: Expected: 02/12/2024 (Approximate), Expi res: 05/13/2024 Start: 02-12-2024 End: 05-13-2024 Urate [Mass/volume] in Serum or Plasma URIC ACID BLOOD Lab Routine Gout, unspecified cause, unspecified chronicity, unspecified site Expected: 02/12/2024 (Approximate), Expires: 05/13/2024 [facility] Work Phone: Comment on above: Expected: 02/12/2024 (Approximate), Expi res: 05/13/2024 Start: 12-11-2023 End: 03-11-2024 CREATININE BLD CREATININE BLD Lab Routine Urothelial carcinoma of kidney, right (HCC) Malignant neoplasm of urinary bladder, unspecified site (HCC) Expected: 12/11/2023, Expires: 03/11/2024 [facility] Comment on above: Expected: 12/11/2023, Expires: Start: 09-10-2023 Advance Directive Discussion Advance Directive Discussion [facility] Start: 09-10-2023 Behavioral Health Screening Behavioral Health Screening [facility] Start: 09-10-2023 Depression Assessment Depression Assessment [facility] Start: 08-09-2023 End: 10-09-2023 Comprehensive metabolic 2000 panel - Serum or Plasma COMP METABOLIC PANEL Lab Routine Essential hypertension, benign Impaired fasting glucose Stage 3b chronic kidney disease (HCC) Expected: 08/09/2023 (Approximate), Expires: 10/09/2023 [facility] Work Phone: Comment on above: Expected: 08/09/2023 (Approximate), Expi res: 10/09/2023 Start: 08-09-2023 End: 10-09-2023 Hemoglobin A1c in Blood HGB A1C Lab Routine Impaired fasting glucose Expected: 08/09/2023 (Approximate), Expires: 10/09/2023 [facility] Work Phone: Comment on above: Expected: 08/09/2023 (Approximate), Expi res: 10/09/2023 Start: 08-09-2023 End: 10-09-2023 Lipid 1996 panel - Serum or Plasma LIPID PANEL BASIC Lab Routine Elevated cholesterol Expected: 08/09/2023 (Approximate), Expires: 10/09/2023 [facility] Work Phone: Comment on above: Expected: 08/09/2023 (Approximate), Expi res: 10/09/2023 Start: 08-09-2023 End: 10-09-2023 Urate [Mass/volume] in Serum or Plasma URIC ACID BLOOD Lab Routine Gout, unspecified cause, unspecified chronicity, unspecified site Expected: 08/09/2023 (Approximate), Expires: 10/09/2023 [facility] Work Phone: Comment on above: Expected: 08/09/2023 (Approximate), Expi res: 10/09/2023 Start: 08-08-2023 COVID-19 VACCINE (3 - Booster for Pfizer series) COVID-19 VACCINE (3 - Booster for Pfizer series) [facility] Comment on above: Postponed from 03/12/2021 (Declined at t his time) Start: 08-08-2023 COVID-19 VACCINE (3 - Pfizer series) COVID-19 VACCINE (3 - Pfizer series) [facility] Comment on above: Postponed from 03/12/2021 (Declined at t his time) Start: 08-08-2023 End: 09-07-2023 Ct thorax w/o contrast material [facility] Work Phone: Comment on above: Expected: 08/08/2023 (Approximate), Expi res: 09/07/2023 Start: 08-08-2023 Urine microalbumin profile [facility] Comment on above: Postponed from 04/11/2018 (Insurance Cov erage) Start: 05-11-2023 Covid-19 Vaccine () Covid-19 Vaccine () [facility] Start: 05-11-2023 Influenza vaccination [facility] Start: 03-09-2023 Influenza vaccination INFLUENZA (#1) [facility] Comment on above: Postponed from 05/11/2022 (Declined at t his time) Start: 02-05-2023 End: 04-07-2023 CBC W Auto Differential panel - Blood CBC + DIFF Lab Routine Atrial flutter, unspecified type (HCC) Essential hypertension, benign Stage 3b chronic kidney disease (HCC) Expected: 02/05/2023 (Approximate), Expires: 04/07/2023 [facility] Work Phone: Comment on above: Expected: 02/05/2023 (Approximate), Expi res: 04/07/2023 Start: 02-05-2023 End: 04-07-2023 Comprehensive metabolic 2000 panel - Serum or Plasma COMP METABOLIC PANEL Lab Routine Atrial flutter, unspecified type (HCC) Essential hypertension, benign Expected: 02/05/2023 (Approximate), Expires: 04/07/2023 [facility] Work Phone: Comment on above: Expected: 02/05/2023 (Approximate), Expi res: 04/07/2023 Start: 02-05-2023 End: 04-07-2023 Hemoglobin A1c in Blood HGB A1C Lab Routine Impaired fasting glucose Expected: 02/05/2023 (Approximate), Expires: 04/07/2023 [facility] Work Phone: Comment on above: Expected: 02/05/2023 (Approximate), Expi res: 04/07/2023 Start: 02-05-2023 End: 04-07-2023 LIPID PANEL, NONFASTING LIPID PANEL, NONFASTING Lab Routine Elevated cholesterol Expected: 02/05/2023 (Approximate), Expires: 04/07/2023 [facility] Work Phone: Comment on above: Expected: 02/05/2023 (Approximate), Expi res: 04/07/2023 Start: 02-05-2023 End: 04-07-2023 Urate [Mass/volume] in Serum or Plasma URIC ACID BLOOD Lab Routine Gout, unspecified cause, unspecified chronicity, unspecified site Expected: 02/05/2023 (Approximate), Expires: 04/07/2023 [facility] Work Phone: Comment on above: Expected: 02/05/2023 (Approximate), Expi res: 04/07/2023 Start: 09-10-2022 ADVANCE DIRECTIVE DISCUSSION ADVANCE DIRECTIVE DISCUSSION [facility] Start: 09-10-2022 DEPRESSION ASSESSMENT DEPRESSION ASSESSMENT [facility] Start: 07-29-2022 ANNUAL PCP TEAM CHRONIC DISEASE VISIT ANNUAL PCP TEAM CHRONIC DISEASE VISIT [facility] Start: 07-15-2022 End: 09-14-2022 Basic metabolic 2000 panel - Serum or Plasma BASIC METABOLIC PNL Lab Routine Urothelial carcinoma of kidney, right (HCC) Expected: 07/15/2022 (Approximate), Expires: 09/14/2022 [facility] Work Phone: Comment on above: Expected: 07/15/2022 (Approximate), Expi res: 09/14/2022 Start: 05-11-2022 Influenza vaccination [facility] Start: 02-19-2022 End: 04-21-2022 aPTT in Platelet poor plasma by Coagulation assay ACTIVATED PTT Lab Routine Gross hematuria Expected: 02/19/2022 (Approximate), Expires: 04/21/2022 [facility] Work Phone: Comment on above: Expected: 02/19/2022 (Approximate), Expi res: 04/21/2022 Start: 02-19-2022 End: 04-21-2022 CBC panel - Blood by Automated count CBC Lab Routine Gross hematuria Expected: 02/19/2022 (Approximate), Expires: 04/21/2022 [facility] Work Phone: Comment on above: Expected: 02/19/2022 (Approximate), Expi res: 04/21/2022 Start: 02-19-2022 End: 04-21-2022 Comprehensive metabolic 2000 panel - Serum or Plasma COMP METABOLIC PANEL Lab Routine Gross hematuria Expected: 02/19/2022 (Approximate), Expires: 04/21/2022 [facility] Work Phone: Comment on above: Expected: 02/19/2022 (Approximate), Expi res: 04/21/2022 Start: 02-19-2022 End: 04-21-2022 CONFIRM BLOOD TYPE CONFIRM BLOOD TYPE Blood Bank Routine Gross hematuria Expected: 02/19/2022 (Approximate), Expires: 04/21/2022 [facility] Work Phone: Comment on above: Expected: 02/19/2022 (Approximate), Expi res: 04/21/2022 Start: 02-19-2022 End: 04-21-2022 PT panel - Platelet poor plasma by Coagulation assay PROTHROMBIN TIME/PT Lab Routine Gross hematuria Expected: 02/19/2022 (Approximate), Expires: 04/21/2022 [facility] Work Phone: Comment on above: Expected: 02/19/2022 (Approximate), Expi res: 04/21/2022 Start: 02-19-2022 End: 04-21-2022 TYPE AND SCREEN,30 DAY TYPE AND SCREEN,30 DAY Blood Bank Routine Gross hematuria Expected: 02/19/2022 (Approximate), Expires: 04/21/2022 [facility] Work Phone: Comment on above: Expected: 02/19/2022 (Approximate), Expi res: 04/21/2022 Start: 01-19-2022 End: 01-19-2023 SARS-CoV-2 (COVID-19) RNA [Presence] in Respiratory specimen by DOREEN with probe detection PRE-PROCEDURE & PRE-OPERATIVE COVID Microbiology Routine Gross hematuria Expected: 01/19/2022, Expires: 01/19/2023 [facility] Work Phone: Comment on above: Expected: 01/19/2022, Expires: 3 Start: 09-10-2021 ADVANCE DIRECTIVE DISCUSSION ADVANCE DIRECTIVE DISCUSSION [facility] Start: 09-10-2021 DEPRESSION ASSESSMENT DEPRESSION ASSESSMENT [facility] Start: 06-17-2021 COVID-19 VACCINE (3 - Booster for Pfizer series) COVID-19 VACCINE (3 - Booster for Pfizer series) [facility] Start: 03-12-2021 COVID-19 VACCINE (3 - Booster for Pfizer series) COVID-19 VACCINE (3 - Booster for Pfizer series) [facility] Start: 02-12-2021 COVID-19 VACCINE (3 - Pfizer risk series) COVID-19 VACCINE (3 - Pfizer risk series) [facility] Start: 06-16-2020 Adult depression screening assessment DEPRESSION SCREENING [facility] Start: 05-06-2020 BP CONTROLLED (<130/80) BP CONTROLLED (<130/80) [facility] Start: 04-11-2018 Urine microalbumin profile [facility] Start: 01-05-2016 RSV Vaccine (1 - 1-dose 75+ series) RSV Vaccine (1 - 1-dose 75+ series) [facility] Start: 2001 RSV Vaccine (1 - 1-dose 60+ series) RSV Vaccine (1 - 1-dose 60+ series) [facility] Start: 1991 SHINGRIX VACCINE (1 of 2) SHINGRIX VACCINE (1 of 2) [facility] Start: 01-05-1960 SHINGRIX VACCINE (1 of 2) SHINGRIX VACCINE (1 of 2) [facility] Bacteria identified in Urine by Culture URINE CULTURE Microbiology Routine Suspected UTI 03/03/2022 3:21 PM EDT [facility] Work Phone: End: 04-13-2023 Ct abdomen & pelvis w/contrast material CT ABD/PEL W IVCON Radiology Routine Malignant neoplasm of urinary bladder, unspecified site (HCC) 1 Occurrences starting 03/14/2022 until 04/13/2023 [facility] Work Phone: Comment on above: 1 Occurrences starting 03/14/2022 until 04/13/2023 End: 04-13-2023 Ct thorax w/contrast material CT CHEST W IVCON Radiology Routine 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) 1 Occurrences starting 03/14/2022 until 04/13/2023 [facility] Work Phone: Comment on above: 1 Occurrences starting 03/14/2022 until 04/13/2023 Cystourethroscopy CYSTO.PANENDO Procedures Routine Urothelial carcinoma of kidney, right (HCC) 1 Occurrences starting 03/14/2022 [facility] Work Phone: Comment on above: 1 Occurrences starting 03/14/2022 Cystourethroscopy CYSTO.PANENDO Procedures Routine History of bladder cancer Ordered: 07/26/2022 [facility] Work Phone: Comment on above: Ordered: 07/26/2022 End: 01-19-2023 ECG COMPLETE ECG COMPLETE ECG Routine Gross hematuria 1 Occurrences starting 01/19/2022 until 01/19/2023 [facility] Work Phone: Comment on above: 1 Occurrences starting 01/19/2022 until 01/19/2023 End: 05-02-2024 Mri abdomen w/o & w/contrast material MRI ABDOMEN URO WO/W IVCON Radiology Routine Urothelial carcinoma of kidney, right (HCC) History of bladder cancer Malignant neoplasm of urinary bladder, unspecified site (HCC) 1 Occurrences starting 04/03/2023 until 05/02/2024 [facility] Work Phone: Comment on above: 1 Occurrences starting 04/03/2023 until 05/02/2024 End: 05-02-2024 Mri pelvis w/o & w/contrast material MRI PELVIS URO WO/W IVCON Radiology Routine Urothelial carcinoma of kidney, right (HCC) History of bladder cancer Malignant neoplasm of urinary bladder, unspecified site (HCC) 1 Occurrences starting 04/03/2023 until 05/02/2024 [facility] Work Phone: Comment on above: 1 Occurrences starting 04/03/2023 until 05/02/2024 End: 01-19-2023 STRESS ECHO DOBUTAMINE STRESS ECHO DOBUTAMINE Cardiology Routine Gross hematuria Abnormal electrocardiogram (ECG) (EKG) 1 Occurrences starting 01/19/2022 until 01/19/2023 [facility] Work Phone: Comment on above: 1 Occurrences starting 01/19/2022 until 01/19/2023 URINALYSIS, REFLEX MICROSCOPIC URINALYSIS, REFLEX MICROSCOPIC Lab Routine Screening for genitourinary condition Ordered: 03/14/2022 [facility] Work Phone: Comment on above: Ordered: 03/14/2022 URINALYSIS, REFLEX MICROSCOPIC URINALYSIS, REFLEX MICROSCOPIC Lab Routine Screening for genitourinary condition Ordered: 07/26/2022 [facility] Work Phone: Comment on above: Ordered: 07/26/2022 End: 09-07-2023 Us soft tissue head & neck real time imge docm US THYROID/PARATHYROID Radiology Routine Thyroid nodule 1 Occurrences starting 08/08/2022 until 09/07/2023 [facility] Work Phone: Comment on above: 1 Occurrences starting 08/08/2022 until 09/07/2023 [facility] Immunizations Immunization Date Immunization Notes Care Provider Fa cili 01-15-2021 COVID-19 vaccine, ag e 12+ yr (PFIZER-BIONTECH - PURPLE TOP) Jeni Nickerson MD Work Phone: [facility] Work Phone: 12-23-2020 COVID-19 vaccine, ag e 12+ yr (PFIZER-BIONTECH - PURPLE TOP) Jeni Nickerson MD Work Phone: [facility] Work Phone: 05-06-2019 pneumococcal polysaccharide vaccine, 23 valent Jeni Nickerson MD Work Phone: [facility] 11-04-2018 influenza virus vacc ine, unspecified formulation Us 2 Work Phone: [facility] 05-02-2018 pneumococcal conjuga te vaccine, 13 valsasha Nickerson MD Work Phone: [facility] 04-10-2018 tetanus and diphther ia toxoids, adsorbed, preservative free, for adult use (2 Lf of tetanus toxoid and 2 Lf of diphtheria toxoid) Jeni Nickerson MD Work Phone: [facility] 07-23-2012 tetanus and diphther ia toxoids, adsorbed, preservative free, for adult use (2 Lf of tetanus toxoid and 2 Lf of diphtheria toxoid) Jeni Nickerson MD Work Phone: [facility] 05-10-2008 pneumococcal polysaccharide vaccine, 23 valent Jeni Nickerson MD Work Phone: [facility] 08-26-2003 pneumococcal polysaccharide vaccine, 23 valent Jeni Nickerson MD Work Phone: [facility] Work Phone: Payers Date Payer Category Payer Private Health Insurance AET[employer] A ETNA MEDICARE SUPPLEMENT [id number] 2012-Present [phone] [address] [address] [place] [address] Indemnity [id number] 2012 Private Health Insurance [id number] 2012 Medicare [id number] 2005 Medicare MEDICARE MEDICAR E A AND B [id number] 2005-Present [phone] [address] [address] [place] [address] Medicare [id number] 2005 Medicare MEDICARE MEDICAR E A AND B [id number] 2005-Present [phone] [place] [address] Medicare [id number] 2005 Medicare [id number] Social History Date Type Detail Facility Start: 03-03-2022 End: 08-08-2022 Tobacco smoking status NHIS Never smoked tobacco [facility] Work Phone: Start: 08-26-2021 End: 04-21-2024 Alcohol intake Current non-drinker of alcohol (finding) [facility] Start: 1940 Sex Assigned At Not on file [facility] Start: 12-27-2021 End: 08-08-2022 Exposure to SARS-CoV-2 (event) Not sure [facility] Start: 03-03-2022 End: 08-08-2022 Tobacco use and exposure Smokeless tobacco non-user [facility] Start: 02-06-2023 End: 04-21-2024 History of Social function [facility] Work Phone: Start: 02-06-2023 End: 04-21-2024 Tobacco use panel [facility] Work Phone: Adult Depression Screening Assessment 0 [facility] Work Phone: Medical Equipment Procedure Code Equipment Code Equipment Origin al Text Equipment Identifier Dates Stent Inlay Opti ma 4.7fr Taper [place] [employer] Phreecoat [facility] - [id number] Start: 01-11-2022 Clinical Notes 12-12-2021 to 06-18-2024 Paulina Dobbins RN - 06/18/2024 11:30 AM Magda Soni RT(R) - 06/18/2024 11:30 AM EDTTelephone Encounter - Jenifer Carlson APRN.CNP - 05/08/2024 2:18 PM EDTPatient Instructions Note Date & Type Note Facility 06-18-2024 History of Present illness Narrative Radiology Service Progress Note DATE OF SERVICE: June 18, 2024 TIME: 11:55 AM PATIENT WEIGHT: 245LBS PATIENT IDENTITY VERIFICATION COMPLETED USING TWO (2) STANDARD IDENTIFIERS: Name and Date of confirmed by patient verbally. FALL SCREENING: Has the patient had 2 falls in the last year or 1 fall with injury or currently using an Ambulatory Assistive Device (Walker, Cane, Wheelchair, Crutches, etc.)? No PATIENT GENDER DATA: Female. status: : No status: NO. ALLERGIES: Reviewed and unchanged CONTRAST ALLERGY: No EXAM: CT -CONTRAST INDUCED NEPHROPATHY RISK FACTORS: Patient age > 60 years, Known Chronic Kidney Disease (CKD), and History of Kidney surgery, Kidney neoplasm, Liver disease, and/or any recent Nephrotoxic Chemotherapy or other Nephrotoxic medications CREATININE: Creatinine Date Value Ref Range Status 04/18/2024 1.40 (H) 0.58 - 0.96 mg/dL Final 08/10/2023 1.32 (H) 0.58 - 0.96 mg/dL Final 01/20/2023 1.49 (H) 0.58 - 0.96 mg/dL Final Estimated Glomerular Filtration Rate Date Value Ref Range Status 04/18/2024 37 (L) >=60 mL/min/1.73m Final Comment: Estimated Glomerular Filtration Rate (eGFR) is calculated using the 2020 CKD-EPI creatinine equation. This equation utilizes serum creatinine, sex, and age as parameters. The creatinine assay has traceable calibration to isotope dilution-mass spectrometry. Refer to KDIGO guidelines for clinical interpretation. In patients with unstable renal function, e.g. those with acute kidney injury, the eGFR may not accurately reflect actual GFR. eGFR- Date Value Ref Range Status 07/02/2021 >60 Final P.O.C.T. RESULTS: POC done: Yes, See Lab Tab June 18, 2024 TREATMENT: N/A IV SITE: Ambulatory: A peripheral IV was started in the Right forearm with a Angio cath: 20 gauge. IV SITE APPEARANCE: Clean,Dry and Intact SIGNATURE: Paulina Dobbins RN PATIENT NAME: Azul Victoria DATE: June 18, 2024 TIME: 11:55 AM Radiology Service Progress Note PATIENT NAME: Azul Victoria DATE OF SERVICE: June 18, 2024 TIME: 12:53 PM PATIENT IDENTITY VERIFICATION COMPLETED USING TWO (2) IDENTIFIERS: Name and Date of confirmed by patient verbally and Name and Date of confirmed by identification band. FALL SCREENING: Has the patient had 2 falls in the last year or 1 fall with injury or currently using an Ambulatory Assistive Device (Walker, Cane, Wheelchair, Crutches, etc.)? Yes, Patient High Risk for Falls What interventions were put in place to prevent falls during this visit? Offered Assistance with Transfers and Increased Observations by Caregivers PATIENT GENDER DATA: Female. status: : No status: NO. PATIENT RELEVANT IMPLANT DATA REVIEWED: Yes PATIENT PRESENTS WITH AN IMPLANTABLE OR ATTACHED DISPOSAL PLANT OPERATOR: No RADIOLOGY DEPARTMENT: CT; Exam(s) Completed: Urogram PERIPHERAL IV DATA: Site assessment: Clean,Dry and Intact, Site disposition Discontinued SIGNED BY: RT Shahid(R) June 18, 2024 12:53 PM documented in this encounter [facility] 06-18-2024 Note HNO ID: [id number] Author: PAULINA DOBBINS RN Service: Radiology Author Type: Registered Nurse Type: Progress Notes Filed: 06/18/2024 11:58 Note Text: Radiology Service Progress Note DATE OF SERVICE: June 18, 2024 TIME: 11:55 AM PATIENT WEIGHT: 245LBS PATIENT IDENTITY VERIFICATION COMPLETED USING TWO (2) STANDARD IDENTIFIERS: Name and Date of confirmed by patient verbally. FALL SCREENING: Has the patient had 2 falls in the last year or 1 fall with injury or currently using an Ambulatory Assistive Device (Walker, Cane, Wheelchair, Crutches, etc.)? No PATIENT GENDER DATA: Female. status: : No status: NO. ALLERGIES: Reviewed and unchanged CONTRAST ALLERGY: No EXAM: CT -CONTRAST INDUCED NEPHROPATHY RISK FACTORS: Patient age > 60 years, Known Chronic Kidney Disease (CKD), and History of Kidney surgery, Kidney neoplasm, Liver disease, and/or any recent Nephrotoxic Chemotherapy or other Nephrotoxic medications CREATININE: Creatinine Date Value Ref Range Status 04/18/2024 1.40 (H) 0.58 - 0.96 mg/dL Final 08/10/2023 1.32 (H) 0.58 - 0.96 mg/dL Final 01/20/2023 1.49 (H) 0.58 - 0.96 mg/dL Final Estimated Glomerular Filtration Rate Date Value Ref Range Status 04/18/2024 37 (L) >=60 mL/min/1.73m? Final Comment: Estimated Glomerular Filtration Rate (eGFR) is calculated using the 2020 CKD-EPI creatinine equation. This equation utilizes serum creatinine, sex, and age as parameters. The creatinine assay has traceable calibration to isotope dilution-mass spectrometry. Refer to KDIGO guidelines for clinical interpretation. In patients with unstable renal function, e.g. those with acute kidney injury, the eGFR may not accurately reflect actual GFR. eGFR- Date Value Ref Range Status 07/02/2021 >60 Final P.O.C.T. RESULTS: POC done: Yes, See Lab Tab June 18, 2024 TREATMENT: N/A IV SITE: Ambulatory: A peripheral IV was started in the Right forearm with a Angio cath: 20 gauge. IV SITE APPEARANCE: Clean,Dry and Intact SIGNATURE: Paulina Dobbins RN PATIENT NAME: Azul Victoria DATE: June 18, 2024 TIME: 11:55 AM [facility] 06-18-2024 Note HNO ID: [id number] Author: MAGDA ZHENG RT(R) Service: Radiology Author Type: Technologist Type: Progress Notes Filed: 06/18/2024 12:53 Note Text: Radiology Service Progress Note PATIENT NAME: Azul Victoria DATE OF SERVICE: June 18, 2024 TIME: 12:53 PM PATIENT IDENTITY VERIFICATION COMPLETED USING TWO (2) IDENTIFIERS: Name and Date of confirmed by patient verbally and Name and Date of confirmed by identification band. FALL SCREENING: Has the patient had 2 falls in the last year or 1 fall with injury or currently using an Ambulatory Assistive Device (Walker, Cane, Wheelchair, Crutches, etc.)? Yes, Patient High Risk for Falls What interventions were put in place to prevent falls during this visit? Offered Assistance with Transfers and Increased Observations by Caregivers PATIENT GENDER DATA: Female. status: : No status: NO. PATIENT RELEVANT IMPLANT DATA REVIEWED: Yes PATIENT PRESENTS WITH AN IMPLANTABLE OR ATTACHED DISPOSAL PLANT OPERATOR: No RADIOLOGY DEPARTMENT: CT; Exam(s) Completed: Urogram PERIPHERAL IV DATA: Site assessment: Clean,Dry and Intact, Site disposition Discontinued SIGNED BY: RT Shahid(R) June 18, 2024 12:53 PM [facility] 05-08-2024 Telephone encounter Note The following approved medication requests have been transmitted electronically. Requested Prescriptions Pending Prescriptions Disp Refills metoprolol tartrate, short acting, (LOPRESSOR) 25 mg tablet 180 tablet 3 Sig: Take 1 tablet by mouth two times a day. Jenifer Carlson APRN.CNP [facility] 05-08-2024 Miscellaneous Notes The following approved medication requests have been transmitted electronically. Requested Prescriptions Pending Prescriptions Disp Refills metoprolol tartrate, short acting, (LOPRESSOR) 25 mg tablet 180 tablet 3 Sig: Take 1 tablet by mouth two times a day. Jenifer Carlson APRN.CNP Prescription Refill Information The patient has been identified by name and date of : Yes Caregiver verified no other encounters exist for this prescription request: Yes Caregiver confirmed with patient/requestor that no other refills are due, in the near future, with this provider at this time: Yes The last office visit in the department: 04-21-24 Does the patient have a future office visit with this provider/department: Yes Requested Prescriptions Pending Prescriptions Disp Refills metoprolol tartrate, short acting, (LOPRESSOR) 25 mg tablet 180 tablet 3 Sig: Take 1 tablet by mouth two times a day. Ghazal Mendez May 08, 2024 9:45 AM documented in this encounter [facility] 05-08-2024 Telephone encounter Note Prescription Refill Information The patient has been identified by name and date of : Yes Caregiver verified no other encounters exist for this prescription request: Yes Caregiver confirmed with patient/requestor that no other refills are due, in the near future, with this provider at this time: Yes The last office visit in the department: 04-21-24 Does the patient have a future office visit with this provider/department: Yes Requested Prescriptions Pending Prescriptions Disp Refills metoprolol tartrate, short acting, (LOPRESSOR) 25 mg tablet 180 tablet 3 Sig: Take 1 tablet by mouth two times a day. Ghazal Mendez May 08, 2024 9:45 AM [facility] Work Phone: 04-21-2024 Note HNO ID: [id number] Author: TIBURCIO ANG APRN.SATELLITE COMMUNICATIONS ENGINEER Service: ? Author Type: Nurse Practitioner Type: Progress Notes Filed: 04/21/2024 09:09 Note Text: Chief Complaint Patient presents with: Follow Up: 6 month HPI Azul Victoria is a 84 year old female who presents here today for Chronic Medical Conditions. Patient is here for chronic disease follow-up. Taking medications as prescribed.Denies any side effects from medications. Reviewing labs with patient. recently in hospital, will be going to group home. She is without chest pain, shortness of breath, syncope, fevers, chills, unintentional weight loss. Following with [facility] for history of atrial flutter. She is xarelto. Following with urology for history of urothelial carcinoma, bladder cancer. Past medical history, appointments, medications, allergies reviewed. EXAM: BP 141/77 Pulse (!) 59 Resp 18 Wt 110.8 kg (244 lb 4.3 oz) SpO2 97% BMI 44.68 kg/m? General Appearance: Well appearing, alert, in no acute distress, well-hydrated, well nourished.. Lungs: Lungs clear to auscultation. No wheezing, rhonchi, rales.. Heart: RRR without murmur, gallop, or rubs. No ectopy. Latest Ref Rng 04/18/2024 WBC 3.70 - 11.00 k/uL 6.76 RBC 3.90 - 5.20 m/uL 4.20 Hemoglobin 11.5 - 15.5 g/dL 13.4 Hematocrit 36.0 - 46.0 % 40.8 MCV 80.0 - 100.0 fL 97.1 MCH 26.0 - 34.0 pg 31.9 MCHC 30.5 - 36.0 g/dL 32.8 RDW-CV 11.5 - 15.0 % 12.9 Platelet Count 150 - 400 k/uL 182 MPV 9.0 - 12.7 fL 10.2 Neut% % 60.5 Abs Neut (ANC) 1.45 - 7.50 k/uL 4.09 Lymph% % 27.8 Abs Lymph 1.00 - 4.00 k/uL 1.88 Knox% % 7.4 Abs Knox <0.87 k/uL 0.50 Eosin% % 3.3 Abs Eosin <0.46 k/uL 0.22 Baso% % 0.7 Abs Baso <0.11 k/uL 0.05 Immature Gran % % 0.3 IMMATURE GRANS (ABS) <0.10 k/uL <0.03 NRBC /100 WBC 0.0 Absolute nRBC <0.01 k/uL <0.01 DTYPE Auto Protein, Total 6.3 - 8.0 g/dL 6.4 Albumin 3.9 - 4.9 g/dL 3.9 Calcium 8.5 - 10.2 mg/dL 10.2 Bilirubin, Total 0.2 - 1.3 mg/dL 0.5 Alkaline Phosphatase 34 - 123 U/L 89 AST 13 - 35 U/L 19 ALT 7 - 38 U/L 14 Glucose 74 - 99 mg/dL 116 (H) BUN 7 - 21 mg/dL 33 (H) Creatinine 0.58 - 0.96 mg/dL 1.40 (H) Sodium 136 - 144 mmol/L 138 Potassium 3.7 - 5.1 mmol/L 4.2 Chloride 98 - 107 mmol/L 102 CO2 22 - 30 mmol/L 24 Anion Gap 8 - 15 mmol/L 12 eGFR >=60 mL/min/1.73m? 37 (L) Cholesterol, Total <200 mg/dL 150 Triglyceride <150 mg/dL 108 HDL Cholesterol >39 mg/dL 51 Non HDL Cholesterol <130 mg/dL 99 Fasting Time hrs 12 VLDL Cholesterol <30 mg/dL 22 TC:HDL Ratio <5.10 2.94 LDL Cholesterol <100 mg/dL 77 LDL:HDL Ratio <2.54 1.51 Hemoglobin A1C 4.3 - 5.6 % 5.9 (H) Estimated Average Glucose mg/dL 123 Uric Acid 2.5 - 6.6 mg/dL 6.7 (H) ASSESSMENT/PLAN: 1. Essential hypertension, benign - ICD9: 401.1, ICD10: I10 (primary diagnosis) - Controlled - Continue current medications - Recommend home blood pressure monitoring, to bring results to next visit - Encouraged sodium restriction, DASH or Mediterranean diet - Recommend regular aerobic exercise - COMPREHENSIVE METABOLIC PANEL 2. Atrial flutter, unspecified type (HCC) - ICD9: 427.32, ICD10: I48.92 -Continue following with close her group - COMPREHENSIVE METABOLIC PANEL 3. Gout, unspecified cause, unspecified chronicity, unspecified site - ICD9: 274.9, ICD10: M10.9 -No gout flares, continue allopurinol as prescribed - URIC ACID 4. Impaired fasting glucose - ICD9: 790.21, ICD10: R73.01 -Stable, continue lifestyle control - HEMOGLOBIN A1C - COMPREHENSIVE METABOLIC PANEL 5. Stage 3b chronic kidney disease (HCC) - ICD9: 585.3, ICD10: N18.32 - eGFR: 37 Stable - COMPREHENSIVE METABOLIC PANEL 6. Elevated cholesterol - ICD9: 272.0, ICD10: E78.00 -Stable, controlled, continue lifestyle control - LIPID PANEL BASIC 7. Screening for depression - ICD9: V79.0, ICD10: Z13.31 - DEPRESSION SCREENING 8. Encounter for screening examination for other mental health and behavioral disorders - ICD9: V79.8, ICD10: Z13.39 - ANXIETY SCREENING Tiburcio Ang APRN.SATELLITE COMMUNICATIONS ENGINEER RTO in 6 months, sooner if needed. This note was partly generated using [employer] voice recognition dictation and may contain some misspelled or inaccurate words missed on review. [facility] 04-21-2024 History of Present illness Narrative Chief Complaint Patient presents with: Follow Up: 6 month HPI Azul Victoria is a 84 year old female who presents here today for Chronic Medical Conditions. Patient is here for chronic disease follow-up. Taking medications as prescribed.Denies any side effects from medications. Reviewing labs with patient. recently in hospital, will be going to group home. She is without chest pain, shortness of breath, syncope, fevers, chills, unintentional weight loss. Following with [facility] for history of atrial flutter. She is xarelto. Following with urology for history of urothelial carcinoma, bladder cancer. Past medical history, appointments, medications, allergies reviewed. EXAM: BP 141/77 Pulse (!) 59 Resp 18 Wt 110.8 kg (244 lb 4.3 oz) SpO2 97% BMI 44.68 kg/m General Appearance: Well appearing, alert, in no acute distress, well-hydrated, well nourished.. Lungs: Lungs clear to auscultation. No wheezing, rhonchi, rales.. Heart: RRR without murmur, gallop, or rubs. No ectopy. Latest Ref [facility] 04/18/2024 WBC 3.70 - 11.00 k/uL 6.76 RBC 3.90 - 5.20 m/uL 4.20 Hemoglobin 11.5 - 15.5 g/dL 13.4 Hematocrit 36.0 - 46.0 % 40.8 MCV 80.0 - 100.0 fL 97.1 MCH 26.0 - 34.0 pg 31.9 MCHC 30.5 - 36.0 g/dL 32.8 RDW-CV 11.5 - 15.0 % 12.9 Platelet Count 150 - 400 k/uL 182 MPV 9.0 - 12.7 fL 10.2 Neut% % 60.5 Abs Neut (ANC) 1.45 - 7.50 k/uL 4.09 Lymph% % 27.8 Abs Lymph 1.00 - 4.00 k/uL 1.88 Knox% % 7.4 Abs Knox <0.87 k/uL 0.50 Eosin% % 3.3 Abs Eosin <0.46 k/uL 0.22 Baso% % 0.7 Abs Baso <0.11 k/uL 0.05 Immature Gran % % 0.3 IMMATURE GRANS (ABS) <0.10 k/uL <0.03 NRBC /100 WBC 0.0 Absolute nRBC <0.01 k/uL <0.01 DTYPE Auto Protein, Total 6.3 - 8.0 g/dL 6.4 Albumin 3.9 - 4.9 g/dL 3.9 Calcium 8.5 - 10.2 mg/dL 10.2 Bilirubin, Total 0.2 - 1.3 mg/dL 0.5 Alkaline Phosphatase 34 - 123 U/L 89 AST 13 - 35 U/L 19 ALT 7 - 38 U/L 14 Glucose 74 - 99 mg/dL 116 (H) BUN 7 - 21 mg/dL 33 (H) Creatinine 0.58 - 0.96 mg/dL 1.40 (H) Sodium 136 - 144 mmol/L 138 Potassium 3.7 - 5.1 mmol/L 4.2 Chloride 98 - 107 mmol/L 102 CO2 22 - 30 mmol/L 24 Anion Gap 8 - 15 mmol/L 12 eGFR >=60 mL/min/1.73m 37 (L) Cholesterol, Total <200 mg/dL 150 Triglyceride <150 mg/dL 108 HDL Cholesterol >39 mg/dL 51 Non HDL Cholesterol <130 mg/dL 99 Fasting Time hrs 12 VLDL Cholesterol <30 mg/dL 22 TC:HDL Ratio <5.10 2.94 LDL Cholesterol <100 mg/dL 77 LDL:HDL Ratio <2.54 1.51 Hemoglobin A1C 4.3 - 5.6 % 5.9 (H) Estimated Average Glucose mg/dL 123 Uric Acid 2.5 - 6.6 mg/dL 6.7 (H) ASSESSMENT/PLAN: 1. Essential hypertension, benign - ICD9: 401.1, ICD10: I10 (primary diagnosis) - Controlled - Continue current medications - Recommend home blood pressure monitoring, to bring results to next visit - Encouraged sodium restriction, DASH or Mediterranean diet - Recommend regular aerobic exercise - COMPREHENSIVE METABOLIC PANEL 2. Atrial flutter, unspecified type (HCC) - ICD9: 427.32, ICD10: I48.92 -Continue following with close her group - COMPREHENSIVE METABOLIC PANEL 3. Gout, unspecified cause, unspecified chronicity, unspecified site - ICD9: 274.9, ICD10: M10.9 -No gout flares, continue allopurinol as prescribed - URIC ACID 4. Impaired fasting glucose - ICD9: 790.21, ICD10: R73.01 -Stable, continue lifestyle control - HEMOGLOBIN A1C - COMPREHENSIVE METABOLIC PANEL 5. Stage 3b chronic kidney disease (HCC) - ICD9: 585.3, ICD10: N18.32 - eGFR: 37 Stable - COMPREHENSIVE METABOLIC PANEL 6. Elevated cholesterol - ICD9: 272.0, ICD10: E78.00 -Stable, controlled, continue lifestyle control - LIPID PANEL BASIC 7. Screening for depression - ICD9: V79.0, ICD10: Z13.31 - DEPRESSION SCREENING 8. Encounter for screening examination for other mental health and behavioral disorders - ICD9: V79.8, ICD10: Z13.39 - ANXIETY SCREENING Tiburcio Ang APRN.CNP RTO in 6 months, sooner if needed. This note was partly generated using [employer] voice recognition dictation and may contain some misspelled or inaccurate words missed on review. documented in this encounter [facility] 12-11-2023 Note HNO ID: [id number] Author: MAGDA MERCADO MD Service: ? Author Type: Registered Nurse Type: Progress Notes Filed: 01/12/2024 10:35 Note Text: UNIVERSAL PROTOCOL / SAFETY CHECKLIST Procedure to be Performed: cystoscopy Sign In: A Moment of CARE was completed. Personnel directly involved with the procedure wore the appropriate PPE (Personal Protective Equipment). Patient/Surrogate Stated/Verified: PATIENT VERIFIED(optional for EMERGENT procedures): Patient name, Date of , Relevant allergies, and The intended procedure Time Out Communication: Intended patient and procedure match the source documents. Consent documented and matches the intended procedure. Relevant labs, photos, and/or imaging studies have been reviewed. Correct side/site marked and visible. Medications required for procedure verified. Fire risk assessed and interventions discussed. No implant(s) inserted. Sign Out: SIGN OUT (optional for EMERGENT procedures): All specimen containers correctly labeled. Renu Morrow RN [facility] 12-11-2023 History of Present illness Narrative UNIVERSAL PROTOCOL / SAFETY CHECKLIST Procedure to be Performed: cystoscopy Sign In: A Moment of CARE was completed. Personnel directly involved with the procedure wore the appropriate PPE (Personal Protective Equipment). Patient/Surrogate Stated/Verified: PATIENT VERIFIED(optional for EMERGENT procedures): Patient name, Date of , Relevant allergies, and The intended procedure Time Out Communication: Intended patient and procedure match the source documents. Consent documented and matches the intended procedure. Relevant labs, photos, and/or imaging studies have been reviewed. Correct side/site marked and visible. Medications required for procedure verified. Fire risk assessed and interventions discussed. No implant(s) inserted. Sign Out: SIGN OUT (optional for EMERGENT procedures): All specimen containers correctly labeled. Renu Morrow RN PHYSICIANS NOTE: CYSTOSCOPY PROCEDURE: December 11, 2023 Sign In History and Physical Exam reviewed and is unchanged. Primary Diagnosis: Urothelial carcinoma of kidney, right (hcc) (primary encounter diagnosis) Informed Consent Discussed: Yes. Risks, benefits, alternatives and personnel discussed with patient who consents to proceed. Sign in Communication: Completed Time Out: Team Confirms the Correct Patient, Correct Procedure; Cystoscopy, Correct Site and Site Marking (not applicable), Correct Position. Affirmation of Time Out: YES Sign Out: Sign Out Discussion: Completed Details of Procedure: After sterile prep and drape, the flexible cystoscope was placed through the urethra which was examined in its entirety. Urethral stricture: None The entire mucosa was examined. The scope was flexed in the dome of the bladder and used to look at the bladder in retroverted fashion. Findings: Normal bladder and no lesions The scope was removed. Plan: CT urogram and Cystoscopy in 6 months Urine cytology today Scribe Attestation: By signing my name below, Kristine Pardo, attest that this documentation has been prepared under the direction and in the presence of Dr. Magda Mercado MD. Electronically signed: Miley Thompson, December 11, 2023 10:54 AM Magda Pardo MD, personally performed the services described in this documentation. All medical record entries made by the layibe were at my direction and in my presence. I have reviewed the chart and discharge instructions (if applicable) and agree that the record reflects my personal performance and is accurate and complete. Magda Mercado MD documented in this encounter [facility] 12-11-2023 Nurse Note Actual procedure/procedure scheduled: Yes Performing provider/scheduled provider: Yes Patient was roomed in: Q9- 07 Amphibious Operations Officer offered:Patient declines Patient arrived in the room at: 1020 Patient ready for procedure: 1035 The procedure started at ( Time Only): 1051 The procedure ended at: 1054 Was the procedure delayed: No The patient left the procedure room at: 1100 Renu Morrow RN PRE PROCEDURE ASSESSMENT- Cysto Procedure Indication: Cystoscopy Latex Allergy: No Allergies reviewed and updated. Yes Heart valve replacement: No Joint replacement: Yes Back Office UA otained: yes PROCEDURE PREP-Cysto Patient ID with two(2)identifiers verified by: Renu Morrow RN Pre-Procedure Antibiotics: Levaquin 750 mg orally, given during visit @ 1055 , by Renu Morrow RN Patient Prep: Betadine Scrub to perineum and placement of Sterile Drape. COMPLETED Anesthetic Given:10 cc 2% Lidocaine jelly Renu Morrow RN UNIVERSAL PROTOCOL / SAFETY CHECKLIST Procedure to be performed: Cystoscopy Sign in Communication: Completed Time Out: Team Confirms the Correct Patient, Correct Procedure, Correct Site and Site Marking, Correct Position (if applicable). Sign Out Discussion: Completed Renu Morrow RN POST PROCEDURE NURSE ASSESSMENT Present along with physician during procedure exam. Renu Morrow RN Instruction sheet given and reviewed and patient verbalizes understanding: yes Post Procedure Antibiotic: As Prescribed Current pain intensity is 0 on a 0-10 pain scale. Renu Morrow RN AMBULATORY PATIENT EDUCATION THE FOLLOWING WAS EVALUATED Motivation To Learn: Interested Family/Significant Other Support: None - Unavailable/disinterested Cognitive Ability: Alert/Oriented Method of Instruction: Individual instruction Written instruction - handouts Verbal instruction The Following Influencing Factors Were Barriers To This Education Session: None The Following Physical Limitations Were Barriers To This Education Session: None Instruction Provided To: Patient Community Center Worker Present: not applicable Discipline: Nursing Learning Topic: SURVIVAL SKILLS: Complication Prevention Symptom Management Patient Evaluation: Verbalizes understanding: Yes Supplemental Material Given: Written Material Instructed By Renu Morrow RN In Department Urology . [facility] 12-11-2023 Nurse Note Actual procedure/procedure scheduled: Yes Performing provider/scheduled provider: Yes Patient was roomed in: Q9- 07 Amphibious Operations Officer offered:Patient declines Patient arrived in the room at: 1020 Patient ready for procedure: 1035 The procedure started at ( Time Only): 1051 The procedure ended at: 1054 Was the procedure delayed: No The patient left the procedure room at: 1100 Renu Morrow RN PRE PROCEDURE ASSESSMENT- Cysto Procedure Indication: Cystoscopy Latex Allergy: No Allergies reviewed and updated. Yes Heart valve replacement: No Joint replacement: Yes Back Office UA otained: yes PROCEDURE PREP-Cysto Patient ID with two(2)identifiers verified by: Renu Morrow RN Pre-Procedure Antibiotics: Levaquin 750 mg orally, given during visit @ 1055 , by Renu Morrow RN Patient Prep: Betadine Scrub to perineum and placement of Sterile Drape. COMPLETED Anesthetic Given:10 cc 2% Lidocaine jelly Renu Morrow RN UNIVERSAL PROTOCOL / SAFETY CHECKLIST Procedure to be performed: Cystoscopy Sign in Communication: Completed Time Out: Team Confirms the Correct Patient, Correct Procedure, Correct Site and Site Marking, Correct Position (if applicable). Sign Out Discussion: Completed Renu Morrow RN POST PROCEDURE NURSE ASSESSMENT Present along with physician during procedure exam. Renu Morrow RN Instruction sheet given and reviewed and patient verbalizes understanding: yes Post Procedure Antibiotic: As Prescribed Current pain intensity is 0 on a 0-10 pain scale. Renu Morrow RN AMBULATORY PATIENT EDUCATION THE FOLLOWING WAS EVALUATED Motivation To Learn: Interested Family/Significant Other Support: None - Unavailable/disinterested Cognitive Ability: Alert/Oriented Method of Instruction: Individual instruction Written instruction - handouts Verbal instruction The Following Influencing Factors Were Barriers To This Education Session: None The Following Physical Limitations Were Barriers To This Education Session: None Instruction Provided To: Patient Community Center Worker Present: not applicable Discipline: Nursing Learning Topic: SURVIVAL SKILLS: Complication Prevention Symptom Management Patient Evaluation: Verbalizes understanding: Yes Supplemental Material Given: Written Material Instructed By Renu Morrow RN In Department Urology . documented in this encounter [facility] 12-11-2023 Note HNO ID: [id number] Author: MAGDA MERCADO MD Service: ? Author Type: Physician Type: Progress Notes Filed: 01/12/2024 10:36 Note Text: PHYSICIANS NOTE: CYSTOSCOPY PROCEDURE: December 11, 2023 Sign In History and Physical Exam reviewed and is unchanged. Primary Diagnosis: Urothelial carcinoma of kidney, right (hcc) (primary encounter diagnosis) Informed Consent Discussed: Yes. Risks, benefits, alternatives and personnel discussed with patient who consents to proceed. Sign in Communication: Completed Time Out: Team Confirms the Correct Patient, Correct Procedure; Cystoscopy, Correct Site and Site Marking (not applicable), Correct Position. Affirmation of Time Out: YES Sign Out: Sign Out Discussion: Completed Details of Procedure: After sterile prep and drape, the flexible cystoscope was placed through the urethra which was examined in its entirety. Urethral stricture: None The entire mucosa was examined. The scope was flexed in the dome of the bladder and used to look at the bladder in retroverted fashion. Findings: Normal bladder and no lesions The scope was removed. Plan: CT urogram and Cystoscopy in 6 months Urine cytology today Scribe Attestation: By signing my name below, Kristine Pardo, attest that this documentation has been prepared under the direction and in the presence of Dr. Magda Mercado MD. Electronically signed: Miley Thompson, December 11, 2023 10:54 AM IMagda MD, personally performed the services described in this documentation. All medical record entries made by the scribe were at my direction and in my presence. I have reviewed the chart and discharge instructions (if applicable) and agree that the record reflects my personal performance and is accurate and complete. Magda Mercado MD [facility] 10-22-2023 Miscellaneous Notes Patient notified of results, verbalizes understanding of instructions. Maryse Ayala LPN Can you please call the patient and let her know that her mammogram was normal. Repeat imaging will be due in 1 year. Please let me know if she has any questions. Thank you. Jenifer Carlson APRN.BASSAM documented in this encounter [facility] 10-22-2023 Miscellaneous Notes October 23, 2023 PID: [id number] Azul Victoria [address] [place] [address] [id number] Dear Ms. Victoria, We are pleased to inform you that the results of your recent breast imaging exam on 10/22/2023 are normal. Early detection of cancer is very important. We also understand recommendations regarding breast cancer screening are controversial. Please discuss with your primary care provider which strategy is best for you and whether a mammogram is right for you. Your imaging studies and report will be kept on file at [facility] as part of your permanent medical record and are available for your continuing care. Thank you for allowing us to help in meeting your health care needs. Sincerely, Dr. Oneil Interpreting Radiologist (Normal over 40) documented in this encounter [facility] 09-29-2023 Note HNO ID: [id number] Author: AMANDA ESPINOSA APRN.SATELLITE COMMUNICATIONS ENGINEER Service: ? Author Type: Nurse Practitioner Type: Progress Notes Filed: 09/29/2023 10:22 Note Text: This note was created using Spocklyriter. Subjective Azul Victoria is a 83 year old female. 83 year old female with PMH of hypertension, atrial flutter on xarelto, and HLD presents today with acute onset URI symptoms that started 10 days ago. Pertinent positives include rhinorrhea with green nasal drainage, sinus pressure, headache, fatigue, and productive cough with green sputum. Pertinent negatives include dyspnea at rest, chest pain, chest tightness, fever, body aches, and chills. The history is provided by the patient. Sinus Problem This is a new problem. The current episode started 1 to 4 weeks ago. The problem occurs constantly. The problem has been gradually improving. Associated symptoms include congestion, coughing, fatigue and headaches. Pertinent negatives include no abdominal pain, anorexia, change in bowel habit, chest pain, chills, fever, myalgias, nausea, sore throat or vomiting. Nothing aggravates the symptoms. She has tried nothing for the symptoms. PAST MEDICAL HISTORY Diagnosis Date Abscess of intestine DIVERTICULITIS Atrial flutter (HCC) Elevated uric acid in blood Esophageal reflux GERD Essential hypertension, benign Snoring Tumors of body of uterus, antepartum condition or complication UTERINE FIBROIDS PAST SURGICAL HISTORY Procedure Laterality Date APPENDECTOMY 09/19/2020 -Dr. Nora Celeste ARTHRP ACETBLR/PROX FEM PROSTC AGRFT/ALGRFT 07/2019 [employer] [facility] ARTHRP KNE CONDYLEANDPLATU MEDIALANDLAT COMPARTMENTS 2012 Knee replacement, total, right BMD BONE DENSITY DEXA 07/2006 CATARACT EXTRACTION HX Bilateral 2008 SECTION HX CHOLECYSTECTOMY 1983 COLONOSCOPY 11/2001 COLON POLYP REMOVED COLONOSCOPY FLX DX W/COLLJ SPEC WHEN PFRMD 07/29/2007 Colonoscopy COLONOSCOPY FLX DX W/COLLJ SPEC WHEN PFRMD 12/18/2018 Colonoscopy DILATION AND CURETTAGE DXAND/THER NONOBSTETRIC Dilation AND curettage LIG/TRNSXJ FLP TUBE ABDL/VAG APPR UNI/BI Tubal ligation PAST SURGICAL HISTORY OF 10/2009 Left Unicomparmental Knee -- [facility] (Dr. Fajardo) TONSILLECTOMY PRIMARY/SECONDARY Tonsillectomy ALLERGIES Penicillins, Librax (With Clidinium) [Chlordiazepoxide-Clidinium], and Norvasc [Amlodipine Besylate] MEDICATIONS allopurinol (ZYLOPRIM) 100 mg tablet Take 1 tablet by mouth once daily. metoprolol tartrate, short acting, (LOPRESSOR) 25 mg tablet Take 1 tablet by mouth twice daily. potassium chloride ER (KLOR-CON M10) 10 mEq tablet Take 1 tablet by mouth once daily. hydroCHLOROthiazide (HYDRODIURIL, ESIDRIX) 25 mg tablet Take 1 tablet by mouth once daily. rivaroxaban (XARELTO) 20 mg tablet Take 1 tablet by mouth daily with dinner. Restart on 03/13/2022 (7 days after surgery) Biotin 2,500 mcg cap Take by mouth. MAGNESIUM ORAL Take by mouth. cholecalciferol (VITAMIN D3) 1,000 unit tab tablet Take 1,000 Units by mouth once daily. ONE DAILY MULTI-VITAMIN TAB Take one(1) tablet daily. doxycycline (VIBRA-TABS) 100 mg tablet Take 1 tablet by mouth two times a day for 7 days. FAMILY HISTORY Problem Relation Age of Onset Heart Mother chf, Aortic Anerysm other (KIDNEY FAILURE) Mother Emphysema Father Coronary Artery Disease Brother Diabetes Brother COPD Brother Cancer Paternal Grandfather brain Heart Brother Diabetes Paternal Grandmother Colon Cancer Other none other (Brain Tumor) Maternal Uncle Social History Tobacco Use Smoking status: Never Smokeless tobacco: Never Vaping Use Vaping Use: Never used Substance Use Topics Alcohol use: No Drug use: No Review of Systems Constitutional: Positive for fatigue. Negative for appetite change, chills and fever. HENT: Positive for congestion, rhinorrhea and sinus pressure. Negative for ear discharge, ear pain, sinus pain and sore throat. Eyes: Negative for discharge. Respiratory: Positive for cough. Negative for chest tightness and shortness of breath. Cardiovascular: Negative for chest pain. Gastrointestinal: Negative for abdominal pain, anorexia, change in bowel habit, diarrhea, nausea and vomiting. Musculoskeletal: Negative for myalgias. Neurological: Positive for headaches. Objective BP 134/78 Pulse 71 Temp 36.2 ?C (97.1 ?F) Resp 20 Wt 111.3 kg (245 lb 6.4 oz) SpO2 95% BMI 44.88 kg/m? Physical Exam Constitutional: General: She is awake. She is not in acute distress. Appearance: Normal appearance. She is normal weight. She is not ill-appearing, toxic-appearing or diaphoretic. HENT: Head: Normocephalic. Right Ear: Hearing, tympanic membrane, ear canal and external ear normal. No decreased hearing noted. No laceration, drainage, swelling or tenderness. No middle ear effusion. There is no impacted cerumen. No foreign body. No mastoid t (more content not included)... [facility] 09-24-2023 Miscellaneous Notes The following approved medication requests have been transmitted electronically. Requested Prescriptions Pending Prescriptions Disp Refills allopurinol (ZYLOPRIM) 100 mg tablet 90 tablet 3 Sig: Take 1 tablet by mouth once daily. Jenifer Carlson APRN.BASSAM Patient has been identified by name and date of : yes Patient phones for refill(s): Requested Prescriptions Pending Prescriptions Disp Refills allopurinol (ZYLOPRIM) 100 mg tablet 90 tablet 3 Sig: Take 1 tablet by mouth once daily. Date of last office visit in primary care: 08/13/2023 Date of next office visit in primary care: 02/11/24 Please advise. Thank you. Lu Rodriges Pss. documented in this encounter [facility] 08-13-2023 History of Present illness Narrative Chief Complaint Patient presents with: F/U 6 Month HPI Azul Victoria is a 83 year old female who presents here today for Chronic Medical Conditions. Here for routine follow-up. Reviewed labs with patient. History of elevated glucose. Hemoglobin A1c 5.9%. History of gout. Uric acid 5.9. No gout flareups. HYPERLIPIDEMIA: Patient is taking medications: Yes. Patient is watching diet: Yes. Patient denies myalgias: Yes. Patient denies gi upset: Yes History of CKD stage III. GFR stable at 40. Previously [address] of the chest completed related to pulmonary nodules. CT of the chest shows stable small lung nodules consistent with benign findings. Reviewed this finding with the patient. No follow-up needed. Following with urology. Had an MRI of the pelvis and abdomen completed. No local or metastatic disease noted with history of right nephroureterectomy. Past medical history, appointments, medications, allergies reviewed. EXAM: BP 136/80 Pulse (!) 57 Resp 16 Wt 109.1 kg (240 lb 9.6 oz) SpO2 98% BMI 44.01 kg/m General Appearance: Well appearing, alert, in no acute distress, well-hydrated, well nourished.. Lungs: Lungs clear to auscultation. No wheezing, rhonchi, rales.. Heart: RRR without murmur, gallop, or rubs. No ectopy. Component Latest Ref Rng & Units 08/10/2023 Protein, Total 6.3 - 8.0 g/dL 6.7 Albumin 3.9 - 4.9 g/dL 4.1 Calcium 8.5 - 10.2 mg/dL 10.6 (H) Bilirubin, Total 0.2 - 1.3 mg/dL 0.6 Alkaline Phosphatase 34 - 123 U/L 89 AST 13 - 35 U/L 18 ALT 7 - 38 U/L 14 Glucose 74 - 99 mg/dL 112 (H) BUN 7 - 21 mg/dL 33 (H) Creatinine 0.58 - 0.96 mg/dL 1.32 (H) Sodium 136 - 144 mmol/L 139 Potassium 3.7 - 5.1 mmol/L 4.6 Chloride 97 - 105 mmol/L 104 CO2 22 - 30 mmol/L 28 Anion Gap 9 - 18 mmol/L 7 (L) eGFR >=60 mL/min/1.73m 40 (L) Cholesterol, Total <200 mg/dL 173 Triglyceride <150 mg/dL 115 HDL Cholesterol >39 mg/dL 57 Non HDL Cholesterol <130 mg/dL 116 Fasting Time hrs 12 VLDL Cholesterol <30 mg/dL 23 TC:HDL Ratio <5.10 3.04 LDL Cholesterol <100 mg/dL 93 LDL:HDL Ratio <2.54 1.63 Hemoglobin A1C 4.3 - 5.6 % 5.9 (H) Estimated Average Glucose mg/dL 123 Uric Acid 2.5 - 6.6 mg/dL 5.9 Impression IMPRESSION: Stable small lung nodules consistent with benign findings. Door Liner Helper: PSCB Transcribe Date/Time: Aug 10 2023 8:25A Dictated by : JENI LERMA MD This examination was interpreted and the report reviewed and electronically signed by: JENI LERMA MD on Aug 10 2023 8:40AM EST Results-Findings * * *Final Report* * * DATE OF EXAM: Aug 08 2023 9:14AM [facility] 0541 - CT CHEST WO IVCON / PROCEDURE REASON: Lung nodules * * * * Physician Interpretation * * * * EXAMINATION: CHEST CT WITHOUT CONTRAST CLINICAL HISTORY: Lung nodules Technique: Spiral CT acquisition of the chest from the thoracic inlet to the upper abdomen without contrast. MQ: CTCWO_6 CT Radiation dose: Integrated Dose-length product (DLP) for this visit = 406 mGy*cm CT Dose Reduction Employed: Automated exposure control(AEC) and iterative recon Comparison: 07/18/2022 chest RESULT: Limitations: None. Lines, tubes, and devices: None. Lung parenchyma and airways: Stable lateral LEFT upper lobe 3 mm nodule (6:62). Stable lateral RIGHT apical 5 mm diameter groundglass nodule (6:33). Stable posterior RIGHT upper lobe 5 mm nodule (6:49). Scattered peripheral areas of mild density likely due to shallow inspiration. No consolidation. No suspicious pulmonary nodule. The central airways are patent. Pleural space: No pleural effusion. No pleural thickening. Lower neck, lymph nodes, and mediastinum: The imaged thyroid gland is normal. No lymphadenopathy in the supraclavicular, axillary, mediastinal, or hilar regions. Calcified RIGHT hilar lymph node. Heart, pericardium, and thoracic vessels: The thoracic aorta and main pulmonary artery are normal in caliber. The cardiac chambers are normal in size. No coronary artery atherosclerotic calcifications are noted, although the study is not optimized for coronary assessment. No pericardial effusion or thickening. Bones and soft tissues: No destructive bone lesion. Chest wall is unremarkable. Upper abdomen: No abnormality in the imaged upper abdomen. Shore Man (topogram) images: No additional findings. ASSESSMENT/PLAN: 1. Essential hypertension, benign - ICD9: 401.1, ICD10: I10 (primary diagnosis) - Controlled - Continue current medications - Recommend home blood pressure monitoring, to bring results to next visit - Encouraged sodium restriction, DASH or Mediterranean diet - Recommend regular aerobic exercise - COMP METABOLIC PANEL 2. Atrial flutter, unspecified type (HCC) - ICD9: 427.32, ICD10: I48.92 - stable, continue with BB and xarelto as prescribed. Following with cardiology - CBC + DIFF 3. Gout, unspecified cause, unspecified chronicity, unspecified site - ICD9: 274.9, ICD10: M10.9 - Stable - URIC ACID BLOOD 4. Impaired fasting glucose - ICD9: 790.21, ICD10: R73.01 - Continue to monitoring - HGB A1C 5. Elevated cholesterol - ICD9: 272.0, ICD10: E78.00 - Good control with lifestyle. - LIPID PANEL BASIC 6. Stage 3b chronic kidney disease (HCC) - ICD9: 585.3, ICD10: N18.32 - eGFR: 40 Stable - Counseled on avoiding NSAIDs, adequate hydration - Counseled on low sodium diet - COMP METABOLIC PANEL - CBC + DIFF 7. Lung nodule seen on imaging study - ICD9: 793.11, ICD10: R91.1 - reviewed, no follow up needed Tiburcio Ang APRN.SATELLITE COMMUNICATIONS ENGINEER RTO in 6 months, sooner if needed. This note was partly generated using [employer] voice recognition dictation and may contain some misspelled or inaccurate words missed on review. documented in this encounter [facility] 08-13-2023 Note HNO ID: [id number] Author: Tiburcio Ang APRN.CNP Service: ? Author Type: Nurse Practitioner Type: Progress Notes Filed: 08/13/2023 8:02 AM Note Text: Chief Complaint Patient presents with: F/U 6 Month HPI Azul Victoria is a 83 year old female who presents here today for Chronic Medical Conditions. Here for routine follow-up. Reviewed labs with patient. History of elevated glucose. Hemoglobin A1c 5.9%. History of gout. Uric acid 5.9. No gout flareups. HYPERLIPIDEMIA: Patient is taking medications: Yes. Patient is watching diet: Yes. Patient denies myalgias: Yes. Patient denies gi upset: Yes History of CKD stage III. GFR stable at 40. Previously [address] of the chest completed related to pulmonary nodules. CT of the chest shows stable small lung nodules consistent with benign findings. Reviewed this finding with the patient. No follow-up needed. Following with urology. Had an MRI of the pelvis and abdomen completed. No local or metastatic disease noted with history of right nephroureterectomy. Past medical history, appointments, medications, allergies reviewed. EXAM: BP 136/80 Pulse (!) 57 Resp 16 Wt 109.1 kg (240 lb 9.6 oz) SpO2 98% BMI 44.01 kg/m? General Appearance: Well appearing, alert, in no acute distress, well-hydrated, well nourished.. Lungs: Lungs clear to auscultation. No wheezing, rhonchi, rales.. Heart: RRR without murmur, gallop, or rubs. No ectopy. Component Latest Ref Rng AND Units 08/10/2023 Protein, Total 6.3 - 8.0 g/dL 6.7 Albumin 3.9 - 4.9 g/dL 4.1 Calcium 8.5 - 10.2 mg/dL 10.6 (H) Bilirubin, Total 0.2 - 1.3 mg/dL 0.6 Alkaline Phosphatase 34 - 123 U/L 89 AST 13 - 35 U/L 18 ALT 7 - 38 U/L 14 Glucose 74 - 99 mg/dL 112 (H) BUN 7 - 21 mg/dL 33 (H) Creatinine 0.58 - 0.96 mg/dL 1.32 (H) Sodium 136 - 144 mmol/L 139 Potassium 3.7 - 5.1 mmol/L 4.6 Chloride 97 - 105 mmol/L 104 CO2 22 - 30 mmol/L 28 Anion Gap 9 - 18 mmol/L 7 (L) eGFR >=60 mL/min/1.73mA? 40 (L) Cholesterol, Total <200 mg/dL 173 Triglyceride <150 mg/dL 115 HDL Cholesterol >39 mg/dL 57 Non HDL Cholesterol <130 mg/dL 116 Fasting Time hrs 12 VLDL Cholesterol <30 mg/dL 23 TC:HDL Ratio <5.10 3.04 LDL Cholesterol <100 mg/dL 93 LDL:HDL Ratio <2.54 1.63 Hemoglobin A1C 4.3 - 5.6 % 5.9 (H) Estimated Average Glucose mg/dL 123 Uric Acid 2.5 - 6.6 mg/dL 5.9 Impression IMPRESSION: Stable small lung nodules consistent with benign findings. Door Liner Helper: PSCBetty Transcribe Date/Time: Aug 10 2023 8:25A Dictated by : JENI LERMA MD This examination was interpreted and the report reviewed and electronically signed by: JENI LERMA MD on Aug 10 2023 8:40AM EST Results-Findings * * *Final Report* * * DATE OF EXAM: Aug 08 2023 9:14AM [facility] 0541 - CT CHEST WO IVCON / PROCEDURE REASON: Lung nodules * * * * Physician Interpretation * * * * EXAMINATION: CHEST CT WITHOUT CONTRAST CLINICAL HISTORY: Lung nodules Technique: Spiral CT acquisition of the chest from the thoracic inlet to the upper abdomen without contrast. MQ: CTCWO_6 CT Radiation dose: Integrated Dose-length product (DLP) for this visit = 406 mGy*cm CT Dose Reduction Employed: Automated exposure control(AEC) and iterative recon Comparison: 07/18/2022 chest RESULT: Limitations: None. Lines, tubes, and devices: None. Lung parenchyma and airways: Stable lateral LEFT upper lobe 3 mm nodule (6:62). Stable lateral RIGHT apical 5 mm diameter groundglass nodule (6:33). Stable posterior RIGHT upper lobe 5 mm nodule (6:49). Scattered peripheral areas of mild density likely due to shallow inspiration. No consolidation. No suspicious pulmonary nodule. The central airways are patent. Pleural space: No pleural effusion. No pleural thickening. Lower neck, lymph nodes, and mediastinum: The imaged thyroid gland is normal. No lymphadenopathy in the supraclavicular, axillary, mediastinal, or hilar regions. Calcified RIGHT hilar lymph node. Heart, pericardium, and thoracic vessels: The thoracic aorta and main pulmonary artery are normal in caliber. The cardiac chambers are normal in size. No coronary artery atherosclerotic calcifications are noted, although the study is not optimized for coronary assessment. No pericardial effusion or thickening. Bones and soft tissues: No destructive bone lesion. Chest wall is unremarkable. Upper abdomen: No abnormality in the imaged upper abdomen. [place] (topogram) images: No additional findings. ASSESSMENT/PLAN: 1. Essential hypertension, benign - ICD9: 401.1, ICD10: I10 (primary diagnosis) - Controlled - Continue current medications - Recommend home blood pressure monitoring, to bring results to next visit - Encouraged sodium restriction, DASH or Mediterranean diet - Recommend regular aerobic exercise - COMP METABOLIC PANEL 2. Atrial flutter, unspecified type (HCC) - ICD9: 427.32, ICD10: I48.92 - sta (more content not included)... [facility] 08-08-2023 History of Present illness Narrative Radiology Service Progress Note PATIENT NAME: Azul Victoria DATE OF SERVICE: August 08, 2023 TIME: 2:16 PM PATIENT IDENTITY VERIFICATION COMPLETED USING TWO (2) IDENTIFIERS: Name and Date of confirmed by patient verbally. FALL SCREENING: Has the patient had 2 falls in the last year or 1 fall with injury or currently using an Ambulatory Assistive Device (Walker, Cane, Wheelchair, Crutches, etc.)? No PATIENT GENDER DATA: Female. status: : No status: NO. PATIENT RELEVANT IMPLANT DATA REVIEWED: Yes RADIOLOGY DEPARTMENT: CT; Exam(s) Completed: Chest PERIPHERAL IV DATA: Not applicable SIGNED BY: RT Ethan(R) August 08, 2023 2:16 PM documented in this encounter [facility] 08-08-2023 Note HNO ID: [id number] Author: Niharika Brownlee RT(Archana) Service: ? Author Type: Manager Financial Services Type: Progress Notes Filed: 08/08/2023 2:16 PM Note Text: Radiology Service Progress Note PATIENT NAME: Azul Victoria DATE OF SERVICE: August 08, 2023 TIME: 2:16 PM PATIENT IDENTITY VERIFICATION COMPLETED USING TWO (2) IDENTIFIERS: Name and Date of confirmed by patient verbally. FALL SCREENING: Has the patient had 2 falls in the last year or 1 fall with injury or currently using an Ambulatory Assistive Device (Walker, Cane, Wheelchair, Crutches, etc.)? No PATIENT GENDER DATA: Female. status: : No status: NO. PATIENT RELEVANT IMPLANT DATA REVIEWED: Yes RADIOLOGY DEPARTMENT: CT; Exam(s) Completed: Chest PERIPHERAL IV DATA: Not applicable SIGNED BY: RT Ethan(R) August 08, 2023 2:16 PM [facility] 08-07-2023 Note HNO ID: [id number] Author: Angle Gonzalez MD Service: ? Author Type: Physician Type: Progress Notes Filed: 08/07/2023 3:16 PM Note Text: PHYSICIANS NOTE: CYSTOSCOPY PROCEDURE: August 07, 2023 Sign In History and Physical Exam reviewed and is unchanged. Primary Diagnosis: Urothelial carcinoma of kidney, right (hcc) (primary encounter diagnosis) History of bladder cancer Informed Consent Discussed: Yes. Risks, benefits, alternatives and personnel discussed with patient who consents to proceed. Sign in Communication: Completed Time Out: Team Confirms the Correct Patient, Correct Procedure; Cystoscopy, Correct Site and Site Marking (not applicable), Correct Position. Affirmation of Time Out: YES Sign Out: Sign Out Discussion: Completed History Patient of Dr. Mercado S/p right nephroureterectomy 02/2022 - HG non-invasive UC of renal pelvis Last cystoscopy 04/03/2023 MR Urogram pending Details of Procedure: After sterile prep and drape, the flexible cystoscope was placed through the urethra which was examined in its entirety. Urethral stricture: None Anterior prolapse noted causing some angulation of urethra The entire mucosa was examined. The scope was flexed in the dome of the bladder and used to look at the bladder in retroverted fashion. Findings: No mucosal lesions or papillary tumors Normal urethra The scope was removed with a repeat examination of the urethra done during removal. Plan - f/u MR Urogram - cystoscopy [address] Rogelio Gonzalez MD [facility] 08-07-2023 Note HNO ID: [id number] Author: Fawn Delatorre RN Service: ? Author Type: Registered Nurse Type: Progress Notes Filed: 08/07/2023 3:16 PM Note Text: UNIVERSAL PROTOCOL / SAFETY CHECKLIST Procedure to be Performed: cystoscopy Sign In: A Moment of CARE was completed. Personnel directly involved with the procedure wore the appropriate PPE (Personal Protective Equipment). No special equipment needed. Patient/Surrogate Stated/Verified: PATIENT VERIFIED(optional for EMERGENT procedures): Patient name, Date of , Relevant allergies, and The intended procedure Time Out Communication: Intended patient and procedure match the source documents. Consent documented and matches the intended procedure. Relevant labs, photos, and/or imaging studies have been reviewed. Correct side/site marked and visible. Medications required for procedure verified. Fire risk assessed and interventions discussed. No implant(s) inserted. Sign Out: SIGN OUT (optional for EMERGENT procedures): All specimen containers correctly labeled. All instruments, equipment, possible retained foreign bodies accounted for. Post-procedure follow-up management communicated and Plan of Care Visit completed when applicable. Fawn Delatorre RN [facility] 08-07-2023 History of Present illness Narrative Radiology Service Progress Note PATIENT NAME: Azul Victoria DATE OF SERVICE: August 07, 2023 TIME: 2:27 PM PATIENT IDENTITY VERIFICATION COMPLETED USING TWO (2) IDENTIFIERS: Name and Date of confirmed by patient verbally and Name and Date of confirmed by identification band. FALL SCREENING: Has the patient had 2 falls in the last year or 1 fall with injury or currently using an Ambulatory Assistive Device (Walker, Cane, Wheelchair, Crutches, etc.)? No PATIENT GENDER DATA: Female. status: : No status: NO. PATIENT RELEVANT IMPLANT DATA REVIEWED: Yes RADIOLOGY DEPARTMENT: MR; Exam(s) Completed: Body: MRUrogram PERIPHERAL IV DATA: Site assessment: Clean,Dry and Intact, Site disposition Discontinued SIGNED BY: RT Elena(Archana) August 07, 2023 2:27 PM documented in this encounter [facility] 08-07-2023 Note HNO ID: [id number] Author: Evaristo Poe RT(R) Service: Radiology Author Type: Manager Financial Services Type: Progress Notes Filed: 08/07/2023 2:28 PM Note Text: Radiology Service Progress Note PATIENT NAME: Azul Victoria DATE OF SERVICE: August 07, 2023 TIME: 2:27 PM PATIENT IDENTITY VERIFICATION COMPLETED USING TWO (2) IDENTIFIERS: Name and Date of confirmed by patient verbally and Name and Date of confirmed by identification band. FALL SCREENING: Has the patient had 2 falls in the last year or 1 fall with injury or currently using an Ambulatory Assistive Device (Walker, Cane, Wheelchair, Crutches, etc.)? No PATIENT GENDER DATA: Female. status: : No status: NO. PATIENT RELEVANT IMPLANT DATA REVIEWED: Yes RADIOLOGY DEPARTMENT: MR; Exam(s) Completed: Body: MRUrogram PERIPHERAL IV DATA: Site assessment: Clean,Dry and Intact, Site disposition Discontinued SIGNED BY: RT Elena(Archana) August 07, 2023 2:27 PM [facility] 08-07-2023 History of Present illness Narrative Radiology Service Progress Note DATE OF SERVICE: August 07, 2023 TIME: 12:44 PM PATIENT WEIGHT: 241 LBS PATIENT IDENTITY VERIFICATION COMPLETED USING TWO (2) STANDARD IDENTIFIERS: Name and Date of confirmed by patient verbally and Name and Date of confirmed by identification band. FALL SCREENING: Has the patient had 2 falls in the last year or 1 fall with injury or currently using an Ambulatory Assistive Device (Walker, Cane, Wheelchair, Crutches, etc.)? No PATIENT GENDER DATA: Female. status: : No status: NO. ALLERGIES: Reviewed and unchanged CONTRAST ALLERGY: No EXAM: MRI - CONTRAST TYPE: GROUP II IV SITE: Ambulatory: A peripheral IV was started in the Left hand with a Angio cath: 22 gauge. and A Saline lock was inserted per protocol IV SITE APPEARANCE: Clean,Dry and Intact SIGNATURE: Daysi Nino RN PATIENT NAME: Azul Victoria DATE: August 07, 2023 TIME: 12:44 PM documented in this encounter [facility] 08-07-2023 Note HNO ID: [id number] Author: Daysi Nino RN Service: Nursing Author Type: Registered Nurse Type: Progress Notes Filed: 08/07/2023 12:54 PM Note Text: Radiology Service Progress Note DATE OF SERVICE: August 07, 2023 TIME: 12:44 PM PATIENT WEIGHT: 241 LBS PATIENT IDENTITY VERIFICATION COMPLETED USING TWO (2) STANDARD IDENTIFIERS: Name and Date of confirmed by patient verbally and Name and Date of confirmed by identification band. FALL SCREENING: Has the patient had 2 falls in the last year or 1 fall with injury or currently using an Ambulatory Assistive Device (Walker, Cane, Wheelchair, Crutches, etc.)? No PATIENT GENDER DATA: Female. status: : No status: NO. ALLERGIES: Reviewed and unchanged CONTRAST ALLERGY: No EXAM: MRI - CONTRAST TYPE: GROUP II IV SITE: Ambulatory: A peripheral IV was started in the Left hand with a Angio cath: 22 gauge. and A Saline lock was inserted per protocol IV SITE APPEARANCE: Clean,Dry and Intact SIGNATURE: Daysi Nino RN PATIENT NAME: Azul Victoria DATE: August 07, 2023 TIME: 12:44 PM [facility] 05-15-2023 Miscellaneous Notes The following approved medication requests have been transmitted electronically. Requested Prescriptions Pending Prescriptions Disp Refills metoprolol tartrate, short acting, (LOPRESSOR) 25 mg tablet 180 tablet 3 Sig: Take 1 tablet by mouth twice daily. Tiburcio Ang APRN.CNP Patient has been identified by name and date of : Yes Requested Prescriptions Pending Prescriptions Disp Refills metoprolol tartrate, short acting, (LOPRESSOR) 25 mg tablet 180 tablet 3 Sig: Take 1 tablet by mouth twice daily. BRENDAN-02/06/23 Labs-01/20/23 NOV-07/11/23 RX INSTRUCTIONS: Patient aware RX will be sent to pharmacy. No need to notify patient. Lindsey Mondragon Pss documented in this encounter [facility] 04-03-2023 History of Present illness Narrative UNIVERSAL PROTOCOL / SAFETY CHECKLIST Procedure to be Performed: cystoscopy Sign In: A Moment of CARE was completed. Personnel directly involved with the procedure wore the appropriate PPE (Personal Protective Equipment). Patient/Surrogate Stated/Verified: PATIENT VERIFIED(optional for EMERGENT procedures): Patient name, Date of , Relevant allergies, and The intended procedure Time Out Communication: Intended patient and procedure match the source documents. Consent documented and matches the intended procedure. Relevant labs, photos, and/or imaging studies have been reviewed. Medications required for procedure verified. Fire risk assessed and interventions discussed. Sign Out: SIGN OUT (optional for EMERGENT procedures): All specimen containers correctly labeled. All instruments, equipment, possible retained foreign bodies accounted for. Post-procedure follow-up management communicated and Plan of Care Visit completed when applicable. Patti Devlin RN PHYSICIANS NOTE: CYSTOSCOPY PROCEDURE: April 03, 2023 Sign In History and Physical Exam reviewed and is unchanged. Primary Diagnosis: Urothelial carcinoma of kidney, right (hcc) (primary encounter diagnosis) History of bladder cancer Malignant neoplasm of urinary bladder, unspecified site (hcc) Informed Consent Discussed: Yes. Risks, benefits, alternatives and personnel discussed with patient who consents to proceed. Sign in Communication: Completed Time Out: Team Confirms the Correct Patient, Correct Procedure; Cystoscopy, Correct Site and Site Marking (not applicable), Correct Position. Affirmation of Time Out: YES Sign Out: Sign Out Discussion: Completed Details of Procedure: After sterile prep and drape, the flexible cystoscope was placed through the urethra which was examined in its entirety. Urethral stricture: None The entire mucosa was examined. The scope was flexed in the dome of the bladder and used to look at the bladder in retroverted fashion. Findings: Normal bladder. No lesions. The scope was removed. Plan: Urine cytology today Cysto in 4 months with MRI urogram to evaluate urinary tract and urethral diverticulum Scribe Attestation: By signing my name below, IKristine, attest that this documentation has been prepared under the direction and in the presence of Dr. Magda Mercado MD. Electronically signed: Miley Thompson, April 03, 2023 10:46 AM IMagda MD, personally performed the services described in this documentation. All medical record entries made by the scribe were at my direction and in my presence. I have reviewed the chart and discharge instructions (if applicable) and agree that the record reflects my personal performance and is accurate and complete. Magda Mercado MD documented in this encounter [facility] 04-03-2023 Nurse Note Actual procedure/procedure scheduled: Yes Performing provider/scheduled provider: Yes Patient was roomed in: Q9- 08 Amphibious Operations Officer offered:Patient declines Patient arrived in the room at: 1006 Patient ready for procedure: 1030 The procedure started at ( Time Only): 1033 The procedure ended at: 1040 Was the procedure delayed: No The patient left the procedure room at: 1100 Patti Devlin RN PRE PROCEDURE ASSESSMENT- Cysto Procedure Indication: Cystoscopy Latex Allergy: No Allergies reviewed and updated. Yes Pre-Procedure Vital Signs: BP: 140/80 Pulse: 65 Heart valve replacement: No Joint replacement: Yes Back Office UA otained: yes PROCEDURE PREP-Cysto Patient ID with two(2)identifiers verified by: Patti Devlin RN Pre-Procedure Antibiotics: Bactrim DS 160mg-800mg orally, taken during the visit @ 1011 Patient Prep: Betadine Scrub to perineum and placement of Sterile Drape. COMPLETED Anesthetic Given:10 cc 2% Lidocaine jelly Patti Devlin RN UNIVERSAL PROTOCOL / SAFETY CHECKLIST Procedure to be performed: Cystoscopy Sign in Communication: Completed Time Out: Team Confirms the Correct Patient, Correct Procedure, Correct Site and Site Marking, Correct Position (if applicable). Sign Out Discussion: Completed Patti Devlin RN POST PROCEDURE NURSE ASSESSMENT Present along with physician during procedure exam. Patti Devlin RN Instruction sheet given and reviewed and patient verbalizes understanding: yes Current pain intensity is 0 on a 0-10 pain scale. Patti Devlin RN AMBULATORY PATIENT EDUCATION THE FOLLOWING WAS EVALUATED Motivation To Learn: Eager Family/Significant Other Support: None - Unavailable/disinterested Cognitive Ability: Alert/Oriented Method of Instruction: Individual instruction Written instruction - handouts Verbal instruction The Following Influencing Factors Were Barriers To This Education Session: None The Following Physical Limitations Were Barriers To This Education Session: None Instruction Provided To: Patient Community Center Worker Present: not applicable Discipline: Nursing Learning Topic: SURVIVAL SKILLS: post care Patient Evaluation: Verbalizes understanding: Yes Supplemental Material Given: Written Material Instructed By Patti Devlin RN In Department Urology . documented in this encounter [facility] 02-06-2023 History of Present illness Narrative Chief Complaint Patient presents with: F/U 6 Month HPI Azul Victoria is a 83 year old female who presents here today for Chronic Medical Conditions. follow up for hypertension, CKD, atrial flutter, gout, hyperlipidemia, impaired fasting glucose. Here with . Had recent follow-up with urologist in regards to her post history of carcinoma of the kidney. Continues to follow with [employer] cardiology. Taking medications as prescribed. We will review labs today. No recent gout flares. Uric acid level is higher than it usually is. Hemoglobin A1c is stable at 5.8%. She is without chest pain, shortness of breath, leg swelling or syncope. Requesting a referral to vascular surgery for painful varicose veins of the left leg. Would like to have a referral to dermatology for skin lesions on arm. Depression Screening 05/02/2018 06/16/2019 08/08/2022 02/06/2023 PHQ-2 Score 0 0 0 0 Depression screening tool completed and reviewed. Based on score and interview, patient is not at risk for depression. Screening tool discussed with patient, and I recommended no further intervention at this time. Past medical history, appointments, medications, allergies reviewed. EXAM: BP 118/74 (BP Site: Left Arm) Pulse 65 Temp 36.4 C (97.6 F) (Left Tympanic) Resp 16 Wt 109.6 kg (241 lb 9.6 oz) SpO2 98% BMI 44.19 kg/m General Appearance: Well appearing, alert, in no acute distress, well-hydrated, well nourished.. Lungs: Lungs clear to auscultation. No wheezing, rhonchi, rales.. Heart: RRR without murmur, gallop, or rubs. No ectopy. Extremities: No deformities, edema. Positive for varicose vein of the left lower leg. Component Latest Ref Rng & Units 01/20/2023 WBC 3.70 - 11.00 k/uL 6.51 RBC 3.90 - 5.20 m/uL 4.31 Hemoglobin 11.5 - 15.5 g/dL 13.8 Hematocrit 36.0 - 46.0 % 41.6 MCV 80.0 - 100.0 fL 96.5 MCH 26.0 - 34.0 pg 32.0 MCHC 30.5 - 36.0 g/dL 33.2 RDW-CV 11.5 - 15.0 % 12.5 Platelet Count 150 - 400 k/uL 197 MPV 9.0 - 12.7 fL 9.9 Neut% % 53.5 Abs Neut (ANC) 1.45 - 7.50 k/uL 3.48 Lymph% % 33.6 Abs Lymph 1.00 - 4.00 k/uL 2.19 Knox% % 7.8 Abs Knox <0.87 k/uL 0.51 Eosin% % 4.0 Abs Eosin <0.46 k/uL 0.26 Baso% % 0.8 Abs Baso <0.11 k/uL 0.05 Immature Gran % % 0.3 IMMATURE GRANS (ABS) <0.10 k/uL <0.03 NRBC /100 WBC 0.0 Absolute nRBC <0.01 k/uL <0.01 DTYPE Auto Protein, Total 6.3 - 8.0 g/dL 6.6 Albumin 3.9 - 4.9 g/dL 4.0 Calcium 8.5 - 10.2 mg/dL 10.4 (H) Bilirubin, Total 0.2 - 1.3 mg/dL 0.6 Alkaline Phosphatase 34 - 123 U/L 88 AST 13 - 35 U/L 20 ALT 7 - 38 U/L 12 Glucose 74 - 99 mg/dL 117 (H) BUN 7 - 21 mg/dL 36 (H) Creatinine 0.58 - 0.96 mg/dL 1.49 (H) Sodium 136 - 144 mmol/L 140 Potassium 3.7 - 5.1 mmol/L 4.5 Chloride 97 - 105 mmol/L 102 CO2 22 - 30 mmol/L 27 Anion Gap 9 - 18 mmol/L 11 eGFR >=60 mL/min/1.73m 35 (L) Total Cholesterol, Nonfasting <200 mg/dL 165 Triglycerides, Nonfasting <150 mg/dL 132 HDL Cholesterol, Nonfasting >39 mg/dL 51 LDL Cholesterol, Nonfasting <100 mg/dL 88 Non HDL Cholesterol, Nonfasting <130 mg/dL 114 VLDL Cholesterol, Nonfasting <30 mg/dL 26 Total Chol/HDL Ratio, Nonfasting <5.10 mg/dL 3.24 LDL/HDL Ratio, Nonfasting <2.54 mg/dL 1.73 Hemoglobin A1C 4.3 - 5.6 % 5.8 (H) Estimated Average Glucose mg/dL 120 Uric Acid 2.5 - 6.6 mg/dL 6.9 (H) ASSESSMENT/PLAN: 1. Essential hypertension, benign - ICD9: 401.1, ICD10: I10 (primary diagnosis) - good control - Continue current medication(s) - Recommended regular aerobic exercise. - Recommend home blood pressure monitoring, to bring results in on next visit - Goal of BP <130/80 - COMP METABOLIC PANEL 2. Atrial flutter, unspecified type (HCC) - ICD9: 427.32, ICD10: I48.92 - Continue following with cardiology. 3. Gout, unspecified cause, unspecified chronicity, unspecified site - ICD9: 274.9, ICD10: M10.9 - Continue with allopurinol, recheck uric acid - URIC ACID BLOOD 4. Impaired fasting glucose - ICD9: 790.21, ICD10: R73.01 - Stable, continue with lifestyle - HGB A1C - COMP METABOLIC PANEL 5. Stage 3b chronic kidney disease (HCC) - ICD9: 585.3, ICD10: N18.32 - Stable - COMP METABOLIC PANEL 6. Elevated cholesterol - ICD9: 272.0, ICD10: E78.00 - Repeat in 6 months - LIPID PANEL BASIC 7. Varicose veins of left lower extremity with pain - ICD9: 454.8, ICD10: I83.812 - CONSULT TO VASCULAR SURGERY 8. Skin lesion - ICD9: 709.9, ICD10: L98.9 - CONSULT TO DERMATOLOGY Tiburcio Ang APRN.CNP RTO in 6 months, sooner if needed. This note was partly generated using [employer] voice recognition dictation and may contain some misspelled or inaccurate words missed on review. documented in this encounter [facility] 11-28-2022 History of Present illness Narrative PHYSICIANS NOTE: CYSTOSCOPY PROCEDURE: November 28, 2022 Sign In History and Physical Exam reviewed and is unchanged. Primary Diagnosis: Urothelial carcinoma of kidney, right (hcc) (primary encounter diagnosis) History of bladder cancer Informed Consent Discussed: Yes. Risks, benefits, alternatives and personnel discussed with patient who consents to proceed. Sign in Communication: Completed Time Out: Team Confirms the Correct Patient, Correct Procedure; Cystoscopy, Correct Site and Site Marking (not applicable), Correct Position. Affirmation of Time Out: YES Sign Out: Sign Out Discussion: Completed Details of Procedure: After sterile prep and drape, the flexible cystoscope was placed through the urethra which was examined in its entirety. Urethral stricture: None The entire mucosa was examined. The scope was flexed in the dome of the bladder and used to look at the bladder in retroverted fashion. Findings: Normal bladder. Except some bladder prolapse. The scope was removed. Plan: Urine Cytology today Cysto in 4 months. Would then get CT urogram and cysto in 4 months thereafter. Miley Attestation: By signing my name below, Kristine Pardo, attest that this documentation has been prepared under the direction and in the presence of Dr. Magda Mercado MD. Electronically signed: Miley Thompson, November 28, 2022 9:13 AM Magda Pardo MD, personally performed the services described in this documentation. All medical record entries made by the scribe were at my direction and in my presence. I have reviewed the chart and discharge instructions (if applicable) and agree that the record reflects my personal performance and is accurate and complete. Magda Mercado MD UNIVERSAL PROTOCOL / SAFETY CHECKLIST Procedure to be Performed: cysto Sign In: A Moment of CARE was completed. Personnel directly involved with the procedure wore the appropriate PPE (Personal Protective Equipment). Patient/Surrogate Stated/Verified: PATIENT VERIFIED(optional for EMERGENT procedures): Patient name, Date of , Relevant allergies, and The intended procedure Time Out Communication: Intended patient and procedure match the source documents. Consent documented and matches the intended procedure. Sign Out: SIGN OUT (optional for EMERGENT procedures): All specimen containers correctly labeled. YOUSUF Llanos documented in this encounter [facility] 11-28-2022 Nurse Note Actual procedure/procedure scheduled: Yes Performing provider/scheduled provider: Yes Patient was roomed in: Q9- 05 Amphibious Operations Officer offered:Patient declines Patient arrived in the room at: 0847 Patient ready for procedure: 0907 The procedure started at ( Time Only): 0911 The procedure ended at: 0919 Was the procedure delayed: No The patient left the procedure room at: 0928 YOUSUF Llanos PRE PROCEDURE ASSESSMENT- Cysto Procedure Indication: Cystoscopy Latex Allergy: No Allergies reviewed and updated. Yes Heart valve replacement: No Joint replacement: Yes, R hip, R knee and 1/2 L knee - all greater than 2 years ago Back Office UA otained: yes PROCEDURE PREP-Cysto Patient ID with two(2)identifiers verified by: YOUSUF Llanos Pre-Procedure Antibiotics: None taken at home nor prior to procedure Patient Prep: Betadine Scrub to perineum and placement of Sterile Drape. COMPLETED Anesthetic Given:Administered by MD - see Procedure Physician Note. YOUSUF Llanos UNIVERSAL PROTOCOL / SAFETY CHECKLIST Procedure to be performed: Cystoscopy Sign in Communication: Completed Time Out: Team Confirms the Correct Patient, Correct Procedure, Correct Site and Site Marking, Correct Position (if applicable). Sign Out Discussion: Completed YOUSUF Llanos POST PROCEDURE NURSE ASSESSMENT Present along with physician during procedure exam. YOUSUF Llanos Instruction sheet given and reviewed and patient verbalizes understanding: yes Post Procedure Antibiotic: As Prescribed Current pain intensity is 0 on a 0-10 pain scale. YOUSUF Llanos AMBULATORY PATIENT EDUCATION THE FOLLOWING WAS EVALUATED Motivation To Learn: Interested Family/Significant Other Support: Unable to assess - Family not present Cognitive Ability: Alert/Oriented Method of Instruction: Individual instruction Written instruction - handouts The Following Influencing Factors Were Barriers To This Education Session: None The Following Physical Limitations Were Barriers To This Education Session: None Instruction Provided To: Patient Community Center Worker Present: no Discipline: Nursing Learning Topic: SURVIVAL SKILLS: Symptom Management Patient Evaluation: Verbalizes understanding: Yes Supplemental Material Given: Written Material Instructed By YOUSUF Llanos In Department Urology . documented in this encounter [facility] 11-13-2022 Miscellaneous Notes The following approved medication requests have been transmitted electronically. Requested Prescriptions Pending Prescriptions Disp Refills potassium chloride ER (KLOR-CON M10) 10 mEq tablet 90 tablet 3 Sig: Take 1 tablet by mouth once daily. Tiburcio Ang APRN.CNP Pharmacy verified in [facility] Patient has been identified by name and date of : Yes Patient aware RX will be sent to pharmacy. No need to notify patient. Patient phones for refill(s): Requested Prescriptions Pending Prescriptions Disp Refills potassium chloride ER (KLOR-CON M10) 10 mEq tablet 90 tablet 3 Sig: Take 1 tablet by mouth once daily. Date of last office visit : 08/08/2022 Date of next office visit : 02/06/2023 Last 2 Encounter Wt Readings: Date: Wt: 08/08/2022 107.4 kg (236 lb 12.8 oz) 03/21/2022 105.7 kg (233 lb) Please advise. Ghazal Urbina Pss documented in this encounter [facility] 11-02-2022 Miscellaneous Notes The following approved medication requests have been transmitted electronically. Requested Prescriptions Pending Prescriptions Disp Refills hydroCHLOROthiazide (HYDRODIURIL, ESIDRIX) 25 mg tablet 90 tablet 3 Sig: Take 1 tablet by mouth once daily. Jenifer Carlson APRN.CNP Patient has been identified by name and date of : Yes Requested Prescriptions Pending Prescriptions Disp Refills hydroCHLOROthiazide (HYDRODIURIL, ESIDRIX) 25 mg tablet 90 tablet 3 Sig: Take 1 tablet by mouth once daily. BRENDAN-08/08/22 Labs-08/08/22 NOV-02/06/23 med filled 10/27/21 RX INSTRUCTIONS: Patient aware RX will be sent to pharmacy. No need to notify patient. Maddie Hanson Pss documented in this encounter [facility] 08-15-2022 Miscellaneous Notes Pt notified and voiced understanding. Davida Choudhury Ma Please let the patient know that the ultrasound of her thyroid did not show any concerning features. Nodules were small and not considered concerning. Radiologist is recommending no further follow up or surveillance. Tiburcio Ang APRN.BASSAM documented in this encounter [facility] 08-11-2022 History of Present illness Narrative Radiology Service Progress Note PATIENT NAME: Azul Victoria DATE OF SERVICE: August 11, 2022 TIME: 9:36 AM PATIENT IDENTITY VERIFICATION COMPLETED USING TWO (2) IDENTIFIERS: Name and Date of confirmed by patient verbally. FALL SCREENING: Has the patient had 2 falls in the last year or 1 fall with injury or currently using an Ambulatory Assistive Device (Walker, Cane, Wheelchair, Crutches, etc.)? Yes, Patient High Risk for Falls What interventions were put in place to prevent falls during this visit? Increased Observations by Caregivers PATIENT GENDER DATA: Female. status: : No status: NO. PATIENT RELEVANT IMPLANT DATA REVIEWED: Not Applicable RADIOLOGY DEPARTMENT: Ultrasound PERIPHERAL IV DATA: Not applicable SIGNED BY: Virginia Reid RDMS August 11, 2022 9:36 AM documented in this encounter [facility] 08-08-2022 History of Present illness Narrative Chief Complaint Patient presents with: 6 Month Exam HPI Azul Victoria is a 82 year old female who presents here today for Chronic Medical Conditions.. HTN: Patient is compliant with meds Yes Monitors bp at home: Yes. Normal at home Denies side effects: Yes. Chest pain: No. Dyspnea: No. Edema: No. Palpitations: No. Syncope: No. Headache: No. Dizziness: No. Gout: On Allopurinol. No gout flares. Pre-diabetes: Hgb A1c is 5.9%. Atrial Flutter: On Xarelto, follows with [facility]. Had a robotic laparoscopic nephroureterectomy complicated for carcinoma of the right kidney in February of this year. Has been have some onset of chronic kidney disease. GFR is 36 today. Past medical history, appointments, medications, allergies reviewed. Previous Medical History PAST MEDICAL HISTORY Diagnosis Date Abscess of intestine DIVERTICULITIS Atrial flutter (HCC) Elevated uric acid in blood Esophageal reflux GERD Essential hypertension, benign Snoring Tumors of body of uterus, antepartum condition or complication UTERINE FIBROIDS Previous Surgical History PAST SURGICAL HISTORY Procedure Laterality Date APPENDECTOMY 09/19/2020 Pola Celeste ARTHRP ACETBLR/PROX FEM PROSTC AGRFT/ALGRFT 07/2019 [facility] ARTHRP KNE CONDYLE&PLATU MEDIAL&LAT COMPARTMENTS 2012 Knee replacement, total, right BMD BONE DENSITY DEXA 07/2006 CATARACT EXTRACTION HX Bilateral 2007 SECTION HX CHOLECYSTECTOMY 1982 COLONOSCOPY 11/2001 COLON POLYP REMOVED COLONOSCOPY FLX DX W/COLLJ SPEC WHEN PFRMD 07/29/2007 Colonoscopy COLONOSCOPY FLX DX W/COLLJ SPEC WHEN PFRMD 12/18/2018 Colonoscopy DILATION & CURETTAGE DX&/THER NONOBSTETRIC Dilation & curettage LIG/TRNSXJ FLP TUBE ABDL/VAG APPR UNI/BI Tubal ligation PAST SURGICAL HISTORY OF 10/2009 Left Unicomparmental Knee -- [facility] (Dr. Fajardo) TONSILLECTOMY PRIMARY/SECONDARY <AGE 13 Tonsillectomy Family History FAMILY HISTORY Problem Relation Age of Onset Heart Mother chf, Aortic Anerysm other (KIDNEY FAILURE) Mother Emphysema Father Coronary Artery Disease Brother Diabetes Brother COPD Brother Cancer Paternal Grandfather brain Heart Brother Diabetes Paternal Grandmother Colon Cancer Other none other (Brain Tumor) Maternal Uncle Patient Allergies ALLERGIES Allergen Reactions Penicillins Hives Librax (With Clidin* Mental Status Change Norvasc [Amlodipine* Current Medications Current Outpatient Medications on File Prior to Visit Medication Sig metoprolol tartrate, short acting, (LOPRESSOR) 25 mg tablet Take 1 tablet by mouth twice daily. oxybutynin (DITROPAN) 5 mg tablet Take 1 tablet by mouth three times daily as needed (bladder discomfort, spasms). rivaroxaban (XARELTO) 20 mg tablet Take 1 tablet by mouth daily with dinner. Restart on 03/13/2022 (7 days after surgery) allopurinol (ZYLOPRIM) 300 mg tablet Take 1 tablet by mouth once daily. hydroCHLOROthiazide (HYDRODIURIL, ESIDRIX) 25 mg tablet Take 1 tablet by mouth once daily. potassium chloride ER (KLOR-CON M10) 10 mEq tablet Take 1 tablet by mouth once daily. Biotin 2,500 mcg cap Take by mouth. MAGNESIUM ORAL Take by mouth. Cholecalciferol, Vitamin D3, (VITAMIN D) 1,000 unit tab Take 1,000 Units by mouth once daily. ONE DAILY MULTI-VITAMIN TAB Take one(1) tablet daily. Current Facility-Administered Medications on File Prior to Visit Medication perflutren lipid microspheres 1.3 mL in NaCl (PF) 0.9% 10 mL injection (DEFINITY) sodium chloride 0.9 % (flush) 10 mL (BD POSIFLUSH) perflutren lipid microspheres 1.3 mL in NaCl (PF) 0.9% 10 mL injection (DEFINITY) sodium chloride 0.9 % (flush) 10 mL (BD POSIFLUSH) Social History Social History Tobacco Use Smoking status: Never Smokeless tobacco: Never Vaping Use Vaping Use: Never used Substance Use Topics Alcohol use: No Drug use: No REVIEW OF SYSTEMS: as above Reviewed relevant PMHx, PSHx, Social Hx, current medications and allergies. EXAM: BP 106/70 Pulse 68 Temp 36.3 C (97.3 F) (Right Tympanic) Resp 16 Wt 107.4 kg (236 lb 12.8 oz) SpO2 98% BMI 43.31 kg/m General Appearance: Well appearing, alert, in no acute distress, well-hydrated, well nourished.. Neck: Supple, no adenopathy; thyroid symmetric, normal size. Lungs: Lungs clear to auscultation. No wheezing, rhonchi, rales.. Heart: RRR without murmur, gallop, or rubs. No ectopy. Health Maintenance List SHINGRIX VACCINE(1 of 2) Never done DTAP,TDAP,TD(1 - Tdap) due on 04/11/2018 COVID-19 VACCINE(3 - Booster for Pfizer series) due on 03/12/2021 ADVANCE DIRECTIVE DISCUSSION Never done DEPRESSION ASSESSMENT Never done INFLUENZA(1) due on 05/11/2022 DIABETES SCREEN due on 08/05/2025 BONE DENSITY Completed PNEUMOCOCCAL: 65+ Completed Data reviewed Component Latest Ref Rng & Units 08/05/2022 Protein, Total 6.3 - 8.0 g/dL 6.7 Albumin 3.9 - 4.9 g/dL 4.2 Calcium 8.5 - 10.2 mg/dL 10.4 (H) Bilirubin, Total 0.2 - 1.3 mg/dL 0.5 Alkaline Phosphatase 34 - 123 U/L 92 AST 13 - 35 U/L 18 ALT 7 - 38 U/L 12 Glucose 74 - 99 mg/dL 105 (H) BUN 7 - 21 mg/dL 37 (H) Creatinine 0.58 - 0.96 mg/dL 1.46 (H) Sodium 136 - 144 mmol/L 140 Potassium 3.7 - 5.1 mmol/L 4.5 Chloride 97 - 105 mmol/L 103 CO2 22 - 30 mmol/L 26 Anion Gap 9 - 18 mmol/L 11 eGFR >=60 mL/min/1.73m 36 (L) Color Yellow Light Yellow Clarity Clear Clear Glucose, Urine Negative Negative Bilirubin, Urine Negative Negative Ketones, Urine Negative Negative Specific [place], Ur 1.005 - 1.030 1.019 Hemoglobin/Blood,Ur Negative Negative pH, Urine 5.0 - 8.0 6.0 Protein, Urine Negative Negative Urobilinogen Negative Negative Nitrites Negative Negative Leukest Negative Negative Cholesterol, Total <200 mg/dL 176 Triglyceride <150 mg/dL 121 HDL Cholesterol >39 mg/dL 55 Non HDL Cholesterol <130 mg/dL 121 Fasting Time hrs 15 VLDL Cholesterol <30 mg/dL 24 TC:HDL Ratio <5.10 3.20 LDL Cholesterol <100 mg/dL 97 LDL:HDL Ratio <2.54 1.76 Hemoglobin A1C 4.3 - 5.6 % 5.9 (H) Estimated Average Glucose mg/dL 123 Uric Acid 2.5 - 6.6 mg/dL 4.9 ASSESSMENT/PLAN: 1. Atrial flutter, unspecified type (HCC) - ICD9: 427.32, ICD10: I48.92 (primary diagnosis) - Continue follow up with [facility] - COMP METABOLIC PANEL - CBC + DIFF 2. Essential hypertension, benign - ICD9: 401.1, ICD10: I10 - good control - Continue current medication(s) - Recommended regular aerobic exercise. - Recommend home blood pressure monitoring, to bring results in on next visit - Goal of BP <130/80 - COMP METABOLIC PANEL - CBC + DIFF 3. Gout, unspecified cause, unspecified chronicity, unspecified site - ICD9: 274.9, ICD10: M10.9 - Reduce Allopurinol to 100 mg daily due to CKD - URIC ACID BLOOD - ALLOPURINOL 100 MG TABLET 4. Impaired fasting glucose - ICD9: 790.21, ICD10: R73.01 - Stable - HGB A1C 5. Elevated cholesterol - ICD9: 272.0, ICD10: E78.00 Good control. - LIPID PANEL, NONFASTING 6. Stage 3b chronic kidney disease (HCC) - ICD9: 585.3, ICD10: N18.32 - eGFR: Stable - Counseled on avoiding regular use of NSAIDs, adequate hydration, potential risk of IV dye - Recommend maintaining A1c < 7% - Recommend maintaining blood pressure under 130/80 - CBC + DIFF 7. Thyroid nodule - ICD9: 241.0, ICD10: E04.1 - Incidental finding on CT Chest, get ultrasound - US THYROID/PARATHYROID 8. Lung nodule seen on imaging study - ICD9: 793.11, ICD10: R91.1 - Repeat in [address] of chest 9. Lung nodules - ICD9: 793.19, ICD10: R91.8 - Repeat in 1 year - CT CHEST WO IVCON Tiburcio Ang APRN.CNP RTO in 6 months, sooner if needed. This note was partly generated using [employer] voice recognition dictation and may contain some misspelled or inaccurate words missed on review. documented in this encounter [facility] 08-08-2022 Instructions Tiburcio Ang APRN.CNP - 08/08/2022 12:56 PM EST Component Latest Ref Rng & Units 08/05/2022 Protein, Total 6.3 - 8.0 g/dL 6.7 Albumin 3.9 - 4.9 g/dL 4.2 Calcium 8.5 - 10.2 mg/dL 10.4 (H) Bilirubin, Total 0.2 - 1.3 mg/dL 0.5 Alkaline Phosphatase 34 - 123 U/L 92 AST 13 - 35 U/L 18 ALT 7 - 38 U/L 12 Glucose 74 - 99 mg/dL 105 (H) BUN 7 - 21 mg/dL 37 (H) Creatinine 0.58 - 0.96 mg/dL 1.46 (H) Sodium 136 - 144 mmol/L 140 Potassium 3.7 - 5.1 mmol/L 4.5 Chloride 97 - 105 mmol/L 103 CO2 22 - 30 mmol/L 26 Anion Gap 9 - 18 mmol/L 11 eGFR >=60 mL/min/1.73m 36 (L) Color Yellow Light Yellow Clarity Clear Clear Glucose, Urine Negative Negative Bilirubin, Urine Negative Negative Ketones, Urine Negative Negative Specific [place], Ur 1.005 - 1.030 1.019 Hemoglobin/Blood,Ur Negative Negative pH, Urine 5.0 - 8.0 6.0 Protein, Urine Negative Negative Urobilinogen Negative Negative Nitrites Negative Negative Leukest Negative Negative Cholesterol, Total <200 mg/dL 176 Triglyceride <150 mg/dL 121 HDL Cholesterol >39 mg/dL 55 Non HDL Cholesterol <130 mg/dL 121 Fasting Time hrs 15 VLDL Cholesterol <30 mg/dL 24 TC:HDL Ratio <5.10 3.20 LDL Cholesterol <100 mg/dL 97 LDL:HDL Ratio <2.54 1.76 Hemoglobin A1C 4.3 - 5.6 % 5.9 (H) Estimated Average Glucose mg/dL 123 Uric Acid 2.5 - 6.6 mg/dL 4.9 Reduce Allopurinol dose to 100 mg once daily Schedule thyroid ultrasound to follow up from nodule found on CT of the chest. We should repeat a CT of the lungs in 1 year, around Jul 2023 for follow up on tiny lung nodule. Tiburcio Ang APRN.CNP documented in this encounter [facility] 07-26-2022 History of Present illness Narrative AMBULATORY TELEPHONE VISIT Azul Victoria has consented to this telephone encounter. Persons Present: patient Chief Complaint/Reason: follow up Clinic note from 07/18/2022 copied and updated. HPI: Azul Victoria is a 82 year old female with hx of bladder cancer who presents to discuss biopsy results. Last seen for cystoscopy with Dr. Mercado on 07/18/2022: Findings: One small papillary lesion on posterior wall approximately 0.5 cm. Biopsied and fulgurated. Tolerated well. Plan of care: urine cytology today Virtual visit in 1-2 weeks - if no cancer in biopsy, then plan cysto in 4 months but if cancer, will discuss possibly BCG x6 weeks if high grade FINAL DIAGNOSIS A. Bladder, biopsy: - Denuded papillary lesion with prominent chronic inflammation. Urine cytology negative. Interval Hx: Overall, doing well. Denies any complications after recent cystoscopy/biopsy. No hematuria. No recent fevers/chills. Data Reviewed: Most recent labs Labs: Urine Cytology 07/18/2022 FINAL DIAGNOSIS A - URINE VOIDED Negative for high-grade urothelial carcinoma. Creatinine Date Value Ref Range Status 07/18/2022 1.41 (H) 0.58 - 0.96 mg/dL Final 03/08/2022 1.39 (H) 0.58 - 0.96 mg/dL Final 03/07/2022 1.05 (H) 0.58 - 0.96 mg/dL Final Creatinine (POCT) Date Value Ref Range Status 07/18/2022 1.40 0.7 - 1.4 mg/dL Final REVIEW OF SYSTEMS: GENERAL: no fever, activity level is normal : urination is normal and no dysuria PHYSICAL EXAMINATION: VIDEO EXAM: (if completed, performed via video enabled technology) No exam performed- telephone visit Assessment: (Z85.51) History of bladder cancer (primary encounter diagnosis) 82 year old female with hx of bladder cancer who presents to discuss biopsy results Recent surveillance cystoscopy last week with Dr. Mercado revealing 1 small papillary lesion- we discussed benign pathology results and negative cytology. Overall, doing well with no urologic issues or concerns. Plan: -RTC in 4 months for cystoscopy in [facility] with Dr. Mercado. Total Time Spent: 11 minutes Niharika Simmons APRN.CNP documented in this encounter [facility] 07-18-2022 History of Present illness Narrative Radiology Service Progress Note DATE OF SERVICE: July 18, 2022 TIME: 8:09 AM PATIENT WEIGHT: 232 LBS PATIENT IDENTITY VERIFICATION COMPLETED USING TWO (2) STANDARD IDENTIFIERS: Name and Date of confirmed by patient verbally. FALL SCREENING: Has the patient had 2 falls in the last year or 1 fall with injury or currently using an Ambulatory Assistive Device (Walker, Cane, Wheelchair, Crutches, etc.)? No PATIENT GENDER DATA: Female. status: : No status: NO. ALLERGIES: Reviewed and unchanged CONTRAST ALLERGY: No EXAM: CT -CONTRAST INDUCED NEPHROPATHY RISK FACTORS: Patient age > 60 years and History of Kidney surgery, Kidney neoplasm, Liver disease, and/or any recent Nephrotoxic Chemotherapy or other Nephrotoxic medications CREATININE: Creatinine Date Value Ref Range Status 03/08/2022 1.39 (H) 0.58 - 0.96 mg/dL Final 03/07/2022 1.05 (H) 0.58 - 0.96 mg/dL Final Creatinine (POCT) Date Value Ref Range Status 07/18/2022 1.40 0.7 - 1.4 mg/dL Final eGFR (POCT) Date Value Ref Range Status 07/18/2022 38 mL/min/1.73 m2 Final eGFR- Date Value Ref Range Status 07/02/2021 >60 Final P.O.C.T. RESULTS: POC done: Yes, See Lab Tab July 18, 2022 TREATMENT: No Hydration needed. IV SITE: Ambulatory: A peripheral IV was started in the Left antecubital site with a Angio cath: 22 gauge. and A Saline lock was inserted per protocol IV SITE APPEARANCE: Clean,Dry and Intact SIGNATURE: Ivy Torres RN PATIENT NAME: Azul Victoria DATE: July 18, 2022 TIME: 8:09 AM Radiology Service Progress Note PATIENT NAME: Azul Victoria DATE OF SERVICE: July 18, 2022 TIME: 9:15 AM PATIENT IDENTITY VERIFICATION COMPLETED USING TWO (2) IDENTIFIERS: Name and Date of confirmed by patient verbally and Name and Date of confirmed by identification band. FALL SCREENING: Has the patient had 2 falls in the last year or 1 fall with injury or currently using an Ambulatory Assistive Device (Walker, Cane, Wheelchair, Crutches, etc.)? No PATIENT GENDER DATA: Female. status: : No status: NO. PATIENT RELEVANT IMPLANT DATA REVIEWED: Yes RADIOLOGY DEPARTMENT: CT; Exam(s) Completed: Chest Abdomen Pelvis PERIPHERAL IV DATA: Site assessment: Clean,Dry and Intact, Site disposition Discontinued SIGNED BY: RT Toni(R) July 18, 2022 9:15 AM documented in this encounter [facility] 05-22-2022 Miscellaneous Notes The following approved medication requests have been transmitted electronically. Requested Prescriptions Pending Prescriptions Disp Refills metoprolol tartrate, short acting, (LOPRESSOR) 25 mg tablet 180 tablet 3 Sig: Take 1 tablet by mouth twice daily. Tiburcio Ang APRN.SATELLITE COMMUNICATIONS ENGINEER Patient has been identified by name and date of : Yes Requested Prescriptions Pending Prescriptions Disp Refills metoprolol tartrate, short acting, (LOPRESSOR) 25 mg tablet 180 tablet 3 Sig: Take 1 tablet by mouth twice daily. RX INSTRUCTIONS: Patient aware RX will be sent to pharmacy. No need to notify patient. Susanna Reis MA Brendan: 07/2021 routine visit Nov: 07/2022 Last refill; 05/2021 Patient has been identified by name and date of : Yes Requested Prescriptions Pending Prescriptions Disp Refills metoprolol tartrate, short acting, (LOPRESSOR) 25 mg tablet 180 tablet 3 Sig: Take 1 tablet by mouth twice daily. RX INSTRUCTIONS: Patient aware RX will be sent to pharmacy. No need to notify patient. Hali Corbett documented in this encounter [facility] 04-27-2022 Miscellaneous Notes April 27, 2022 PID: [id number] Azul Victoria [address] [place] [address] [id number] Dear Ms. Victoria, We are pleased to inform you that the results of your recent breast imaging exam on 04/27/2022 are normal. Early detection of cancer is very important. We also understand recommendations regarding breast cancer screening are controversial. Please discuss with your primary care provider which strategy is best for you and whether a mammogram is right for you. Your imaging studies and report will be kept on file at [facility] as part of your permanent medical record and are available for your continuing care. Thank you for allowing us to help in meeting your health care needs. Sincerely, Dr. Santos Interpreting Radiologist (Normal over 40) documented in this encounter [facility] 04-27-2022 History of Present illness Narrative Radiology Service Progress Note PATIENT NAME: Azul Victoria DATE OF SERVICE: April 27, 2022 TIME: 9:34 AM PATIENT IDENTITY VERIFICATION COMPLETED USING TWO (2) IDENTIFIERS: Name and Date of confirmed by patient verbally. FALL SCREENING: Has the patient had 2 falls in the last year or 1 fall with injury or currently using an Ambulatory Assistive Device (Walker, Cane, Wheelchair, Crutches, etc.)? No PATIENT GENDER DATA: Female. status: : No status: NO. PATIENT RELEVANT IMPLANT DATA REVIEWED: Not Applicable RADIOLOGY DEPARTMENT: Mammography PERIPHERAL IV DATA: Not applicable SIGNED BY: RT Malissa(R) April 27, 2022 9:34 AM documented in this encounter [facility] 04-14-2022 Miscellaneous Notes Pt called and is notified of providers message. Pt voices understanding. Pt put through to scheduling to set up mammogram appointment. Valeria Rose RN Imaging filed. Tiburcio Ang APRN.SATELLITE COMMUNICATIONS ENGINEER Patient calls to request order for mammogram be placed. Last mammogram 12/10/2020. Once order placed please call patient at [phone] to schedule. Crystal Cee RN documented in this encounter [facility] 04-07-2022 Miscellaneous Notes Message left for pt to call back.. Davida Choudhury MA Okay to discharge services. Tiburcio Ang APRN.BASSAM Judy with [facility] calling and states patient has met her [facility] goals and her surgical incision is healed. Patient requesting to be discharged from their services if provider agreeable. Please call Judy with approval at [phone]. Thank you. documented in this encounter [facility] 03-21-2022 History of Present illness Narrative POPULATION HEALTH NAVIGATION OUTREACH Action/FYI Spoke with pt. Pt scheduled with [facility] for TCM/hospital follow up on 03/21/22. TCM eligible through 03/24/22 Pt discharged from [facility] on 03-09-22 Admitted for:Right upper tract urothelial carcinoma, underwent a procedure to remove the right kidney and ureter Pt identified by name and : YES, via phone Outreach Outcome/Action Spoke to patient or caregiver: Patient scheduled Did you use a PCP flex slot to schedule this appointment? No Reason for Outreach Community Monitoring Pool Payer: Payor: MEDICARE / Plan: MEDICARE A AND B / Product Type: Medicare / Care Gap Reviewed:: Follow-up appointment Reminder: Reminder note to check Health Maintenance for items below Health Maintenance items due: SHINGRIX VACCINE(1 of 2) Never done DTAP,TDAP,TD(1 - Tdap) due on 04/11/2018 COVID-19 VACCINE(3 - Booster for Pfizer series) due on 06/17/2021 ADVANCE DIRECTIVE DISCUSSION Never done Message Sent to Practice: No Chief Complaint Patient presents with: Transition Of Care HPI Azul Victoria is a 82 year old female who presents here today for Hospital Discharge Follow up.. is here in the office today. Patient here for hospital follow up. Had robotic laparoscopic nephroureterectomy with Dr Mercado. She is getting follow up with his office. She will have follow-up CT scan, blood work, cystoscopy in July. She has been afebrile. She denies any cough, shortness of breath, chest pain, leg swelling, syncope, fevers, pain. She states that her laparoscopic incisions are healing well. No drainage. They are open to air. She also states that her blood pressure is normal at home. Taking her medications as prescribed for hypertension. She has resumed her Xarelto for history of atrial flutter. She has no further questions. Past medical history, appointments, medications, allergies reviewed. Previous Medical History PAST MEDICAL HISTORY Diagnosis Date Abscess of intestine DIVERTICULITIS Atrial flutter (HCC) Elevated uric acid in blood Esophageal reflux GERD Essential hypertension, benign Snoring Tumors of body of uterus, antepartum condition or complication UTERINE FIBROIDS Previous Surgical History PAST SURGICAL HISTORY Procedure Laterality Date APPENDECTOMY 09/19/2020 -Dr. Nora Celeste ARTHRP ACETBLR/PROX FEM PROSTC AGRFT/ALGRFT 07/2019 [facility] at [facility] ARTHRP KNE CONDYLE&PLATU MEDIAL&LAT COMPARTMENTS 2012 Knee replacement, total, right BMD BONE DENSITY DEXA 07/2006 CATARACT EXTRACTION HX Bilateral 2007 SECTION HX CHOLECYSTECTOMY 1982 COLONOSCOPY 11/2001 COLON POLYP REMOVED COLONOSCOPY FLX DX W/COLLJ SPEC WHEN PFRMD 07/29/2007 Colonoscopy COLONOSCOPY FLX DX W/COLLJ SPEC WHEN PFRMD 12/18/2018 Colonoscopy DILATION & CURETTAGE DX&/THER NONOBSTETRIC Dilation & curettage LIG/TRNSXJ FLP TUBE ABDL/VAG APPR UNI/BI Tubal ligation PAST SURGICAL HISTORY OF 10/2009 Left Unicomparmental Knee -- [facility] (Dr. Fajardo) TONSILLECTOMY PRIMARY/SECONDARY <AGE 13 Tonsillectomy Family History FAMILY HISTORY Problem Relation Age of Onset Heart Mother chf, Aortic Anerysm other (KIDNEY FAILURE) Mother Emphysema Father Coronary Artery Disease Brother Diabetes Brother COPD Brother Cancer Paternal Grandfather brain Heart Brother Diabetes Paternal Grandmother Colon Cancer Other none other (Brain Tumor) Maternal Uncle Patient Allergies ALLERGIES Allergen Reactions Penicillins Hives Librax (With Clidin* Mental Status Change Norvasc [Amlodipine* Current Medications Current Outpatient Medications on File Prior to Visit Medication Sig docusate sodium (COLACE) 100 mg capsule Take 1 capsule by mouth twice daily for 14 days. oxybutynin (DITROPAN) 5 mg tablet Take 1 tablet by mouth three times daily as needed (bladder discomfort, spasms). rivaroxaban (XARELTO) 20 mg tablet Take 1 tablet by mouth daily with dinner. Restart on 03/13/2022 (7 days after surgery) allopurinol (ZYLOPRIM) 300 mg tablet Take 1 tablet by mouth once daily. hydroCHLOROthiazide (HYDRODIURIL, ESIDRIX) 25 mg tablet Take 1 tablet by mouth once daily. potassium chloride ER (KLOR-CON M10) 10 mEq tablet Take 1 tablet by mouth once daily. Biotin 2,500 mcg cap Take by mouth. metoprolol tartrate, short acting, (LOPRESSOR) 25 mg tablet Take 1 tablet by mouth twice daily. MAGNESIUM ORAL Take by mouth. Cholecalciferol, Vitamin D3, (VITAMIN D) 1,000 unit tab Take 1,000 Units by mouth once daily. ONE DAILY MULTI-VITAMIN TAB Take one(1) tablet daily. Current Facility-Administered Medications on File Prior to Visit Medication perflutren lipid microspheres 1.3 mL in NaCl (PF) 0.9% 10 mL injection (DEFINITY) sodium chloride 0.9 % (flush) 10 mL (BD POSIFLUSH) perflutren lipid microspheres 1.3 mL in NaCl (PF) 0.9% 10 mL injection (DEFINITY) sodium chloride 0.9 % (flush) 10 mL (BD POSIFLUSH) Social History Social History Tobacco Use Smoking status: Never Smoker Smokeless tobacco: Never Used Vaping Use Vaping Use: Never used Substance Use Topics Alcohol use: No Drug use: No REVIEW OF SYSTEMS: as above Reviewed relevant PMHx, PSHx, Social Hx, current medications and allergies. EXAM: BP 128/82 Pulse 78 Temp 36.7 C (98.1 F) (Left Tympanic) Resp 16 Wt 105.7 kg (233 lb) BMI 42.62 kg/m General Appearance: Well appearing, alert, in no acute distress, well-hydrated, well nourished. and Obese. Skin: 8 laparoscopic surgical incisions healing without complication, no drainage, erythema, warmth.. Lungs: Lungs clear to auscultation. No wheezing, rhonchi, rales.. Heart: RRR without murmur, gallop, or rubs. No ectopy. Abdomen: Normal abdominal exam, Abdomen soft, non-tender. Bowel sounds normal. No masses, organomegaly. Extremities: No deformities, edema, skin discoloration, clubbing or cyanosis. Good capillary refill. . Health Maintenance List SHINGRIX VACCINE(1 of 2) Never done DTAP,TDAP,TD(1 - Tdap) due on 04/11/2018 COVID-19 VACCINE(3 - Booster for Pfizer series) due on 06/17/2021 ADVANCE DIRECTIVE DISCUSSION Never done INFLUENZA(1) due on 05/11/2022 DIABETES SCREEN due on 03/08/2025 BONE DENSITY Completed PNEUMOCOCCAL: 65+ Completed Data reviewed Hospital records from [facility] ASSESSMENT/PLAN: 1. Urothelial carcinoma (HCC) - ICD9: 199.1, ICD10: C68.9 (primary diagnosis) -Continue following with neurology. Surgical incisions look good. Discussed signs and symptoms that would the need to follow-up. 2. Atrial flutter, unspecified type (HCC) - ICD9: 427.32, ICD10: I48.92 -Patient has resumed medications, Xarelto. 3. Essential hypertension, benign - ICD9: 401.1, ICD10: I10 - good control - Continue current medication(s) - Recommended regular aerobic exercise. - Recommend home blood pressure monitoring, to bring results in on next visit - Goal of BP <130/80 4. Hospital discharge follow-up - ICD9: V67.59, ICD10: Z09 -See above Tiburcio Ang APRN.CNP RTO as scheduled This note was partly generated using [employer] voice recognition dictation and may contain some misspelled or inaccurate words missed on review. documented in this encounter [facility] 03-14-2022 History of Present illness Narrative Chief Complaint: post-op HPI: Azul Victoria is a 82 year old female with hx of gross hematuria who was found to have a right renal pelvis tumor who presents for post-op evaluation. She underwent a ureteroscopic biopsy which showed high grade urothelial carcinoma. She is s/p robotic right nephroureterectomy with bladder cuff on 03/06/[address] Mercado. FINAL DIAGNOSIS A. 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 -Margins of resection are negative for tumor. -See synoptic report. Hospital course uncomplicated and she was discharged home on 03/09/2022 Interval Hx: Overall, doing well. No recent fevers/chills. Tolerating adequate PO intake. No N/V. Prior constipation has resolved. Piper catheter is draining without issues- anxious to have it removed as it is bothersome. Reports only minimal lower abdominal discomfort relieved by tylenol. Surgical incisions healing without evidence of infection. Ambulating at home without difficulty. 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 No evidence of soft tissue Multi fibroid uterus Diverticulosis CT ABD/PEL WO CON 11/10/2021 IMPRESSION: 1. No urolithiasis or obstructive uropathy. 2. No other acute or inflammatory abdominopelvic disease REVIEW OF SYSTEMS GENERAL:No weight loss, malaise or fevers., SEE HPI GENITOURINARY: See HPI The remainder of the ROS was negative. HISTORIES PAST MEDICAL HISTORY Diagnosis Date Abscess of intestine DIVERTICULITIS Atrial flutter (HCC) Elevated uric acid in blood Esophageal reflux GERD Essential hypertension, benign Snoring Tumors of body of uterus, antepartum condition or complication UTERINE FIBROIDS FAMILY HISTORY Problem Relation Age of Onset Heart Mother chf, Aortic Anerysm other (KIDNEY FAILURE) Mother Emphysema Father Coronary Artery Disease Brother Diabetes Brother COPD Brother Cancer Paternal Grandfather brain Heart Brother Diabetes Paternal Grandmother Colon Cancer Other none other (Brain Tumor) Maternal Uncle SOCIAL HISTORY Social History Tobacco Use Smoking status: Never Smoker Smokeless tobacco: Never Used Vaping Use Vaping Use: Never used Substance Use Topics Alcohol use: No Drug use: No PHYSICAL EXAMINATION VITALS: BP 146/72 (BP Site: Right Arm, BP Position: Sitting) Pulse 61 GENERAL: alert, no distress, normal affect EYES: no icterus, no discharge, conjugate gaze CARDIOVASCULAR: regualr rate, regular rhythm, good radial pulse RESPIRATORY: normal effort, regular rate, no audible wheeze ABDOMEN: obese, soft, non-tender, non-distended GENITOURINARY: no flank tenderness EXTREMITIES: warm, + non-pitting BLE edema (at baseline per patient report), no malformations SKIN: no abnormal bruising, no rashes, no cyanosis NEUROLOGIC: normal gait, good manual dexterity INCISION/WOUND: abdominal lap sites HYDRAULIC BILLET MAKER with skin glue- C/D/I DRAINS/LINES: piper catheter to gravity drainage with clear/yellow urine output Gemzar instillation as completed by Dr. Martín Pardo: 100 mL of Gemzar instilled via piper catheter using Equashield setup and sterile technique Piper catheter removed following instillation Gemzar instillation equipment and piper catheter disposed of in chemotherapy waste basket Instillation time: 2:55 PM Patient instructed to void at 4:25 PM Patient instructed to flush toilet multiple times following each void in the following six hours Patient instructed to take remaining dose of ciprofloxacin following piper catheter removal Confirmed that patient voided at instructed time Assessment 82 year old female s/p robotic right nephroureterectomy with bladder cuff on 03/06/[address] Mercado. S/p bladder gemzar instillation and piper catheter removal in office today by Dr. Pardo. Surgical pathology results discussed with patient and family in detail and rationale for follow up surveillance. Post-operative physical restrictions reviewed. Plan -RTC in 4 months with BMP, CT abd/pel/chest, and cystoscopy in [facility] with Dr. Mercado. Discussed with Dr. Mercado. Niharika Simmons APRN.CNP documented in this encounter [facility] 03-10-2022 History of Present illness Narrative POPULATION HEALTH NAVIGATION OUTREACH Action/FYI Spoke with pt. Pt scheduled with [facility] for TCM/hospital follow up on 03/21/22. TCM eligible through 03/24/22 Pt discharged from [facility] on 03-09-22 Admitted for:Right upper tract urothelial carcinoma, underwent a procedure to remove the right kidney and ureter Pt identified by name and : YES, via phone Outreach Outcome/Action Spoke to patient or caregiver: Patient scheduled Did you use a PCP flex slot to schedule this appointment? No Reason for Outreach Community Monitoring Pool Payer: Payor: MEDICARE / Plan: MEDICARE A AND B / Product Type: Medicare / Care Gap Reviewed:: Follow-up appointment Reminder: Reminder note to check Health Maintenance for items below Health Maintenance items due: SHINGRIX VACCINE(1 of 2) Never done DTAP,TDAP,TD(1 - Tdap) due on 04/11/2018 COVID-19 VACCINE(3 - Booster for Pfizer series) due on 06/17/2021 ADVANCE DIRECTIVE DISCUSSION Never done Message Sent to Practice: No Navigation Signature: Lala Poon MA March 10, 2022 2:54 PM TCM Home Visit Referral Source of Stratification: [facility] Admission Status: Discharged Readmission Risk Score: 13 SAMIRA Score: 3 Program referral criteria met: Does not meet referral criteria Patient does not qualify for High Risk TCM Home Visit program due to: Does not meet referral criteria Patient does not quality for High Risk TCM Home Visit Program due to: Does not meet referral criteria TRANSITIONAL CARE MANAGEMENT (TCM) COMMUNITY MONITORING PROGRAM Provider Action/FYI: Routed message to [facility] POOL for appointment with PCP, patient prefers mid morning Patient is eligible for TCM through 03-24-22. TCM Initial Hospital Discharge [facility] on 03-09-[address] Nickerson f/u Rogel[facility] Patient states she is doing pretty good Denies chest pain, sob, fever or chills Lap sites x 4 HYDRAULIC BILLET MAKER, old PROSPER site with dressing intact, some drainage Has Oxycodone for pain, not taking at this time Leave your incision open to air unless otherwise instructed. Good appetite, no n/v/d/, drinking plenty of fluids Activity: Ambulate often daily. Avoid heavy lifting, nothing greater than 10 pounds Your doctor will tell you when you can begin to drive. Piper -CD, good urine output of clear yellow urine Reviewed medications SUMMARY: Pt discharged from [facility] on 03-09-22 Admitted for:Right upper tract urothelial carcinoma, underwent a procedure to remove the right kidney and ureter Contact made with patient: Yes Hi my name is Ale Mcmullen RN and I am calling from the [facility] on behalf of your PCP, Jeni Nickerson MD I understand you were recently in the hospital so I am calling to check in with you to ensure you are feeling well now that you're home. May I ask you a few questions related to your hospital stay and well-being? Yes Contact with patient post discharge, spoke to patient. Patient identified by name and . Do you feel your health is BETTER, WORSE, or the SAME since leaving the hospital? Better ACTION TAKEN: Patient indicated symptoms are better or same, no action required. Continue outreach. MEDICATIONS: Many patients have questions or concerns about their medications once they are home. Do you have any questions about taking your medications or which medication you should be on? No Do you need any medication refills at this time, including any of the medications you might take only when needed? No ACTION TAKEN: No action required For RNs or Pharmacy completing outreach ONLY, was a medication review completed? Yes SOCIAL: We would like to make sure you have what you need so that your basics needs are met - including your personal safety, food, housing and medications. Would you like to speak with a social work team leader/research psychologist to help give you support for any of these needs? No It can be normal to feel anxious or down during a time like this. Would you like to talk to a mental health professional about how you have been feeling? No ACTION TAKEN: No action taken DISCHARGE INTRUCTIONS: Your discharge instructions / After Visit Summary (AVS) are important in guiding you through the recovery process. Do you have any questions related to your discharge instructions? No Do you have all the necessary equipment and supplies at home? Yes ACTION TAKEN: No action required I would like to help you schedule a hospital follow-up virtual or telephone visit with your PCP. This is a great way for you to connect with your provider to ensure you have safely transitioned home. If you are agreeable, I will send your request to a fiscal agent who will contact and assist you with that appointment. This will give you an opportunity to ask any questions or address any concerns you may have with your PCP. Inform the patient that if they have any questions or concerns prior to that appointment, to call their PCP's office right away. ACTION TAKEN: Patient desires an appointment - Routed to [facility] [[id number]] for scheduling telehealth visit (telephonic, virtual visit, or Facetime) within 7 days of discharge with PCP care team. Indicate hospital follow-up appointment needed within 7 days in Provider/FYI box. End Outreach. Your doctor would like us to remind you of the recommendations regarding the coronavirus (Covid19) outbreak: Avoid public places as much as possible. Avoid close contact (within 6 feet) with others you don t live with, especially if they are sick. Stay home if you are sick. Wash your hands regularly for at least 20 seconds with soap and water. Wear a cloth mask in public places to help reduce community spread. Do not go to your Doctor s office unless instructed to do so. For any non-emergency symptoms, call your Doctor s office to get instructions on how to manage (we might recommend a telephone or virtual visit). For emergency symptoms, proceed to Emergency Department as usual but inform them of cough and fever symptoms ZULEMA if present (or call on the way if possible). Ale Mcmullen RN Director Labor Standards documented in this encounter [facility] 03-10-2022 Miscellaneous Notes Nila was notified and advised patient is going with another [facility] Sarai Farnsworth Ma I agree and will follow Jeni Nickerson MD Nila- [facility]- reports they received a referral from [facility] for patient to have nursing, PT, OT. Asking if pcp agreeable to follow? Please phone Nila with verbal. documented in this encounter [facility] 03-03-2022 Instructions Gabrielle Cerda APRN.SATELLITE COMMUNICATIONS ENGINEER - 03/03/2022 4:21 PM EDT [email or web address] documented in this encounter [facility] 03-03-2022 History of Present illness Narrative [facility] PRE-OP NOTE Azul Victoria is a 82 year old female. Pre-op Date: March 03, 2022 Date of Procedure: 03/06/2022 Does the patient have an active COVID-19 test in Epic? Yes - In process Procedure/Surgery: Right robotic nephroureterectomy Diagnosis: High-grade non-invasive papillary urothelial carcinoma Primary Surgeon: MD Mercado Robert BP 170/68 (BP Site: Left Arm, BP Position: Sitting, BP Cuff Size: Large Adult) Pulse 63 Ht 157.5 cm (5' 2.01 ) Wt 105.7 kg (233 lb) BMI 42.60 kg/m Pain Assessment: Are you currently having pain? No 0 on a scale of 0 to 10 Surgical Guide Book Status: Patient given book today. Dialysis Guide Book Status: N/A Allergies Reviewed: Yes Medications Reviewed: Yes Is patient currently on oral steroids?: No Has the patient had a UTI in the past month?: No. Does the patient have any artificial joints (last 2 years), metal parts, pacemakers or cardiac/ureteral stents in place?: Yes - Right full knee, right hip, and left partial knee Does the patient have diabetes?: No Is the patient routinely taking anticoagulants?: Yes. Patient stopped Xarelto on 03/02/2022. Can the patient have an IV put in either arm?: Yes Urine Dip Complete?: Yes - Cloudy with hemoglobin, LE, RBCs, and WBCs. URINE CULTURE COMPLETE?: No - Sending today's specimen for culture. Ostomy/Stoma Nurse appointment made/completed: N/A IMPACT/Medical Clearance: Cleared per IMPACT - No [facility] Clinic: Cleared per PACE - Yes All testing on cureform has been scheduled: No - Stress test requested. Per cardiology note from 02/02/2022: Patient arrived for her DSE appointment, her blood pressure was 224/94 at this time. Asymptomatic. Waited for patient blood pressure to come down for about twenty minutes. Blood pressure still 205/[address] Gardner and Dr. Riley. DSE cancelled for now and we will do surface echo instead. They will contact Dr. Mercado to notify him. Consent Signed: Consent not in Epic. Has been signed by Dr. Fernandez but needs signature from Azul Victoria. DOS Orders Placed and Signed: Yes - By Dr. Fernandez on 02/26/2022. Pre-op H&P Done by Impact: Yes. PATIENT INSTRUCTIONS FOR SURGERY 1.) DO NOT HAVE ANYTHING TO EAT AFTER MIDNIGHT THE DAY BEFORE SURGERY except for certain morning medications as instructed by the doctor. Candy, mints, gum, and smoking are NOT permitted. You may drink clear liquids (Sprite, water, monty shira) up to two hours before your arrival time on the day of surgery. 2.) Medications to be taken on the morning of surgery with a few sips of water: per IMPACT 3.) Please bring all your prescribed inhalers (if you have any you normally take) to the hospital. 4.) Arrival time: Call for arrival. 5.) Prep given: No 6.) Lovenox instructions given: No 7.) Patient reminded that surgery time provided day before surgery is tentative based on potential changes with transplants. Recommendations: This patient is optimally prepared for surgery. Gabrielle Cerda APRN.SATELLITE COMMUNICATIONS ENGINEER documented in this encounter [facility] 02-02-2022 History of Present illness Narrative 02/02/2022 3:34 PM IV Access: IV IV Site: right Antecubital IV GAUGE 24 gauge IV Removal Date 02/02/22 Time 1538 Reactions: WNL Order reviewed by nurse:yes Medications: Definity - dosage 1.3 ml in 8.7 ml NaCl. [address] [id number], exp 12/31. 2 ml used. Reaction: No Definity not showing on screen, so iv removed. Site not red or swollen, no signs of irritation. Patient asymptomatic. documented in this encounter [facility] 02-02-2022 History of Present illness Narrative Patient arrived for her DSE appointment, her blood pressure was 224/94 at this time. Asymptomatic. Waited for patient blood pressure to come down for about twenty minutes. Blood pressure still 205/[address] Gardner and Dr. Riley. DSE cancelled for now and we will do surface echo instead. They will contact Dr. Mercado to notify him. documented in this encounter [facility] 02-01-2022 Miscellaneous Notes ECHO LAB TELEPHONE INSTRUCTIONS: Learning Response: Instructions provided to: Patient Procedure: Dobutamine Stress Echo Pre procedure education topics: Arrival time, NPO status and Medications Instructions/Restrictions Patient/Family Response Evaluation: Verbalizes understanding Follow Up Plan and Medication: As directed by physician Instruction/Supplemental Material Given: Appointment Information and Procedure/Test Specific Information: Dobutamine Stress Echo TEst Instructed By Sabine Pink RN. In Department of CARDIOLOGY. documented in this encounter [facility] 01-16-2022 Miscellaneous Notes Reason for Call: Pt reports there has been new onset blood in urine x two today; the first was drk brown, most recent void was drk red. Pt. reports has not had blood in urine since surgery 01/11/2022. Is having nausea, is having continuing discomfort to to right side, back that is not worse since discharge from hospital. Pt. stating restarted Xarelto 01/13/2022, pt stating is not going to take Xarelto this evening secondary to concern regarding blood in urine. Additionally, pt has not had stool since surgery, stopped stool softener last evening, is drinking orange juice, prune juice. Pt is drinking water, 51 ounces today. Outcome of Call: Advised, per Dr. Herzog, continue Xarelto, drink fluids,take stool softener , may continue orange juice, prune juice; advised is not uncommon to have intermittent bleeding following stent placement; monitor for worsening bleeding. Reason for Disposition Taking Coumadin (warfarin) or other strong blood thinner, or known bleeding disorder (e.g., thrombocytopenia) Answer Assessment - Initial Assessment Questions 1. COLOR of URINE: drk red x 1 2. ONSET: When did the bleeding start? Pt reports had drk brown urine approximately two hrs ago, then 10 min ago had drk red urine 3. EPISODES: How many times has there been blood in the urine? two 4. PAIN with URINATION: negative 5. FEVER: afebrile 6. ASSOCIATED SYMPTOMS: 7 - continuing right flank, back discomfort that is not worsening since discharge 7. OTHER SYMPTOMS: constipation, nausea Protocols used: URINE - BLOOD IN-ADULT-AH documented in this encounter [facility] 01-06-2022 History of Present illness Narrative Referring Provider: Ely Hammonds This consult was requested by Dr. Hammonds for an opinion regarding renal lesion, and my final recommendations will be communicated to the requesting health care provider by way of the shared medical record for internal providers or letter via the [employer] for external providers. Chief Complaint: Gross hematuria, upper tract filling defect HPI 82yo F w/ a PMH of a flutter on xarelto, HTN, OA who was recently evaluated by Dr. Hammonds locally for gross hematuria. She first noted pink urine about 2-3 months ago. Later in early November 2021, she developed gross hematuria without clots. At that time CT flank on 11/10/21 showed no abnormality. She then underwent a cystoscopy which was negative. 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 A CT with delayed phase showed a possible right upper pole calyceal filling defect. She presents today to discuss treatment options. She denies any unexplained fevers or history of UTIs. No dysuria. No flank pain. She is active. Denies CP on exertion. 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 No evidence of soft tissue Multi fibroid uterus Diverticulosis CT ABD/PEL WO CON 11/10/2021 IMPRESSION: 1. No urolithiasis or obstructive uropathy. 2. No other acute or inflammatory abdominopelvic disease Imaging uploaded REVIEW OF SYSTEMS GENERAL:No weight loss, malaise or fevers RESPIRATORY: Negative for cough, wheezing or shortness of breath. CARDIOVASCULAR: Negative for chest pain, leg swelling or palpitations. GASTROINTESTINAL: Negative for abdominal discomfort, blood in stools or black stools or change in bowel habits GENITOURINARY: No history of dysuria, frequency or incontinence MUSCULOSKELETAL: Negative for joint pain or swelling, back pain or muscle pain. NEUROLOGIC:Negative for focal numbness or weakness SKIN:Negative for lesions, rash, and itching. ENDOCRINE: Negative for cold or heat intolerance, polyuria, polydipsia and goiter. HISTORIES PAST MEDICAL HISTORY Diagnosis Date Abscess of intestine DIVERTICULITIS Atrial flutter (HCC) Elevated uric acid in blood Esophageal reflux GERD Essential hypertension, benign Snoring Tumors of body of uterus, antepartum condition or complication UTERINE FIBROIDS PAST SURGICAL HISTORY Procedure Laterality Date APPENDECTOMY 09/19/2020 [facility] ARTHRP ACETBLR/PROX FEM PROSTC AGRFT/ALGRFT 07/2019 [employer] [facility] ARTHRP KNE CONDYLE&PLATU MEDIAL&LAT COMPARTMENTS 2012 Knee replacement, total, right BMD BONE DENSITY DEXA 07/2006 [facility] EXTRACTION HX Bilateral 2007 SECTION HX CHOLECYSTECTOMY 1982 COLONOSCOPY 11/2001 COLON POLYP REMOVED COLONOSCOPY FLX DX W/COLLJ SPEC WHEN PFRMD 07/29/2007 Colonoscopy COLONOSCOPY FLX DX W/COLLJ SPEC WHEN PFRMD 12/18/2018 Colonoscopy DILATION & CURETTAGE DX&/THER NONOBSTETRIC Dilation & curettage LIG/TRNSXJ FLP TUBE ABDL/VAG APPR UNI/BI Tubal ligation PAST SURGICAL HISTORY OF 10/2009 Left Unicomparmental Knee -- [facility] (Dr. Fajardo) TONSILLECTOMY PRIMARY/SECONDARY <AGE 13 Tonsillectomy FAMILY HISTORY Problem Relation Age of Onset Heart Mother chf, Aortic Anerysm other (KIDNEY FAILURE) Mother Emphysema Father Coronary Artery Disease Brother Diabetes Brother COPD Brother Cancer Paternal Grandfather brain Heart Brother Diabetes Paternal Grandmother Colon Cancer Other none other (Brain Tumor) Maternal Uncle SOCIAL HISTORY Social History Tobacco Use Smoking status: Never Smoker Smokeless tobacco: Never Used Tobacco comment: GOES BY SEMAJ (spelling is like Odalis) Vaping Use Vaping Use: Never used Substance Use Topics Alcohol use: No Drug use: No PHYSICAL EXAMINATION General appearance: Well appearing, alert, in no acute distress. Skin: Skin with no suspicious rashes or lesions HEENT:NCAT. Sclera anicteric. Respiratory: CTA B CV: RRR GI: Abdomen soft, nontender, nondistended. Musculoskeletal: Muscular strength grossly intact Neuro: Sensation grossly intact. No focal neurological deficits. Extremities: Extremities normal. No deformities, edema, or skin discoloration. Peripheral pulses: Normal Assessment 82yo F w/ PMH of a flutter on xarelto, HTN, OA who was recently evaluated by Dr. Hammonds locally for gross hematuria with negative cystoscopy but upper tract imaging showing a right upper pole calyceal filling defect concerning for upper tract urothelial lesion Plan Discussed RBA of Cystoscopy, right ureteroscopy, biopsy, possible laser ablation tumor, possible stent on 01/11/22. Scribe Attestation: By signing my name below, I, Latonia Cason, attest that this documentation has been prepared under the direction and in the presence of Dr. Magda Mercado MD. Electronically signed: Miley Benites, January 06, 2022 3:52 PM I, Magda Mercado MD, personally performed the services described in this documentation. All medical record entries made by the layibe were at my direction and in my presence. I have reviewed the chart and discharge instructions (if applicable) and agree that the record reflects my personal performance and is accurate and complete. Magda Mercado MD documented in this encounter [facility] 12-12-2021 Miscellaneous Notes The following approved medication requests have been transmitted electronically. Pending Prescriptions Disp Refills ALLOPURINOL 300 MG TABLET 90 tablet 3 Sig: Take 1 tablet by mouth once daily. EDDIE: No Tiburcio Ang APRN.SATELLITE COMMUNICATIONS ENGINEER Pharmacy verified in [facility] Patient has been identified by name and date of : Yes Patient aware RX will be sent to pharmacy. No need to notify patient. Patient phones for refill(s): Pending Prescriptions Disp Refills ALLOPURINOL 300 MG TABLET 90 tablet 3 Sig: Take 1 tablet by mouth once daily. EDDIE: No Med filled 11/22/20 Date of last office visit : 07/29/2021 Labs-07/02/21 Date of next office visit : 01/27/2022 Last 2 Encounter Wt Readings: Date: Wt: 08/26/2021 108 kg (238 lb 3.2 oz) 07/29/2021 108.9 kg (240 lb) Please advise. Ghazal Mendez documented in this encounter [facility] Evaluation note Diagnosis Screening for genitourinary condition Screening for other and unspecified genitourinary condition [facility] Gross hematuria- Primary Bladder cancer screening Screening for malignant neoplasm of the bladder [facility] Diagnosis Gross hematuria- Primary Abnormal electrocardiogram (ECG) (EKG) Gross hematuria [facility] H/O major abdominal surgery- Primary Gross hematuria [facility] Diagnosis Gross hematuria Abnormal electrocardiogram (ECG) (EKG) Atrial flutter, unspecified type (HCC) Gross hematuria [facility] Diagnosis Suspected UTI- Primary Gross hematuria [facility] Diagnosis Screening for genitourinary condition Screening for other and unspecified genitourinary condition [facility] Diagnosis Urothelial carcinoma of kidney, right (HCC)- Primary 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) Malignant neoplasm of renal pelvis Malignant neoplasm of urinary bladder, unspecified site (HCC) [facility] Diagnosis Screening for genitourinary condition Screening for other and unspecified genitourinary condition [facility] Diagnosis Urothelial carcinoma (HCC)- Primary Other malignant neoplasm without specification of site Atrial flutter, unspecified type (HCC) Essential hypertension, benign Hospital discharge follow-up Other follow-up examination [facility] Diagnosis Encounter for screening mammogram for malignant neoplasm of breast Other screening mammogram [facility] Diagnosis Encounter for screening mammogram for malignant neoplasm of breast- Primary Other screening mammogram [facility] Diagnosis Malignant neoplasm of urinary bladder, unspecified site (HCC) 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) Malignant neoplasm of renal pelvis [facility] Diagnosis History of bladder cancer- Primary Personal history of malignant neoplasm of bladder [facility] Diagnosis Screening for genitourinary condition Screening for other and unspecified genitourinary condition [facility] Diagnosis Atrial flutter, unspecified type (HCC)- Primary Essential hypertension, benign Gout, unspecified cause, unspecified chronicity, unspecified site Impaired fasting glucose Elevated cholesterol Pure hypercholesterolemia Stage 3b chronic kidney disease (HCC) Thyroid nodule Nontoxic uninodular goiter Lung nodule seen on imaging study Solitary pulmonary nodule Lung nodules Other nonspecific abnormal finding of lung field [facility] Diagnosis Urothelial carcinoma of kidney, right (HCC)- Primary History of bladder cancer Personal history of malignant neoplasm of bladder [facility] Diagnosis Essential hypertension, benign- Primary Atrial flutter, unspecified type (HCC) Gout, unspecified cause, unspecified chronicity, unspecified site Impaired fasting glucose Stage 3b chronic kidney disease (HCC) Elevated cholesterol Pure hypercholesterolemia Varicose veins of left lower extremity with pain Varicose veins of lower extremities with other complications Skin lesion Unspecified disorder of skin and subcutaneous tissue [facility] Diagnosis Urothelial carcinoma of kidney, right (HCC)- Primary History of bladder cancer Personal history of malignant neoplasm of bladder Malignant neoplasm of urinary bladder, unspecified site (HCC) Body mass index (BMI) 40.0-44.9, adult (HCC) [facility] Diagnosis Thyroid nodule Nontoxic uninodular goiter [facility] Diagnosis Urothelial carcinoma of kidney, right (HCC) History of bladder cancer Personal history of malignant neoplasm of bladder Malignant neoplasm of urinary bladder, unspecified site (HCC) [facility] Diagnosis Lung nodules Other nonspecific abnormal finding of lung field [facility] Diagnosis Essential hypertension, benign- Primary Atrial flutter, unspecified type (HCC) Gout, unspecified cause, unspecified chronicity, unspecified site Impaired fasting glucose Elevated cholesterol Pure hypercholesterolemia Stage 3b chronic kidney disease (HCC) Lung nodule seen on imaging study Solitary pulmonary nodule documented in this encounter [facility] note* Diagnosis Gout, unspecified cause, unspecified chronicity, unspecified site [facility] Diagnosis Essential hypertension, benign [facility] Diagnosis Encounter for screening mammogram for malignant neoplasm of breast Other screening mammogram [facility] Diagnosis Urothelial carcinoma of kidney, right (HCC)- Primary Malignant neoplasm of urinary bladder, unspecified site (HCC) Morbid obesity with BMI of 40.0-44.9, adult (HCC) Morbid obesity Stage 3b chronic kidney disease (HCC) [facility] Diagnosis Essential hypertension, benign- Primary Atrial flutter, unspecified type (HCC) Gout, unspecified cause, unspecified chronicity, unspecified site Impaired fasting glucose Stage 3b chronic kidney disease (HCC) Elevated cholesterol Pure hypercholesterolemia Screening for depression Encounter for screening examination for other mental health and behavioral disorders [facility] Diagnosis Pre-op evaluation- Primary Preoperative examination, unspecified Gross hematuria Essential hypertension, benign Atrial flutter, unspecified type (HCC) Morbid obesity with BMI of 40.0-44.9, adult (HCC) Morbid obesity Urothelial carcinoma of kidney, right (HCC) Malignant neoplasm of urinary bladder, unspecified site (HCC) documented in this encounter [facility] for referral (narrative)* Outpatient Procedure (Routine) - Closed Specialty Diagnoses / Procedures Referred By Contac t Referred To Contact [facility] Diagnoses Gross hematuria Bladder cancer screening Procedures ECG COMPLETE ECG ROUTINE ECG W/LEAST 12 LDS W/I&R Magda Mercado MD [address] [place] [address] [facility] [address] [place] [address] Referral ID Status Reason Start Date Expiration Date V isits Requested Visits Authorized [id number] Closed Auto-Generate d Referral 01/06/2022 01/06/2023 1 1 [facility] for referral (narrative)* Outpatient Procedure (Routine) - Authorized Specialty Diagnoses / Procedures Referred By Contac t Referred To Contact [facility] Diagnoses Gross hematuria Abnormal electrocardiogram (ECG) (EKG) Procedures STRESS ECHO DOBUTAMINE ECHO TTHRC R-T 2D W/WO M-MODE COMPLETE REST&ST Magda Mercado MD [address] [place] [address] [facility] [address] [place] [address] Referral ID Status Reason Start Date Expiration Date Visits Requested Visits Authorized [id number] Authorized Auto-Generat ed Referral 01/19/2022 01/19/2023 1 1 * Consult, Test, Treat (Routine) - Authorized Specialty Diagnoses / Procedures Referred By Contac t Referred To Contact Diagnoses Gross hematuria Procedures REFER TO PACC - PRE ANESTHESIA CONSULTATION CLINIC OFFICE/OUTPATIENT [facility] MDM 60-74 MINUTES Magda Mercado MD [address] [place] [id number] Referral ID Status Reason Start Date Expiration Date Visits Requested Visits Authorized [id number] Authorized PCP Requested Referral 01/19/2022 01/19/2023 1 1 * Outpatient Procedure (Routine) - Pending Review Specialty Diagnoses / Procedures Referred By Contac t Referred To Contact [facility] Diagnoses Gross hematuria Procedures ECG COMPLETE ECG ROUTINE ECG W/LEAST 12 LDS W/I&R Magda Mercado MD [address] [facility] [place] [address] [facility] [address] [place] [address] Referral ID Status Reason Start Date Expiration Date Visits Requested Visits Authorized [id number] Pending Review Auto-Generat ed Referral 01/19/2022 01/19/2023 1 1 [facility] for referral (narrative)* Diagnostic Procedure Only (Routine) - Closed Specialty Diagnoses / Procedures Referred By Satish childers Referred To Contact [facility] Diagnoses Encounter for screening mammogram for malignant neoplasm of breast Procedures TAYA SCREENING SCREENING MAMMOGRAPHY BI 2-VIEW BREAST INC CAD Tiburcio Ang APRN.SATELLITE COMMUNICATIONS ENGINEER [address] [place] [address] [facility] [address] [place] [address] Referral ID Status Reason Start Date Expiration Date V isits Requested Visits Authorized [id number] Closed Auto-Generate d Referral 04/14/2022 05/14/2023 1 1 [facility] for referral (narrative)* Diagnostic Procedure Only (Routine) - Closed Specialty Diagnoses / Procedures Referred By Satish childers Referred To Contact [facility] Diagnoses Encounter for screening mammogram for malignant neoplasm of breast Procedures TAYA SCREENING SCREENING MAMMOGRAPHY BI 2-VIEW BREAST INC CAD Tiburcio Ang APRN.SATELLITE COMMUNICATIONS ENGINEER [address] [place] [address] [facility] [address] [place] [address] Referral ID Status Reason Start Date Expiration Date V isits Requested Visits Authorized [id number] Closed Auto-Generate d Referral 04/14/2022 05/14/2023 1 1 [facility] for referral (narrative)* Diagnostic Procedure Only (Routine) - Closed Specialty Diagnoses / Procedures Referred By Satish t Referred To Contact [facility] Diagnoses Thyroid nodule Procedures US THYROID/PARATHYROID US SOFT TISSUE HEAD & NECK REAL TIME IMGE Tiburcio Lacey APRN.SATELLITE COMMUNICATIONS ENGINEER [address] [place] [address] [place] [address] Referral ID Status Reason Start Date Expiration Date V isits Requested Visits Authorized [id number] Closed Auto-Generate d Referral 08/08/2022 09/07/2023 1 1 [facility] for referral (narrative)* Diagnostic Procedure Only (Routine) - Closed Specialty Diagnoses / Procedures Referred By Satish t Referred To Contact [facility] Diagnoses Encounter for screening mammogram for malignant neoplasm of breast Procedures TAYA SCREENING SCREENING MAMMOGRAPHY BI 2-VIEW BREAST INC CAD Jenifer Carlson APRN.SATELLITE COMMUNICATIONS ENGINEER [address] [place] [address] [facility] [address] [place] [address] Referral ID Status Reason Start Date Expiration Date V isits Requested Visits Authorized [id number] Closed Auto-Generate d Referral 09/26/2023 10/25/2024 1 1 [facility] for visit Narrative* Diagnostic Procedure Only (Routine) - Closed Specialty Diagnoses / Procedures Referred By Satish t Referred To Contact [facility] Diagnoses Encounter for screening mammogram for malignant neoplasm of breast Procedures TAYA SCREENING SCREENING MAMMOGRAPHY BI 2-VIEW BREAST INC CAD Tiburcio Ang, STAFF DEVELOPMENT EDUCATOR.SATELLITE COMMUNICATIONS ENGINEER [address] [place] [address] [facility] [address] [place] [address] Referral ID Status Reason Start Date Expiration Date V isits Requested Visits Authorized [id number] Closed Auto-Generate d Referral 04/14/2022 05/14/2023 1 1 [facility] for visit Narrative* Diagnostic Procedure Only (Routine) - Closed Specialty Diagnoses / Procedures Referred By Satish t Referred To Contact [facility] Diagnoses Encounter for screening mammogram for malignant neoplasm of breast Procedures TAYA SCREENING SCREENING MAMMOGRAPHY BI 2-VIEW BREAST INC CAD Jenifer Carlson, STAFF DEVELOPMENT EDUCATOR.SATELLITE COMMUNICATIONS ENGINEER [address] [place] [address] [facility] [address] [place] [address] Referral ID Status Reason Start Date Expiration Date V isits Requested Visits Authorized [id number] Closed Auto-Generate d Referral 09/26/2023 10/25/2024 1 1 [facility] Advance Directives Documents on File Type Date Recorded Patient Daycare Provider Expl anation Advance Directive(s) Advance Directive(s) 12/18/2018 6:33 AM Documents on File Type Date Recorded Patient Daycare Provider Expl anation Advance Directive(s) Advance Directive(s) 01/11/2022 6:19 AM Advance Directive(s) 12/18/2018 6:33 AM Documents on File Type Date Recorded Patient Daycare Provider Expl anation Advance Directive(s) Advance Directive(s) 01/11/2022 6:19 AM Advance Directive(s) 12/18/2018 6:33 AM Documents on File Type Date Recorded Patient Daycare Provider Expl anation Advance Directive(s) Advance Directive(s) 02/03/2022 12:01 PM Advance Directive(s) 01/11/2022 6:19 AM Advance Directive(s) 12/18/2018 6:33 AM Documents on File Type Date Recorded Patient Daycare Provider Expl anation Advance Directive(s) Advance Directive(s) 02/03/2022 12:01 PM Advance Directive(s) 01/11/2022 6:19 AM Advance Directive(s) 12/18/2018 6:33 AM Reason for Referral Specialty Diagnoses / Procedures Referred By Satish t Referred To Contact [facility] Diagnoses 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) Procedures CT CHEST W IVCON DIAGNOSTIC COMPUTED TOMOGRAPHY THORAX W/CONTRAST Magda Mercado MD [address] [facility] [facility] [address] [place] [address] Ct Imaging Referral ID Status Reason Start Date Expiration Date Visits Requested Visits Authorized [id number] Pending Review Auto-Generat ed Referral 03/14/2022 04/13/2023 1 1 Specialty Diagnoses / Procedures Referred By Contac t Referred To Contact CT [facility] Diagnoses Malignant neoplasm of urinary bladder, unspecified site (HCC) Procedures CT ABD/PEL W IVCON CT ABD & PELVIS W/CONTRAST Magda Mercado MD [address] [place] [address] Ct Imaging Referral ID Status Reason Start Date Expiration Date Visits Requested Visits Authorized [id number] Pending Review Auto-Generat ed Referral 03/14/2022 04/13/2023 1 1 Referral ID Status Reason Start Date Expiration Date V isits Requested Visits Authorized [id number] Closed Auto-Generate d Referral 03/14/2022 04/13/2023 1 1 Referral ID Status Reason Start Date Expiration Date V isits Requested Visits Authorized [id number] Closed Auto-Generate d Referral 03/14/2022 04/13/2023 1 1 Specialty Diagnoses / Procedures Referred By Contac t Referred To Contact CT [facility] Diagnoses Lung nodules Procedures CT CHEST WO IVCON DIAGNOSTIC COMPUTED TOMOGRAPHY THORAX W/O CNTRST Tiburcio Ang, CHIP.SATELLITE COMMUNICATIONS ENGINEER [address] [place] [address] Ct Imaging Referral ID Status Reason Start Date Expiration Date Visits Requested Visits Authorized [id number] Authorized Auto-Generat ed Referral 3 09/07/2023 1 1 Specialty Diagnoses / Procedures Referred By Contac t Referred To Contact [facility] Diagnoses Thyroid nodule Procedures US THYROID/PARATHYROID US SOFT TISSUE HEAD & NECK REAL TIME IMGE DOCM Tiburcio Ang, STAFF DEVELOPMENT EDUCATOR.SATELLITE COMMUNICATIONS ENGINEER [address] [place] [address] [facility] Referral ID Status Reason Start Date Expiration Date Visits Requested Visits Authorized [id number] Authorized Auto-Generat ed Referral 2 09/07/2023 1 1 Specialty Diagnoses / Procedures Referred By Contac t Referred To Contact Dermatology Diagnoses Skin lesion Procedures CONSULT TO DERMATOLOGY Tiburcio Ang, CHIP.SATELLITE COMMUNICATIONS ENGINEER [address] [place] [address] Referral ID Status Reason Start Date Expiration Date Visits Requested Visits Authorized [id number] Ref Not Required PCP Requested Referral 02/06/2023 02/06/2024 1 1 Specialty Diagnoses / Procedures Referred By Contac t Referred To Contact Vascular Surgery Diagnoses Varicose veins of left lower extremity with pain Procedures CONSULT TO VASCULAR SURGERY OFFICE/OUTPATIENT [facility] 60-74 MINUTES Tiburcio Ang, CHIP.SATELLITE COMMUNICATIONS ENGINEER [address] [place] [address] Referral ID Status Reason Start Date Expiration Date Visits Requested Visits Authorized [id number] Authorized PCP Requested Referral 02/06/2023 02/06/2024 1 1 Specialty Diagnoses / Procedures Referred By Contac t Referred To Contact [facility] Diagnoses Urothelial carcinoma of kidney, right (HCC) History of bladder cancer Malignant neoplasm of urinary bladder, unspecified site (HCC) Procedures MRI PELVIS URO WO/W IVCON MRI PELVIS W/O & W/CONTRAST MATERIAL Magda Mercado MD [address] [place] [address] Mr Imaging Referral ID Status Reason Start Date Expiration Date Visits Requested Visits Authorized [id number] Authorized Auto-Generat ed Referral 04/03/2023 05/02/2024 1 1 Specialty Diagnoses / Procedures Referred By Contac t Referred To Contact [facility] Diagnoses Urothelial carcinoma of kidney, right (HCC) History of bladder cancer Malignant neoplasm of urinary bladder, unspecified site (HCC) Procedures MRI ABDOMEN URO WO/W IVCON MRI ABDOMEN W/O & W/CONTRAST MATERIAL Magda Mercado MD [address] [place] [address] Mr Imaging Referral ID Status Reason Start Date Expiration Date Visits Requested Visits Authorized [id number] Authorized Auto-Generat ed Referral 04/03/2023 05/02/2024 1 1 Specialty Diagnoses / Procedures Referred By Contac t Referred To Contact [facility] Diagnoses Urothelial carcinoma of kidney, right (HCC) History of bladder cancer Malignant neoplasm of urinary bladder, unspecified site (HCC) Procedures MRI ABDOMEN URO WO/W IVCON MRI ABDOMEN W/O & W/CONTRAST MATERIAL Magda Mercado MD [address] [place] [address] [place] [address] Referral ID Status Reason Start Date Expiration Date V isits Requested Visits Authorized [id number] Closed Auto-Generate d Referral 04/03/2023 05/02/2024 1 1 Specialty Diagnoses / Procedures Referred By Contac t Referred To Contact [facility] Diagnoses Urothelial carcinoma of kidney, right (HCC) History of bladder cancer Malignant neoplasm of urinary bladder, unspecified site (HCC) Procedures MRI PELVIS URO WO/W IVCON MRI PELVIS W/O & W/CONTRAST MATERIAL Magda Mercado MD [address] [place] [address] Mr Imaging [place] [address] Referral ID Status Reason Start Date Expiration Date V isits Requested Visits Authorized [id number] Closed Auto-Generate d Referral 04/03/2023 05/02/2024 1 1 Specialty Diagnoses / Procedures Referred By Contac t Referred To Contact CT IM[facility] Diagnoses Urothelial carcinoma of kidney, right (HCC) Malignant neoplasm of urinary bladder, unspecified site (HCC) Procedures CT UROGRAM WO/W IVCON CT ABD & PELVIS W/WO CONTRST 1+ BODY REGNS Magda Mercado MD [address] [place] [address] Ct Imaging [place] [address] Referral ID Status Reason Start Date Expiration Date Visits Requested Visits Authorized [id number] Authorized Auto-Generat ed Referral 06/11/2024 01/09/2025 1 1 Referral ID Status Reason Start Date Expiration Date V isits Requested Visits Authorized [id number] Closed Auto-Generate d Referral 06/11/2024 01/09/2025 1 1 Medications Administered Section Inactive Administered Medications - up to 3 most recent administrations Medication Order MAR Action Action Date Dose Rate Site ciprofloxacin HCl 500 mg tab(s) (CIPRO) 500 mg, ORAL, ONCE, 1 dose, On Sun11/28/22 at 0000, Administer 2 hours before or 6 hours after antacids, calcium, iron, zinc or foods containing these items. Tube feedings should be held 1 hour before and 1 hour after administration., Please document the antimicrobial indication: Empiric Given 11/28/2022 9:25 AM EDT 500 mg Oral Inactive Administered Medications - up to 3 most recent administrations Medication Order MAR Action Action Date Dose Rate Site sulfamethoxazole-trimethoprim 800-160 mg 1 tablet (BACTRIM DS) 1 tablet, ORAL, ONCE, 1 dose, On 04/02/23 at 1930, Please document the antimicrobial indication: Empiric Given 04/03/2023 10:11 AM EDT 1 tablet Summary Purpose Family History No Family History Records Found Additional Source Comments Source Comments (unrecognize d section and content) In the event this informatio n is protected by the Federal Confidentiality of Alcohol and Drug Abuse Patient Records regulations: The Federal rules restrict any use of the information to criminally investigate or prosecute any alcohol or drug abuse patient.[facility] the event this information is protected by the Federal Confidentiality of Alcohol and Drug Abuse Patient Records regulations: The Federal rules restrict any use of the information to criminally investigate or prosecute any alcohol or drug abuse patient.[facility]In the event this information is protected by the Federal Confidentiality of Alcohol and Drug Abuse Patient Records regulations: The Federal rules restrict any use of the information to criminally investigate or prosecute any alcohol or drug abuse patient.[facility]In the event this information is protected by the Federal Confidentiality of Alcohol and Drug Abuse Patient Records regulations: The Federal rules restrict any use of the information to criminally investigate or prosecute any alcohol or drug abuse patient.[facility]In the event this information is protected by the Federal Confidentiality of Alcohol and Drug Abuse Patient Records regulations: The Federal rules restrict any use of the information to criminally investigate or prosecute any alcohol or drug abuse patient.[facility]In the event this information is protected by the Federal Confidentiality of Alcohol and Drug Abuse Patient Records regulations: The Federal rules restrict any use of the information to criminally investigate or prosecute any alcohol or drug abuse patient.[facility]In the event this information is protected by the Federal Confidentiality of Alcohol and Drug Abuse Patient Records regulations: The Federal rules restrict any use of the information to criminally investigate or prosecute any alcohol or drug abuse patient.[facility] HospitalIn the event this information is protected by the Federal Confidentiality of Alcohol and Drug Abuse Patient Records regulations: The Federal rules restrict any use of the information to criminally investigate or prosecute any alcohol or drug abuse patient.[facility] HospitalIn the event this information is protected by the Federal Confidentiality of Alcohol and Drug Abuse Patient Records regulations: The Federal rules restrict any use of the information to criminally investigate or prosecute any alcohol or drug abuse patient.[facility] HospitalIn the event this information is protected by the Federal Confidentiality of Alcohol and Drug Abuse Patient Records regulations: The Federal rules restrict any use of the information to criminally investigate or prosecute any alcohol or drug abuse patient.[facility] HospitalIn the event this information is protected by the Federal Confidentiality of Alcohol and Drug Abuse Patient Records regulations: The Federal rules restrict any use of the information to criminally investigate or prosecute any alcohol or drug abuse patient.[facility]In the event this information is protected by the Federal Confidentiality of Alcohol and Drug Abuse Patient Records regulations: The Federal rules restrict any use of the information to criminally investigate or prosecute any alcohol or drug abuse patient.[facility] HospitalIn the event this information is protected by the Federal Confidentiality of Alcohol and Drug Abuse Patient Records regulations: The Federal rules restrict any use of the information to criminally investigate or prosecute any alcohol or drug abuse patient.[facility]In the event this information is protected by the Federal Confidentiality of Alcohol and Drug Abuse Patient Records regulations: The Federal rules restrict any use of the information to criminally investigate or prosecute any alcohol or drug abuse patient.[facility] HospitalIn the event this information is protected by the Federal Confidentiality of Alcohol and Drug Abuse Patient Records regulations: The Federal rules restrict any use of the information to criminally investigate or prosecute any alcohol or drug abuse patient.[facility] HospitalIn the event this information is protected by the Federal Confidentiality of Alcohol and Drug Abuse Patient Records regulations: The Federal rules restrict any use of the information to criminally investigate or prosecute any alcohol or drug abuse patient.[facility] HospitalIn the event this information is protected by the Federal Confidentiality of Alcohol and Drug Abuse Patient Records regulations: The Federal rules restrict any use of the information to criminally investigate or prosecute any alcohol or drug abuse patient.[facility] HospitalIn the event this information is protected by the Federal Confidentiality of Alcohol and Drug Abuse Patient Records regulations: The Federal rules restrict any use of the information to criminally investigate or prosecute any alcohol or drug abuse patient.[facility] HospitalIn the event this information is protected by the Federal Confidentiality of Alcohol and Drug Abuse Patient Records regulations: The Federal rules restrict any use of the information to criminally investigate or prosecute any alcohol or drug abuse patient.[facility] HospitalIn the event this information is protected by the Federal Confidentiality of Alcohol and Drug Abuse Patient Records regulations: The Federal rules restrict any use of the information to criminally investigate or prosecute any alcohol or drug abuse patient.[facility] HospitalIn the event this information is protected by the Federal Confidentiality of Alcohol and Drug Abuse Patient Records regulations: The Federal rules restrict any use of the information to criminally investigate or prosecute any alcohol or drug abuse patient.[facility] HospitalIn the event this information is protected by the Federal Confidentiality of Alcohol and Drug Abuse Patient Records regulations: The Federal rules restrict any use of the information to criminally investigate or prosecute any alcohol or drug abuse patient.[facility] HospitalIn the event this information is protected by the Federal Confidentiality of Alcohol and Drug Abuse Patient Records regulations: The Federal rules restrict any use of the information to criminally investigate or prosecute any alcohol or drug abuse patient.[facility]In the event this information is protected by the Federal Confidentiality of Alcohol and Drug Abuse Patient Records regulations: The Federal rules restrict any use of the information to criminally investigate or prosecute any alcohol or drug abuse patient.[facility] HospitalIn the event this information is protected by the Federal Confidentiality of Alcohol and Drug Abuse Patient Records regulations: The Federal rules restrict any use of the information to criminally investigate or prosecute any alcohol or drug abuse patient.[facility] HospitalIn the event this information is protected by the Federal Confidentiality of Alcohol and Drug Abuse Patient Records regulations: The Federal rules restrict any use of the information to criminally investigate or prosecute any alcohol or drug abuse patient.[facility] HospitalIn the event this information is protected by the Federal Confidentiality of Alcohol and Drug Abuse Patient Records regulations: The Federal rules restrict any use of the information to criminally investigate or prosecute any alcohol or drug abuse patient.[facility] HospitalIn the event this information is protected by the Federal Confidentiality of Alcohol and Drug Abuse Patient Records regulations: The Federal rules restrict any use of the information to criminally investigate or prosecute any alcohol or drug abuse patient.[facility] HospitalIn the event this information is protected by the Federal Confidentiality of Alcohol and Drug Abuse Patient Records regulations: The Federal rules restrict any use of the information to criminally investigate or prosecute any alcohol or drug abuse patient.[facility] HospitalIn the event this information is protected by the Federal Confidentiality of Alcohol and Drug Abuse Patient Records regulations: The Federal rules restrict any use of the information to criminally investigate or prosecute any alcohol or drug abuse patient.[facility] HospitalIn the event this information is protected by the Federal Confidentiality of Alcohol and Drug Abuse Patient Records regulations: The Federal rules restrict any use of the information to criminally investigate or prosecute any alcohol or drug abuse patient.[facility] HospitalIn the event this information is protected by the Federal Confidentiality of Alcohol and Drug Abuse Patient Records regulations: The Federal rules restrict any use of the information to criminally investigate or prosecute any alcohol or drug abuse patient.[facility] HospitalIn the event this information is protected by the Federal Confidentiality of Alcohol and Drug Abuse Patient Records regulations: The Federal rules restrict any use of the information to criminally investigate or prosecute any alcohol or drug abuse patient.[facility] HospitalIn the event this information is protected by the Federal Confidentiality of Alcohol and Drug Abuse Patient Records regulations: The Federal rules restrict any use of the information to criminally investigate or prosecute any alcohol or drug abuse patient.[facility]In the event this information is protected by the Federal Confidentiality of Alcohol and Drug Abuse Patient Records regulations: The Federal rules restrict any use of the information to criminally investigate or prosecute any alcohol or drug abuse patient.[facility] HospitalIn the event this information is protected by the Federal Confidentiality of Alcohol and Drug Abuse Patient Records regulations: The Federal rules restrict any use of the information to criminally investigate or prosecute any alcohol or drug abuse patient.[facility] HospitalIn the event this information is protected by the Federal Confidentiality of Alcohol and Drug Abuse Patient Records regulations: The Federal rules restrict any use of the information to criminally investigate or prosecute any alcohol or drug abuse patient.[facility] HospitalIn the event this information is protected by the Federal Confidentiality of Alcohol and Drug Abuse Patient Records regulations: The Federal rules restrict any use of the information to criminally investigate or prosecute any alcohol or drug abuse patient.[facility] HospitalIn the event this information is protected by the Federal Confidentiality of Alcohol and Drug Abuse Patient Records regulations: The Federal rules restrict any use of the information to criminally investigate or prosecute any alcohol or drug abuse patient.[facility] HospitalIn the event this information is protected by the Federal Confidentiality of Alcohol and Drug Abuse Patient Records regulations: The Federal rules restrict any use of the information to criminally investigate or prosecute any alcohol or drug abuse patient.[facility] HospitalIn the event this information is protected by the Federal Confidentiality of Alcohol and Drug Abuse Patient Records regulations: The Federal rules restrict any use of the information to criminally investigate or prosecute any alcohol or drug abuse patient.[facility] HospitalIn the event this information is protected by the Federal Confidentiality of Alcohol and Drug Abuse Patient Records regulations: The Federal rules restrict any use of the information to criminally investigate or prosecute any alcohol or drug abuse patient.[facility] HospitalIn the event this information is protected by the Federal Confidentiality of Alcohol and Drug Abuse Patient Records regulations: The Federal rules restrict any use of the information to criminally investigate or prosecute any alcohol or drug abuse patient.[facility] HospitalIn the event this information is protected by the Federal Confidentiality of Alcohol and Drug Abuse Patient Records regulations: The Federal rules restrict any use of the information to criminally investigate or prosecute any alcohol or drug abuse patient.[facility] HospitalIn the event this information is protected by the Federal Confidentiality of Alcohol and Drug Abuse Patient Records regulations: The Federal rules restrict any use of the information to criminally investigate or prosecute any alcohol or drug abuse patient.[facility] Reason for Visit (unrecogniz ed section and content) Reason Onset Date Comments Refill Request 12/12/2021 Reason Comments Consult Reason Comments Blood In Urine Reason Comments Patient Education DSE Reason Comments Procedure Dobutamine Stress Ec ho Reason Comments IV Medication Administration echo with i v definity Specialty Diagnoses / Procedures Referred By Contac t Referred To Contact [facility] Diagnoses Gross hematuria Abnormal electrocardiogram (ECG) (EKG) Procedures STRESS ECHO DOBUTAMINE ECHO TTHRC R-T 2D W/WO M-MODE COMPLETE REST&ST Magda Mercado MD [address] [place] [id number] [place] [address] [place] [address] Referral ID Status Reason Start Date Expiration Date V isits Requested Visits Authorized [id number] Closed Auto-Generate d Referral 01/19/2022 01/19/2023 1 1 Reason Comments Pre-Op Teaching Reason Comments Follow for [facility] Reason Onset Date Comments Transition Of Care 03/10/2022 TCM Initial H ospital Discharge [facility] on 03-09-22 Reason Comments Post-Op Visit Reason Comments Transition Of Care Reason Comments Patient Request Reason Comments Orders Appointment Reason Onset Date Comments Refill Request 05/22/[address] Specialty Diagnoses / Procedures Referred By Contac t Referred To Contact CT IMAGING Diagnoses 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) Procedures CT CHEST W IVCON DIAGNOSTIC COMPUTED TOMOGRAPHY THORAX W/CONTRAST Magda Mercado MD [address] [place] [address] Ct [facility] Referral ID Status Reason Start Date Expiration Date V isits Requested Visits Authorized [id number] Closed Auto-Generate d Referral 03/14/2022 04/13/2023 1 1 Reason Comments Follow Up Reason Comments 6 Month Exam Reason Comments Results Reason Onset Date Comments Refill Request 11/13/2022 Reason Comments Cystoscopy-1 Reason Comments F/U 6 Month Reason Comments Cystoscopy-1 Reason Onset Date Comments Refill Request 05/15/2023 Reason Comments Radiology US Specialty Diagnoses / Procedures Referred By Contac t Referred To Contact US IMAGING Diagnoses Thyroid nodule Procedures US THYROID/PARATHYROID US SOFT TISSUE HEAD & NECK REAL TIME IMGE Tiburcio Lacey, STAFF DEVELOPMENT EDUCATOR.[employer]ATE[employer] COMM[employer]ICATIONS ENGINEER [address] [place] [address] [facility] [place] [address] Referral ID Status Reason Start Date Expiration Date V isits Requested Visits Authorized [id number] Closed Auto-Generate d Referral 08/08/2022 09/07/2023 1 1 Reason Comments Radiology MRI Specialty Diagnoses / Procedures Referred By Contac t Referred To Contact MR IMAGING Diagnoses Urothelial carcinoma of kidney, right (HCC) History of bladder cancer Malignant neoplasm of urinary bladder, unspecified site (HCC) Procedures MRI ABDOMEN URO WO/W IVCON MRI ABDOMEN W/O & W/CONTRAST MATERIAL Magda Mercado MD [address] [place] [address] [facility] [place] [address] Referral ID Status Reason Start Date Expiration Date V isits Requested Visits Authorized [id number] Closed Auto-Generate d Referral 04/03/2023 05/02/2024 1 1 Specialty Diagnoses / Procedures Referred By Contac t Referred To Contact MR IMAGING Diagnoses Urothelial carcinoma of kidney, right (HCC) History of bladder cancer Malignant neoplasm of urinary bladder, unspecified site (HCC) Procedures MRI PELVIS URO WO/W IVCON MRI PELVIS W/O & W/CONTRAST MATERIAL Magda Mercado MD [address] [place] [address] [facility] [place] [address] Referral ID Status Reason Start Date Expiration Date V isits Requested Visits Authorized [id number] Closed Auto-Generate d Referral 04/03/2023 05/02/2024 [address] Specialty Diagnoses / Procedures Referred By Contac t Referred To Contact CT IMAGING Diagnoses Lung nodules Procedures CT CHEST WO IVCON DIAGNOSTIC COMPUTED TOMOGRAPHY THORAX W/O CNTRST Tiburcio Agn, STAFF DEVELOPMENT EDUCATOR.SATELLITE COMMUNICATIONS ENGINEER [address] [place] [address] [facility] [place] [address] Referral ID Status Reason Start Date Expiration Date V isits Requested Visits Authorized [id number] Closed Auto-Generate d Referral 08/08/2023 09/07/2023 1 1 Reason Comments F/U 6 Month Reason Onset Date Comments Refill Request 09/24/2023 Reason Onset Date Comments Refill Request 11/02/2022 Reason Comments Results Mammogram Reason Comments Follow Up 6 month Reason Onset Date Comments Refill Request 05/08/[address] Specialty Diagnoses / Procedures Referred By Contac t Referred To Contact CT IMAGING Diagnoses Urothelial carcinoma of kidney, right (HCC) Malignant neoplasm of urinary bladder, unspecified site (HCC) Procedures CT UROGRAM WO/W IVCON CT ABD & PELVIS W/WO CONTRST 1+ BODY Magda Izaguirre MD [address] [place] [address] [place] [address] Referral ID Status Reason Start Date Expiration Date V isits Requested Visits Authorized [id number] Closed Auto-Generate d Referral 06/11/2024 01/09/2025 1 1 Care Teams (unrecognized sec tion and content) Health Coach Relationship Specialty Start Date End Date Jeni Nickerson MD [address] [place] [address] PCP - General Family Practice 01/17/12 Oniel, Gustavo S Physician Cardiology 01/02/19 Health Coach Relationship Specialty Start Date End Date Jeni Nickerson MD [address] [place] [address] PCP - General Family Practice 01/17/12 Oniel, Gustavo S Physician Cardiology 01/02/19 Health Coach Relationship Specialty Start Date End Date Jeni Nickerson MD [address] [place] [address] PCP - General Family Practice 01/17/12 Oniel, Gustavo S Physician Cardiology 01/02/19 Health Coach Relationship Specialty Start Date End Date Jeni Nickerson MD [address] [place] [address] PCP - General Family Practice 01/17/12 Oniel, [place] S Physician Cardiology 01/02/19 Health Coach Relationship Specialty Start Date End Date Jeni Nickerson MD [address] [facility] [address] PCP - General Family Practice 01/17/12 Oniel, [place] S Physician Cardiology 01/02/19 Health Coach Relationship Specialty Start Date End Date Jeni Nickerson MD [address] [place] [address] PCP - General Family Practice 01/17/12 Oniel, Gustavo S Physician Cardiology 01/02/19 Health Coach Relationship Specialty Start Date End Date Jeni Nickerson MD [address] [place] [address] PCP - General Family Practice 01/17/12 Oniel, Gustavo S Physician Cardiology 01/02/19 Health Coach Relationship Specialty Start Date End Date Jeni Nickerson MD [address] [place] [address] PCP - General Family Practice 01/17/12 Oniel, Gustavo S Physician Cardiology 01/02/19 Health Coach Relationship Specialty Start Date End Date Jeni Nickerson MD [address] [place] [address] PCP - General Family Practice 01/17/12 Oniel, Gustavo S Physician Cardiology 01/02/19 Health Coach Relationship Specialty Start Date End Date Jeni Nickerson MD [address] [place] [address] PCP - General Family Practice 01/17/12 Oniel, Gustavo S Physician Cardiology 01/02/19 Health Coach Relationship Specialty Start Date End Date Jeni Nickerson MD [address] [facility] [address] PCP - General Family Practice 01/17/12 Oniel, [place] S Physician Cardiology 01/02/19 Health Coach Relationship Specialty Start Date End Date Jeni Nickerson MD [address] [place] [address] PCP - General Family Practice 01/17/12 Oniel, Gustavo S Physician Cardiology 01/02/19 Health Coach Relationship Specialty Start Date End Date Jeni Nickerson MD [address] [place] [address] PCP - General Family Practice 01/17/12 Oniel, [place] S Physician Cardiology 01/02/19 Health Coach Relationship Specialty Start Date End Date Jeni Nickerson MD [address] [place] [address] PCP - General Family Practice 01/17/12 Oniel, Gustavo S Physician Cardiology 01/02/19 Health Coach Relationship Specialty Start Date End Date Jeni Nickerson MD [address] [place] [address] PCP - General Family Practice 01/17/12 Oniel, [place] S Physician Cardiology 01/02/19 Health Coach Relationship Specialty Start Date End Date Jeni Nickerson MD [address] [place] [address] PCP - General Family Practice 01/17/12 Oniel, [place] S Physician Cardiology 01/02/19 Health Coach Relationship Specialty Start Date End Date Jeni Nickerson MD [address] [facility] [place] [address] PCP - General Family Practice 01/17/12 Oniel, [place] S Physician Cardiology 01/02/19 Health Coach Relationship Specialty Start Date End Date Jeni Nickerson MD [address] [facility] [address] PCP - General Family Medicine 01/17/12 Oniel, [place] S Physician Cardiology 01/02/19 Health Coach Relationship Specialty Start Date End Date Jeni Nickerson MD [address] [facility] [address] PCP - General Family Medicine 01/17/12 Oniel, Gustavo S Physician Cardiology 01/02/19 Health Coach Relationship Specialty Start Date End Date Jeni Nickerson MD [address] [facility] [address] PCP - General Family Medicine 01/17/12 Oniel, Gustavo S [address] [facility] [address] Physician Cardiology 01/02/19 Health Coach Relationship Specialty Start Date End Date Jeni Nickerson MD [address] [facility] [address] PCP - General Family Medicine 01/17/12 Oniel, Gustavo S [address] [facility] [address] Physician Cardiology 01/02/19 Health Coach Relationship Specialty Start Date End Date Jeni Nickerson MD [address] [facility] [address] PCP - General Family Medicine 01/17/12 Oniel, Gustavo S [address] [facility] [address] Physician Cardiology 01/02/19 Health Coach Relationship Specialty Start Date End Date Jeni Nickerson MD [address] [facility] [address] PCP - General Family Medicine 01/17/12 Oniel, [place] S [address] [facility] [address] Physician Cardiology 01/02/19 Health Coach Relationship Specialty Start Date End Date Jeni Nickerson MD [address] [facility] [address] PCP - General Family Medicine 01/17/12 Oniel, Gustavo S [address] [facility] [address] Physician Cardiology 01/02/19 Health Coach Relationship Specialty Start Date End Date Jeni Nickerson MD [address] [facility] [address] PCP - General Family Medicine 01/17/12 Oniel, [place] S [address] [facility] [address] Physician Cardiology 01/02/19 Health Coach Relationship Specialty Start Date End Date Jeni Nickerson MD [address] [facility] [address] PCP - General Family Medicine 01/17/12 Gustavo Engle [address] [place] [address] Physician Cardiology 01/02/19 Health Coach Relationship Specialty Start Date End Date Jeni Nickerson MD [address] [place] [address] PCP - General Family Medicine 01/17/12 Gustavo Engle MD [address] [place] [address] Physician Cardiology 01/02/19 Health Coach Relationship Specialty Start Date End Date Jeni Nickerson MD [address] [place] [address] PCP - General Family Medicine 01/17/12 Gustavo Engle MD [address] [place] [address] Physician Cardiology 01/02/19 Health Coach Relationship Specialty Start Date End Date Jeni Nickerson MD [address] [place] [address] PCP - General Family Medicine 01/17/12 Gustavo Engle MD [address] [place] [address] Physician Cardiology 01/02/19 Health Coach Relationship Specialty Start Date End Date Jeni Nickerson MD [address] [place] [address] PCP - General Family Medicine 01/17/12 Gustavo Engle MD [address] [place] [address] Physician Cardiology 01/02/19 Health Coach Relationship Specialty Start Date End Date eJni Nickerson MD [address] [place] [address] PCP - General Family Medicine 01/17/12 Gustavo Engle MD [address] [place] [address] Physician Cardiology 01/02/19 Health Coach Relationship Specialty Start Date End Date Jeni Nickerson MD [address] [place] [address] PCP - General Family Medicine 01/17/12 Gustavo Engle MD [address] [place] [address] Physician Cardiology 01/02/19 Health Coach Relationship Specialty Start Date End Date Jeni Nickerson MD [address] [place] [address] PCP - General Family Medicine 01/17/12 Gustavo Engle MD [address] [place] [address] Physician Cardiology 01/02/19 Health Coach Relationship Specialty Start Date End Date Jeni Nickerson MD [address] [place] [address] PCP - General Family Medicine 01/17/12 Gustavo Engle MD [address] [place] [address] Physician Cardiology 01/02/19 Health Coach Relationship Specialty Start Date End Date Jeni Nickerson MD [address] [place] [address] PCP - General Family Medicine 01/17/12 Gustavo Engle MD [address] [place] [address] Physician Cardiology 01/02/19 Health Coach Relationship Specialty Start Date End Date Jeni Nickerson MD [address] [place] [address] PCP - General Family Medicine 01/17/12 Gustavo Engle MD [address] [place] [address] Physician Cardiology 01/02/19 Health Coach Relationship Specialty Start Date End Date Jeni Nickerson MD [address] [place] [address] PCP - General Family Medicine 01/17/12 Gustavo Engle MD [address] [place] [address] Physician Cardiology 01/02/19 Health Coach Relationship Specialty Start Date End Date Jeni Nickerson MD [address] [place] [address] PCP - General Family Medicine 01/17/12 Gustavo Engle MD [address] [place] [address] Physician Cardiology 01/02/19 Health Coach Relationship Specialty Start Date End Date Jeni Nickerson MD [address] [place], [place] [id number] PCP - General Family Medicine 01/17/12 Gustavo Engle MD [address] [place] [address] Physician Cardiology 01/02/19 INFORMATION SOURCE (unrecogn ized section and content) DATE CREATED AUTHOR 06/23/2024 [facility] FOR RECORDS PERTAINING TO PATIENTS WHO ARE OR HAVE BEEN ENROLLED IN A CHEMICAL DEPENDENCY/SUBSTANCEABUSE PROGRAM, SOME INFORMATION MAY BE OMITTED. This clinical summary was aggregated from multiple sources. Caution should be exercised in using it in the provision of clinical care. This summary normalizes information from multiple sources, and as a consequence, information in this document may materially change the coding, format and clinical context of patient data. In addition, data may be omitted in some cases. CLINICAL DECISIONS SHOULD BE BASED ON THE PRIMARY CLINICAL RECORDS. [employer] provides no warranty or guarantee of the accuracy or completeness of information in this document.
== END 2024-07-15 19:32 | disposition home or self-care (01) ==
PROVIDERS: Emergency Provider Emergency Medicine; PCP Family Medicine; Visit Provider Emergency Medicine
DX: R07.9 Chest pain, unspecified (principal); Z86.16 Personal history of COVID-19
CPT/HCPCS: 71045; 80048; 83880; 84484; 85025; 93005; 99285; J3490

== ENCOUNTER → 2024-10-09 | Outpatient (CLI) | payer MEDICARE, OTHER, SELFPAY ==
--- NOTE | 2024-10-09 07:03 | ECHOD_ITS ---
Reason For Study: AORTIC VALVE DISEASE Procedure This was a 2D Doppler, Color Flow transthoracic echocardiogram. The study was technically difficult. Exam performed in department. Left Ventricle Normal LV size. The left ventricular ejection fraction is 55 %. No regional wall motion abnormalities noted. Right Ventricle Normal RV size. Normal systolic function. Atria Normal left atrium. Normal right atrium. Mitral Valve Normal mitral valve. Mild (1+) eccentric mitral valve insufficiency. Tricuspid Valve Normal tricuspid valve. Mild tricuspid valve insufficiency. Aortic Valve Trisinus/trileaflet aortic valve. Mild (1+) eccentric aortic valve insufficiency. Pulmonic Valve Normal pulmonic valve. Great Vessels Normal aortic root. The pulmonary artery is normal size. Inferior vena cava collapse with respiration. Pericardium/Pleural No pericardial effusion. MMode/2D Measurements & Calculations LVIDd: 4.6 cm IVSd: 1.1 cm LVOT diam: 2.0 cm LVIDs: 2.9 cm LVPWd: 1.0 cm LVOT area: 3.1 cm2 RVDd: 3.8 cm FS: 37.3 % _ LAV(MOD-bp): 49.3 ml LVAd ap4: 28.3 cm2 LVAd ap2: 25.7 cm2 LAV(MOD-bp) Indexed: 23.8 ml/m2 LVLd ap4: 8.0 cm LVLd ap2: 7.9 cm LAV(MOD-sp2): 51.3 ml EDV(MOD-sp4): 83.6 ml EDV(MOD- sp2): 68.1 ml LAV(MOD-sp4): 46.2 ml EDV(sp4-el): 85.4 ml EDV(sp2- el): 70.8 ml LVAs ap4: 17.6 cm2 LVAs ap2: 15.2 cm2 LVLs ap4: 7.0 cm LVLs ap2: 6.7 cm ESV(MOD-sp4): 37.1 ml ESV(MOD- sp2): 27.9 ml ESV(sp4-el): 37.3 ml ESV(sp2- el): 29.3 ml EF(MOD-sp4): 55.6 % EF(MOD- sp2): 59.1 % EF(sp4-el): 56.4 % _ SV(MOD-sp4): 46.4 ml SV(MOD-sp2): 40.3 ml SV(sp4-el): 48.2 ml SI(MOD-sp4): 22.4 ml/m2 SI(MOD-sp2): 19.4 ml/m2 _ Ao sinus diam: 3.5 cm LA A4 area: 18.5 cm2 LA dimension(2D): 3.8 cm _ TAPSE: 2.1 cm RA A4 area: 13.8 cm2 Time Measurements MV dec time: 0.10 sec Doppler Measurements & Calculations MV E max marquez: 106.2 cm/sec Lat Peak E' Marquez: 10.1 cm/sec Med Peak E' Marquez: 8.0 cm/sec MV A max marquez: 70.3 cm/sec E/E' lat: 10.5 E/E' med: 13.4 MV E/A: 1.5 _ MV dec slope: 1065 cm/sec2 Ao V2 max: 229.7 cm/sec LV V1 max: 98.7 cm/sec Ao max P.2 mmHg LV V1 max P.9 mmHg Ao V2 mean: 166.9 cm/sec LV V1 mean P.7 mmHg Ao mean P.2 mmHg LV V1 mean: 78.8 cm/sec Ao V2 VTI: 66.0 cm LV V1 VTI: 31.5 cm AV (velocity ratio): 0.48 GIANLUCA(I,D): 1.5 cm2 GIANLUCA(V,D): 1.3 cm2 _ SV(LVOT): 96.6 ml PA V2 max: 79.4 cm/sec TR max marquez: 199.6 cm/sec TR max P.9 mmHg ECHO/Echo Complete Interpretation Summary The left ventricular ejection fraction is 55 %. Normal LV size. Mild (1+) eccentric mitral valve insufficiency. Mild tricuspid valve insufficiency. Mild (1+) eccentric aortic valve insufficiency. Ordering Physician: Shashank Kirby Referring Physician: MD Valerio Nickerson Performed By: Eboni Snider RDCS
--- NOTE | 2024-10-09 13:15 | STRESSREP ---
Stress Test Report Pharmacologic myocardial perfusion stress test. 84-year-old lady with a history of chest pain Resting EKG demonstrates normal sinus rhythm with a rate of 71 bpm. Resting blood pressure is 124/70 mmHg. 0.4 mg of regadenoson was infused per usual protocol followed by rapid intravenous saline flush injection. Continuous EKG monitoring was performed. The maximum heart rate was 78 bpm which was 56 beats of max impacted heart rate the maximum workload was 1 metabolic equivalent. At rest there were no ST or T wave changes noted to suggest ischemia and at peak infusion nonspecific ST changes were noted which did not meet the criteria for ischemia. No clinical angina is noted. The final blood pressure was 112/64 mmHg. Myocardial perfusion protocol. 13.5 mCi of technetium 99m sestamibi was injected at rest. 0.4 mg of regadenoson was infused per usual protocol. At peak infusion 41.6 mCi of technetium 99m sestamibi was injected stress images were obtained stress and rest images were reconstructed and compared in the short axis vertical long and horizontal long axis. Gated images were also obtained. Perfusion SPECT analysis: Review of the stress images demonstrate normal uptake of tracer noted in all areas of the myocardium. The resting images similar demonstrated normal uptake of tracer noted in all areas of the myocardium. No areas of reversibility are noted to suggest ischemia and no previous infarct is noted. Gated SPECT analysis: The gated ejection fraction is over 55%. Conclusion: Normal pharmacologic myocardial perfusion stress test. Preserved ejection fraction.
== END | disposition home or self-care (01) ==
LOC: CVS 07:02
PROVIDERS: PCP Family Medicine; Referring Provider Nurse Practitioner Family; Visit Provider Nurse Practitioner Family
DX: R07.9 Chest pain, unspecified (principal); R01.1 Cardiac murmur, unspecified; I35.1 Nonrheumatic aortic (valve) insufficiency
CPT/HCPCS: 78452; 93017; 93306; A9500; A4216; J2785

== ENCOUNTER 2024-10-20 18:17 | Emergency (ER) | payer MEDICARE, OTHER, SELFPAY ==
[2024-10-20 18:19] VITALS: BP 181/72; PULSE 67; RESP 18; TEMP 36.8; O2SAT 98; BMI 45.1
[2024-10-20 18:58] LABS: Absolute Lymphocyte Count 1.43 X10^3/uL (0.83-4.51); Absolute Neutrophil Count 9.8 X10^3/uL (2.0-7.7); Basophil# 0.04 X10^3/uL; Basophil% 0.3 % (0-1); Eosinophil# 0.16 X10^3/uL; Eosinophils% 1.3 % (0-5); Hematocrit 38.5 % (37-47); Hemoglobin 13.3 g/dL (12.0-15.0); Lymphocyte # 1.43 X10^3/ul (0.83-4.51); Lymphocyte % 11.5 % (19-41); Mean Corp Hgb Conc 34.5 g/dL (32-36); Mean Corpuscular Hgb 32.9 pg (27.0-32.0); Mean Corpuscular Volume 95.3 fL (81-99); Mean Platelet Vol. 9.6 fl (6.2-12.0); Monocyte# 0.97 X10^3/uL; Monocyte% 7.8 % (0-10); NRBC Flagged by Analyzer 0 % (0-5); Neutrophil # 9.83 X10^3/uL (2.7-7.7); Neutrophil % 78.7 % (47-70); Platelet Count 174 K/mm3 (150-450); RBC Distribution Width CV 12.8 % (11.6-14.6); RBC Distribution Width SD 44.8 fl (35.1-43.9); Red Blood Count 4.04 M/mm3 (4.2-5.4); White Blood Count 12.5 K/mm3 (4.4-11.0)
[2024-10-20 19:22] LABS: ALB/GLOB Ratio 0.9 RATIO (0.9-2.4); AST(SGOT) 29 U/L (15-37); Alanine Aminotransfer ALT/SGPT 20 U/L (13-56); Albumin, Serum 3.5 g/dL (3.2-5.0); Alkaline Phosphatase 91 U/L (45-117); Anion Gap 7 (5-15); BUN 34 mg/dL (7-18); BUN/Creat Ratio 22.4 RATIO (10-20); Calcium,Total 10.2 mg/dL (8.5-10.1); Chloride 102 mmol/L (98-107); Creatinine, Serum 1.52 mg/dL (0.55-1.02); EST Glomerular Filtration Rate 35 mL/min (>60); Est Glom Filt Rate - Afr Amer 42 mL/min (>60); Estimated Creatinine Clearance 33.13 ml/min; Globulin 3.7 g/dL (2.2-4.2); Glucose 140 mg/dL (74-106); Potassium 5.1 mmol/L (3.5-5.1); Protein, Total 7.2 g/dL (6.4-8.2); Sodium Level 136 mmol/L (136-145)
--- NOTE | 2024-10-20 21:01 | CT_ITS ---
PROCEDURE: ABDOMEN/PELVIS WITHOUT CONT REASON FOR EXAM: Elevated white blood cell count. Lower abdominal pain. Nausea. History of diverticulitis. TECHNIQUE: Abdomen and pelvis CT without intravenous contrast. Coronal and sagittal 2D reformatted images were provided for better evaluation. COMPARISON: CT abdomen/pelvis from 01/16/2022. FINDINGS: Lung bases are clear. Coronary artery calcifications are present. Right kidney is surgically absent. The nonenhanced liver, spleen, and adrenal glands are unremarkable within the limits of a noncontrast exam. Gallbladder is surgically absent. There is mild atrophy of the pancreas. Abdominal aorta demonstrates normal caliber with atherosclerotic calcifications. No left-sided hydronephrosis or hydroureter is present. No left renal stones are present. Right hip arthroplasty is present which results in metallic artifact and partially degrades evaluation of the pelvis. Urinary bladder is smoothly contoured. There are numerous uterine calcifications likely relating to calcified uterine fibroids. Colonic diverticulosis is identified. There is mild pericolonic inflammatory stranding involving the rectosigmoid region concerning for an acute diverticulitis. No extraluminal air or abscess is seen. There is trace free fluid within the posterior cul-de-sac of the pelvis. There is mild retained stool in the colon without obstruction. Appendix is surgically absent. Small bowel demonstrates a normal caliber. No free air is present. Evaluation of the osseous structures demonstrates no acute findings. Degenerative changes are present. There is mild anterolisthesis of L4-L5 and mild retrolisthesis of L5-S1. There is levoscoliosis of the lumbar spine. CT/Abdomen/Pelvis without Cont IMPRESSION: 1. Extensive colonic diverticulosis predominantly involving the sigmoid colon. There is mild pericolonic stranding involving the distal sigmoid colon/rectosigmoid junction likely related to an acute diverticu litis. No extraluminal air or abscess is seen. 2. Trace free fluid in the posterior cul-de-sac of the pelvis. 3. Uterine fibroids. 4. Additional findings as above. One or more dose reduction techniques were used (e.g., Automated exposure contr ol, adjustment of the mA and/or kV according to patient size, use of iterative reconstruction technique). Reading Location: [facility]
[2024-10-20 21:02] LABS: Mucous, Urine 0 SEEN /hpf (<or=2+); White Blood Cells 0 SEEN /hpf (0-5)
--- NOTE | 2024-10-20 21:02 | ED.VIS.GI ---
HPI HPI - GI History of Present Illness Chief Complaint: Abd Pain Informant: patient, spouse/S.O. and family Narrative Narrative: Presents here with spouse and daughter for evaluation lower abdominal pain started yesterday waxing waning. States for like labor pains. Having chills and urine frequency. History of similar when she was diagnosed diverticulitis back in 2012. Has had follow-up colonoscopies and followed by surgery Dr. Fernandez. She has had a right nephrectomy in the past due to uterine cancer. She is on Xarelto history of paroxysmal A-fib. She had a bowel movement around noon today normal nonbloody. No fevers. Transient nausea x 1 earlier none currently. Prior similar symptoms: Yes PFSH PFSH Medical History Essential hypertension HLD (hyperlipidemia) COVID-19 Paroxysmal atrial flutter Left anterior fascicular block Uterine fibroid GERD (gastroesophageal reflux disease) Diverticulitis Obesity, morbid (more than 100 lbs over ideal weight or BMI > 40) Gout Home Medications ?Medication ?Instructions ?Recorded ?Last Taken ?Type hydrochlorothiazide 25 mg tablet 25 mg PO DAILY bp 05/05/14 01/01/19 History multivitamin with folic acid 400 1 tab PO DAILY supplement 05/05/14 01/01/19 History mcg tablet potassium chloride 10 mEq 10 meq PO DAILY supplement 05/05/14 01/01/19 History tablet,extended release(part/cryst) cholecalciferol (vitamin D3) 25 1,000 unit PO DAILY supplement 01/06/19 Unknown History mcg (1,000 unit) capsule metoprolol tartrate 25 mg tablet 25 mg PO BID bp 01/07/19 07/30/19 History acetaminophen 500 mg tablet 500 mg PO BID PRN 01/23/22 Unknown History allopurinol 100 mg tablet 100 mg PO DAILY 08/16/22 Unknown History rivaroxaban 20 mg tablet 20 mg PO DAILY blood thinner #30 12/31/23 Unknown Rx tabs biotin 1,000 mcg chewable tablet 2,500 mcg PO DAILY 08/22/24 Unknown History magnesium oxide 500 mg PO DAILY supplement 08/22/24 Unknown History cefdinir 300 mg capsule 300 mg PO Q12H #14 caps 10/20/24 Unknown Rx metronidazole 500 mg tablet 500 mg PO Q8H #21 tabs 10/20/24 Unknown Rx Allergy/AdvReac Type Severity Reaction Status Date / Time Penicillins Allergy Severe Hives Verified 10/20/24 18:19 chlordiazepoxide (From Allergy Other Verified 10/20/24 18:19 Librax (with clidinium)) clidinium bromide (From Allergy Other Verified 10/20/24 18:19 Librax (with clidinium)) amlodipine besylate (From AdvReac Other Verified 10/20/24 18:19 Norvasc) Family History Mother Aortic aneurysm Congestive heart failure Renal failure Father Emphysema/COPD Brother CAD (coronary artery disease) COPD (chronic obstructive pulmonary disease) Diabetes Surgical History History of right nephrectomy (~03/06/22) Hx of appendectomy History of total right hip replacement History of tonsillectomy History of left heart catheterization (10/11/04) History of total right knee replacement (2011) History of cholecystectomy (1982) History of left knee replacement (10/2009) History of tubal ligation History of D&C History of colonoscopy History of section History of bilateral cataract extraction Social History Smoking Status: Never smoker alcohol intake: never substance use type: does not use caffeine: No ROS ROS ED Constitutional Constitutional ED: Reports chills; Denies fever(s) or sweats ENT ENT ED: Denies sore throat Cardiovascular Cardiovascular: Denies chest pain, leg edema, palpitations or racing heartbeat Respiratory/Chest Respiratory/Chest: Denies cough, dyspnea or dyspnea on exertion Gastrointestinal Gastrointestinal: Reports abdominal pain and diarrhea; Denies nausea or vomiting Genitourinary Genitourinary ED: Reports urinary frequency; Denies dysuria or hematuria Musculoskeletal Musculoskeletal: Denies back pain, extremity pain or neck pain Integumentary Denies rash or wounds Neurologic Neurologic: Denies headache(s), paresthesias or weakness EXAM Physical Exam Const Vital Signs: 10/20/24 18:19 10/20/24 21:55 10/20/24 22:20 Temperature 98.2 F 98 F Temperature Source Oral Pulse Rate 67 57 L 67 Respiratory Rate 18 18 16 Blood Pressure 181/72 H 150/63 H 118/67 Blood Pressure Mean 108 92 84 Pulse Ox 98 100 99 Oxygen Delivery Method Room Air Positive well nourished and well developed General Appearance ED: well developed and NAD HEENT HEENT Narrative: Mild dry mucosal membranes normocephalic and atraumatic Eyes General Eye ED: Yes normal appearance of both eyes Neck full ROM Chest Wall Chest: Negative for tenderness Resp normal respiratory effort and normal air movement Effort and Inspection: symmetric chest movement; Negative for respiratory distress Cardio regular rate, regular rhythm and no murmurs Peripheral Pulses: pulses 2+ throughout GI normal to inspection, nondistended, normoactive bowel sounds GI Narrative: Tenderness pelvic region with no guarding or rebound. Negative Maria's or McBurney's tenderness. Palpation: Negative for guarding or rebound tenderness present Extremity normal to inspection General Extremety ED: Negative for edema or tenderness General Extremity: Negative for edema Neuro oriented x3 and no sensory deficits noted Sensorium / Orientation: awake and alert Skin no rashes or lesions noted and no wounds MDM MDM MDM Narrative Medical decision making narrative: Interventions / MDM: Differential diagnosis: Diverticulitis, uterine fibroid, electrolyte abnormalities Diagnosis considered but do not suspect: UTI however urine negative. My EKG interpretation: N/A Imaging independently reviewed and interpreted by myself: CT abdomen pelvis: Uncomplicated sigmoid diverticulitis point, uterine fibroid External documents reviewed: N/A Test considered but not ordered:N/A ED course: Afebrile patient declines any pain medicines. Nursing protocol obtain labs, white count returned at 12.5. Creatinine 1.52 stable from her previous. IV fluids ordered, noncontrast CT abdomen pelvis for further evaluation. CT scan uncomplicated sigmoid diverticulitis. Uterine fibroids is known to the patient. She started on cefdinir and Flagyl. She does not drink alcohol. She continues declined any pain medicines. She will use Tylenol as needed. Discussed strict return precautions. She will follow-up with her surgeon Dr. Fernandez. All questions were answered. Re-evaluation: stable Disposition discussed with patient/family/significant other: Patient and family Case discussed with consulting clinician: N/A This note was generated with [employer] dictation software. It may contain incorrect words, spelling, and punctuation that were not noted in checking the note before signing. Lab Data Attestation: I reviewed the patient's lab results. Labs: Laboratory Results - last 24 hr 02/10/25 02/10/25 18:50 20:55 WBC 12.5 H RBC 4.04 L Hgb 13.3 Hct 38.5 MCV 95.3 MCH 32.9 H MCHC 34.5 RDW Std Deviation 44.8 H RDW Coeff of Brandie 12.8 Plt Count 174 MPV 9.6 Immature Gran % (Auto) 0.400 Neut % (Auto) 78.7 H Lymph % (Auto) 11.5 L Hamblen % (Auto) 7.8 Eos % (Auto) 1.3 Baso % (Auto) 0.3 Absolute Neuts (auto) 9.8 H Absolute Lymphs (auto) 1.43 Nucleated RBC % 0 Sodium 136 Potassium 5.1 Chloride 102 Carbon Dioxide 27.0 Anion Gap 7 BUN 34 H Creatinine 1.52 H Estim Creat Clear Calc 33.13 Est GFR (MDRD) Af Amer 42 L Est GFR (MDRD) Non-Af 35 L BUN/Creatinine Ratio 22.4 H Glucose 140 H Calcium 10.2 H Total Bilirubin 0.60 AST 29 ALT 20 Alkaline Phosphatase 91 Total Protein 7.2 Albumin 3.5 Globulin 3.7 Albumin/Globulin Ratio 0.9 Urine Color Yellow Urine Clarity Clear Urine pH 7.0 Ur Specific Henderson 1.010 Urine Protein Negative Urine Glucose (UA) Normal Urine Ketones Negative Urine Occult Blood Negative Urine Nitrite Negative Urine Bilirubin Negative Urine Urobilinogen Normal Ur Leukocyte Esterase Negative Urine RBC 0 SEEN Urine WBC 0 SEEN Ur Squamous Epith Cells 5-10 SEEN Urine Bacteria 1+ Urine Mucus 0 SEEN Radiography Diagnostic Testing: Clinical Impression(s) from Imaging Studies Abdomen/Pelvis CT 10/20/24 21:01 IMPRESSION: 1. Extensive colonic diverticulosis predominantly involving the sigmoid colon. There is mild pericolonic stranding involving the distal sigmoid colon/rectosigmoid junction likely related to an acute diverticulitis. No extraluminal air or abscess is seen. 2. Trace free fluid in the posterior cul-de-sac of the pelvis. 3. Uterine fibroids. 4. Additional findings as above. One or more dose reduction techniques were used (e.g., Automated exposure control, adjustment of the mA and/or kV according to patient size, use of iterative reconstruction technique). Reading Location: [facility] Discharge Plan Triage Chief Complaint: Abd Pain ED Provider: Iván Morales Dx/Rx/DC Orders Clinical Impression: Diverticulitis of sigmoid colon, Abdominal pain, CKD (chronic kidney disease) Instructions: Diverticulitis Dc Prescriptions: New metronidazole 500 mg tablet 500 mg PO Q8H Qty: 21 0RF cefdinir 300 mg capsule 300 mg PO Q12H Qty: 14 0RF No Action cholecalciferol (vitamin D3) 1,000 unit capsule 1,000 unit PO DAILY acetaminophen 500 mg tablet 500 mg PO BID PRN biotin 1,000 mcg tablet,chewable 2,500 mcg PO DAILY allopurinol 100 mg tablet 100 mg PO DAILY hydrochlorothiazide 25 MG tablet 25 mg PO DAILY Patient Comments: blood pressure potassium chloride 10 MEQ tablet 10 meq PO DAILY Patient Comments: potassium supplement multivitamin with folic acid 1 TABLET tablet 1 tab PO DAILY Patient Comments: supplement metoprolol tartrate 25 mg tablet 25 mg PO BID Patient Comments: blood pressure magnesium oxide 250 mg magnesium tablet 500 mg PO DAILY rivaroxaban 20 mg tablet 20 mg PO DAILY Qty: 30 12RF Primary Care Provider: Valerio Nickerson Referrals: Daysi Fernandez MD [Med Staff - Active Staff] - 1-2 Weeks Valerio Nickerson MD [Primary Care Provider] - Activity Restrictions/Additional Instructions: Uncomplicated diverticulitis on CT. White count 12.5. Creatinine 1.5 stable from previous. Take and finish antibiotic as prescribed. Use Tylenol as needed. Symptoms worsen, high fevers, return to ED for reevaluation. Print Language: Bengali Disposition Disposition: Home, Self Care Discharge Date/Time: 10/20/24 22:23
[2024-10-20 21:04] LABS: Color, Urine Yellow (Yellow); Glucose, Dipstick Normal (Normal); Ketone-Dipstick Negative (Negative); Leukocyte Esterase-Dipstick Negative /ul (Negative); Nitrite-Dipstick Negative (Negative); Occult Blood-Urine Negative /ul (Negative); Protein-Dipstick Negative (Negative); Urine Bilirubin Dipstick Negative (Negative); Urine Clarity Clear (Clear); Urine Urobilinogen Normal (Normal)
[2024-10-20] MEDS: 0.9% Normal Saline (1000mL) 1,000 ML 999 ML IV (21:11)
[2024-10-20 21:20] LABS: Bacteria 1+ /hpf (None Seen); Red Blood Cells-Urine 0 SEEN /hpf (0-5); Squamous Epithelial Cells - UA 5-10 SEEN /hpf (5-10)
[2024-10-20 21:55] VITALS: BP 150/63; PULSE 57; RESP 18; O2SAT 100
[2024-10-20] MEDS: metroNIDAZOLE 500 MG Tablet PO (22:19)
[2024-10-20] MEDS: Cefdinir 300 MG Capsule PO (22:19)
[2024-10-20 22:20] VITALS: BP 118/67; PULSE 67; RESP 16; TEMP 36.6; O2SAT 99
== END 2024-10-20 22:23 | disposition home or self-care (01) ==
PROVIDERS: Emergency Provider Emergency Medicine; PCP Family Medicine; Visit Provider Emergency Medicine
DX: K57.32 Diverticulitis of large intestine without perforation or abscess without bleeding (principal); N18.9 Chronic kidney disease, unspecified; Z86.16 Personal history of COVID-19
CPT/HCPCS: 74176; 80053; 81001; 85025; 96360; 99284; A4216

== ENCOUNTER 2024-12-18 17:37 | Inpatient (IN) | payer MEDICARE, OTHER, SELFPAY ==
[2024-12-18] VITALS (11 sets, daily range): BP systolic 158–210; BP diastolic 86–109; PULSE 67–85; RESP 17–26; TEMP 36.1–36.6; O2SAT 95–100; BMI 44.9; BMI 45.3
--- NOTE | 2024-12-18 18:11 | EKG12_ITS ---
Test Reason : CP Blood Pressure : */* mmHG Vent. Rate : 72 BPM Atrial Rate : * BPM P-R Int : * ms QRS Dur : 150 ms QT Int : 418 ms P-R-T Axes : * -70 19 degrees QTcB Int : 457 ms Atrial fibrillation Right bundle branch block Left anterior fascicular block Bifascicular block Minimal voltage criteria for LVH, may be normal variant ( R in aVL ) Possible Lateral infarct , age undetermined Abnormal ECG Confirmed by Anastacio Wagner ([id number]), editorial intern RAY FARRIS ([id number]) on 12/22/2024 6:47:22 AM Referred By: KELLEN Confirmed By: Anastacio Wagner
[2024-12-18 18:33] LABS: Absolute Lymphocyte Count 1.97 X10^3/uL (0.83-4.51); Absolute Neutrophil Count 5.3 X10^3/uL (2.0-7.7); Basophil# 0.05 X10^3/uL; Basophil% 0.6 % (0-1); Eosinophil# 0.21 X10^3/uL; Eosinophils% 2.6 % (0-5); Hematocrit 41.7 % (37-47); Hemoglobin 13.9 g/dL (12.0-15.0); Lymphocyte # 1.97 X10^3/ul (0.83-4.51); Lymphocyte % 23.9 % (19-41); Mean Corp Hgb Conc 33.3 g/dL (32-36); Mean Corpuscular Hgb 32.9 pg (27.0-32.0); Mean Corpuscular Volume 98.8 fL (81-99); Monocyte# 0.68 X10^3/uL; Monocyte% 8.3 % (0-10); NRBC Flagged by Analyzer 0 % (0-5); Neutrophil # 5.28 X10^3/uL (2.7-7.7); Neutrophil % 64.1 % (47-70); Platelet Count 180 K/mm3 (150-450); RBC Distribution Width CV 13.4 % (11.6-14.6); RBC Distribution Width SD 48.5 fl (35.1-43.9); Red Blood Count 4.22 M/mm3 (4.2-5.4); White Blood Count 8.2 K/mm3 (4.4-11.0)
--- NOTE | 2024-12-18 18:35 | RAD_ITS ---
PROCEDURE: CHEST 1 VIEW (PORTABLE) 12/18/2024 REASON FOR EXAM: CHEST PAIN TECHNIQUE: Frontal view of the chest. COMPARISON: Chest x-ray dated 07/15/2024. FINDINGS: The cardiac silhouette is prominent. There is increased vascular congestion when compared to prior examination. Increasing bibasilar airspace opacities are also present, [id number]. Surgical clips seen within the right upper quadrant, likely from prior cholecystectomy procedure. Advanced degenerative arthropathy seen within bilateral shoulder regions, [id number]. RAD/Chest 1 View (Portable) IMPRESSION: Findings could reflect pulmonary edema versus developing pneumonia, new since p rior examination. Follow-up until clearing is recommended. Reading Location: [id number]
[2024-12-18 18:56] LABS: Anion Gap 11 (5-15); BUN 35 mg/dL (4-19); Calcium,Total 10.5 mg/dL (7.6-11.0); Carbon Dioxide 25.6 mmol/L (21.0-32.0); Chloride 101 mmol/L (98-108); Creatinine, Serum 1.44 mg/dL (0.70-1.20); EST Glomerular Filtration Rate 36 (>60); Estimated Creatinine Clearance 34.85 ml/min (50-250); Glucose 111 mg/dL (70-99); Potassium 4.5 mmol/L (3.3-5.1); Sodium Level 138 mmol/L (133-145); Troponin T High Sensitivity 22 ng/L (<=14)
[2024-12-18] MEDS: Nitroglycerin SL (ED/IMG/CATH) 0.4 MG TABLET SL (19:13)
--- NOTE | 2024-12-18 19:23 | ED.VIS.CHEST ---
HPI History of Present Illness Chief Complaint: Chest Pain Informant: patient Narrative Narrative: Patient is an 84-year-old female with history of hypertension, hyperlipidemia, proximal atrial flutter (on metoprolol and Xarelto), GERD and heart murmur presenting with chest discomfort and elevated blood pressures. Patient states her blood pressures have been higher over the past few weeks but more significantly today. At home she had blood pressure running 160/124. She is concerned about how high the bottom number was. She also notes has been having intermittent episodes of chest discomfort. She states is a pressure in the center of her chest. She denies any aggravating or alleviating factors. She does have episodes of irregular heartbeat but contributes that to her atrial flutter. She states she will intermittently have flushing and feel chills but her cheeks will be red. She recently has had cough with some associated postnasal drip/drainage. She denies any fevers. Denies any associate nausea or vomiting. Denies any black or blood in her stool. Notes her bowel movements have been more loose. has been having the symptoms intermittently for at least a month now but with her blood pressure being high she finally told her family about it and came in to be evaluated. has been taking her medication as prescribed. Currently states her discomfort in her chest is quite mild and almost completely gone. Does have chronic swelling of her leg (left worse than right) but denies any acute change in it [facility] Medical History Essential hypertension HLD (hyperlipidemia) COVID-19 Paroxysmal atrial flutter Left anterior fascicular block Uterine fibroid GERD (gastroesophageal reflux disease) Diverticulitis Obesity, morbid (more than 100 lbs over ideal weight or BMI > 40) Gout Home Medications ?Medication ?Instructions ?Recorded ?Last Taken ?Type hydrochlorothiazide 25 mg tablet 25 mg PO DAILY bp 05/05/14 01/01/19 History multivitamin with folic acid 400 1 tab PO DAILY supplement 05/05/14 01/01/19 History mcg tablet potassium chloride 10 mEq 10 meq PO DAILY supplement 05/05/14 01/01/19 History tablet,extended release(part/cryst) cholecalciferol (vitamin D3) 25 1,000 unit PO DAILY supplement 01/06/19 Unknown History mcg (1,000 unit) capsule metoprolol tartrate 25 mg tablet 25 mg PO BID bp 01/07/19 07/30/19 History acetaminophen 500 mg tablet 500 mg PO BID PRN fever or pain 01/23/22 Unknown History allopurinol 100 mg tablet 100 mg PO DAILY 08/16/22 Unknown History rivaroxaban 20 mg tablet 20 mg PO DAILY blood thinner #30 12/31/23 Unknown Rx tabs biotin 1,000 mcg chewable tablet 2,500 mcg PO DAILY 08/22/24 Unknown History magnesium oxide 500 mg PO DAILY supplement 08/22/24 Unknown History Allergy/AdvReac Type Severity Reaction Status Date / Time Penicillins Allergy Severe Hives Verified 12/18/24 17:39 chlordiazepoxide (From Allergy Other Verified 12/18/24 17:39 Librax (with clidinium)) clidinium bromide (From Allergy Other Verified 12/18/24 17:39 Librax (with clidinium)) amlodipine besylate (From AdvReac Other Verified 12/18/24 17:39 Norvasc) Family History Mother Aortic aneurysm Congestive heart failure Renal failure Father Emphysema/COPD Brother CAD (coronary artery disease) COPD (chronic obstructive pulmonary disease) Diabetes Surgical History History of right nephrectomy (~03/06/22) Hx of appendectomy History of total right hip replacement History of tonsillectomy History of left heart catheterization (10/11/04) History of total right knee replacement (2011) History of cholecystectomy (1982) History of left knee replacement (10/2009) History of tubal ligation History of D&C History of colonoscopy History of section History of bilateral cataract extraction Social History Smoking Status: Never smoker alcohol intake: never substance use type: does not use caffeine: No ROS ROS ED Constitutional Constitutional ED: Reports chills and sweats; Denies fever(s) Eyes Eyes: Denies change in vision ENT ENT ED: Reports rhinorrhea; Denies sore throat Cardiovascular Cardiovascular: Reports chest pain Respiratory/Chest Respiratory/Chest: Reports cough and dyspnea Gastrointestinal Gastrointestinal: Denies abdominal pain, melena, nausea or vomiting Musculoskeletal Musculoskeletal: Denies arthralgias or myalgias Integumentary Denies rash Neurologic Neurologic: Reports weakness Hematologic/Lymphatic Hematologic/Lymphatic: Reports easy bleeding, easy bruising and other Details: On Xarelto EXAM Physical Exam Const Vital Signs: 12/18/24 17:39 12/18/24 17:57 12/18/24 18:40 Temperature 97 F L Temperature Source Temporal Pulse Rate 85 81 Respiratory Rate 18 20 H Respiratory Effort Normal Respiratory Pattern Normal Blood Pressure 210/104 H 189/109 H Blood Pressure Mean 139 135 Pulse Ox 95 99 Oxygen Delivery Method Room Air 12/18/24 18:41 12/18/24 19:00 12/18/24 19:13 Temperature Temperature Source Pulse Rate 67 82 Respiratory Rate 19 H Respiratory Effort Respiratory Pattern Blood Pressure 200/93 H 200/93 H Blood Pressure Mean 128 Pulse Ox 97 Oxygen Delivery Method Room Air Room Air 12/18/24 20:00 12/18/24 20:23 12/18/24 20:29 Temperature Temperature Source Pulse Rate 72 82 81 Respiratory Rate 18 26 H 17 Respiratory Effort Respiratory Pattern Blood Pressure 184/99 H 203/91 H 158/91 H Blood Pressure Mean 127 128 113 Pulse Ox 98 98 95 Oxygen Delivery Method Room Air Room Air Room Air Positive well nourished and well developed General Appearance ED: well developed and NAD HEENT Reports moist mucous membranes Eyes PERRL Neck supple and no JVD Chest Wall inspection of chest normal and palpation of chest normal Resp Resp Narrative: Mildly diminished breath sounds at the bases Cardio regular rate and regular rhythm Peripheral Pulses: pulses 2+ throughout GI normal to inspection, nondistended, normoactive bowel sounds and soft to palpation Extremity Extremity Narrative: Nonpitting bilateral pedal edema present, left worse than right. Patient states this is chronic for her Neuro oriented x3 Sensorium / Orientation: awake and alert Motor Exam: Negative for general weakness Psych mental status grossly normal Skin no rashes or lesions noted and no wounds Heart Score History: Moderately Suspicious ECG: Nonspecific Repolarization Age: >/= 65 years Risk Factors: 1 or 2 Risk Factors Troponin: >1 - <3 Normal Limit Score: 6 MDM MDM MDM Narrative Medical decision making narrative: Patient is evaluated for intermittent chest pain that she describes as a tightness below her chest with elevated blood pressure. She also had some intermittent shortness of breath/dyspnea on exertion. Upon arrival patient is quite hypertensive with blood pressure of 210/104. Differential includes CHF exacerbation, ACS, arrhythmia, pneumonia. Patient does have a history of atrial flutter and is anticoagulated on Xarelto. Low suspicion for DVT/PE. Patient remains quite hypertensive in the emergency room and is given sublingual nitroglycerin with no improvement of her pain. Does have some mild improvement in her diastolic blood pressure. Her BNP is elevated at 2634 and two-view chest x-ray viewed by myself as well as radiology is concerning for pulmonary edema versus pneumonia. Given her physical exam, lack of fevers or leukocytosis suspect this is pulmonary edema. Patient is given 40 mg IV Lasix. She has CKD which is at her baseline. No other significant electrolyte abnormalities. Given her significant hypertension with this, high sensitive troponin is elevated at 22 and elevated BNP I do think she would benefit from admission for diuresis and blood pressure management. She is agreeable. Is given IV labetalol and Lasix in the emergency room. Case discussed with hospitalist, Dr. Merino. Lab Data Attestation: I reviewed the patient's lab results. Labs: Laboratory Results - last 24 hr 12/18/24 18:00 WBC 8.2 RBC 4.22 Hgb 13.9 Hct 41.7 MCV 98.8 MCH 32.9 H MCHC 33.3 RDW Std Deviation 48.5 H RDW Coeff of Brandie 13.4 Plt Count 180 MPV 10.0 Immature Gran % (Auto) 0.500 Neut % (Auto) 64.1 Lymph % (Auto) 23.9 [place] % (Auto) 8.3 Eos % (Auto) 2.6 Baso % (Auto) 0.6 Absolute Neuts (auto) 5.3 Absolute Lymphs (auto) 1.97 Nucleated RBC % 0 Sodium 138 Potassium 4.5 Chloride 101 Carbon Dioxide 25.6 Anion Gap 11 BUN 35 H Creatinine 1.44 H Estim Creat Clear Calc 34.85 L Est GFR (MDRD) Non-Af 36 L BUN/Creatinine Ratio 24.0 H Glucose 111 H Calcium 10.5 Troponin T High Sens 22 H NT pro BNP II 2634 H Radiography Chest X-Ray - ED: Read by ED Physician, Read by Radiologist and CHF Diagnostic Testing: Clinical Impression(s) from Imaging Studies Chest X-Ray 12/18/24 18:35 IMPRESSION: Findings could reflect pulmonary edema versus developing pneumonia, new since prior examination. Follow-up until clearing is recommended. Reading Location: [id number] Rhythm Strip Rhythm Strip: A-fib Rate: 72 Ectopy: None EKG Initial EKG: Attestation: I personally reviewed and interpreted this EKG as follows: Interpretation: Atrial Fibrillation Comments: Atrial fibrillation at a rate of 72 bpm Left axis deviation Bifascicular block with right bundle branch block left anterior fascicular block Minimal voltage criteria for LVH Nonspecific T wave changes Compared to prior EKG patient is not having acute ischemic changes but is now in atrial fibrillation Management Discussion w/another healthcare provider: Hospitalist Discharge Plan Triage Chief Complaint: Chest Pain Other Complaint: Hypertension ED Provider: Aad Blankenship Dx/Rx/DC Orders Clinical Impression: Essential hypertension, Chest pain, CHF (congestive heart failure) Prescriptions: No Action cholecalciferol (vitamin D3) 1,000 unit capsule 1,000 unit PO DAILY acetaminophen 500 mg tablet 500 mg PO BID PRN (Reason: fever or pain) biotin 1,000 mcg tablet,chewable 2,500 mcg PO DAILY allopurinol 100 mg tablet 100 mg PO DAILY hydrochlorothiazide 25 MG tablet 25 mg PO DAILY Patient Comments: blood pressure potassium chloride 10 MEQ tablet 10 meq PO DAILY Patient Comments: potassium supplement multivitamin with folic acid 1 TABLET tablet 1 tab PO DAILY Patient Comments: supplement metoprolol tartrate 25 mg tablet 25 mg PO BID Patient Comments: blood pressure magnesium oxide 250 mg magnesium tablet 500 mg PO DAILY rivaroxaban 20 mg tablet 20 mg PO DAILY Qty: 30 12RF Primary Care Provider: Valerio Nickerson Referrals: Valerio Nickerson MD [Primary Care Provider] - Print Language: Singaporean Disposition Disposition: Acute Care Hospital [facility]
[2024-12-18 19:58] LABS: Pro- Brain NATRIURETIC PEPTIDE 2634 pg/mL (<=1800)
[2024-12-18] MEDS: Furosemide 40 MG/4 ML Vial IV (20:24)
--- NOTE | 2024-12-18 20:45 | HP.PCM.HOS_ITS ---
[facility] - General General Date of Admission: 12/18/24 Date of Service: 12/18/24 Chief Complaint: Chest Pain and Elevated Blood Pressure. [facility] Narrative DESTINI VICTORIA, is a 84 F with a past medical history of essential hypertension; on metoprolol and hydrochlorothiazide, history of hyperlipidemia; currently not on treatment, morbid obesity; with BMI of 44.9 this admission, chronic paroxysmal atrial flutter (2018); on rivaroxaban followed by [facility], history of heart murmur, history of LAFB, history of Right nephrectomy (2021), remote history of cholecystectomy (1982), history of COVID- 19, history of appendectomy (2020), history of diverticulitis, history of uterine fibroid, history of bilateral cataracts; s/p extraction, history of gout; on allopurinol, GERD; currently not on treatment and OA; s/p Right THR and bilateral TKR (Left 2009 & Right 2011) who presents to [facility] ER complaining of chest pain and elevated blood pressure. Ms. Victoria reports her symptoms began approximately 4 weeks prior to admission with a gradual onset of elevating blood pressure into the 160/124 mmHg range. She also admits to intermittent episodes of chest pain with pain that is pressure-like, substernal, nonradiating and with nothing seeming to make the pain better or worse. She has previously attribute these episodes of irregular heartbeat and chest discomfort to her atrial flutter so she did not immediately seek medical attention at that time. She admits to associated chills, sweats, runny nose, chest pain, cough, dyspnea on exertion and generalized weakness. She denies related fever, changes in vision, sore throat, abdominal pain, nausea, vomiting, diarrhea, constipation, arthralgias, myalgias, headache or rash. Review of her records shows she underwent echocardiogram in September 2024 which revealed LVEF 55% with mild 1+ eccentric mitral valve insufficiency and mild 1+ eccentric aortic valve insufficiency with no mention of diastolic dysfunction. In the ER she was noted to have a highly elevated blood pressure of 210/104 mmHg present on admission consistent with suspected Hypertensive Emergency complicated by laboratory evidence of elevated NT pro-BNP II of 2,634 pg/mL with a corresponding chest x-ray that revealed pulmonary edema versus developing pneumonia, new since prior examination with follow-up until clearing recommended consistent with suspected AE CHF; with preserved LVEF compounded by clinical evidence of Acute Respiratory Insufficiency all combining to cause Chest Pain and she was then admitted to the PCU for ongoing care for status expected to extend beyond 2 midnights. [facility] Medical History Essential hypertension HLD (hyperlipidemia) COVID-19 Paroxysmal atrial flutter Left anterior fascicular block Uterine fibroid GERD (gastroesophageal reflux disease) Diverticulitis Obesity, morbid (more than 100 lbs over ideal weight or BMI > 40) Gout Home Medications ?Medication ?Instructions ?Recorded ?Last Taken ?Type hydrochlorothiazide 25 mg tablet 25 mg PO DAILY bp 01/01/19 History multivitamin with folic acid 400 1 tab PO DAILY supple ment 05/05/14 01/01/19 History mcg tablet potassium chloride 10 mEq 10 meq PO DAILY supplement 0 05/05/14 01/01/19 History tablet,extended release(part/cryst) cholecalciferol (vitamin D3) 25 1,000 unit PO DAILY ramirez pplement 01/06/19 Unknown History mcg (1,000 unit) capsule metoprolol tartrate 25 mg tablet 25 mg PO BID bp 01/0707/30/19 History acetaminophen 500 mg tablet 500 mg PO BID PRN fever or pain 01/23/22 Unknown History allopurinol 100 mg tablet 100 mg PO DAILY 08/16/22 Unk nown History rivaroxaban 20 mg tablet 20 mg PO DAILY blood thinner #30 12/31/23 Unknown Rx tabs biotin 1,000 mcg chewable tablet 2,500 mcg PO DAILY Unknown History magnesium oxide 500 mg PO DAILY supplement 1 10/23/23 Unknown History Allergy/AdvReac Type Severity Reaction Status Date / Time Penicillins Allergy Severe Hives Verified 12/18/24 17:39 chlordiazepoxide (From Allergy Other Verified 12/18/24 17:39 Librax (with clidinium)) clidinium bromide (From Allergy Other Verified 12/18/24 17:39 Librax (with clidinium)) amlodipine besylate (From AdvReac Other Verified 12/18/24 17:39 Norvasc) Family History Mother Aortic aneurysm Congestive heart failure Renal failure Father Emphysema/COPD Brother CAD (coronary artery disease) COPD (chronic obstructive pulmonary disease) Diabetes Surgical History History of right nephrectomy (~03/06/22) Hx of appendectomy History of total right hip replacement History of tonsillectomy History of left heart catheterization (10/11/04) History of total right knee replacement (2011) History of cholecystectomy (1982) History of left knee replacement (10/2009) History of tubal ligation History of D&C History of colonoscopy History of section History of bilateral cataract extraction Social History Smoking Status: Never smoker alcohol intake: never substance use type: does not use caffeine: No ROS ROS Narrative Review of Systems: Constitutional: Patient admits to chills and sweats but denies fever. Eyes: Patient denies changes in vision or discharge from eyes. ENT: Patient admits to runny nose but she denies sore throat or ear pain. Resp: Patient admits to shortness of breath and cough as per HPI. CV: Patient admits to chest pain but she denies palpitations, heart racing or lower extremity edema. GI: Patient denies abdominal pain, nausea, vomiting, diarrhea or constipation. : Patient denies dysuria, hematuria or urinary frequency. MSK: Patient denies arthralgias or myalgias. Skin: Patient denies rash, abscess, wounds or jaundice. Psych: Patient denies symptoms of uncontrolled depression or anxiety. Neuro: Patient denies headache, paresthesias or focal neurologic deficits. Allergy: Patient denies lip swelling, tongue swelling or urticaria. Hematology: Patient admits to easy bleeding and easy bruisability on rivaroxaban. Endocrinology: Patient denies polyuria, polydipsia, polyphagia or heat/cold intolerance. 14 point ROS otherwise negative save for positives noted above in HPI. Vital Signs Vital Signs Vital Signs: 12/18/24 17:39 12/18/24 17:57 12/18/24 18:40 Temperature 97 F L Temperature Source Temporal Pulse Rate 85 81 Respiratory Rate 18 20 H Respiratory Effort Normal Respiratory Pattern Normal Blood Pressure 210/104 H 189/109 H Blood Pressure Mean 139 135 Pulse Ox 95 99 Oxygen Delivery Method Room Air 12/18/24 18:41 12/18/24 19:00 12/18/24 19:13 Temperature Temperature Source Pulse Rate 67 82 Respiratory Rate 19 H Respiratory Effort Respiratory Pattern Blood Pressure 200/93 H 200/93 H Blood Pressure Mean 128 Pulse Ox 97 Oxygen Delivery Method Room Air Room Air 12/18/24 20:00 12/18/24 20:23 12/18/24 20:29 Temperature Temperature Source Pulse Rate 72 82 81 Respiratory Rate 18 26 H 17 Respiratory Effort Respiratory Pattern Blood Pressure 184/99 H 203/91 H 158/91 H Blood Pressure Mean 127 128 113 Pulse Ox 98 98 95 Oxygen Delivery Method Room Air Room Air Room Air Weight Weight: 245 lb 4.8 oz Body Mass Index (BMI) 44.9 Physical Exam Const alert, oriented x3 and no apparent distress Constitutional Narrative: Morbidly obese. General Appearance: cooperative HEENT normocephalic, head/scalp atraumatic, hearing grossly normal bilaterally and moist oral mucous membranes Eyes PERRL and EOMs intact bilaterally Neck no lymphadenopathy and supple Resp Resp Narrative: Diminished breath sounds with bibasilar rales. Cardio regular rate and regular rhythm GI normal to inspection, nondistended, normoactive bowel sounds, soft to palpation, non-tender and non-distended GI Narrative: Morbidly obese. Extremity Extremity Narrative: Chronic bilateral, ~2+ Left>Right, LE edema. Skin Skin Narrative: Patient has no evidence of rash, abscess, wounds or jaundice. Neuro oriented x3, CN's II-XII intact bilaterally, moves all extremities and no focal motor deficits Sensorium / Orientation: awake, alert, oriented to person, oriented to place and oriented to time Speech: speech normal Psych affect normal Results Medical Records Data Attestation: I reviewed the patient's medical records Lab / Micro Data Attestation: I reviewed the patient's lab results. 12/19/24 05:42 12/19/24 05:42 Labs: Laboratory Results - last 24 hr 12/18/24 18:00: WBC 8.2, RBC 4.22, Hgb 13.9, Hct 41.7, MCV 98.8, MCH 32.9 H, MCHC 33.3, RDW Std Deviation 48.5 H, RDW Coeff of Brandie 13.4, Plt Count 180, MPV 10.0, Immature Gran % (Auto) 0.500, Neut % (Auto) 64.1, Lymph % (Auto) 23.9, [place] % (Auto) 8.3, Eos % (Auto) 2.6, Baso % (Auto) 0.6, Absolute Neuts (auto) 5.3, Absolute Lymphs (auto) 1.97, Nucleated RBC % 0, Sodium 138, Potassium 4.5, Chloride 101, Carbon Dioxide 25.6, Anion Gap 11, BUN 35 H, Creatinine 1.44 H, E stim Creat Clear Calc 34.85 L, Est GFR (MDRD) Non-Af 36 L, BUN/Creatinine Ratio 24.0 H, Glucose 111 H, Calcium 10.5, Troponin T High Sens 22 H, NT pro BNP II 2634 H Rhythm Strip Rhythm Strip: A-fib Rate: 72 Ectopy: None Imaging Radiology Impression Chest X-Ray 12/18/24 18:35 IMPRESSION: Findings could reflect pulmonary edema versus developing pneumonia, new since prior examination. Follow-up until clearing is recommended. Reading Location: [id number] Assessment & Plan Assessment/Plan (1) Paroxysmal atrial flutter: (2) Essential hypertension: (3) care home (current) use of anticoagulants: (4) Hypertensive emergency: (5) Chest pain: QUALIFIERS: Chest pain type: unspecified Qualified Code(s): R07.9 - Chest pain, unspecified (6) CHF exacerbation: QUALIFIERS: Heart failure type: unspecified Qualified Code(s): I 50.9 - Heart failure, unspecified (7) Respiratory insufficiency: (8) Morbid obesity with BMI of 40.0-44.9, adult: PLAN: Plan 1. Hypertensive Emergency; evidenced by highly elevated blood pressure of 210/104 mmHg present on admission with corresponding Chest Pain - Admit to PCU. Continue oral metoprolol and give hydralazine IV prn for systolic blood pressure > 160 mmHg. Recent echocardiogram noted. 2. AE CHF; with preserved LVEF; evidenced by elevated NT pro-BNP II of 2,634 pg/mL with a corresponding chest x-ray that revealed pulmonary edema versus developing pneumonia, new since prior examination with follow-up until clearing recommended complicating #1 - Continue IV furosemide begun in the ER and check daily CXR and NT pro-BNP II to follow trend. Finally, we will consult [facility] to see this patient on-rounds in the AM for further recommendations with help appreciated in advance. 3. Acute Respiratory Insufficiency due to #1 & #2 - Wean supplemental oxygen as tolerated. 4. Morbid Obesity; with BMI of 44.9 this admission adding tot he burden of disease outlined from #1 - #3 - Weight loss will be recommended. Check TSH. This complicates her case and may hamper recovery. 5. Chronic paroxysmal atrial flutter (2019); on rivaroxaban adding to the medical complexity of #1 - #4 - Continue rivaroxaban as previous. 6. Essential Hypertension; on metoprolol and hydrochlorothiazide - Maintain metoprolol but hold hydrochlorothiazide as this agent is likely no longer effective. 7. History of hyperlipidemia; currently not on treatment - Resume statin and check Lipid Profile. 8. History of heart murmur - Noted. 9. History of LAFB - Noted. 10. History of Right nephrectomy (2021) - Noted. 11. Remote history of cholecystectomy (1982) - Noted. 12. History of COVID-19 - Noted. 13. History of appendectomy (2020) - Noted. 14. History of diverticulitis - Noted. 15. History of uterine fibroid - Noted for the sake of completeness. 16. History of bilateral cataracts; s/p extraction - Noted. 17. History of gout; on allopurinol - Stable and chronic with no evidence of flare. Resume allopurinol as before. 18. GERD; currently not on treatment - Start PPI if symptoms develop. 19. OA; s/p Right THR and bilateral TKR (Left 2009 & Right 2011) - Give acetaminophen prn as per pain scale outlined in #1. 20. DVT prophylaxis - Patient on rivaroxaban for #5 which will be continued. Total time: Approximately (but not less than) 75 minutes. Charges/Coding Visit Charges Inpatient E&M: 10620 Init Hosp L3
[2024-12-18 20:51] LABS: Troponin T High Sens 2 HR 19 ng/L (<=14)
[2024-12-18 21:55] LABS: Magnesium 2.1 mg/dL (1.5-2.2)
[2024-12-18] MEDS: Metoprolol Tartrate 25 MG Tablet PO (22:23)
[2024-12-18] MEDS: 0.9% Saline Lock 10 ML Syringe IV (22:24)
[2024-12-18 23:10] LABS: Troponin T High Sens 4 HR 20 ng/L (<=14)
[2024-12-19] VITALS (8 sets, daily range): BP systolic 117–153; BP diastolic 65–84; PULSE 73–86; RESP 16–17; TEMP 36.4–37.2; O2SAT 98–99; BMI 45.4
[2024-12-19] MEDS: Acetaminophen 325 MG Tablet 650 MG PO ×2 (00:20→11:07)
--- NOTE | 2024-12-19 00:52 | EKG12_ITS ---
Test Reason : CP ADMISSION Blood Pressure : */* mmHG Vent. Rate : 74 BPM Atrial Rate : * BPM P-R Int : * ms QRS Dur : 150 ms QT Int : 440 ms P-R-T Axes : * -70 24 degrees QTcB Int : 488 ms Atrial fibrillation Right bundle branch block Left anterior fascicular block Bifascicular block Minimal voltage criteria for LVH, may be normal variant ( R in aVL ) Abnormal ECG When compared with ECG of 18-Dec-2024 18:33, MANUAL COMPARISON REQUIRED DATA IS UNCONFIRMED Confirmed by ANNA MAXWELL, JOSE ([id number]), rewrite editor RAY FARRIS ([id number]) on 12/19/2024 9:08:22 AM Referred By: ALMEIDA Confirmed By: JOSE CASTILLO MD
--- NOTE | 2024-12-19 05:10 | RAD_ITS ---
PROCEDURE: CHEST 1 VIEW (PORTABLE) 12/19/2024 REASON FOR EXAM: AE CHF TECHNIQUE: Frontal view of the chest. COMPARISON: Chest x-ray dated 12/18/2024. FINDINGS: The cardiac silhouette is prominent but stable in size. No focal infiltrate or consolidation is seen within the lungs. No pneumothorax. Degenerative changes seen within the bilateral shoulders, [id number]. RAD/Chest 1 View (Portable) IMPRESSION: No overt evidence of pulmonary edema. Reading Location: [id number]
[2024-12-19 06:05] LABS: Absolute Lymphocyte Count 2.26 X10^3/uL (0.83-4.51); Absolute Neutrophil Count 3.9 X10^3/uL (2.0-7.7); Basophil# 0.04 X10^3/uL; Basophil% 0.6 % (0-1); Eosinophils% 2.8 % (0-5); Hematocrit 38.7 % (37-47); Lymphocyte # 2.26 X10^3/ul (0.83-4.51); Lymphocyte % 32.1 % (19-41); Mean Corp Hgb Conc 33.6 g/dL (32-36); Mean Corpuscular Hgb 32.6 pg (27.0-32.0); Mean Platelet Vol. 9.6 fl (6.2-12.0); Monocyte# 0.65 X10^3/uL; Monocyte% 9.2 % (0-10); NRBC Flagged by Analyzer 0 % (0-5); Neutrophil # 3.87 X10^3/uL (2.7-7.7); Neutrophil % 54.9 % (47-70); Platelet Count 162 K/mm3 (150-450); RBC Distribution Width CV 13.3 % (11.6-14.6); RBC Distribution Width SD 47.8 fl (35.1-43.9); Red Blood Count 3.99 M/mm3 (4.2-5.4); White Blood Count 7.1 K/mm3 (4.4-11.0)
[2024-12-19 06:26] LABS: ALB/GLOB Ratio 1.5 RATIO (0.9-2.4); AST(SGOT) 27 U/L (<=31); Alanine Aminotransfer ALT/SGPT 28 U/L (<=34); Albumin, Serum 3.8 g/dL (3.4-4.8); Alkaline Phosphatase 94 U/L (35-104); Anion Gap 12 (5-15); BUN 32 mg/dL (4-19); BUN/Creat Ratio 23.3 RATIO (10-20); Calcium,Total 10.1 mg/dL (7.6-11.0); Carbon Dioxide 24.8 mmol/L (21.0-32.0); Chloride 102 mmol/L (98-108); Cholesterol 139 mg/dL (<=200); Creatinine, Serum 1.35 mg/dL (0.70-1.20); EST Glomerular Filtration Rate 39 (>60); Estimated Creatinine Clearance 37.45 ml/min (50-250); Globulin 2.6 g/dL (2.2-4.2); Glucose 115 mg/dL (70-99); High Density Lipoprotein 56 mg/dL; Low Density Lipoprotein Calc. 62 mg/dL; Phosphorus 3.7 mg/dL (2.7-4.5); Potassium 3.9 mmol/L (3.3-5.1); Pro- Brain NATRIURETIC PEPTIDE 2648 pg/mL (<=1800); Protein, Total 6.4 g/dL (5.9-8.4); Sodium Level 139 mmol/L (133-145); Total Bilirubin 0.78 mg/dL (0.00-1.30); Triglycerides 107 mg/dL; Very Low Density Lipoprotein 21 mg/dL (5-40)
--- NOTE | 2024-12-19 07:08 | CON.PCM.CA_ITS ---
<Statement entered by Thomas Malone MD - 12/19/24 12:37> Pt seen & evaluated w/AKIRA. I personally interviewed & exam the pt. I was involved in all aspects of pt's orders, interpretation of results & treatment I discussed cardiac care plan in detail with the patient, nursing staff Will continue on medical therapy with the OAC/Eliquis in addition to rate control for the persistent atrial fibrillation If she remained stable clinically over the weekend we will plan for outpatient follow-up with event monitor and to follow-up with her primary hyster machine operator Dr. Engle. Assessment & Plan Assessment/Plan (1) Hypertensive emergency: (2) CHF exacerbation: QUALIFIERS: Heart failure type: unspecified Qualified Code(s): I 50.9 - Heart failure, unspecified (3) Persistent atrial fibrillation: PLAN: Plan * Hypertension: Blood pressure is better controlled today. Feel that the Lasix did make a difference. Would continue with her metoprolol. Would continue with her home dose of lisinopril at 10 mg. Would consider stopping her hydrochlorothiazide and potassium supplement and starting her on spironolactone. Feel that she does have a diastolic component to her heart failure. Would need to monitor her renal function closely with these changes in medications. * Congestive heart failure: Patient's BNP was elevated. This did resolve with IV Lasix. When able this can be stopped. Would recommend stopping her hydrochlorothiazide and starting her on spironolactone. Feel that she does have a diastolic component to her heart failure with her atrial fibrillation and her hypertension. Hopefully this will help. Would need to monitor BMP closely. * Persistent atrial fibrillation: Patient does appear to be in persistent atrial fibrillation today. Question if this is contributing to her diastolic heart failure and her elevated blood pressure readings. Since her HR is controlled. Recommend that she have a 24 HM at d/c to help assess her Afib burden. Then will consider antiarrhythmic vs ablation on OP basis. She is anticoagulated with a factor Xa inhibitor. And her rate is controlled on her metoprolol. With her recent stress test from 09/2024 feel that the stress test does not need to be done today. Patient will follow-up in the office as she has previously scheduled from this hospital stay. HPI Consult Data Date of Consult: 12/19/24 HPI Narrative HPI Narrative: DESTINI SAM, is a 84 F who presented to [facility] emergency room on 12/18/2024 with chest pain. She does have a history of hypertension, hyperlipidemia, paroxysmal atrial fibrillation/flutter. Patient had noted that her blood pressures have been running higher the past few weeks but more significantly higher on the day that she presented to the emergency room. She states home blood pressures were 160/124. She had intermittent chest pressure in the center of her chest. She also felt palpitations. Her BNP in the emergency room was elevated at 2634, chest x-ray was concerning for pulmonary edema versus pneumonia. She was also noted to be hypertensive blood pressure. She was noted to be in atrial fibrillation. She was admitted to PCU. She had an echocardiogram done in September 2024 which demonstrated an ejection fraction of 55%. Mild mitral valve insufficiency, mild tricuspid valve insufficiency, mild aortic insufficiency. Pharmacologic nuclear stress test at that time was negative for ischemia. Patient states that over the last several weeks she has noted that she has had elevated blood pressure readings at [facility]. She was in to see her primary care doctor and they did start her on lisinopril at 10 mg daily. She states that this was just started this past Sunday. She did notice a slight improvement until yesterday when she had such high diastolic readings. What brought her in was the chest pressure that she had. She was not short of breath. She is also noticed that she has had palpitations or atrial fibrillation that were noted on her blood pressure monitor approximately once a week. She is unsure if this is more frequent or not. She does not have any increased lower extremity edema. She did not have any lightheadedness and or dizziness. [facility] Medical History (Updated 12/19/24 @ 08:[address] Arsenio Morejon, DO) Persistent atrial fibrillation Essential hypertension HLD (hyperlipidemia) COVID-19 Paroxysmal atrial flutter Left anterior fascicular block Uterine fibroid GERD (gastroesophageal reflux disease) Diverticulitis Obesity, morbid (more than 100 lbs over ideal weight or BMI > 40) Gout Home Medications ?Medication ?Instructions ?Recorded ?Last Taken ?Type hydrochlorothiazide 25 mg tablet 25 mg PO DAILY bp 01/01/19 History multivitamin with folic acid 400 1 tab PO DAILY supple ment 05/05/14 01/01/19 History mcg tablet potassium chloride 10 mEq 10 meq PO DAILY supplement 0 05/05/14 01/01/19 History tablet,extended release(part/cryst) cholecalciferol (vitamin D3) 25 1,000 unit PO DAILY ramirez pplement 01/06/19 Unknown History mcg (1,000 unit) capsule metoprolol tartrate 25 mg tablet 25 mg PO BID bp 01/0707/30/19 History acetaminophen 500 mg tablet 500 mg PO BID PRN fever or pain 01/23/22 Unknown History allopurinol 100 mg tablet 100 mg PO DAILY 08/16/22 Unk nown History rivaroxaban 20 mg tablet 20 mg PO DAILY blood thinner #30 12/31/23 Unknown Rx tabs biotin 1,000 mcg chewable tablet 2,500 mcg PO DAILY Unknown History magnesium oxide 500 mg PO DAILY supplement 1 10/23/23 Unknown History Allergy/AdvReac Type Severity Reaction Status Date / Time Penicillins Allergy Severe Hives Verified 12/18/24 17:39 chlordiazepoxide (From Allergy Other Verified 12/18/24 17:39 Librax (with clidinium)) clidinium bromide (From Allergy Other Verified 12/18/24 17:39 Librax (with clidinium)) amlodipine besylate (From AdvReac Other Verified 12/18/24 17:39 Norvasc) Family History Mother Aortic aneurysm Congestive heart failure Renal failure Father Emphysema/COPD Brother CAD (coronary artery disease) COPD (chronic obstructive pulmonary disease) Diabetes Surgical History History of right nephrectomy (~03/06/22) Hx of appendectomy History of total right hip replacement History of tonsillectomy History of left heart catheterization (10/11/04) History of total right knee replacement (2011) History of cholecystectomy (1982) History of left knee replacement (10/2009) History of tubal ligation History of D&C History of colonoscopy History of section History of bilateral cataract extraction Social History Smoking Status: Never smoker alcohol intake: never substance use type: does not use caffeine: No ROS Constitutional Constitutional: Denies change in weight, chills, fatigue, frequent falls, headache(s) or lethargy Eyes Eyes: Denies acute decrease in peripheral vision, blurry vision or change in vision ENT HEENT: Denies dizziness, epistaxis, headache(s) or vertigo Cardiovascular Cardiovascular: Reports chest pain at rest; Denies chest pain with activity, claudication, dyspnea at rest, dyspnea on exertion, edema, lightheadedness, orthopnea, orthostatic symptoms or pedal edema Respiratory/Chest Respiratory/Chest: Denies cough, dyspnea, dyspnea on exertion, tachypnea or wheezing Gastrointestinal Gastrointestinal: Denies abdominal pain, bloating, coffee ground emesis, diarrhea, heartburn, melena or nausea Genitourinary Genitourinary: Denies hematuria Musculoskeletal Musculoskeletal: Denies myalgias, numbness or tingling Neurologic Neurologic: Denies abnormal gait, abnormal speech, memory loss, paresthesias or weakness Physical Exam Const alert, oriented x3, no apparent distress and healthy appearing HEENT normocephalic, head/scalp atraumatic, hearing grossly normal bilaterally, external ears normal, external nose normal and moist oral mucous membranes Eyes PERRL, EOMs intact bilaterally, conjunctivae normal and no scleral icterus Neck no lymphadenopathy, supple and no JVD Cardio regular rate, S1 normal heart sound, S2 normal heart sound, no murmurs, no rub, no gallops, no clicks, no JVD and peripheral pulses 2+ throughout Rhythm: abnormal rhythm irregularly irregular GI normal to inspection, nondistended, normoactive bowel sounds, soft to palpation, non-tender and non-distended Extremity normal to inspection, normal capillary refill, no clubbing, cyanosis or edema and no pedal edema Neuro oriented x3, CN's II-XII intact bilaterally, moves all extremities and no focal motor deficits Psych cooperative and affect normal Risk Stratification Risk Stratification Applicable: No Objective Data Vital Signs: Vital Signs Temp Pulse Resp BP Pulse Ox O2 Del Method 98.2 F 77 16 129/75 H 99 Room Air 12/19/24 04:12/19/24 04:00 12/19/24 04:00 12/19/24 04:00 12/19/24 04:12/19/24 04:00 Oxygen Delivery Method Room Air Weight: 248 lb 7.375 oz Body Mass Index (BMI) 45.4 Intake & Output: Intake and Output for Last 24 Hours 12/17/24 12/18/24 12/19/24 23:59 23:59 23:59 Intake Total 100 / 100 Balance 100 / 100 Lab / Micro Data 12/19/24 05:42 12/19/24 05:42 Labs: Laboratory Results - last 24 hr 12/18/24 18:00: WBC 8.2, RBC 4.22, Hgb 13.9, Hct 41.7, MCV 98.8, MCH 32.9 H, MCHC 33.3, RDW Std Deviation 48.5 H, RDW Coeff of Brandie 13.4, Plt Count 180, MPV 10.0, Immature Gran % (Auto) 0.500, Neut % (Auto) 64.1, Lymph % (Auto) 23.9, Placer % (Auto) 8.3, Eos % (Auto) 2.6, Baso % (Auto) 0.6, Absolute Neuts (auto) 5.3, Absolute Lymphs (auto) 1.97, Nucleated RBC % 0, Sodium 138, Potassium 4.5, Chloride 101, Carbon Dioxide 25.6, Anion Gap 11, BUN 35 H, Creatinine 1.44 H, E stim Creat Clear Calc 34.85 L, Est GFR (MDRD) Non-Af 36 L, BUN/Creatinine Ratio 24.0 H, Glucose 111 H, Calcium 10.5, Magnesium 2.1, Troponin T High Sens 22 H, N T pro [place]NP II 2634 H 12/18/24 20:03: Troponin T Hi Sens 2 Hr 19 H 12/18/24 20:04: TSH 1.960 12/18/24 22:45: Troponin T Hi Sens 4Hr 20 H 12/19/24 05:42: WBC 7.1, RBC 3.99 L, Hgb 13.0, Hct 38.7, MCV 97.0, MCH 32.6 H, MCHC 33.6, RDW Std Deviation 47.8 H, RDW Coeff of Brandie 13.3, Plt Count 162, MPV 9.6, Immature Gran % (Auto) 0.400, Neut % (Auto) 54.9, Lymph % (Auto) 32.1, Placer % (Auto) 9.2, Eos % (Auto) 2.8, Baso % (Auto) 0.6, Absolute Neuts (auto) 3.9, Absolute Lymphs (auto) 2.26, Nucleated RBC % 0, Sodium 139, Potassium 3.9, Chloride 102, Carbon Dioxide 24.8, Anion Gap 12, BUN 32 H, Creatinine 1.35 H, E stim Creat Clear Calc 37.45 L, Est GFR (MDRD) Non-Af 39 L, BUN/Creatinine Ratio 23.3 H, Glucose 115 H, Calcium 10.1, Phosphorus 3.7, Total Bilirubin 0.78, AST 27, ALT 28, Alkaline Phosphatase 94, NT pro BNP II 2648 H, Total Protein 6.4, Albumin 3.8, Globulin 2.6, Albumin/Globulin Ratio 1.5, Triglycerides 107, Cholesterol 139, LDL Cholesterol, Calc 62, VLDL Cholesterol 21, HDL Cholesterol 56, Cholesterol/HDL Ratio 2.50, TSH 2.090 Rhythm Strip Rhythm Strip: A-fib Rate: 72 Ectopy: None Cardiology Labs/Tests 12/18/24 18:00: WBC 8.2, RBC 4.22, Hgb 13.9, Hct 41.7, MCV 98.8, MCH 32.9 H, MCHC 33.3, Plt Count 180, MPV 10.0, Immature Gran % (Auto) 0.500, Neut % (Auto) 64.1, Lymph % (Auto) 23.9, Placer % (Auto) 8.3, Eos % (Auto) 2.6, Baso % (Auto) 0.6, Absolute Neuts (auto) 5.3, Nucleated RBC % 0, Sodium 138, Potassium 4.5, Chloride 101, Carbon Dioxide 25.6, Anion Gap 11, BUN 35 H, Creatinine 1.44 H, E st GFR (MDRD) Non-Af 36 L, BUN/Creatinine Ratio 24.0 H, Glucose 111 H, Calcium 10.5, Magnesium 2.1 12/19/24 05:42: WBC 7.1, RBC 3.99 L, Hgb 13.0, Hct 38.7, MCV 97.0, MCH 32.6 H, MCHC 33.6, Plt Count 162, MPV 9.6, Immature Gran % (Auto) 0.400, Neut % (Auto) 54.9, Lymph % (Auto) 32.1, Placer % (Auto) 9.2, Eos % (Auto) 2.8, Baso % (Auto) 0.6, Absolute Neuts (auto) 3.9, Nucleated RBC % 0, Sodium 139, Potassium 3.9, Chloride 102, Carbon Dioxide 24.8, Anion Gap 12, BUN 32 H, Creatinine 1.35 H, E st GFR (MDRD) Non-Af 39 L, BUN/Creatinine Ratio 23.3 H, Glucose 115 H, Calcium 10.1, Phosphorus 3.7, Total Bilirubin 0.78, Triglycerides 107, Cholesterol 139, VLDL Cholesterol 21, HDL Cholesterol 56, Cholesterol/HDL Ratio 2.50 Rhythm: Atrial fibrillation Radiography Diagnostic Testing: Radiology Impression Chest X-Ray 12/18/24 18:35 IMPRESSION: Findings could reflect pulmonary edema versus developing pneumonia, new since prior examination. Follow-up until clearing is recommended. Reading Location: [id number] Chest X-Ray 12/19/24 05:10 IMPRESSION: No overt evidence of pulmonary edema. Reading Location: [id number]
--- NOTE | 2024-12-19 08:08 | PCM.PN.HOSP ---
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 Has been having labile blood pressure at home. Objective Data Objective Data Vital Signs: Vital Signs Temp Pulse Resp BP Pulse Ox O2 Del Method 36.6 C 73 16 153/84 H 98 Room Air 12/19/24 07:45 12/19/24 07:45 12/19/24 07:45 12/19/24 07:45 12/19/24 07:45 12/19/24 07:45 Oxygen Delivery Method Room Air Weight: 112.7 kg Body Mass Index (BMI) 45.4 Intake & Output: Intake and Output for Last 24 Hours 12/17/24 12/18/24 12/19/24 23:59 23:59 23:59 Intake Total 100 / 100 Balance 100 / 100 Lab / Micro Data 12/19/24 05:42 12/19/24 05:42 Labs: Laboratory Results - last 24 hr 12/18/24 18:00: WBC 8.2, RBC 4.22, Hgb 13.9, Hct 41.7, MCV 98.8, MCH 32.9 H, MCHC 33.3, RDW Std Deviation 48.5 H, RDW Coeff of Brandie 13.4, Plt Count 180, MPV 10.0, Immature Gran % (Auto) 0.500, Neut % (Auto) 64.1, Lymph % (Auto) 23.9, [place] % (Auto) 8.3, Eos % (Auto) 2.6, Baso % (Auto) 0.6, Absolute Neuts (auto) 5.3, Absolute Lymphs (auto) 1.97, Nucleated RBC % 0, Sodium 138, Potassium 4.5, Chloride 101, Carbon Dioxide 25.6, Anion Gap 11, BUN 35 H, Creatinine 1.44 H, Estim Creat Clear Calc 34.85 L, Est GFR (MDRD) Non-Af 36 L, BUN/Creatinine Ratio 24.0 H, Glucose 111 H, Calcium 10.5, Magnesium 2.1, Troponin T High Sens 22 H, NT pro BNP II 2634 H 12/18/24 20:03: Troponin T Hi Sens 2 Hr 19 H 12/18/24 20:04: TSH 1.960 12/18/24 22:45: Troponin T Hi Sens 4Hr 20 H 12/19/24 05:42: WBC 7.1, RBC 3.99 L, Hgb 13.0, Hct 38.7, MCV 97.0, MCH 32.6 H, MCHC 33.6, RDW Std Deviation 47.8 H, RDW Coeff of Brandie 13.3, Plt Count 162, MPV 9.6, Immature Gran % (Auto) 0.400, Neut % (Auto) 54.9, Lymph % (Auto) 32.1, [place] % (Auto) 9.2, Eos % (Auto) 2.8, Baso % (Auto) 0.6, Absolute Neuts (auto) 3.9, Absolute Lymphs (auto) 2.26, Nucleated RBC % 0, Sodium 139, Potassium 3.9, Chloride 102, Carbon Dioxide 24.8, Anion Gap 12, BUN 32 H, Creatinine 1.35 H, Estim Creat Clear Calc 37.45 L, Est GFR (MDRD) Non-Af 39 L, BUN/Creatinine Ratio 23.3 H, Glucose 115 H, Calcium 10.1, Phosphorus 3.7, Total Bilirubin 0.78, AST 27, ALT 28, Alkaline Phosphatase 94, NT pro BNP II 2648 H, Total Protein 6.4, Albumin 3.8, Globulin 2.6, Albumin/Globulin Ratio 1.5, Triglycerides 107, Cholesterol 139, LDL Cholesterol, Calc 62, VLDL Cholesterol 21, HDL Cholesterol 56, Cholesterol/HDL Ratio 2.50, TSH 2.090 Radiography Diagnostic Testing: Radiology Impression Chest X-Ray 12/18/24 18:35 IMPRESSION: Findings could reflect pulmonary edema versus developing pneumonia, new since prior examination. Follow-up until clearing is recommended. Reading Location: [id number] Chest X-Ray 12/19/24 05:10 IMPRESSION: No overt evidence of pulmonary edema. Reading Location: [id number] Rhythm Strip Rhythm Strip: A-fib Rate: 72 Ectopy: None Physical Exam Const alert HEENT head/scalp atraumatic and moist oral mucous membranes Resp normal respiratory effort and no retractions Cardio regular rate, regular rhythm, S1 normal heart sound and S2 normal heart sound GI normal to inspection, nondistended, normoactive bowel sounds, soft to palpation, non-tender and non-distended Neuro Sensorium / Orientation: awake and alert Assessment & Plan Assessment/Plan (1) (HFpEF) heart failure with preserved ejection fraction: PLAN: IV furosemide, change to PO continue lisinopril and furosemide. started on spironolactone (2) Hypertensive emergency: PLAN: POA improved BP has been labile. Add lisinopril 10 mg/d PLAN: Plan Afib, persistent: on rivaroxaban and metoprolol gout: allopurinol VTE prophylaxis: not indicated as already anticoagulated. Charges/Coding Visit Charges Inpatient E&M: 99610 Subs Hosp L2
--- NOTE | 2024-12-19 09:35 | CASEMGMT ---
TADEO CARCAMO Assessment: Face to Face with pt for initial transition planning/care coordination assessment. TADEO CARCAMO introduced self and role at [facility], pt voices understanding and consents to assessment. Pt is A&O x4 and answers all questions appropriately at this time. Pt sitting up in bed in no distress on RA. Care providers, pharmacy, and demographics verified/updated. Admitting Dx: hypertensive emergency; CP; AE CHF Strata Score: 2 PCP:[facility] Specialists:Oniel, cardio; Rogelio, surgeon Preferred Pharmacy: [facility] Insurance: [facility], [place] Sr Supp Prescription Benefit: yes LNOK: Angel Victoria, ; Sarah Hanlip, dtr Living Arrangements: Pt lives with in a single story home with 2 steps to enter with a rail. Pt reports that she is I in ADL and IADLs. Pt denies concerns at home. Transportation: Pt drives self and denies concerns with transportation. DME:BP cuff, shower chair, rollator, walker and cane. Pt only uses can when out and about. HHC/SNF: Pt has had [facility] in the past and denies SNF stays. Pt states no concerns with going home at time of dc. Pt reports the CHF dx is new to her. She will think about if she would like [facility] for education for this. Pt states that her mother had it in the past also. Pt would like to see how much education she receives in the hospital prior to deciding if she would like HHC. Pt to notify TADEO CARCAMO if she decides she would like HH. She is also aware that she may ask her PCP for this once home if she decides later she would like C. Pt states no further concerns/needs. CM to follow. Advised pt to ask CM if any further questions/concerns/needs arise, voices understanding. Pt Goal: Home Plan: Home vs Home with HHC. Monique PIEDRA CM
[2024-12-19] MEDS: Furosemide 40 MG/4 ML Vial IV (11:07)
[2024-12-19] MEDS: Cholecalciferol (VIT D3) 25 MCG TABLET (1,000 UNITS) PO (11:07)
[2024-12-19] MEDS: Potassium Chloride Oral Tablet 10 MEQ PO (11:08)
[2024-12-19] MEDS: Magnesium Chloride 64 MG Delay Rel.Tablet 128 MG PO (11:08)
[2024-12-19] MEDS: Allopurinol 100 MG Tablet PO (11:08)
[2024-12-19] MEDS: Metoprolol Tartrate 25 MG Tablet PO ×2 (11:08→21:29)
--- NOTE | 2024-12-19 15:16 | CHAPLAIN ---
Type of Pastoral Visit _x__ Initial Visit ___ Follow-up Visit ___ On-call Visit ___ General Patient Visit ___ Spiritual Assessment ___ Family Conference ___ Bereavement ___ Rapid Response ___ Code Blue ___ Other (describe below) Pastoral Care Referral From _x__ Patient ___ Family ___ Nurse ___ Physician ___ Equipment Cleaner And Tester ___ Pointer Machine Operator ___ Other (describe below) Sacrament/Intervention _x__ Active listening ___ Anointing ___ Mormon ___ Bereavement ___ Communion ___ Marium exploration ___ ___ Life review _x__ Prayer ___ Reconciliation ___ Sacrament of Sick __x_ Supportive presence ___ Wedding ___ Other (describe below) Pastoral Comments patient is resting in bed with spouse and daughter in the room; pt says that she is feeling better today and thinks that the medical team has addressed her situation so far; pt says that she is not worried but just accepts some changes as age and health changes; pt welcomes prayer for support today
[2024-12-19] MEDS: Furosemide 40 MG Tablet PO (17:03)
[2024-12-19] MEDS: Rivaroxaban 15 MG Tablet PO (17:03)
[2024-12-19] MEDS: 0.9% Saline Lock 10 ML Syringe IV (21:29)
[2024-12-20] MEDS: Acetaminophen 325 MG Tablet 650 MG PO (03:00)
[2024-12-20 03:03] VITALS: BP 138/69; PULSE 72; RESP 17; TEMP 36.3; O2SAT 94
[2024-12-20 03:27] VITALS: BMI 45.4
[2024-12-20 07:46] LABS: Phosphorus 3.8 mg/dL (2.7-4.5)
[2024-12-20 08:02] VITALS: O2SAT 97
[2024-12-20 08:04] LABS: Anion Gap 14 (5-15); BUN 38 mg/dL (4-19); BUN/Creat Ratio 22.8 RATIO (10-20); Calcium,Total 10.2 mg/dL (7.6-11.0); Carbon Dioxide 25.3 mmol/L (21.0-32.0); Chloride 98 mmol/L (98-108); Creatinine, Serum 1.67 mg/dL (0.70-1.20); EST Glomerular Filtration Rate 30 (>60); Estimated Creatinine Clearance 30.29 ml/min (50-250); Glucose 112 mg/dL (70-99); Sodium Level 138 mmol/L (133-145)
[2024-12-20 08:18] VITALS: PULSE 78
[2024-12-20] MEDS: Potassium Chloride Oral Tablet 10 MEQ PO (08:18)
[2024-12-20] MEDS: Furosemide 40 MG Tablet PO (08:18)
[2024-12-20] MEDS: Metoprolol Tartrate 25 MG Tablet PO (08:18)
[2024-12-20] MEDS: Allopurinol 100 MG Tablet PO (08:18)
[2024-12-20] MEDS: Magnesium Chloride 64 MG Delay Rel.Tablet 128 MG PO (08:19)
[2024-12-20] MEDS: Lisinopril 10 MG Tablet PO (08:19)
[2024-12-20] MEDS: Cholecalciferol (VIT D3) 25 MCG TABLET (1,000 UNITS) PO (08:20)
--- NOTE | 2024-12-20 08:47 | PCM.PN.HOSP ---
Reason for Visit Reason for Visit: Diagnoses Morbid (severe) obesity due to excess calories (12/18/24) Essential (primary) hypertension (12/18/24) Hypertensive emergency (12/18/24) Other persistent atrial fibrillation (12/18/24) Unspecified atrial flutter (12/18/24) Unspecified diastolic (congestive) heart failure (12/18/24) Heart failure, unspecified (12/18/24) Other abnormalities of breathing (12/18/24) Chest pain, unspecified (12/18/24) Body mass index [BMI] 40.0-44.9, adult (12/18/24) USP (current) use of anticoagulants (12/18/24) Subjective Subjective Feeling well. Objective Data Objective Data Vital Signs: Vital Signs Temp Pulse Resp BP Pulse Ox O2 Del Method 36.3 C L 78 17 138/69 H 97 Room Air 12/20/24 03:03 12/20/24 08:18 12/20/24 03:03 12/20/24 03:03 12/20/24 08:02 12/20/24 08:02 Oxygen Delivery Method Room Air Weight: 112.8 kg Body Mass Index (BMI) 45.4 Intake & Output: Intake and Output for Last 24 Hours 12/18/24 12/19/24 12/20/24 23:59 23:59 23:59 Intake Total 1060 / 1060 Output Total 2450 / 2450 Balance -1390 / -1390 Lab / Micro Data 12/19/24 05:42 12/20/24 05:13 Labs: Laboratory Results - last 24 hr 12/20/24 05:13: Sodium 138, Potassium 4.0, Chloride 98, Carbon Dioxide 25.3, Anion Gap 14, BUN 38 H, Creatinine 1.67 H, Estim Creat Clear Calc 30.29 L, Est GFR (MDRD) Non-Af 30 L, BUN/Creatinine Ratio 22.8 H, Glucose 112 H, Calcium 10.2, Phosphorus 3.8 Rhythm Strip Rhythm Strip: A-fib Rate: 72 Ectopy: None Physical Exam Const alert Resp normal respiratory effort, no retractions and no use of accessory muscles Resp Narrative: bibasilar crackles. Cardio regular rate, regular rhythm, S1 normal heart sound and S2 normal heart sound GI normal to inspection, nondistended, normoactive bowel sounds, soft to palpation, non-tender and non-distended Neuro Sensorium / Orientation: awake and alert Assessment & Plan Assessment/Plan (1) (HFpEF) heart failure with preserved ejection fraction: PLAN: IV furosemide, change to PO continue lisinopril and furosemide. started on spironolactone (2) Hypertensive emergency: PLAN: POA improved BP has been labile. Add lisinopril 10 mg/d PLAN: Plan Afib, persistent: on rivaroxaban and metoprolol gout: allopurinol VTE prophylaxis: not indicated as already anticoagulated. DC home.
[2024-12-20 09:00] VITALS: BP 119/87; PULSE 78; RESP 16; TEMP 36.4; O2SAT 98
[2024-12-20 10:50] VITALS: O2SAT 96; O2SAT 98
--- NOTE | 2024-12-20 11:43 | CASEMGMT ---
Pt does not qualify for home oxygen.
--- NOTE | 2024-12-20 12:17 | PCM.DC.SUM ---
Providers Date of Admission: 12/18/24 Primary Care Physician: Dr. Valerio Nickerson MD Consultations 12/19/24 04:29 Consult: Cardiology Routine Consulting Provider: Thomas Malone Reason for Consult: hypertensive emergency, chest pain, follows with Saniya Kirby, per pt request EMERGENT Consult: No MD Notified: Yes Date Notified: 12/19/24 Time Notified: 06:44 Method of Notification: Text Reason For Visit: HYPERTENSIVE EMERGENCY; CHEST PAIN, AE CHF Diagnosis Discharge Diagnosis (1) (HFpEF) heart failure with preserved ejection fraction: Status: Acute Code(s): I50.30 - Unspecified diastolic (congestive) heart failure Plan: IV furosemide, change to PO continue lisinopril and furosemide. started on spironolactone (2) Hypertensive emergency: Status: Acute Code(s): I16.1 - Hypertensive emergency Plan: POA improved BP has been labile. Add lisinopril 10 mg/d Plan Afib, persistent: on rivaroxaban and metoprolol gout: allopurinol VTE prophylaxis: not indicated as already anticoagulated. DC home. Medications at Discharge Home Medications multivitamin with folic acid 400 mcg tablet 1 tab PO DAILY supplement 05/05/14 potassium chloride 10 mEq tablet,extended release(part/cryst) 10 meq PO DAILY supplement 05/05/14 cholecalciferol (vitamin D3) 25 mcg (1,000 unit) capsule 1,000 unit PO DAILY supplement 01/06/19 metoprolol tartrate 25 mg tablet 25 mg PO BID bp 01/07/19 acetaminophen 500 mg tablet 500 mg PO BID PRN fever or pain 01/23/22 allopurinol 100 mg tablet 100 mg PO DAILY 08/16/22 rivaroxaban 20 mg tablet 20 mg PO DAILY blood thinner #30 tabs 12/31/23 biotin 1,000 mcg chewable tablet 2,500 mcg PO DAILY 08/22/24 magnesium oxide 500 mg PO DAILY supplement 08/22/24 furosemide 40 mg tablet 40 mg PO DAILY #30 tabs 12/20/24 lisinopril 10 mg tablet 10 mg PO DAILY #30 tabs 12/20/24 Hospital Course Operations None Summary of Care Provided Minutes Spent on Discharge: 32 Hospital Course: Patient presents with chest pain and elevated blood pressure. Patient admitted with blood pressures over 200. Chest x-ray showed pulmonary vascular congestion consistent with CHF. Patient was diuresed and blood pressure medications were further optimized and blood pressures remained stable. Suspect the patient had flash pulmonary edema due to hypertensive emergency. Patient will be discharged with 40 mg of Lasix, 10 mg of lisinopril. She will discontinue her hydrochlorothiazide. And she will continue her metoprolol to tartrate 25 mg twice daily. Patient advised to check her blood pressure twice daily and as needed. Weight / BMI Weight Weight: 112.8 kg Body Mass Index (BMI) 45.4 ABG / Lab / Microbiology Data 12/19/24 05:42 12/20/24 05:13 Laboratory: Laboratory Results - last 24 hr 12/20/24 05:13: Sodium 138, Potassium 4.0, Chloride 98, Carbon Dioxide 25.3, Anion Gap 14, BUN 38 H, Creatinine 1.67 H, Estim Creat Clear Calc 30.29 L, Est GFR (MDRD) Non-Af 30 L, BUN/Creatinine Ratio 22.8 H, Glucose 112 H, Calcium 10.2, Phosphorus 3.8 D/C Instructions Discharge Diet: Low fat / Low cholesterol and 2000 mg Sodium Diet DC O2, CPAP, BIPAP Needs Home O2 Discharge instructions: No Meaningful Use Info Meaningful Use Meaningful Use Diagnoses (Choose all that apply): CHF CHF TACOS/ARB ordered at discharge?: Yes Documented LVEF (%): 55 Ischemic Stroke Statin Dosing Therapy Reference: STATIN DOSE THERAPY REFERENCE: * Patients > 75 years receive moderate or high dose statin therapy. * Patients 75 years or YOUNGER should receive HIGH intensity statin dose unless contraindicated. You will be required to document reason for non-treatment if statin daily dose does not meet guidelines. HIGH DOSE STATIN THERAPY DAILY Atorvastatin > than or = to 40 mg Rosuvastatin > than or = to 20 mg Amlodipine + Atorvastatin > than or = to 2.5/40 mg Ezetimibe + Simvastatin 10/80 mg Simvastatin 80mg Discharge Plan Admission Admit Date/Time: 12/18/24 21:20 Primary Reason for Your Visit: Hypertensive emergency and heart failure Attending Provider: Arsenio Morejon Primary Care Provider: Valerio Nickerson Consulting Providers: Sebastian Feliciano; Thomas Malone Instructions Additional Instructions / Restrictions: Your pressure was very high upon presentation and your medications will be changed as follow: Discontinue hydrochlorothiazide. We have added of furosemide and lisinopril to your regimen. Please check your blood pressure twice daily make sure you are at rest for about 5 minutes before checking her blood pressure. Also check in as needed if you are having symptoms. Discharge Orders/Prescriptions Prescriptions: New furosemide 40 mg Tablet 40 mg PO DAILY Qty: 30 0RF lisinopril 10 mg Tablet 10 mg PO DAILY Qty: 30 0RF Continued cholecalciferol (vitamin D3) 1,000 unit capsule 1,000 unit PO DAILY acetaminophen 500 mg tablet 500 mg PO BID PRN (Reason: fever or pain) biotin 1,000 mcg tablet,chewable 2,500 mcg PO DAILY allopurinol 100 mg tablet 100 mg PO DAILY potassium chloride 10 MEQ tablet 10 meq PO DAILY Patient Comments: potassium supplement multivitamin with folic acid 1 TABLET tablet 1 tab PO DAILY Patient Comments: supplement metoprolol tartrate 25 mg tablet 25 mg PO BID Patient Comments: blood pressure magnesium oxide 250 mg magnesium tablet 500 mg PO DAILY rivaroxaban 20 mg tablet 20 mg PO DAILY Qty: 30 12RF Discontinued hydrochlorothiazide 25 MG tablet 25 mg PO DAILY Patient Comments: blood pressure Referrals / Follow Up: Valerio Nickerson MD [Primary Care Provider] - Within 2 Weeks Disposition Disposition (needs filled in before D/C Order can be placed): Home, Self Care Charges/Coding Visit Charges Inpatient E&M: 13383 Disch Hosp >30min
--- NOTE | 2024-12-20 13:23 | CASEMGMT ---
RN CM into pt room, pt states she does not feel she needs [facility] for education. Pt feels safe to dc home.
[2024-12-20 14:00] VITALS: BP 125/72; PULSE 78; RESP 16; TEMP 36.2; O2SAT 98
== END 2024-12-20 14:36 | disposition home or self-care (01) | DRG 291 ==
LOC: ED 21:12 → PCU 22:58
PROVIDERS: Admitting Provider Internal Medicine; Emergency Provider Emergency Medicine; PCP Family Medicine
DX: I11.0 Hypertensive heart disease with heart failure (principal); I50.31 Acute diastolic (congestive) heart failure; I48.92 Unspecified atrial flutter; Z68.41 Body mass index [BMI] 40.0-44.9, adult; I16.1 Hypertensive emergency; I48.19 Other persistent atrial fibrillation; Z79.01 Long term (current) use of anticoagulants; E66.01 Morbid (severe) obesity due to excess calories; Z86.16 Personal history of COVID-19; Z82.49 Family history of ischemic heart disease and other diseases of the circulatory system; Z79.899 Other long term (current) drug therapy
CPT/HCPCS: 36415; 71045; 80048; 80053; 80061; 83735; 83880; 84100; 84443; 84484; 85025; 93005; 94668; 99285; 99406; A4216; J1940

== ENCOUNTER → 2025-07-21 | Outpatient (CLI) | payer MEDICARE, OTHER, SELFPAY ==
[2025-07-21 12:04] LABS: Anion Gap 8 (5-15); BUN 35 mg/dL (4-19); BUN/Creat Ratio 23.8 RATIO (10-20); Calcium,Total 10.9 mg/dL (7.6-11.0); Carbon Dioxide 28.1 mmol/L (21.0-32.0); Chloride 95 mmol/L (98-108); Glucose 97 mg/dL (70-99); Potassium 5.2 mmol/L (3.3-5.1)
== END | disposition home or self-care (01) ==
PROVIDERS: PCP Family Medicine; Referring Provider Student in an Organized Health Care Education/Training Program; Visit Provider Student in an Organized Health Care Education/Training Program
DX: Z79.01 Long term (current) use of anticoagulants (principal)
CPT/HCPCS: 36415; 80048

== ENCOUNTER → 2025-07-28 | Outpatient (CLI) | payer MEDICARE, OTHER, SELFPAY ==
[2025-07-28 12:53] LABS: Anion Gap 9 (5-15); BUN 34 mg/dL (4-19); BUN/Creat Ratio 25.4 RATIO (10-20); Calcium,Total 10.4 mg/dL (7.6-11.0); Carbon Dioxide 26.3 mmol/L (21.0-32.0); Chloride 101 mmol/L (98-108); Glucose 94 mg/dL (70-99); Potassium 5.1 mmol/L (3.3-5.1)
== END | disposition home or self-care (01) ==
LOC: MTLAB 10:41
PROVIDERS: PCP Family Medicine; Referring Provider Student in an Organized Health Care Education/Training Program; Visit Provider Student in an Organized Health Care Education/Training Program
DX: I10 Essential (primary) hypertension (principal); E87.5 Hyperkalemia
CPT/HCPCS: 36415; 80048